=== PATIENT | female | born 1960 | race Caucasian/White ===

== ENCOUNTER 2018-10-06 00:41 | Inpatient (IN) | payer MEDICARE, OTHER ==
--- NOTE | 2018-10-06 00:45 | ED ---
General Adult HPI - General Stated complaint: Fall, weakness Time Seen by Provider: 10/06/18 00:45 - History of Present Illness Initial comments: Rosa Isela is a 57-year-old female who presents to the ED today via EMS as a transfer from an outside facility. Patient presented to outside facility earlier today feeling febrile, lightheaded, nauseated, feeling very unwell. Workup at the outside facility revealed the patient had hyponatremia with a sodium of 121, as well as a urinary tract infection and lactic acidosis. Patient was treated with 2 L of IV fluids, 1 g of Rocephin and was subsequently transferred to our facility for further management. Daughter bedside states that her mother recently had a GI bug, most people in the family have similar symptoms with nausea and diarrhea. Patient subsequently must of developed a urinary tract infection however this wasn't recognized until the patient became very ill today at which time she was transferred to the hospital for evaluation. Daughter expresses some concern that her mother is not compliant with her medications including not taking her diabetes medications. Patient has been diagnosed with obstructive sleep apnea but refuses to wear CPAP. Patient's noncompliant with the diabetic diet, she is a heavy smoker. The daughter bedside states that she been living out of state but now has moved to the area to help care for her mother. - Related Data Allergies Allergy/AdvReac Type Severity Reaction Status Date / Time fluoxetine [From Prozac] Allergy Unknown Verified 10/06/18 01:13 latex AdvReac Rash/Hives Verified 10/06/18 01:13 Review of Systems ROS Statement: Those systems with pertinent positive or pertinent negative responses have been documented in the HPI. ROS Other: All systems not noted in ROS Statement are negative. General Exam - General Exam Comments Initial Comments: Physical Exam GENERAL: Ill-appearing, obese female in moderate distress HENT: Normocephalic, Atraumatic. EYES: PERRL, EOMI PULMONARY: Unlabored respirations. No audible rales rhonchi or wheezing was noted. CARDIOVASCULAR: There is a regular rate and rhythm without any murmurs gallops or rubs. ABDOMEN: Obese Soft, nontender, normal active bowel sounds SKIN: Skin is clear with no lesions or rashes and otherwise unremarkable. Skin is moist and warm to the touch : Deferred NEUROLOGIC: Patient is alert and oriented x3. Moving all extremities spontaneously MUSCULOSKELETAL: Normal extremities with adequate strength and full range of motion. No lower extremity swelling or edema. No calf tenderness. PSYCHIATRIC: Normal psychiatric evaluation. Limitations: no limitations Course Vital Signs 10/06/18 10/06/18 00:52 02:00 Temperature 98.5 F Pulse Rate 74 72 Respiratory 18 20 Rate Blood Pressure 106/68 106/68 O2 Sat by Pulse 95 97 Oximetry EKG Findings - EKG Comments: EKG Findings:: EKG obtained at 12:54 AM, rate is 74, rhythm is sinus, there is normal axis, normal intervals, no acute ST elevations or depressions no evidence of acute ischemia or infarction Medical Decision Making - Medical Decision Making Patient care was discussed with the transferring physician, patient presented there lightheaded, febrile, feeling unwell X A full sepsis workup was obtained at the outside facility which revealed a urinary tract infection as well as lactic acidosis with a lactic acid of 4.1 and hyponatremia with a sodium of 121 Patient was treated with 1 g of Rocephin for urinary tract infection, 2 L of IV fluids, patient remained hemodynamically stable and transferred here for further management Repeat labs were obtained Sodium improved to 127, I will continue with maintenance fluids as I don't want overcorrect the sodium too quickly - Lab Data Result diagrams: 10/06/18 01:00 10/06/18 01:00 Lab Results 10/06/18 10/06/18 10/06/18 Range/Units 01:00 01:00 01:00 WBC 13.1 H (3.8-10.6) k/uL RBC 4.64 (3.80-5.40) m/uL Hgb 13.9 (11.4-16.0) gm/dL Hct 43.6 (34.0-46.0) % MCV 93.9 (80.0-100.0) fL MCH 30.0 (25.0-35.0) pg MCHC 32.0 (31.0-37.0) g/dL RDW 13.0 (11.5-15.5) % Plt Count 109 L (150-450) k/uL Neutrophils % 89 % Lymphocytes % 6 % Monocytes % 3 % Eosinophils % 0 % Basophils % 0 % Neutrophils # 11.7 H (1.3-7.7) k/uL Lymphocytes # 0.7 L (1.0-4.8) k/uL Monocytes # 0.4 (0-1.0) k/uL Eosinophils # 0.1 (0-0.7) k/uL Basophils # 0.0 (0-0.2) k/uL PT (9.0-12.0) sec INR (<1.2) APTT (22.0-30.0) sec Sodium 127 L (137-145) mmol/L Potassium 3.9 (3.5-5.1) mmol/L Chloride 96 L (98-107) mmol/L Carbon Dioxide 20 L (22-30) mmol/L Anion Gap 11 mmol/L BUN 22 H (7-17) mg/dL Creatinine 0.79 (0.52-1.04) mg/dL Est GFR (CKD-EPI)AfAm >90 (>60 ml/min/1.73 sqM) Est GFR (CKD-EPI)NonAf 85 (>60 ml/min/1.73 sqM) Glucose 343 H (74-99) mg/dL Plasma Lactic Acid Noe 1.3 (0.7-2.0) mmol/L Calcium 7.2 L (8.4-10.2) mg/dL Total Bilirubin 0.7 (0.2-1.3) mg/dL AST 21 (14-36) U/L ALT 30 (9-52) U/L Alkaline Phosphatase 66 (38-126) U/L Troponin I (0.000-0.034) ng/mL Total Protein 5.2 L (6.3-8.2) g/dL Albumin 2.8 L (3.5-5.0) g/dL 10/06/18 10/06/18 Range/Units 01:00 01:00 WBC (3.8-10.6) k/uL RBC (3.80-5.40) m/uL Hgb (11.4-16.0) gm/dL Hct (34.0-46.0) % MCV (80.0-100.0) fL MCH (25.0-35.0) pg MCHC (31.0-37.0) g/dL RDW (11.5-15.5) % Plt Count (150-450) k/uL Neutrophils % % Lymphocytes % % Monocytes % % Eosinophils % % Basophils % % Neutrophils # (1.3-7.7) k/uL Lymphocytes # (1.0-4.8) k/uL Monocytes # (0-1.0) k/uL Eosinophils # (0-0.7) k/uL Basophils # (0-0.2) k/uL PT 10.7 (9.0-12.0) sec INR 1.1 (<1.2) APTT 26.0 (22.0-30.0) sec Sodium (137-145) mmol/L Potassium (3.5-5.1) mmol/L Chloride (98-107) mmol/L Carbon Dioxide (22-30) mmol/L Anion Gap mmol/L BUN (7-17) mg/dL Creatinine (0.52-1.04) mg/dL Est GFR (CKD-EPI)AfAm (>60 ml/min/1.73 sqM) Est GFR (CKD-EPI)NonAf (>60 ml/min/1.73 sqM) Glucose (74-99) mg/dL Plasma Lactic Acid Noe (0.7-2.0) mmol/L Calcium (8.4-10.2) mg/dL Total Bilirubin (0.2-1.3) mg/dL AST (14-36) U/L ALT (9-52) U/L Alkaline Phosphatase (38-126) U/L Troponin I <0.012 (0.000-0.034) ng/mL Total Protein (6.3-8.2) g/dL Albumin (3.5-5.0) g/dL Disposition Clinical Impression: Urinary tract infection, Sepsis, Lactic acidosis, Hyponatremia, Poorly controlled diabetes mellitus, Non compliance w medication regimen Disposition: ADMITTED IP TO THIS HOSP Condition: Serious
[2018-10-06] MEDS ORDERED: NALOXONE 0.4 MG/ML 1 ML VIAL IV PRN (01:05)
[2018-10-06] MEDS ORDERED: ACETAMINOPHEN TAB 325 MG TAB PO PRN (01:05)
[2018-10-06 01:19] LABS: Glucose,Whole Blood 317 mg/dL (75-99)
[2018-10-06] MEDS: SODIUM CHLORIDE 0.9% 1,000 ML IV SCH ×3 (01:34→20:31)
[2018-10-06 01:36] LABS: Basophils % (A) 0 %; Eosinophils # (A) 0.1 k/uL (0-0.7); Eosinophils % (A) 0 %; HCT 43.6 % (34.0-46.0); HGB 13.9 gm/dL (11.4-16.0); Lymphocytes # (A) 0.7 k/uL (1.0-4.8); Lymphocytes % (A) 6 %; MCV 93.9 fL (80.0-100.0); Mean Platelet Volume 7.6; Monocytes # (A) 0.4 k/uL (0-1.0); Monocytes % (A) 3 %; Neutrophils # (A) 11.7 k/uL (1.3-7.7); Neutrophils % (A) 89 %; Platelet Count 109 k/uL (150-450); RBC 4.64 m/uL (3.80-5.40); WBC 13.1 k/uL (3.8-10.6)
[2018-10-06 01:43] LABS: INR 1.1 (<1.2); Prothrombin Time 10.7 sec (9.0-12.0)
[2018-10-06 01:44] LABS: ALT 30 U/L (9-52); AST 21 U/L (14-36); Albumin 2.8 g/dL (3.5-5.0); Alkaline Phosphatase 66 U/L (38-126); Anion Gap 11 mmol/L; Blood Urea Nitrogen 22 mg/dL (7-17); Calcium 7.2 mg/dL (8.4-10.2); Carbon Dioxide 20 mmol/L (22-30); Chloride 96 mmol/L (98-107); Glucose 343 mg/dL (74-99); Potassium 3.9 mmol/L (3.5-5.1); Sodium 127 mmol/L (137-145); Total Bilirubin 0.7 mg/dL (0.2-1.3); Total Protein 5.2 g/dL (6.3-8.2)
[2018-10-06] MEDS ORDERED: INSULIN REGULAR 100 UNIT/ML VIAL SQ ONE (03:11)
[2018-10-06 04:32] VITALS: BMI 45.7
[2018-10-06 05:39] LABS: Appearance,Urine Clear (Clear); Bacteria,Urine Rare /hpf; Bilirubin,Urine Negative (Negative); Blood,Urine Small (Negative); Color,Urine Light Yellow; Glucose,Urine (UA) 4+ (Negative); Ketones,Urine 1+ (Negative); Leukocyte Esterase,Urine Moderate (Negative); Mucus,Urine Rare /hpf; Nitrite,Urine Negative (Negative); Protein,Urine Negative (Negative); RBC,Urine 1 /hpf (0-5); Specific Gravity,Urine 1.004 (1.001-1.035); Urobilinogen,Urine <2.0 mg/dL (<2.0); WBC,Urine 19 /hpf (0-5)
[2018-10-06 07:37] LABS: Glucose,Whole Blood 373 mg/dL (75-99)
[2018-10-06] MEDS: INSULIN ASPART 100 UNIT/ML 1 ML 10 ML VIAL SQ SCH ×4 (08:01→21:28)
[2018-10-06 10:09] LABS: Sodium 130 mmol/L (137-145)
[2018-10-06] MEDS: INSULIN DETEMIR 100 UNIT/ML 10 ML VIAL SQ SCH ×2 (12:01→22:29)
--- NOTE | 2018-10-06 12:06 | XR ---
EXAMINATION TYPE: XR chest 1V portable DATE OF EXAM: 10/06/2018 HISTORY: Shortness of breath. COMPARISON: None. TECHNIQUE: Single view of the chest is submitted. FINDINGS: Demonstrated are scattered senescent parenchymal change. There is no evidence for focal infiltrate. The heart is stable. Hilar and mediastinal structures are within normal limits. Degenerative changes are seen of the dorsal spine. IMPRESSION: 1. Chronic changes without evidence for acute pulmonary disease.
[2018-10-06 12:50] LABS: Glucose,Whole Blood 345 mg/dL (75-99)
[2018-10-06 13:27] LABS: Basophils % (A) 0 %; Eosinophils % (A) 0 %; HCT 42.5 % (34.0-46.0); HGB 13.4 gm/dL (11.4-16.0); Lymphocytes # (A) 0.7 k/uL (1.0-4.8); Lymphocytes % (A) 6 %; MCH 30.5 pg (25.0-35.0); MCHC 31.5 g/dL (31.0-37.0); MCV 96.7 fL (80.0-100.0); Mean Platelet Volume 8.9; Monocytes # (A) 0.3 k/uL (0-1.0); Monocytes % (A) 3 %; Neutrophils # (A) 10.4 k/uL (1.3-7.7); Neutrophils % (A) 90 %; Platelet Count 117 k/uL (150-450); RDW 13.1 % (11.5-15.5); WBC 11.6 k/uL (3.8-10.6)
[2018-10-06 13:44] LABS: ALT 27 U/L (9-52); AST 22 U/L (14-36); Albumin 2.5 g/dL (3.5-5.0); Alkaline Phosphatase 70 U/L (38-126); Anion Gap 14 mmol/L; Blood Urea Nitrogen 20 mg/dL (7-17); Calcium 7.5 mg/dL (8.4-10.2); Carbon Dioxide 19 mmol/L (22-30); Chloride 97 mmol/L (98-107); Glucose 404 mg/dL (74-99); Magnesium 1.8 mg/dL (1.6-2.3); Potassium 3.5 mmol/L (3.5-5.1); Total Bilirubin 0.7 mg/dL (0.2-1.3); Total Protein 5.1 g/dL (6.3-8.2)
[2018-10-06] MEDS: IBUPROFEN 400 MG TAB PO PRN ×2 (14:52→20:27)
--- NOTE | 2018-10-06 16:03 | US ---
EXAMINATION TYPE: US renals and bladder DATE OF EXAM: 10/06/2018 COMPARISON: NONE CLINICAL HISTORY: 57-year-old female recurrent UTI and bacteremia. History of renal stones TECHNIQUE: Multiple sonographic images of the kidneys and bladder are obtained. FINDINGS: EXAM MEASUREMENTS: Right Kidney: 14.8 x 5.7 x 5.6 cm Left Kidney: 15.1 x 5.7 x 6.4 cm Right Kidney: Appears large is size. Possible dromedary hump. Left Kidney: Appears large in size. Very limited visualization due to patient body habitus. Questio n dromedary hump vs lesion = 6.9 x 4.1 x 4.2 cm . No evident hydronephrosis on either side. Bladder: Not seen due to catheter Bilateral Jets not seen IMPRESSION: 1. No evident hydronephrosis. 2. The kidneys measure slightly large. Large kidneys can be seen with tall patients. Clinically corre late. Otherwise, some differential considerations include diabetic nephropathy, acute interstitial ne phritis, vasculitis, and autoimmune disease. 3. Question of either dromedary humps (normal variation) versus underlying renal lesions measuring up to 6.9 cm, particularly on the left. Follow-up contrast enhanced CT can exclude a suspicious lesion.
[2018-10-06 17:06] LABS: Glucose,Whole Blood 337 mg/dL (75-99)
[2018-10-06] MEDS ORDERED: INSULIN ASPART 100 UNIT/ML 1 ML 10 ML VIAL SQ ONE ×2 (17:41→21:18)
[2018-10-06 18:23] LABS: Hemoglobin A1C 12.2 % (4.0-6.0)
[2018-10-06] MEDS: PANTOPRAZOLE 40 MG/10 ML VIAL IVP SCH (18:31)
--- NOTE | 2018-10-06 18:34 | CONS ---
CONSULTATION DATE OF SERVICE: 10/06/2018 REASON FOR CONSULTATION: Gram-negative bacteremia. HISTORY OF PRESENT ILLNESS: The patient is a 57-year-old female who has a history of medullary sponge kidney and history of recurrent urinary tract infections. The patient has been managed in the outpatient setting. The patient presented to the [facility] ER with the chief complaints of feeling lightheaded, nauseated, unwell, with a fever. Her symptoms had been going on for a day or two before she presented to the outside facility. The patient did have some vague lower abdominal pain, 2 to 3 out of 10, and no radiation with associated nausea and vomiting but no diarrhea. She did have slight burning of the urine but no hematuria. With these symptoms the patient was evaluated in the outpatient facility, where the patient was noted to have a positive UA, lactic acidosis. She received 2 L of IV fluid and a gram of Rocephin and was subsequently transferred to [facility] ER for further evaluation of the same. Since the patient has been at this facility, her blood culture came back positive for gram- negative bacilli. That prompted this infectious disease consultation. The patient does give a history of recurrent UTIs in the outpatient setting and apparently the patient says she is able at times to take care of them by taking oral Cipro, but this time she did not get it in time. REVIEW OF SYSTEMS: Positive points have been mentioned in the HPI. The rest of the systems has been negative. PAST MEDICAL HISTORY: Significant for: 1. Recurrent urinary tract infections. 2. Medullary sponge kidney. 3. Insulin-dependent diabetes mellitus. PAST SURGICAL HISTORY: No major surgeries. SOCIAL HISTORY: Denies smoking, drinking or drug use. FAMILY HISTORY: No pertinent findings were noticed. ALLERGIES: FLUOXETINE and LATEX. MEDICATIONS: Medications currently include: 1. Rocephin 2 grams daily. 2. Levemir. 3. NovoLog. 4. Motrin. 5. Tylenol. PHYSICAL EXAMINATION: Her blood pressure is 110/58 with a pulse of 73, temperature 97. She is 95% on room air. General description is a middle-aged female lying in bed in no distress. No tachypnea or accessory muscle of respiration use. HEENT examination shows no pallor or scleral icterus. Oral mucous membrane is dry. No pharyngeal erythema or thrush. NECK: Trachea is central. No thyromegaly. LUNGS: Unlabored breathing. Clear to auscultation anteriorly. No wheeze or crackle. HEART: S1, S2. Regular rate and rhythm. No added sound. ABDOMEN: Soft. No tenderness. No guarding or rigidity. EXTREMITIES: No edema of feet. SKIN EXAMINATION: No rash or mass palpable. Neurologically, patient is awake, alert, oriented x3. Mood and affect normal. LABS: Hemoglobin is 13.4, white count 11.6. Admission white count was 13,000. BUN of 20, creatinine 0.73. Urine is positive for moderate leukocyte esterase and 19 WBCs. Blood culture in outpatient facility with gram-negative bacilli. DIAGNOSTIC IMPRESSION AND PLAN: Patient admitted to hospital with sepsis in this patient who did have nausea, not feeling well, urinary symptoms of burning, in a patient who does have a history of recurrent UTI with positive UA and elevated white count. Likely source of the sepsis is a urinary tract infection, question of possible pyelonephritis. PLAN: 1. We will obtain an ultrasound of the kidneys and vaginal area to make sure no evidence of any abnormality or abscess. 2. Rocephin 2 grams IV piggyback daily. 3. IV fluid. 4. Will follow up on clinical condition as well as cultures to further adjust medication if needed. Thank you for this consultation. Will follow this patient along with you. MMODL / IJN: [id number] /
[2018-10-06 20:52] LABS: Glucose,Whole Blood 415 mg/dL (75-99)
[2018-10-06] MEDS ORDERED: Potassium Replacement Protocol 1 EACH MISC MISCELLANE PRN (21:29)
[2018-10-06] MEDS ORDERED: glipiZIDE 10 MG TAB PO SCH (21:45)
[2018-10-06] MEDS: HEPARIN SODIUM,PORCINE 5,000 UNIT/ML 1 ML VIAL SQ SCH (21:48)
--- NOTE | 2018-10-06 21:49 | P.HPIM ---
History of Present Illness H&P Date: 10/06/18 Chief Complaint: Nausea. vomiting, weakness Rosa Isela is a 57-year-old female who transferred from [facility] to [facility] today via EMS. Patient initially presented to [facility] earlier today feeling febrile, lightheaded, nauseated, feeling very unwell. Workup at the outside facility revealed the patient had hyponatremia with a sodium of 121 , as well as a urinary tract infection and lactic acidosis,fevers and chills. Patient was treated with 2 L of IV fluids, 1 g of Rocephin. Daughter bedside states that her mother recently had a GI bug, most people in the family have similar symptoms with nausea and diarrhea. Patient subsequently must of developed a urinary tract infection however this wasn't recognized until the patient became very ill today at which time she was transferred to the hospital for evaluation. Daughter expresses some concern that her mother is not compliant with her medications including not taking her diabetes medications. Patient has been diagnosed with obstructive sleep apnea but refuses to wear CPAP. Patient's noncompliant with the diabetic diet, she is a heavy smoker. The daughter bedside states that she been living out of state but now has moved to the area to help care for her mother.Chart currently unavailable, data obtained from staff and ER record. Patient presenting with severe sepsis secondary to bacteremia secondary to UTI, possible pyelonephritis. Hyponatremic in a patient who had been on hydrochlorothiazide. [place] blood cultures called in as gram-negative bacilli. Hyperglycemic.Receiving IV fluid hydration, IV antibiotics, feeling better now. Denies no further nausea. Afebrile, leukocytosis improving, WBC down to 11.6. Maintaining O2 sats of 95% on room air. UA suggestive of possible UTI, patient asymptomaticstates though given multiple cystoscopies, kidney stones, recurrent UTIs- "no longer has symptoms with with her UTIs," medullary sponge kidney. 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 Chest x-ray nonacute. EKG NSR. Review of Systems Review of systems: CONSTITUTIONAL: No fever, no malaise, positive fatigue. HEENT: No recent visual problems or hearing problems. Denied any sore throat. CARDIOVASCULAR: No chest pain, orthopnea, PND, no palpitations, no syncope. PULMONARY: No shortness of breath, no cough, no hemoptysis. GASTROINTESTINAL: No diarrhea, no further nausea, no further vomiting, no abdominal pain. Normoactive bowel sounds. NEUROLOGICAL: No headaches, no weakness, no numbness. HEMATOLOGICAL: Denies any bleeding or petechiae. GENITOURINARY: Denies any burning micturition, frequency, or urgency. MUSCULOSKELETAL/RHEUMATOLOGICAL: Denies any joint pain, swelling, or any muscle pain. ENDOCRINE: Denies any polyuria or polydipsia. PSYCHIATRIC: No anxiety, no depression The rest of the 14 point review of systems is negative Past Medical History Past Medical History: COPD, Diabetes Mellitus, Hyperlipidemia, Hypertension, Pneumonia, Renal Disease Additional Past Medical History / Comment(s): heart murmur. frequent UTIs, kidney stones, neuropathy History of Any Multi-Drug Resistant Organisms: C-DIFF, MRSA, VRE Date of last positivie culture/infection: 2015 MDRO Source:: MRSA- left leg, VRE - urine, C-diff Past Surgical History: Section Additional Past Surgical History / Comment(s): 3 . hysterectomy. kidney surgery - stones. right knee surgery. right sided mastitis 09/2018 with lancing, debridement, and packing Additional Past Anesthesia/Blood Transfusion Reaction / Comment(s): states she had a hard time waking up from anesthesia Past Psychological History: Depression Smoking Status: Current every day smoker Past Alcohol Use History: None Reported Past Drug Use History: None Reported - Past Family History Daughter(s) Additional Family Medical History / Comment(s): diverticulitis, depression, Medications and Allergies Home Medications Medication Instructions Recorded Confirmed Type Cholecalciferol [Vitamin D3] 1,000 unit PO DAILY 10/06/18 10/06/18 History Cyanocobalamin [Vitamin B-12] 500 mcg PO DAILY 10/06/18 10/06/18 History Fluconazole [Diflucan] 150 mg PO DIRECTED 10/06/18 10/06/18 History Gabapentin [Neurontin] 300 mg PO DAILY 10/06/18 10/06/18 History Gabapentin [Neurontin] 600 mg PO BID 10/06/18 10/06/18 History Liraglutide [Victoza 3-Dwayne] 1.8 mg SQ DAILY 10/06/18 10/06/18 History Lisinopril-Hctz 20-12.5 mg 1 tab PO DAILY 10/06/18 10/06/18 History [Zestoretic 20-12.5] Lovastatin [Mevacor] 40 mg PO HS 10/06/18 10/06/18 History Metoprolol Tartrate [Lopressor] 100 mg PO BID 10/06/18 10/06/18 History PARoxetine HCL [Paxil] 40 mg PO DAILY 10/06/18 10/06/18 History PARoxetine [Paxil] 20 mg PO DAILY 10/06/18 10/06/18 History Ranitidine HCl 300 mg PO HS 10/06/18 10/06/18 History buPROPion SR [Wellbutrin Sr] 150 mg PO BID 10/06/18 10/06/18 History glipiZIDE [Glucotrol] 10 mg PO DAILY 10/06/18 10/06/18 History metFORMIN HCL 1,000 mg PO BID 10/06/18 10/06/18 History Allergies Allergy/AdvReac Type Severity Reaction Status Date / Time latex Allergy Rash/Hives Verified 10/06/18 09:02 fluoxetine [From Prozac] AdvReac Rapid Verified 10/06/18 09:02 Heart Rate Physical Exam Vitals: Vital Signs Temp Pulse Pulse Resp BP BP Pulse Ox 10/06/18 12:45 97.0 F L 73 20 110/58 95 10/06/18 08:14 97.2 F L 79 20 106/60 98 10/06/18 04:16 97.6 F 70 18 100/63 96 10/06/18 03:10 98.1 F 70 20 111/65 97 10/06/18 02:00 72 20 106/68 97 10/06/18 00:52 98.5 F 74 18 106/68 95 Intake and Output 10/06/18 10/06/18 10/06/18 06:59 14:59 22:59 Intake Total 300 800 Output Total 1200 2000 Balance -900 -1200 Intake: Amount of Fluid Infused ( 100 ml) Intake, IV Titration 800 Amount Sodium Chloride 0.9% 1, 800 000 ml @ 100 mls/hr IV . Q10H FOR[facility]LY [facility], 1928–1983 Rx#:[id number] Oral 200 Output: Urine 1200 2000 Other: Voiding Method Indwelling Catheter Indwelling Catheter Weight 132.449 kg PHYSICAL EXAM: VITAL SIGNS: As above GENERAL: Sitting up in bed, no acute distress. Obese. HEENT: Conjunctivae normal. eyes normal. Oral mucosa moist NECK: No JVD. No thyroid enlargement. No LNs CARDIOVASCULAR: S1, S2 muffled. Regular rate and rhythm, No murmur RESPIRATION: Unlabored, Breath sounds diminished in the bases. No rhonchi or crackles. No wheezing ABDOMEN: Soft, obese, nontender . No guarding. no masses palpable. Bowel sounds heard. LEGS: No edema. no swelling PSYCHIATRY: Alert and oriented -3, mood and affect normal. NERVOUS SYSTEM: Cranial N 2-12 grossly normal. Moves all 4 limbs. Diffuse weakness No focal deficits. Skin: no ulcer no rash Joints: No active swelling. No inflammation. Lymphatic system. No LN neck axilla or groin. Results CBC & Chem 7: 10/06/18 09:34 10/06/18 09:34 Labs: Abnormal Lab Results - Last 24 Hours (Table) 10/06/18 10/06/18 10/06/18 Range/Units 01:00 01:00 01:17 WBC 13.1 H (3.8-10.6) k/uL Plt Count 109 L (150-450) k/uL Neutrophils # 11.7 H (1.3-7.7) k/uL Lymphocytes # 0.7 L (1.0-4.8) k/uL Sodium 127 L (137-145) mmol/L Chloride 96 L (98-107) mmol/L Carbon Dioxide 20 L (22-30) mmol/L BUN 22 H (7-17) mg/dL Glucose 343 H (74-99) mg/dL POC Glucose (mg/dL) 317 H (75-99) mg/dL Calcium 7.2 L (8.4-10.2) mg/dL Total Protein 5.2 L (6.3-8.2) g/dL Albumin 2.8 L (3.5-5.0) g/dL Urine Glucose (UA) (Negative) Urine Ketones (Negative) Urine Blood (Negative) Ur Leukocyte Esterase (Negative) Urine WBC (0-5) /hpf Urine Bacteria (None) /hpf Urine Mucus (None) /hpf 10/06/18 10/06/18 10/06/18 Range/Units 05:30 07:33 09:34 WBC (3.8-10.6) k/uL Plt Count (150-450) k/uL Neutrophils # (1.3-7.7) k/uL Lymphocytes # (1.0-4.8) k/uL Sodium 130 L (137-145) mmol/L Chloride 97 L (98-107) mmol/L Carbon Dioxide 19 L (22-30) mmol/L BUN 20 H (7-17) mg/dL Glucose 404 H (74-99) mg/dL POC Glucose (mg/dL) 373 H (75-99) mg/dL Calcium 7.5 L (8.4-10.2) mg/dL Total Protein 5.1 L (6.3-8.2) g/dL Albumin 2.5 L (3.5-5.0) g/dL Urine Glucose (UA) 4+ H (Negative) Urine Ketones 1+ H (Negative) Urine Blood Small H (Negative) Ur Leukocyte Esterase Moderate H (Negative) Urine WBC 19 H (0-5) /hpf Urine Bacteria Rare H (None) /hpf Urine Mucus Rare H (None) /hpf 10/06/18 10/06/18 Range/Units 09:34 12:40 WBC 11.6 H (3.8-10.6) k/uL Plt Count 117 L (150-450) k/uL Neutrophils # 10.4 H (1.3-7.7) k/uL Lymphocytes # 0.7 L (1.0-4.8) k/uL Sodium (137-145) mmol/L Chloride (98-107) mmol/L Carbon Dioxide (22-30) mmol/L BUN (7-17) mg/dL Glucose (74-99) mg/dL POC Glucose (mg/dL) 345 H (75-99) mg/dL Calcium (8.4-10.2) mg/dL Total Protein (6.3-8.2) g/dL Albumin (3.5-5.0) g/dL Urine Glucose (UA) (Negative) Urine Ketones (Negative) Urine Blood (Negative) Ur Leukocyte Esterase (Negative) Urine WBC (0-5) /hpf Urine Bacteria (None) /hpf Urine Mucus (None) /hpf Microbiology - Last 24 Hours (Table) 10/06/18 05:30 Urine Culture - Preliminary Urine,Catheterized Thrombosis Risk Factor Assmnt - Choose All That Apply Each Factor Represents 1 point: Age 41-60 years, Obesity (BMI >25), Sepsis (< 1month), Swollen legs (current) Thrombosis Risk Factor Assessment Total Risk Factor Score: 4 Thrombosis Risk Factor Assessment Level: Moderate Risk Assessment and Plan Assessment: -Severe sepsis secondary to bacteremia, acute UTI with possible acute pyelonephritis, in a patient with history of recurrent UTI,maintained on IV antibiotics of Rocephin -Bacteremia secondary to the above, gram-negative reported from [place], repeat blood cultures ordered -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 Maintain IV fluids, Rocephin 2 g IV piggyback daily. Renal ultrasound ordered. Repeat blood cultures, urine culture with micro. Hemoglobin A1c pending. Lantus added to med regime. Close Monitoring of Accu- Cheks. Close monitoring of electrolytes, renal function, with repeat labs ordered for a.m. infectious disease and nephrology consulted. GI and DVT prophylaxis in place. Prognosis guarded given multiple complex medical issues. The impression and plan of care has been dictated as directed. : I performed a history and examination of this patient, discussed the same with the dictator. I agree with the dictator's note ,documented as a scribe. Any additional findings or plans will be noted. Time taken: 35 minutes Time with Patient: Greater than 30
[2018-10-06] MEDS: GABAPENTIN 300 MG CAP PO SCH (22:29)
--- NOTE | 2018-10-06 22:48 | CONS ---
CONSULTATION REASON FOR CONSULT: Hyponatremia. HISTORY OF PRESENT ILLNESS: Patient is a 57-year-old female who was admitted to the hospital with complaints of weakness. She was lightheaded. She did have a fever as well. Patient had abdominal pain. She initially presented to hospital in [place], where she was found to have a positive UA and was transferred to [place]. Urine culture is growing gram-negative bacilli. Serum sodium was 127 at the time of admission. We do not have any previous labs available. Patient denies any previous history of hyponatremia. She did state that she had been having diarrhea as well prior to admission along with nausea and vomiting. Currently patient is maintained on normal saline. Her sodium has improved to 130 today. PAST MEDICAL HISTORY: Significant for: 1. Medullary sponge kidney. 2. Type 2 diabetes. 3. Previous history of urinary tract infections. SOCIAL HISTORY: Negative for smoking, drug abuse or alcohol abuse. ALLERGIES: ALLERGIES INCLUDE: 1. FLUOXETINE. 2. LATEX. PAST SURGICAL HISTORY: None. MEDICATIONS: Medications at home prior to admission included: 1. Motrin. 2. Insulin. 3. Patient received Rocephin in [place]. REVIEW OF SYSTEMS: As per HPI. Other systems negative. PHYSICAL EXAMINATION: Patient is comfortable, awake, not in any acute distress. This morning blood pressure was 106/60, heart rate 79 per minute. She is afebrile. EXAMINATION OF THE HEART: S1, S2. EXAMINATION OF LUNGS: Bilateral breath sounds are heard. ABDOMEN: Soft, non-tender, obese. Examination of lower extremities shows no evidence of edema. MEDICAL RECORDS MANAGER exam is grossly intact. LABS: Serum creatinine 0.73, sodium 130, potassium 3.5. CO2 is 19, hemoglobin 13.4. UA shows 4+ glucose, negative protein. Random urine sodium was ordered, which was at 17. ASSESSMENT: 1. Hypovolemic hyponatremia, currently improving with normal saline, which we will continue. Patient is also encouraged to increase her oral protein intake. We will repeat labs in a.m. Random urine sodium urine osmolality has been ordered. Blood pressure is on the lower side. Patient may still be volume-depleted. 2. Intravascular volume depletion. Continue with IV fluids. 3. Urinary tract infection. Urine culture at outside facility growing gram-negative bacilli. Patient is being followed by ID and she is maintained on Rocephin. 4. Gastroesophageal reflux disease, currently maintained on Protonix. 5. Diabetes, maintained on insulin. 6. Mild hypokalemia associated with gastrointestinal fluid loss. Expect improvement with improved intake. 7. History of medullary sponge kidney. PLAN: Continue normal saline. Repeat labs in a.m. Patient is reassured regarding her labs. A kidney ultrasound has been ordered this admission which is fairly negative, with no evidence of cysts, stones or hydronephrosis. MMODL / IJN: [id number] /
[2018-10-07] MEDS: SODIUM CHLORIDE 0.9% 1,000 ML IV SCH ×2 (06:45→19:55)
[2018-10-07 07:33] LABS: Glucose,Whole Blood 279 mg/dL (75-99)
[2018-10-07] MEDS: INSULIN ASPART 100 UNIT/ML 1 ML 10 ML VIAL SQ SCH ×4 (07:41→21:10)
[2018-10-07 08:42] LABS: Basophils % (A) 0 %; Eosinophils % (A) 0 %; HCT 40.4 % (34.0-46.0); HGB 13.4 gm/dL (11.4-16.0); Lymphocytes # (A) 1.2 k/uL (1.0-4.8); Lymphocytes % (A) 9 %; MCH 31.4 pg (25.0-35.0); MCHC 33.1 g/dL (31.0-37.0); MCV 94.7 fL (80.0-100.0); Mean Platelet Volume 8.2; Monocytes # (A) 0.6 k/uL (0-1.0); Monocytes % (A) 4 %; Neutrophils # (A) 10.9 k/uL (1.3-7.7); Neutrophils % (A) 85 %; Platelet Count 134 k/uL (150-450); RBC 4.27 m/uL (3.80-5.40); RDW 13.2 % (11.5-15.5); WBC 12.9 k/uL (3.8-10.6)
[2018-10-07 08:53] LABS: Anion Gap 10 mmol/L; Blood Urea Nitrogen 20 mg/dL (7-17); Calcium 7.5 mg/dL (8.4-10.2); Carbon Dioxide 24 mmol/L (22-30); Chloride 98 mmol/L (98-107); Glucose 293 mg/dL (74-99); Magnesium 2.2 mg/dL (1.6-2.3); Potassium 3.5 mmol/L (3.5-5.1); Sodium 132 mmol/L (137-145)
[2018-10-07] MEDS: cefTRIAXone 2,000 MG in SODIUM CHLORIDE 0.9% 100 ML IVPB SCH (09:51)
[2018-10-07] MEDS: INSULIN DETEMIR 100 UNIT/ML 10 ML VIAL SQ SCH ×2 (09:53→21:10)
[2018-10-07] MEDS: GABAPENTIN 300 MG CAP PO SCH ×3 (09:55→21:15)
[2018-10-07] MEDS: HEPARIN SODIUM,PORCINE 5,000 UNIT/ML 1 ML VIAL SQ SCH ×2 (09:56→21:13)
[2018-10-07] MEDS: PANTOPRAZOLE 40 MG/10 ML VIAL IVP SCH (09:56)
[2018-10-07 11:35] LABS: Glucose,Whole Blood 243 mg/dL (75-99)
[2018-10-07] MEDS: CYANOCOBALAMIN 500 MCG TAB PO SCH (11:54)
[2018-10-07] MEDS: CHOLECALCIFEROL 1,000 UNIT TAB PO SCH (11:55)
[2018-10-07] MEDS ORDERED: POTASSIUM CHLORIDE ER 20 MEQ TAB.ER PO STA (12:38)
--- NOTE | 2018-10-07 12:42 | P.PN ---
Subjective Patient is seen in follow-up for hyponatremia. Sodium level is up to 132 today. She is currently maintained on normal saline at 75 mL an hour. Feels better today. Admits to good urine output. Oral intake gradually improving. Vital signs are stable. General: The patient appeared well nourished and normally developed. HEENT: Head exam is unremarkable. Neck is without jugular venous distension. LUNGS: Lungs are clear to auscultation and percussion. Breath sounds decreased. HEART: Rate and Rhythm are regular. First and second heart sounds normal. No murmurs, rubs or gallops. ABDOMEN: Abdominal exam reveals normal bowel sounds. Non-tender and non- distended. No evidence of peritonitis. EXTREMITITES: No clubbing, cyanosis, or edema. Objective - Vital Signs Vital signs: Vital Signs Temp 97.3 F L 10/07/18 08:20 Pulse 75 10/07/18 08:20 Resp 20 10/07/18 08:20 BP 126/80 10/07/18 08:20 Pulse Ox 96 10/07/18 08:20 Intake & Output 10/06/18 10/07/18 10/07/18 18:59 06:59 18:59 Intake Total 800 3000 Output Total 2700 3200 150 Balance -1900 -200 -150 Weight 132.449 kg Intake: Intake, IV Titration 800 1000 Amount Sodium Chloride 0.9% 1, 800 1000 000 ml @ 100 mls/hr IV . Q10H [facility] Rx#:[id number] Oral 2000 Output: Urine 2700 3200 150 Uretheral ([place]) 700 300 Other: Voiding Method Indwelling Catheter Indwelling Catheter # Voids 1 - Labs CBC & Chem 7: 10/07/18 08:21 10/07/18 08:21 Labs: Abnormal Lab Results - Last 24 Hours (Table) 10/06/18 10/06/18 10/06/18 Range/Units 01:00 09:34 09:34 WBC 11.6 H (3.8-10.6) k/uL Plt Count 117 L (150-450) k/uL Neutrophils # 10.4 H (1.3-7.7) k/uL Lymphocytes # 0.7 L (1.0-4.8) k/uL Sodium 130 L (137-145) mmol/L Chloride 97 L (98-107) mmol/L Carbon Dioxide 19 L (22-30) mmol/L BUN 20 H (7-17) mg/dL Glucose 404 H (74-99) mg/dL POC Glucose (mg/dL) (75-99) mg/dL Hemoglobin A1c 12.2 H (4.0-6.0) % Calcium 7.5 L (8.4-10.2) mg/dL Total Protein 5.1 L (6.3-8.2) g/dL Albumin 2.5 L (3.5-5.0) g/dL 10/06/18 10/06/18 10/06/18 Range/Units 12:40 17:02 20:51 WBC (3.8-10.6) k/uL Plt Count (150-450) k/uL Neutrophils # (1.3-7.7) k/uL Lymphocytes # (1.0-4.8) k/uL Sodium (137-145) mmol/L Chloride (98-107) mmol/L Carbon Dioxide (22-30) mmol/L BUN (7-17) mg/dL Glucose (74-99) mg/dL POC Glucose (mg/dL) 345 H 337 H 415 H (75-99) mg/dL Hemoglobin A1c (4.0-6.0) % Calcium (8.4-10.2) mg/dL Total Protein (6.3-8.2) g/dL Albumin (3.5-5.0) g/dL 10/07/18 10/07/18 10/07/18 Range/Units 07:14 08:21 08:21 WBC 12.9 H (3.8-10.6) k/uL Plt Count 134 L (150-450) k/uL Neutrophils # 10.9 H (1.3-7.7) k/uL Lymphocytes # (1.0-4.8) k/uL Sodium 132 L (137-145) mmol/L Chloride (98-107) mmol/L Carbon Dioxide (22-30) mmol/L BUN 20 H (7-17) mg/dL Glucose 293 H (74-99) mg/dL POC Glucose (mg/dL) 279 H (75-99) mg/dL Hemoglobin A1c (4.0-6.0) % Calcium 7.5 L (8.4-10.2) mg/dL Total Protein (6.3-8.2) g/dL Albumin (3.5-5.0) g/dL 10/07/18 Range/Units 11:33 WBC (3.8-10.6) k/uL Plt Count (150-450) k/uL Neutrophils # (1.3-7.7) k/uL Lymphocytes # (1.0-4.8) k/uL Sodium (137-145) mmol/L Chloride (98-107) mmol/L Carbon Dioxide (22-30) mmol/L BUN (7-17) mg/dL Glucose (74-99) mg/dL POC Glucose (mg/dL) 243 H (75-99) mg/dL Hemoglobin A1c (4.0-6.0) % Calcium (8.4-10.2) mg/dL Total Protein (6.3-8.2) g/dL Albumin (3.5-5.0) g/dL Microbiology - Last 24 Hours (Table) 10/06/18 05:30 Urine Culture - Final Urine,Catheterized 10/06/18 22:07 Blood Culture Gram Stain - Preliminary Blood Blood Culture - Final Coagulase Negative Staph 10/06/18 01:00 Blood Culture - Final Blood 10/06/18 12:30 Urine Culture - Preliminary Urine,Catheterized Assessment and Plan Plan: Assessment: 1. Hypovolemic hyponatremia improving with IV hydration. Sodium level of 132 today. 2. Gram-positive cocci bacteremia maintained on IV antibiotics. 3. Mild hypokalemia from GI losses and poor oral intake. Magnesium normal. 4. History of GERD. Plan: Maintain normal saline at 75 mL an hour. Follow-up cultures. Replace potassium. 40 mEq today. Encourage oral intake.
[2018-10-07] MEDS ORDERED: ONDANSETRON 4 MG/2 ML VIAL IVP PRN (13:37)
--- NOTE | 2018-10-07 16:09 | P.PN ---
Subjective Progress Note Date: 10/07/18 Progress note being dictated for Dr. Thomas. Interval history:Rosa Isela is a 57-year-old female who transferred from [facility] to [facility] today via EMS. Patient initially presented to [facility] earlier today feeling febrile, lightheaded, nauseated, feeling very unwell. Workup at the outside facility revealed the patient had hyponatremia with a sodium of 121, as well as a urinary tract infection and lactic acidosis,fevers and chills. Patient was treated with 2 L of IV fluids, 1 g of Rocephin. Daughter bedside states that her mother recently had a GI bug, most people in the family have similar symptoms with nausea and diarrhea. Patient subsequently must of developed a urinary tract infection however this wasn't recognized until the patient became very ill today at which time she was transferred to the hospital for evaluation. Daughter expresses some concern that her mother is not compliant with her medications including not taking her diabetes medications. Patient has been diagnosed with obstructive sleep apnea but refuses to wear CPAP. Patient's noncompliant with the diabetic diet, she is a heavy smoker. The daughter bedside states that she been living out of state but now has moved to the area to help care for her mother.Chart currently unavailable, data obtained from staff and ER record. Patient presenting with severe sepsis secondary to bacteremia secondary to UTI, possible pyelonephritis. Hyponatremic in a patient who had been on hydrochlorothiazide. [place] blood cultures called in as gram-negative bacilli. Hyperglycemic.Receiving IV fluid hydration, IV antibiotics, feeling better now. Denies no further nausea. Afebrile, leukocytosis improving, WBC down to 11.6. Maintaining O2 sats of 95% on room air. UA suggestive of possible UTI, patient asymptomaticstates though given multiple cystoscopies, kidney stones, recurrent UTIs- "no longer has symptoms with with her UTIs," medullary sponge kidney. 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 Chest x-ray nonacute. EKG NSR. 10/07/2018 feels much better this morning, has been up to the shower, tolerating exertion well. Maintained on IV fluids with sodium up to 132. Oral intake improving. Blood sugars trending down. Final [place] blood results pending. Repeat blood cultures reporting contamination, coagulase-negative staph. Afebrile. Met with inclusion paraeducator this morning. Objective - Vital Signs Vital signs: Vital Signs Temp 97.3 F L 10/07/18 08:20 Pulse 80 10/07/18 13:44 Resp 20 10/07/18 13:44 BP 110/70 10/07/18 13:44 Pulse Ox 98 10/07/18 13:44 Intake & Output 10/06/18 10/07/18 10/07/18 18:59 06:59 18:59 Intake Total 800 3000 Output Total 2700 3200 650 Balance -1900 -200 -650 Weight 132.449 kg Intake: Intake, IV Titration 800 1000 Amount Sodium Chloride 0.9% 1, 800 1000 000 ml @ 100 mls/hr IV . Q10H [facility] Rx#:[id number] Oral 2000 Output: Urine 2700 3200 650 Uretheral ([place]) 700 300 Other: Voiding Method Indwelling Catheter Indwelling Catheter # Voids 1 - Exam VITAL SIGNS: As above GENERAL: Sitting up in bed, no acute distress. Obese. HEENT: Conjunctivae normal. eyes normal. Oral mucosa moist NECK: No JVD. No thyroid enlargement. No LNs CARDIOVASCULAR: S1, S2 muffled. Regular rate and rhythm, No murmur RESPIRATION: Unlabored, Breath sounds diminished in the bases. No rhonchi or crackles. No wheezing ABDOMEN: Soft, obese, nontender . No guarding. no masses palpable. Bowel sounds heard. LEGS: No edema. no swelling PSYCHIATRY: Alert and oriented -3, mood and affect normal. NERVOUS SYSTEM: Cranial N 2-12 grossly normal. Moves all 4 limbs. Diffuse weakness No focal deficits. Skin: no ulcer no rash Joints: No active swelling. No inflammation. Lymphatic system. No LN neck axilla or groin. - Labs CBC & Chem 7: 10/07/18 08:21 10/07/18 08:21 Labs: Abnormal Lab Results - Last 24 Hours (Table) 10/06/18 10/06/18 10/06/18 Range/Units 01:00 17:02 20:51 WBC (3.8-10.6) k/uL Plt Count (150-450) k/uL Neutrophils # (1.3-7.7) k/uL Sodium (137-145) mmol/L BUN (7-17) mg/dL Glucose (74-99) mg/dL POC Glucose (mg/dL) 337 H 415 H (75-99) mg/dL Hemoglobin A1c 12.2 H (4.0-6.0) % Calcium (8.4-10.2) mg/dL 10/07/18 10/07/18 10/07/18 Range/Units 07:14 08:21 08:21 WBC 12.9 H (3.8-10.6) k/uL Plt Count 134 L (150-450) k/uL Neutrophils # 10.9 H (1.3-7.7) k/uL Sodium 132 L (137-145) mmol/L BUN 20 H (7-17) mg/dL Glucose 293 H (74-99) mg/dL POC Glucose (mg/dL) 279 H (75-99) mg/dL Hemoglobin A1c (4.0-6.0) % Calcium 7.5 L (8.4-10.2) mg/dL 10/07/18 Range/Units 11:33 WBC (3.8-10.6) k/uL Plt Count (150-450) k/uL Neutrophils # (1.3-7.7) k/uL Sodium (137-145) mmol/L BUN (7-17) mg/dL Glucose (74-99) mg/dL POC Glucose (mg/dL) 243 H (75-99) mg/dL Hemoglobin A1c (4.0-6.0) % Calcium (8.4-10.2) mg/dL Microbiology - Last 24 Hours (Table) 10/06/18 12:37 Blood Culture - Preliminary Blood No Growth after 24 hours 10/06/18 12:52 Blood Culture - Preliminary Blood No Growth after 24 hours 10/06/18 05:30 Urine Culture - Final Urine,Catheterized 10/06/18 22:07 Blood Culture Gram Stain - Preliminary Blood Blood Culture - Final Coagulase Negative Staph 10/06/18 01:00 Blood Culture - Final Blood 10/06/18 12:30 Urine Culture - Preliminary Urine,Catheterized Assessment and Plan Assessment: -Severe sepsis secondary to bacteremia, acute UTI with possible acute pyelonephritis, in a patient with history of recurrent UTI,maintained on IV antibiotics of Rocephin -Bacteremia secondary to the above, gram-negative reported from [place]-final results pending, repeat blood cultures suggestive of contamination -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 Outpatient diabetic classes Plan: Continue on current medication regime ,monitoring and symptomatic treatment. Maintain IV fluids, Rocephin 2 g IV piggyback daily. Potassium currently being supplemented. Close monitoring of renal function, electrolytes and Accu-Cheks with repeat labs ordered for a.m. GI and DVT prophylaxis in place. Prognosis guarded given multiple complex medical issues. The impression and plan of care has been dictated as directed. : I performed a history and examination of this patient, discussed the same with the dictator. I agree with the dictator's note ,documented as a scribe. Any additional findings or plans will be noted. Time taken: 35 minutes
[2018-10-07 17:00] LABS: Glucose,Whole Blood 201 mg/dL (75-99)
[2018-10-07] MEDS: PARoxetine 20 MG TAB PO SCH (17:01)
[2018-10-07] MEDS: NON-FORMULARY DRUG (Liraglutide [Victoza 3-Pak] 1.8 MG) SQ SCH (17:01)
[2018-10-07] MEDS ORDERED: IPRATROPIUM-ALBUTEROL 3 ML NEB INHALATION PRN (17:37)
[2018-10-07] MEDS ORDERED: NICOTINE 21MG/24HR PATCH TRANSDERM SCH (17:45)
[2018-10-07] MEDS: IPRATROPIUM-ALBUTEROL 3 ML NEB INHALATION SCH (19:51)
[2018-10-07] MEDS: FLUTICASONE 110 MCG INHALER INHALATION SCH (19:51)
[2018-10-07 20:43] LABS: Glucose,Whole Blood 153 mg/dL (75-99)
[2018-10-07] MEDS ORDERED: ATORVASTATIN 10 MG TAB PO SCH (21:00)
[2018-10-07] MEDS: buPROPion SR 150 MG TABLET.ER PO SCH (21:16)
--- NOTE | 2018-10-07 22:32 | PN ---
PROGRESS NOTE DATE OF SERVICE: 10/07/2018. REASON FOR FOLLOWUP VISIT: 1. Urinary tract infection. 2. Positive blood culture. INTERVAL HISTORY: The patient is currently afebrile. She has been breathing comfortably. Denies significant chest pain. No shortness of breath, cough. No nausea, vomiting. No abdominal pain. No diarrhea. EXAMINATION: Blood pressure 126/55 with a pulse of 108, temperature of 98.8. She is 98% on 2 L nasal cannula. General description is a middle aged female lying in bed in no distress. Respiratory system: Unlabored breathing. Clear to auscultation anteriorly, heart S1, S2. Regular rate and rhythm. Abdomen soft. No tenderness. Extremities: No edema of the feet. LABS: Hemoglobin is 13.4, white count 12.8 with a BUN of 20, creatinine 0.66. Blood culture with coagulase negative Staph. Urine culture . DIAGNOSTIC IMPRESSION/PLAN: Patient admitted to the hospital with fever significantly positive concern for likely pyelonephritis. Blood culture here has been coag negative staph, more likely contamination. Blood culture outside facility was gram-negative bacilli. We are waiting for the final ID of this pathogen. Keep the patient on Rocephin at this point. Continue supportive care. MMODL / IJN: [id number] /
[2018-10-08 06:53] LABS: Glucose,Whole Blood 185 mg/dL (75-99)
[2018-10-08] MEDS: INSULIN ASPART 100 UNIT/ML 1 ML 10 ML VIAL SQ SCH ×2 (06:57→12:56)
[2018-10-08 08:25] VITALS: RESP 16
[2018-10-08] MEDS: IPRATROPIUM-ALBUTEROL 3 ML NEB INHALATION SCH ×2 (08:42→12:30)
[2018-10-08] MEDS: FLUTICASONE 110 MCG INHALER INHALATION SCH (08:43)
[2018-10-08 09:14] LABS: Anion Gap 4 mmol/L; Blood Urea Nitrogen 10 mg/dL (7-17); Calcium 7.8 mg/dL (8.4-10.2); Carbon Dioxide 27 mmol/L (22-30); Chloride 102 mmol/L (98-107); Glucose 187 mg/dL (74-99); Potassium 3.3 mmol/L (3.5-5.1); Sodium 133 mmol/L (137-145)
[2018-10-08] MEDS: cefTRIAXone 2,000 MG in SODIUM CHLORIDE 0.9% 100 ML IVPB SCH (09:29)
[2018-10-08] MEDS: GABAPENTIN 300 MG CAP PO SCH ×2 (09:30→12:55)
[2018-10-08] MEDS: buPROPion SR 150 MG TABLET.ER PO SCH (09:30)
[2018-10-08] MEDS: INSULIN DETEMIR 100 UNIT/ML 10 ML VIAL SQ SCH (09:31)
[2018-10-08] MEDS: HEPARIN SODIUM,PORCINE 5,000 UNIT/ML 1 ML VIAL SQ SCH (09:31)
[2018-10-08] MEDS: PANTOPRAZOLE 40 MG/10 ML VIAL IVP SCH (09:32)
[2018-10-08] MEDS: NON-FORMULARY DRUG (Liraglutide [Victoza 3-Pak] 1.8 MG) SQ SCH (09:32)
[2018-10-08] MEDS: PARoxetine 20 MG TAB PO SCH (09:33)
[2018-10-08 12:23] LABS: Glucose,Whole Blood 203 mg/dL (75-99)
[2018-10-08 12:36] VITALS: BP 122/75; TEMP 97.5
[2018-10-08 12:37] VITALS: PULSE 72
[2018-10-08] MEDS: CHOLECALCIFEROL 1,000 UNIT TAB PO SCH (12:55)
[2018-10-08] MEDS: CYANOCOBALAMIN 500 MCG TAB PO SCH (12:55)
[2018-10-08] MEDS ORDERED: Magnesium Replacement Protocol 1 EACH MISC MISCELLANE PRN (13:13)
[2018-10-08] MEDS ORDERED: MAGNESIUM OXIDE 400 MG TAB PO STA (13:18)
[2018-10-08] MEDS ORDERED: Potassium Replacement Protocol 1 EACH MISC MISCELLANE PRN (13:20)
[2018-10-08] MEDS: POTASSIUM CHLORIDE ER 20 MEQ TAB.ER PO SCH ×2 (13:35→14:46)
--- NOTE | 2018-10-08 13:38 | P.DS ---
Providers Date of admission: 10/06/18 01:05 Expected date of discharge: 10/08/18 Attending physician: Sari Thomas Consults: 10/06/18 01:06 Consult Physician Routine Consulting Provider: Koffi Davis Consult Reason/Comments: hyponatremia Do you want consulting provider notified?: Yes 10/06/18 13:14 Consult Physician Routine Consulting Provider: Qamar Oro Consult Reason/Comments: bacteremia, sepsis Do you want consulting provider notified?: Yes Primary care physician: Stated None Hospital Course: Final Diagnoses: -Severe sepsis related to acute UTI, possible acute pyelonephritis secondary to Klebsiella pneumoniae bacteremia -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 Outpatient diabetic classes Hospital course:Rosa Isela is a 57-year-old female who transferred from [facility] to [facility] today via EMS. Patient initially presented to [facility] earlier today feeling febrile, lightheaded, nauseated, feeling very unwell. Workup at the outside facility revealed the patient had hyponatremia with a sodium of 121, as well as a urinary tract infection and lactic acidosis,fevers and chills. Patient was treated with 2 L of IV fluids, 1 g of Rocephin. Daughter bedside states that her mother recently had a GI bug, most people in the family have similar symptoms with nausea and diarrhea. Patient subsequently must of developed a urinary tract infection however this wasn't recognized until the patient became very ill today at which time she was transferred to the hospital for evaluation. Daughter expresses some concern that her mother is not compliant with her medications including not taking her diabetes medications. Patient has been diagnosed with obstructive sleep apnea but refuses to wear CPAP. Patient's noncompliant with the diabetic diet, she is a heavy smoker. The daughter bedside states that she been living out of state but now has moved to the area to help care for her mother.Chart currently unavailable, data obtained from staff and ER record. Patient presenting with severe sepsis secondary to bacteremia secondary to UTI, possible pyelonephritis. Hyponatremic in a patient who had been on hydrochlorothiazide. [place] blood cultures called in as gram-negative bacilli. Hyperglycemic.Receiving IV fluid hydration, IV antibiotics, feeling better now. Denies no further nausea. Afebrile, leukocytosis improving, WBC down to 11.6. Maintaining O2 sats of 95% on room air. UA suggestive of possible UTI, patient asymptomaticstates though given multiple cystoscopies, kidney stones, recurrent UTIs- "no longer has symptoms with with her UTIs," medullary sponge kidney. 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 Chest x-ray nonacute. EKG NSR. Blood cultures from [facility] reported Klebsiella pneumoniae. Evaluated by infectious disease per Maintained on IV antibiotics, IV fluids. Significant clinical improvement. Cleared by all consults for discharge. Patient is being discharged home in a stable condition with guarded prognosis. - Exam GENERAL: Alert and oriented 3, no acute distress. CARDIOVASCULAR: S1, S2 muffled. Regular rate and rhythm, No murmur RESPIRATION: Unlabored, Breath sounds diminished in the bases. No rhonchi or crackles. No wheezing ABDOMEN: Soft, obese, nontender . No guarding. no masses palpable. Bowel sounds heard. NERVOUS SYSTEM: No focal deficits. The impression and plan of care has been dictated as directed. : I performed a history and examination of this patient, discussed the same with the dictator. I agree with the dictator's note ,documented as a scribe. Any additional findings or plans will be noted. Time taken: 35 min Patient Condition at Discharge: Stable Plan - Discharge Summary Discharge Rx Participant: Yes New Discharge Prescriptions: New Ciprofloxacin HCl [Cipro] 500 mg PO Q12HR #20 tablet Acetaminophen Tab [Tylenol] 650 mg PO Q6HR PRN tab PRN Reason: Mild Pain Or Fever > 100.5 Insulin Glargine [Lantus] 20 unit SQ BID #1 vial Liraglutide [Victoza 3-Dwayne] 1.8 mg SQ DAILY Continue Ranitidine HCl 300 mg PO HS Gabapentin [Neurontin] 600 mg PO BID Gabapentin [Neurontin] 300 mg PO DAILY Lovastatin [Mevacor] 40 mg PO HS Cholecalciferol [Vitamin D3] 1,000 unit PO DAILY buPROPion SR [Wellbutrin SR] 150 mg PO BID Metoprolol Tartrate [Lopressor] 100 mg PO BID glipiZIDE [Glucotrol] 10 mg PO DAILY PARoxetine [Paxil] 20 mg PO DAILY PARoxetine HCL [Paxil] 40 mg PO DAILY metFORMIN HCL 1,000 mg PO BID Discontinued Liraglutide [Victoza 3-Dwayne] 1.8 mg SQ DAILY Fluconazole [Diflucan] 150 mg PO DIRECTED No Action Cyanocobalamin [Vitamin B-12] 500 mcg PO DAILY Discharge Medication List Cholecalciferol [Vitamin D3] 1,000 unit PO DAILY 10/06/18 [History] Cyanocobalamin [Vitamin B-12] 500 mcg PO DAILY 10/06/18 [History] Gabapentin [Neurontin] 300 mg PO DAILY 10/06/18 [History] Gabapentin [Neurontin] 600 mg PO BID 10/06/18 [History] Lovastatin [Mevacor] 40 mg PO HS 10/06/18 [History] Metoprolol Tartrate [Lopressor] 100 mg PO BID 10/06/18 [History] PARoxetine HCL [Paxil] 40 mg PO DAILY 10/06/18 [History] PARoxetine [Paxil] 20 mg PO DAILY 10/06/18 [History] Ranitidine HCl 300 mg PO HS 10/06/18 [History] buPROPion SR [Wellbutrin SR] 150 mg PO BID 10/06/18 [History] glipiZIDE [Glucotrol] 10 mg PO DAILY 10/06/18 [History] metFORMIN HCL 1,000 mg PO BID 10/06/18 [History] Acetaminophen Tab [Tylenol] 650 mg PO Q6HR PRN tab 10/08/18 [Rx] Ciprofloxacin HCl [Cipro] 500 mg PO Q12HR #20 tablet 10/08/18 [Rx] Insulin Glargine [Lantus] 20 unit SQ BID #1 vial 10/08/18 [Rx] Liraglutide [Victoza 3-Dwayne] 1.8 mg SQ DAILY 10/08/18 [Rx] Follow up Appointment(s)/Referral(s): Tk Thomason MD [REFERRING] - 3 Days Qamar Oro MD [STAFF PHYSICIAN] - 1 Week Ambulatory/Diagnostic Orders: Complete Blood Count w/diff [LAB.AMB] Time Frame: 3 Days, Location: None Selected Patient Instructions/Handouts: Acetaminophen (By mouth), Ibuprofen (By mouth), How to Stop Smoking (GEN), Urinary Tract Infection in Women (ED), Hyponatremia ( ED) Activity/Diet/Wound Care/Special Instructions: Case management to verify glucometer, diabetic supplies.Outpatient diabetic education classes Diet: Consistent carb. Accu-Cheks before meals and at bedtime, maintain log and take to follow-up visit with PCP Activity: Limited till follow-up evelin inhibitor on hold, SBP 120's
[2018-10-08] MEDS ORDERED: PARoxetine 20 MG TAB PO SCH (14:00)
--- NOTE | 2018-10-08 14:00 | PN ---
PROGRESS NOTE DATE OF SERVICE: 10/08/2018 REASON FOR FOLLOWUP: Klebsiella bacteremia secondary to right-sided pyelonephritis. INTERVAL HISTORY: The patient is currently afebrile. She is breathing comfortably. Denies having any chest pain or shortness of breath or cough. No nausea or vomiting. No abdominal pain and no diarrhea. PHYSICAL EXAMINATION: Blood pressure 122/75, pulse of 95, temperature of 98.5, she is 93% on room air. General description is a middle-aged female, lying in bed in no distress. RESPIRATORY SYSTEM: Unlabored breathing, clear to auscultation anteriorly. ABDOMEN: Soft, no tenderness. LABS: BUN of 10, creatinine 0.48, blood culture of colon is negative Staph, urine so far negative. The blood culture that was done at the other hospital did grow Klebsiella pneumoniae that is sensitive to Rocephin as well as Cipro. DIAGNOSTIC IMPRESSION AND PLAN: Patient admitted to the hospital with pyelonephritis. Urine showing a Klebsiella and also with the blood showing Klebsiella pneumoniae at the outside facility. This is sensitive to Cipro. Would recommend ciprofloxacin 5 mg twice a day for another 10 days with close outpatient followup. Continue supportive care. MMODL / IJN: [id number] /
[2018-10-08] MEDS: SODIUM CHLORIDE 0.9% 1,000 ML IV SCH ×2 (14:12→14:13)
[2018-10-08] MEDS ORDERED: METOPROLOL TARTRATE 50 MG TAB PO SCH ×2 (14:15→21:00)
[2018-10-08] MEDS ORDERED: metFORMIN 500 MG TAB PO SCH (17:30)
--- NOTE | 2018-10-08 20:09 | PN ---
PROGRESS NOTE Patient is seen for followup for hyponatremia. It was mainly hypovolemic and improved with IV fluids. Patient is actually being discharged today. She was seen this morning. PHYSICAL EXAMINATION: Blood pressure was 122/75, heart rate 95 per minute. She is afebrile. Examination of the heart S1, S2. Examination of lungs bilateral breath sounds are heard. Abdomen is soft, nontender. Exam of lower extremities shows no significant edema. HEALTH ADMINISTRATOR exam is grossly intact. LABS: Show sodium 133, potassium 3.3, serum creatinine 0.48. ASSESSMENT: 1. Hypovolemic hyponatremia, currently improved. 2. Hypokalemia, status post replacement. 3. Urinary tract infection with final urine culture showing no growth but culture from outside facility and patient initially presented did grow gram-negative bacilli. 4. History of medullary sponge kidney. PLAN: The patient is advised to maintain good oral protein intake and restrict free water intake to some degree. Repeat labs as outpatient. MMODL / IJN: [id number] /
== END 2018-10-08 15:30 | disposition home or self-care (01) | DRG 872 ==
LOC: EC 00:41 → 6PED 01:05
PROVIDERS: ADMIT Hospitalist; ATTEND Hospitalist
DX: A41.59 Other Gram-negative sepsis (principal); E87.1 Hypo-osmolality and hyponatremia; E87.2 Acidosis; Z68.42 Body mass index [BMI] 45.0-49.9, adult; N10 Acute pyelonephritis; Q61.5 Medullary cystic kidney; E11.40 Type 2 diabetes mellitus with diabetic neuropathy, unspecified; E11.65 Type 2 diabetes mellitus with hyperglycemia; R65.20 Severe sepsis without septic shock; E66.9 Obesity, unspecified; E86.1 Hypovolemia; E87.6 Hypokalemia; K21.9 Gastro-esophageal reflux disease without esophagitis; I10 Essential (primary) hypertension; G47.33 Obstructive sleep apnea (adult) (pediatric); E78.5 Hyperlipidemia, unspecified; F32.9 Major depressive disorder, single episode, unspecified; J44.9 Chronic obstructive pulmonary disease, unspecified; F17.210 Nicotine dependence, cigarettes, uncomplicated; Z71.6 Tobacco abuse counseling; T38.3X6A Underdosing of insulin and oral hypoglycemic [antidiabetic] drugs, initial encounter; Z91.128 Patient's intentional underdosing of medication regimen for other reason; Z91.11 Patient's noncompliance with dietary regimen; Z79.84 Long term (current) use of oral hypoglycemic drugs; Z79.899 Other long term (current) drug therapy; Z86.14 Personal history of Methicillin resistant Staphylococcus aureus infection; Z86.19 Personal history of other infectious and parasitic diseases; Z87.442 Personal history of urinary calculi; Z87.440 Personal history of urinary (tract) infections; Z87.01 Personal history of pneumonia (recurrent); Z90.710 Acquired absence of both cervix and uterus; Z88.8 Allergy status to other drugs, medicaments and biological substances; Z91.040 Latex allergy status; Z81.8 Family history of other mental and behavioral disorders
CPT/HCPCS: 36415; 71045; 76770; 80048; 80053; 81001; 83036; 83605; 83735; 83935; 84300; 84484; 85025; 85610; 85730; 87040; 87077; 87086; 87150; 87186; 93005; 94640; 96360; 96361; 99285

== ENCOUNTER 2019-02-13 22:22 | Inpatient (IN) | payer MEDICARE, OTHER ==
[2019-02-13 22:28] LABS: Glucose,Whole Blood 347 mg/dL (75-99)
[2019-02-13] MEDS ORDERED: VANCOMYCIN IV PER PHARMACY 1 EACH MISC MISCELLANE PRN (22:34)
[2019-02-13] MEDS ORDERED: VANCOMYCIN 2,000 MG in SODIUM CHLORIDE 0.9% 500 ML 500 ML IVPB STA (22:35)
[2019-02-13] MEDS ORDERED: SODIUM CHLORIDE 0.9% 1,000 ML IV ONE (22:46)
--- NOTE | 2019-02-13 22:46 | ED ---
General Adult HPI - General Chief complaint: Abdominal Pain Stated complaint: Kidney Stone Time Seen by Provider: 02/13/19 22:24 Source: EMS, RN notes reviewed Mode of arrival: EMS Limitations: no limitations - History of Present Illness Initial comments: This is a 58-year-old female presents emergency Department from [facility] ER. Patient was seen there because earlier today she had right-sided flank pain. According to the ER doctor there she had 101 fever and he thought she might be septic even though the urine did not show obvious signs of infection. Patient received 3 L of fluid at [facility] as well as Rocephin and Zosyn and Tylenol for the fever. Dr. Cardenas was contacted by the ER document [place] and he wanted the patient transferred to [facility]. Currently the patient states she feels better but still does not feel good overall just very tired with some residual right-sided pain. Patient denies any lightheadedness or dizziness. Patient denies any shortness of breath or chest pain. Patient denies any palpitations. Patient denies any nausea or vomiting currently. - Related Data Home Medications Medication Instructions Recorded Confirmed Cholecalciferol [Vitamin D3] 1,000 unit PO DAILY 10/06/18 10/06/18 Cyanocobalamin [Vitamin B-12] 500 mcg PO DAILY 10/06/18 10/06/18 Gabapentin [Neurontin] 300 mg PO DAILY 10/06/18 10/06/18 Gabapentin [Neurontin] 600 mg PO BID 10/06/18 10/06/18 Lovastatin [Mevacor] 40 mg PO HS 10/06/18 10/06/18 Metoprolol Tartrate [Lopressor] 100 mg PO BID 10/06/18 10/06/18 PARoxetine HCL [Paxil] 40 mg PO DAILY 10/06/18 10/06/18 PARoxetine [Paxil] 20 mg PO DAILY 10/06/18 10/06/18 Ranitidine HCl 300 mg PO HS 10/06/18 10/06/18 buPROPion SR [Wellbutrin SR] 150 mg PO BID 10/06/18 10/06/18 glipiZIDE [Glucotrol] 10 mg PO DAILY 10/06/18 10/06/18 metFORMIN HCL 1,000 mg PO BID 12/05/18 12/05/18 Previous Rx's Medication Instructions Recorded Acetaminophen Tab [Tylenol] 650 mg PO Q6HR PRN tab 10/08/18 Ciprofloxacin HCl [Cipro] 500 mg PO Q12HR #20 tablet 10/08/18 Insulin Glargine [Lantus] 20 unit SQ BID #1 vial 10/08/18 Liraglutide [Victoza 3-Dwayne] 1.8 mg SQ DAILY 10/08/18 Lisinopril [Prinivil] 10 mg PO DAILY #30 tab 10/08/18 Nicotine 21Mg/24Hr Patch [Habitrol] 1 each TRANSDERM DAILY #30 patch 10/08/18 Allergies Allergy/AdvReac Type Severity Reaction Status Date / Time latex Allergy Rash/Hives Verified 02/13/19 22:40 nicotine AdvReac Severe Itching Verified 02/13/19 22:40 adhesive tape AdvReac Rash/Hives Verified 02/13/19 22:40 fluoxetine [From Prozac] AdvReac Rapid Verified 02/13/19 22:40 Heart Rate Review of Systems ROS Statement: Those systems with pertinent positive or pertinent negative responses have been documented in the HPI. ROS Other: All systems not noted in ROS Statement are negative. Past Medical History Past Medical History: COPD, Diabetes Mellitus, Hyperlipidemia, Hypertension, Pneumonia, Renal Disease Additional Past Medical History / Comment(s): heart murmur. frequent UTIs, kidney stones, neuropathy History of Any Multi-Drug Resistant Organisms: C-DIFF, MRSA, VRE Date of last positivie culture/infection: 2015 MDRO Source:: MRSA- left leg, VRE - urine, C-diff Past Surgical History: Section Additional Past Surgical History / Comment(s): 3 . hysterectomy. kidney surgery - stones. right knee surgery. right sided mastitis 09/2018 with lancing, debridement, and packing Additional Past Anesthesia/Blood Transfusion Reaction / Comment(s): states she had a hard time waking up from anesthesia Past Psychological History: Depression Smoking Status: Current every day smoker Past Alcohol Use History: None Reported Past Drug Use History: None Reported - Past Family History Daughter(s) Additional Family Medical History / Comment(s): diverticulitis, depression, General Exam - General Exam Comments Initial Comments: GENERAL: Patient is well-developed and well-nourished. Patient is nontoxic and well- hydrated and is in mild distress. ENT: Neck is soft and supple. Oropharynx is clear. Moist mucous membranes. EYES: The sclera were anicteric and conjunctiva were pink and moist. Extraocular movements were intact and pupils were equal round and reactive to light. Eyelids were unremarkable. PULMONARY: Unlabored respirations. Good breath sounds bilaterally. No audible rales rhonchi or wheezing was noted. CARDIOVASCULAR: There is a regular rate and rhythm without any murmurs gallops or rubs. ABDOMEN: Soft and nontender with normal bowel sounds. Patient has slight CVA tenderness on the right SKIN: Skin is clear with no lesions or rashes and otherwise unremarkable. NEUROLOGIC: Patient is alert and oriented x3. Cranial nerves II through XII are grossly intact. Motor and sensory are also intact. Normal speech, volume and content. Symmetrical smile. MUSCULOSKELETAL: Normal extremities with adequate strength and full range of motion. LYMPHATICS: No significant lymphadenopathy is noted PSYCHIATRIC: Normal psychiatric evaluation. Limitations: no limitations Course Vital Signs 02/13/19 22:24 Temperature 99.3 F Pulse Rate 63 Respiratory 20 Rate Blood Pressure 103/69 O2 Sat by Pulse 95 Oximetry Medical Decision Making - Medical Decision Making Patient has a adjusted body weight for height of 61 kg. Patient already received 3 L of fluid at the other facility as well as Rocephin and Zosyn. When the patient arrived I spoke with Dr. Cardenas he wanted the patient admitted and for him to be on consult with ID. I spoke with Dr. Chan and he agreed to accept the patient admitted the patient I wrote admitting orders I consulted Dr. Theresa Desai Sayed. I also put the patient on insulin sliding scale. And The patient on Zosyn. - Lab Data Lab Results 02/13/19 Range/Units 22:26 POC Glucose (mg/dL) 347 H (75-99) mg/dL POC Glu [employer] ID Jessy Carrizales Disposition Clinical Impression: Kidney stone on right side, Hydronephrosis, UTI (urinary tract infection) Disposition: ADMITTED IP TO THIS HOSP Referrals: None,Stated [Primary Care Provider] - 1-2 days Time of Disposition: 22:46
[2019-02-13] MEDS ORDERED: HYDROmorphone 1 MG/ML 1 ML SYRINGE IVP STA (23:17)
[2019-02-13] MEDS ORDERED: ONDANSETRON 4 MG/2 ML VIAL IVP STA (23:17)
[2019-02-13] MEDS ORDERED: ACETAMINOPHEN TAB 500 MG TAB PO STA (23:39)
[2019-02-14] MEDS: PIPERACILLIN-TAZOBACTAM 3.375 GM in SODIUM CHLORIDE 0.9% 100 ML IVPB SCH ×2 (00:08→09:31)
[2019-02-14] MEDS ORDERED: KETOROLAC 30 MG/ML 1 ML VIAL IVP ONE (00:30)
[2019-02-14] MEDS: ACETAMINOPHEN TAB 325 MG TAB PO PRN ×4 (04:17→20:37)
[2019-02-14] MEDS: HYDROmorphone 1 MG/ML 1 ML SYRINGE IVP PRN ×2 (05:41→09:58)
[2019-02-14 06:59] LABS: Glucose,Whole Blood 424 mg/dL (75-99)
[2019-02-14] MEDS ORDERED: INSULIN DETEMIR (LEVEMIR) 100 UNIT/ML SYR SQ STA (07:16)
[2019-02-14] MEDS: INSULIN ASPART (NovoLOG) 100 UNIT/ML VIAL SQ SCH ×4 (07:19→21:34)
[2019-02-14 11:35] LABS: Glucose,Whole Blood 363 mg/dL (75-99)
[2019-02-14 12:18] LABS: Basophils % (A) 0 %; Eosinophils # (A) 0.1 k/uL (0-0.7); Eosinophils % (A) 0 %; HCT 42.8 % (34.0-46.0); Lymphocytes # (A) 0.5 k/uL (1.0-4.8); Lymphocytes % (A) 4 %; MCHC 32.8 g/dL (31.0-37.0); MCV 94.6 fL (80.0-100.0); Mean Platelet Volume 7.7; Monocytes # (A) 0.7 k/uL (0-1.0); Monocytes % (A) 6 %; Neutrophils # (A) 9.9 k/uL (1.3-7.7); Neutrophils % (A) 88 %; Platelet Count 205 k/uL (150-450); RBC 4.52 m/uL (3.80-5.40); RDW 13.8 % (11.5-15.5); WBC 11.3 k/uL (3.8-10.6)
[2019-02-14 12:24] LABS: Anion Gap 10 mmol/L; Blood Urea Nitrogen 15 mg/dL (7-17); Calcium 8.4 mg/dL (8.4-10.2); Carbon Dioxide 22 mmol/L (22-30); Chloride 100 mmol/L (98-107); Glucose 370 mg/dL (74-99); Potassium 4.2 mmol/L (3.5-5.1); Sodium 132 mmol/L (137-145)
--- NOTE | 2019-02-14 12:29 | XR ---
EXAMINATION TYPE: XR chest 2V DATE OF EXAM: 02/14/2019 COMPARISON: Chest x-ray October 06, 2018 HISTORY: Fever. TECHNIQUE: Frontal and lateral views of the chest are obtained. FINDINGS: There is no focal air space opacity, pleural effusion, or pneumothorax seen. The cardiac silhouette size is stable and mildly enlarged. Some multilevel spurring in the lower thoracic spine i s redemonstrated. IMPRESSION: Mild cardiomegaly without suspicious acute infiltrate.
[2019-02-14] MEDS ORDERED: ALBUTEROL NEBULIZED 2.5 MG/3 ML INHALATION PRN (14:56)
[2019-02-14 15:07] LABS: Appearance,Urine Cloudy (Clear); Bilirubin,Urine Negative (Negative); Blood,Urine Moderate (Negative); Budding Yeast,Urine Moderate /hpf; Color,Urine Yellow; Glucose,Urine (UA) 4+ (Negative); Ketones,Urine Negative (Negative); Leukocyte Esterase,Urine Large (Negative); Mucus,Urine Rare /hpf; Nitrite,Urine Negative (Negative); PH, Urine 5.5 (5.0-8.0); Protein,Urine 1+ (Negative); RBC,Urine 24 /hpf (0-5); Specific Gravity,Urine 1.024 (1.001-1.035); Squamous Epithelial Cell,Urine 3 /hpf (0-4); Urobilinogen,Urine <2.0 mg/dL (<2.0)
[2019-02-14] MEDS: PANTOPRAZOLE 40 MG/10 ML VIAL IVP SCH (15:16)
[2019-02-14] MEDS: SODIUM CHLORIDE 0.9% 1,000 ML IV SCH (15:17)
[2019-02-14] MEDS: KETOROLAC 30 MG/ML 1 ML VIAL IVP PRN ×2 (15:22→20:38)
[2019-02-14] MEDS ORDERED: MEROPENEM 500 MG in SODIUM CHLORIDE 0.9% 50 ML IVPB SCH (16:00)
--- NOTE | 2019-02-14 16:32 | P.HPIM ---
History of Present Illness 58-year-old female was transferred from [facility] to [facility] and was subsequently admitted earlier today morning and she presented with the right of severe flank pain and patient is found to have nephrolithiasis obstructive on the right side as well as small stone on the left side as well urology was consulted. urology was consulted and no surgical intervention is being planned at this time. Patient is febrile is in significant distress because of severe fever generalized myalgias Lasix and body aches family was bedside and was concerned patient has history of ESBL. Because of the history of ESBL L started her on meropenem patient was on Zosyn. Patient previously had Klebsiella pneumoniae UTI during her last hospitalization here patient has multiple UTIs in the past infectious disease was consulted blood cultures were obtained here as well as year was obtained which is significantly abnormal. Patient's blood sugars that I high because of sepsis and will be reinitiated back on her home insulin regimen along with sliding scale.10 has high-grade fever here. Patient denied any dysuria suprapubic pain denied any cough chest x-ray did not show any pneumonic process Review of Systems REVIEW OF SYSTEMS: CONSTITUTIONAL: as mentioned in HPI HEENT: No recent visual problems or hearing problems. Denied any sore throat. CARDIOVASCULAR: No chest pain, orthopnea, PND, no palpitations, no syncope. PULMONARY: No shortness of breath, no cough, no hemoptysis. GASTROINTESTINAL: No diarrhea, no nausea, no vomiting, no abdominal pain. NEUROLOGICAL: No headaches, no weakness, no numbness. HEMATOLOGICAL: Denies any bleeding or petechiae. GENITOURINARY:as mentioned in HPI MUSCULOSKELETAL/RHEUMATOLOGICAL: Denies any joint pain, swelling, or any muscle pain. ENDOCRINE: Denies any polyuria or polydipsia. The rest of the 14-point review of systems is negative. Past Medical History Past Medical History: COPD, Diabetes Mellitus, Hyperlipidemia, Hypertension, Pneumonia, Renal Disease Additional Past Medical History / Comment(s): heart murmur. frequent UTIs, kidney stones, neuropathy History of Any Multi-Drug Resistant Organisms: C-DIFF, MRSA, VRE Date of last positivie culture/infection: 2015 MDRO Source:: MRSA- left leg, VRE - urine, C-diff Past Surgical History: Section, Hysterectomy, Orthopedic Surgery Additional Past Surgical History / Comment(s): 3 . hysterectomy. kidney surgery - stones-treated with right ureteroscopy with lithotripsy in . right knee surgery. right sided mastitis 09/2018 with lancing, debridement, and packing Additional Past Anesthesia/Blood Transfusion Reaction / Comment(s): states she had a hard time waking up from anesthesia Past Psychological History: Depression Smoking Status: Former smoker Past Alcohol Use History: None Reported Additional Past Alcohol Use History / Comment(s): Smokes 6 a day Past Drug Use History: None Reported - Past Family History Daughter(s) Additional Family Medical History / Comment(s): diverticulitis, depression, Mother Family Medical History: Pulmonary Embolus Additional Family Medical History / Comment(s): HAd depression. from PE Father Family Medical History: Diabetes Mellitus, Hypertension Additional Family Medical History / Comment(s): Medications and Allergies Home Medications Medication Instructions Recorded Confirmed Type Cholecalciferol [Vitamin D3] 1,000 unit PO DAILY 10/06/18 02/14/19 History Cyanocobalamin [Vitamin B-12] 500 mcg PO DAILY 10/06/18 02/14/19 History Gabapentin [Neurontin] 300 mg PO DAILY 10/06/18 02/14/19 History Gabapentin [Neurontin] 600 mg PO BID@1200,2100 10/06/18 02/14/19 History Lovastatin [Mevacor] 40 mg PO HS 10/06/18 02/14/19 History Metoprolol Tartrate [Lopressor] 100 mg PO BID 10/06/18 02/14/19 History PARoxetine HCL [Paxil] 40 mg PO DAILY 10/06/18 02/14/19 History PARoxetine [Paxil] 20 mg PO DAILY 10/06/18 02/14/19 History Ranitidine HCl 300 mg PO HS 10/06/18 02/14/19 History buPROPion SR [Wellbutrin SR] 150 mg PO DAILY 10/06/18 02/14/19 History glipiZIDE [Glucotrol] 10 mg PO DAILY 10/06/18 02/14/19 History metFORMIN HCL 1,000 mg PO BID 10/06/18 02/14/19 History Acetaminophen Tab [Tylenol] 650 mg PO Q6HR PRN tab 10/08/18 02/14/19 Rx Lisinopril [Prinivil] 10 mg PO DAILY #30 tab 10/08/18 02/14/19 Rx Multivitamin,Therapeutic [Thera] 1 tab PO DAILY 02/13/19 02/14/19 History Albuterol Inhaler [Ventolin Hfa 2 puff INHALATION RT-QID PRN 02/14/19 02/14/19 History Inhaler] Insulin Glargine [Lantus] See Protocol SQ BID 02/14/19 02/14/19 History Tiotropium 18 Mcg/Puff [Spiriva] 1 cap INHALATION RT-DAILY 02/14/19 02/14/19 History Allergies Allergy/AdvReac Type Severity Reaction Status Date / Time latex Allergy Rash/Hives Verified 02/13/19 22:40 nicotine AdvReac Severe Itching Verified 02/13/19 22:40 adhesive tape AdvReac Rash/Hives Verified 02/13/19 22:40 fluoxetine [From Prozac] AdvReac Rapid Verified 02/13/19 22:40 Heart Rate Physical Exam Vitals: Vital Signs Temp Pulse Pulse Resp BP BP Pulse Ox 02/14/19 16:04 99.9 F H 02/14/19 15:00 100.3 F H 02/14/19 14:55 100.3 F H 02/14/19 14:12 102.9 F H 106 H 16 141/67 96 02/14/19 09:54 100.7 F H 02/14/19 07:00 99.8 F H 104 H 16 92/55 91 L 02/14/19 06:42 100.1 F H 02/14/19 05:48 101.7 F H 113 H 24 130/67 96 02/14/19 04:15 100 F H 02/14/19 01:29 98.6 F 87 16 94/51 94 L 02/13/19 23:32 100.6 F H 81 20 112/64 96 02/13/19 23:15 76 18 105/61 95 02/13/19 22:24 99.3 F 63 20 103/69 95 Intake and Output 02/14/19 02/14/19 02/14/19 06:59 14:59 22:59 Other: Voiding Method Toilet # Voids 1 1 PHYSICAL EXAMINATION: GENERAL: The patient is alert and oriented x3, looks septic toxic and is in distress because of sepsis and body aches. obese HEENT: Pupils are round and equally reacting to light. EOMI. No scleral icterus. No conjunctival pallor. Normocephalic, atraumatic. No pharyngeal erythema. No thyromegaly. CARDIOVASCULAR: S1 and S2 present. No murmurs, rubs, or gallops. PULMONARY: Chest is clear to auscultation, no wheezing or crackles. ABDOMEN: hyperkalemia tenderness MUSCULOSKELETAL: No joint swelling or deformity. EXTREMITIES: No cyanosis, clubbing, or pedal edema. NEUROLOGICAL: Gross neurological examination did not reveal any focal deficits. SKIN: No rashes. Results CBC & Chem 7: 02/14/19 11:51 02/14/19 11:51 Labs: Abnormal Lab Results - Last 24 Hours (Table) 02/13/19 02/14/19 02/14/19 Range/Units 22:26 06:57 11:24 WBC (3.8-10.6) k/uL Neutrophils # (1.3-7.7) k/uL Lymphocytes # (1.0-4.8) k/uL Sodium (137-145) mmol/L Glucose (74-99) mg/dL POC Glucose (mg/dL) 347 H 424 H 363 H (75-99) mg/dL Urine Appearance (Clear) Urine Protein (Negative) Urine Glucose (UA) (Negative) Urine Blood (Negative) Ur Leukocyte Esterase (Negative) Urine RBC (0-5) /hpf Urine WBC (0-5) /hpf Urine WBC Clumps (None) /hpf Urine Mucus (None) /hpf Urine Yeast (Budding) (None) /hpf 02/14/19 02/14/19 02/14/19 Range/Units 11:51 11:51 14:40 WBC 11.3 H (3.8-10.6) k/uL Neutrophils # 9.9 H (1.3-7.7) k/uL Lymphocytes # 0.5 L (1.0-4.8) k/uL Sodium 132 L (137-145) mmol/L Glucose 370 H (74-99) mg/dL POC Glucose (mg/dL) (75-99) mg/dL Urine Appearance Cloudy H (Clear) Urine Protein 1+ H (Negative) Urine Glucose (UA) 4+ H (Negative) Urine Blood Moderate H (Negative) Ur Leukocyte Esterase Large H (Negative) Urine RBC 24 H (0-5) /hpf Urine WBC >182 H (0-5) /hpf Urine WBC Clumps Few H (None) /hpf Urine Mucus Rare H (None) /hpf Urine Yeast (Budding) Moderate H (None) /hpf Thrombosis Risk Factor Assmnt - Choose All That Apply Any of the Below Risk Factors Present?: Yes Each Factor Represents 1 point: Age 41-60 years Other Risk Factors: No Thrombosis Risk Factor Assessment Total Risk Factor Score: 1 Thrombosis Risk Factor Assessment Level: Low Risk Assessment and Plan Plan: -severe sepsis secondary to urinary tract infection pyelonephritis and renal calculi: Urology valid the patient patient will be switched to meropenem because of her history of ESBL although patient had pansensitive to Klebsiella in the recent past. Patient will be started on IV fluids as well patient did have elevation of lactic acid. Patient can use to be febrile. -Renal calculi: Appreciate urology recommendations no further surgical interven tion at this time point of time -Type 2 diabetes mellitus uncontrolled blood sugars secondary to sepsis patient will be started back on her insulin regimen along with sliding scale insulin -Hyperlipidemia -Hypertension -COPD without any significant Elevation patient continues to smoke on and off -Obesity patient related pharmacologic GI and DVT prophylaxis.
[2019-02-14 16:56] LABS: Glucose,Whole Blood 368 mg/dL (75-99)
[2019-02-14] MEDS: INSULIN DETEMIR (LEVEMIR) 100 UNIT/ML SYR SQ SCH (17:42)
--- NOTE | 2019-02-14 18:33 | P.GSCN ---
History of Present Illness Consult date: 02/14/19 Reason for Consult: Hydronephrosis right kidney History of present illness: The patient is a 58-year-old female transferred from the [facility] emergency room last night for evaluation of possible pyelonephritis complicated by an obstructive ureteral calculus. The patient says that she began feeling "punky" 3 or 4 days ago. She said she had diarrhea at that time but this stopped 2 days ago. She complained of suprapubic pain associated with urgency to void and an odor to her urine. She also had some right flank pain or back pain but she says that the suprapubic pain is her main concern. She presented to the emergency room yesterday afternoon where she was noted to have a temperature of 101. Her white blood count was 13,840. Lactic acid was 3.3. Her glucose was over 500. Bicarb is 26, BUN/creatinine were 14/0.7. A urinalysis showed a trace of hemoglobin but no other abnormalities. No urine culture was obtained. Computed tomography scan of the abdomen and pelvis ws interpreted as having a 5 mm calculus at the right ureteropelvic junction with mild to moderate hydronephrosis and a nonobstructive 6 mm calculus in the lower pole of the right kidney. I was contacted by the emergency room physician yeste rd evening as it was his concern that the patient had pyelonephritis associated with an obstructive calculus. I accepted the patient in transfer. The patient's hyperglycemia has been treated with insulin but remains over 400 this morning. Her lactic acid had actually fallen to 2.3 prior to being transferred to this facility. The patient has continued to have a temperature between 101 and 100 through the night. Her main complaint continues to be suprapubic discomfort. She had been nauseated but says she is thirsty this morning. The patient was hospitalized here in 10/2018 and at that time was found to have a Klebsiella pneumonia urinary tract infection associated with sepsis. She was treated with Cipro. She has not been treated for a urinary tract infection since then. She has a history of urolithiasis which dates back 20 years. She says she underwent 5 ureteroscopic procedures on the right kidney at [facility] at that time. Since then she has not required any surgical intervention although she periodically passes stones. Review of Systems - Constitutional Reports chills, Reports fever, Reports lethargy - Cardiovascular Reports high blood pressure, Denies chest pain, Denies shortness of breath - Respiratory Denies cough, Denies wheezing - Gastrointestinal Reports as per HPI - Genitourinary Genitourinary: Reports as per HPI Past Medical History Past Medical History: COPD, Diabetes Mellitus, Hyperlipidemia, Hypertension, Pneumonia, Renal Disease Additional Past Medical History / Comment(s): heart murmur. frequent UTIs, kidney stones, neuropathy History of Any Multi-Drug Resistant Organisms: C-DIFF, MRSA, VRE Year Discovered:: 2016 MDRO Source:: MRSA- left leg, VRE - urine, C-diff Past Surgical History: Section, Hysterectomy, Orthopedic Surgery Additional Past Surgical History / Comment(s): 3 . hysterectomy. kidney surgery - stones-treated with right ureteroscopy with lithotripsy in . right knee surgery. right sided mastitis 09/2018 with lancing, debridement, and packing Additional Past Anesthesia/Blood Transfusion Reaction / Comm: states she had a hard time waking up from anesthesia Past Psychological History: Depression Smoking Status: Former smoker Past Alcohol Use History: None Reported Additional Past Alcohol Use History / Comment(s): Smokes 6 a day Past Drug Use History: None Reported - Past Family History Daughter(s) Additional Family Medical History / Comment(s): diverticulitis, depression, Mother Family Medical History: Pulmonary Embolus Additional Family Medical History / Comment(s): HAd depression. from PE Father Family Medical History: Diabetes Mellitus, Hypertension Additional Family Medical History / Comment(s): Medications and Allergies Home Medications Medication Instructions Recorded Confirmed Type Cholecalciferol [Vitamin D3] 1,000 unit PO DAILY 10/06/18 02/14/19 History Cyanocobalamin [Vitamin B-12] 500 mcg PO DAILY 10/06/18 02/14/19 History Gabapentin [Neurontin] 300 mg PO DAILY 10/06/18 02/14/19 History Gabapentin [Neurontin] 600 mg PO BID@1200,2100 10/06/18 02/14/19 History Lovastatin [Mevacor] 40 mg PO HS 10/06/18 02/14/19 History Metoprolol Tartrate [Lopressor] 100 mg PO BID 10/06/18 02/14/19 History PARoxetine HCL [Paxil] 40 mg PO DAILY 10/06/18 02/14/19 History PARoxetine [Paxil] 20 mg PO DAILY 10/06/18 02/14/19 History Ranitidine HCl 300 mg PO HS 10/06/18 02/14/19 History buPROPion SR [Wellbutrin SR] 150 mg PO DAILY 10/06/18 02/14/19 History glipiZIDE [Glucotrol] 10 mg PO DAILY 10/06/18 02/14/19 History metFORMIN HCL 1,000 mg PO BID 10/06/18 02/14/19 History Acetaminophen Tab [Tylenol] 650 mg PO Q6HR PRN tab 10/08/18 02/14/19 Rx Lisinopril [Prinivil] 10 mg PO DAILY #30 tab 10/08/18 02/14/19 Rx Multivitamin,Therapeutic [Thera] 1 tab PO DAILY 02/13/19 02/14/19 History Albuterol Inhaler [Ventolin Hfa 2 puff INHALATION RT-QID PRN 02/14/19 02/14/19 History Inhaler] Insulin Glargine [Lantus] See Protocol SQ BID 02/14/19 02/14/19 History Tiotropium 18 Mcg/Puff [Spiriva] 1 cap INHALATION RT-DAILY 02/14/19 02/14/19 History Allergies Allergy/AdvReac Type Severity Reaction Status Date / Time latex Allergy Rash/Hives Verified 02/13/19 22:40 nicotine AdvReac Severe Itching Verified 02/13/19 22:40 adhesive tape AdvReac Rash/Hives Verified 02/13/19 22:40 fluoxetine [From Prozac] AdvReac Rapid Verified 02/13/19 22:40 Heart Rate Surgical - Exam Vital Signs Temp Pulse Resp BP Pulse Ox 99.3 F 63 20 103/69 95 02/13/19 22:24 02/13/19 22:24 02/13/19 22:24 02/13/19 22:24 02/13/19 22:24 - General well developed, well nourished, no distress, other (Moribund obesity) - ENT no hearing loss - Neck no masses, no lymphadectomy - Respiratory normal respiratory effort - Abdomen Abdomen: tender (Suprapubic area tenderness and mild tenderness in right flank), no organomegaly, no masses Hernia: umbilical Results - Labs 02/14/19 11:51 02/14/19 11:51 Abnormal Lab Results - Last 24 Hours (Table) 02/13/19 02/14/19 Range/Units 22:26 06:57 POC Glucose (mg/dL) 347 H 424 H (75-99) mg/dL Assessment and Plan (1) Hydronephrosis Narrative/Plan: The patient's computed tomography scan shows a 3-4 mm calculus at the right ureteropelvic junction with mild hydronephrosis. The patient's history is somewhat atypical in that her main location of pain is in the suprapubic area. She does have a history of right pyelonephritis but her urinalysis obtained yesterday evening was normal and her renal function was also normal. The patient has been started on Zosyn and she will be re-evaluated later. At least at this time I am not certain that cystoscopy with placement of a right double-J catheter is necessary. Current Visit: Yes Status: Acute Code(s): N13.30 - UNSPECIFIED HYDRONEPHROSIS SNOMED Code(s): 39903964
[2019-02-14] MEDS: IPRATROPIUM 0.5 MG/2.5 ML NEBU INHALATION SCH (19:11)
[2019-02-14] MEDS ORDERED: LORazepam 1 MG TAB PO PRN (20:50)
[2019-02-14 20:53] LABS: Hemoglobin A1C 12.1 % (4.0-6.0)
[2019-02-14] MEDS: METOPROLOL TARTRATE 50 MG TAB PO SCH (20:59)
[2019-02-14] MEDS: GABAPENTIN 300 MG CAP PO SCH (21:00)
[2019-02-14] MEDS ORDERED: buPROPion SR 150 MG TABLET.ER PO STA (21:12)
[2019-02-14] MEDS ORDERED: PARoxetine 20 MG TAB PO STA (21:12)
[2019-02-14 21:15] LABS: Glucose,Whole Blood 329 mg/dL (75-99)
[2019-02-14 23:08] LABS: Glucose,Whole Blood 344 mg/dL (75-99)
[2019-02-15] MEDS: HEPARIN SODIUM,PORCINE 5,000 UNIT/ML 1 ML VIAL SQ SCH ×4 (00:01→23:54)
[2019-02-15] MEDS: SODIUM CHLORIDE 0.9% 1,000 ML IV SCH ×3 (00:01→21:17)
[2019-02-15] MEDS: MEROPENEM 1,000 MG in SODIUM CHLORIDE 0.9% 50 ML IVPB SCH ×4 (00:01→23:54)
--- NOTE | 2019-02-15 00:02 | CONS ---
CONSULTATION DATE OF SERVICE: 02/14/2019. REASON FOR CONSULTATION: Pyelonephritis and UTI. HISTORY OF PRESENT ILLNESS: The patient is a 58-year-old female with past medical history significant for medullary sponge kidney. Did have a history of renal stones and recurrent UTIs. The patient was admitted to this facility back in the summer of 2017. At that time the patient did have Klebsiella pneumonia bacteremia secondary to urinary source. The patient at that time was treated with IV antibiotic and subsequently discharged home on course of oral Cipro. The patient is now presenting to the outside facility with not feeling well for 3-4 days and no energy, feeling lethargic. The patient had been complaining of possibly discomfort more dull aching pain, intensity 5 to 6/10, and no radiation. Denies significant flank pain. The patient has been nauseated but no vomiting. The patient did have some diarrhea for 2-3 days, however, that has stopped for the last 2 days before presenting to the hospital. With these symptoms, the patient has been evaluated at outside facility. The patient did have fever of 101 degrees Fahrenheit. The patient did have elevated lactic acid of 3.3 with elevated white count 13,000. UA was not significantly positive. She did have a CT of abdomen and pelvis with concern for right-sided pyelonephritis with ____. Subsequently the patient has been transferred to this facility. She has been treated with Zosyn. Infectious Disease was consulted for further recommendation regarding antibiotic therapy. REVIEW OF SYSTEMS: Positive points have been mentioned in HPI, otherwise negative. PAST MEDICAL HISTORY: Recurrent urinary tract infection, insulin-dependent mellitus, medullary sponge kidney, renal stones. PAST SURGICAL HISTORY: Multiple cystoscopies. SOCIAL HISTORY: Denies smoking, drinking, or drug use. FAMILY HISTORY: No pertinent findings noticed. ALLERGIES: AND LATEX. MEDICATIONS: Currently include the patient is on: 1. Tylenol. 2. Ventolin. 3. Wellbutrin SR. 4. Neurontin. 5. Heparin. 6. Dilaudid. 7. NovoLog. 8. Levemir. 9. Toradol. 10.Meropenem 500 mg every 8 hours. 11.Protonix. 12.Paxil. PHYSICAL EXAMINATION: Blood pressure is 125/60 with a pulse of 110, temperature of 102.9. She is 99% 2 L nasal cannula. GENERAL DESCRIPTION: An elderly female lying in bed in no distress. No accessory of respiration use. HEENT: Shows wound no pallor or scleral icterus. Oral mucosa is dry. No pharyngeal erythema or thrush. NECK: Trachea central. No thyromegaly. LUNGS: Unlabored breathing. Clear to auscultation anteriorly. No wheeze or crackle. HEART: S1, S2. Regular rate and rhythm. ABDOMEN: Soft, no tenderness. No guarding. No rigidity. No organomegaly. EXTREMITIES: No edema of feet. SKIN EXAMINATION: No rash or mass palpable. NEUROLOGIC: Awake, alert, oriented x3. Mood and affect normal. LABS: Blood work at the outside facility shows elevated lactic acid of 3.3, hemoglobin 14, white count 11.3 with a BUN of 15, creatinine 0.82. UA did shows large leukocyte esterases, more than 1-2 WBC. Cultures currently pending. DIAGNOSTIC IMPRESSION AND PLAN: Patient admitted to the hospital with sepsis. The patient did have a possible some burning of urine with fever, elevated white count, elevated lactic acid, negative , likely urinary tract infection. Has grown Klebsiella pneumoniae, but not sensitive pathogen. She was initially treated with Zosyn, however, antibiotic has been switched over to meropenem by the admitting team with dose on low side in view of kidney function. PLAN: 1. Meropenem dose to adjust up to 1 g every 8 hours while waiting for the culture to finalize. 2. Aggressive IV fluid. 3. We will follow up on clinical condition as well as cultures to further adjust medication if needed. Thank you for this consultation. Will follow this patient along with you. MMODL / IJN: [id number] /
[2019-02-15 07:09] LABS: HCT 42.5 % (34.0-46.0); MCH 31.9 pg (25.0-35.0); MCHC 33.1 g/dL (31.0-37.0); MCV 96.5 fL (80.0-100.0); Mean Platelet Volume 7.3; Platelet Count 164 k/uL (150-450); RDW 14.1 % (11.5-15.5)
[2019-02-15 07:21] LABS: Anion Gap 8 mmol/L; Blood Urea Nitrogen 13 mg/dL (7-17); Calcium 8.2 mg/dL (8.4-10.2); Carbon Dioxide 21 mmol/L (22-30); Chloride 101 mmol/L (98-107); Glucose 295 mg/dL (74-99); Potassium 4.4 mmol/L (3.5-5.1); Sodium 130 mmol/L (137-145)
[2019-02-15 07:24] LABS: Glucose,Whole Blood 347 mg/dL (75-99)
[2019-02-15] MEDS: ACETAMINOPHEN TAB 325 MG TAB PO PRN (08:05)
[2019-02-15] MEDS: INSULIN ASPART (NovoLOG) 100 UNIT/ML VIAL SQ SCH ×4 (08:06→21:16)
[2019-02-15] MEDS: GABAPENTIN 300 MG CAP PO SCH ×3 (08:06→21:13)
[2019-02-15] MEDS: PARoxetine 20 MG TAB PO SCH (08:06)
[2019-02-15] MEDS: buPROPion SR 150 MG TABLET.ER PO SCH (08:07)
[2019-02-15] MEDS: METOPROLOL TARTRATE 50 MG TAB PO SCH ×2 (08:07→21:13)
[2019-02-15] MEDS: INSULIN DETEMIR (LEVEMIR) 100 UNIT/ML SYR SQ SCH ×2 (08:08→21:14)
[2019-02-15] MEDS ORDERED: PAROXETINE HCL 40 MG PO SCH (09:00)
--- NOTE | 2019-02-15 09:56 | P.PN ---
Progress Note - Text Progress Note Date: 02/15/19 The patient continues to have intermittent fevers and chills. Her main complaint remains discomfort in the suprapubic area but she says that she aches all over now. Although she has a relatively small (2-3 mm) proximal right ureteral calculus, this may be impairing drainage from the right kidney so that IV antibiotic treatment is not effective. In view of this cystoscopy with placement of a right double-J catheter will be performed this morning. I reviewed the procedure with the patient and she has no further questions.
[2019-02-15 10:15] LABS: Glucose,Whole Blood 289 mg/dL (75-99)
[2019-02-15] MEDS ORDERED: LACTATED RINGERS 1,000 ML IV ONE (10:50)
[2019-02-15 10:56] LABS: Glucose,Whole Blood 267 mg/dL (75-99)
[2019-02-15] MEDS ORDERED: LIDOCAINE 1% INJ 10MG/ML (20 ML MDV) ONE (10:57)
[2019-02-15] MEDS ORDERED: MIDAZOLAM 2 MG/2 ML VIAL ONE (10:57)
[2019-02-15] MEDS ORDERED: fentaNYL (PF) 50 MCG/ML 2 ML AMP ONE (10:57)
[2019-02-15] MEDS ORDERED: KETAMINE 10 MG/ML 20 ML VIAL ONE (10:57)
[2019-02-15] MEDS ORDERED: PROPOFOL 10 MG/ML 20 ML VIAL IV ONE (10:57)
[2019-02-15] MEDS: IPRATROPIUM 0.5 MG/2.5 ML NEBU INHALATION SCH ×3 (11:23→19:49)
--- NOTE | 2019-02-15 11:50 | P.OP ---
Date of Procedure: 02/15/19 Preoperative Diagnosis: Right proximal ureteral calculus with hydronephrosis complicating management of right pyelonephritis Postoperative Diagnosis: Right proximal ureteral calculus with hydronephrosis complicating management of right pyelonephritis Procedure(s) Performed: Cystoscopy with placement of right double-J catheter Anesthesia: [facility] Surgeon: Aquiles Cardenas Pathology: other (Culture from right renal pelvis) Condition: stable Disposition: PACU Indications for Procedure: The patient is a 58-year-old female who developed fever and chills several days ago who was discovered to have a 2-3 mm proximal right ureteral calculus and mild to moderate hydronephrosis. Her initial urinalysis performed in [place] did not suggest a urinary tract infection but a urinalysis performed yesterday now appears to confirm this. The patient continues to have a fever despite antibiotic treatment. Cystoscopy with placement of a right double-J catheter is planned to ensure adequate drainage of the right kidney and better antibiotic penetration. A culture from the right renal pelvis will also be obtained. Description of Procedure: The patient was taken to the operating suite where the venous sedation was given. She was placed in the dorsal lithotomy position with her legs suspended from padded Garo stirrups. Pneumatic compression stockings were applied to the lower legs. The genitalia was prepped with Betadine solution and draped in a sterile fashion. The 19-Venezuelan cystoscope sheath with obturator was passed through the urethra into the bladder. The bladder was examined using the 30 lens. The bladder was inflamed and the urine present within the latter was so mewhat cloudy. The left ureteral orifice was unremarkable. The right ureteral orifice was also unremarkable. A 6-Venezuelan open-ended ureteral catheter was passed over a 0.035 straight Glidewire and into the right ureteral orifice. Using fluoroscopic guidance the Glidewire and open-ended ureteral catheter was advanced up into the region of the renal pelvis. The Glidewire was removed. 3 mL of cloudy urine was aspirated from the right renal pelvis and submitted for culture and sensitivity. The Glidewire was reintroduced through the open-ended catheter and then the open-ended catheter was removed leaving the Glidewire in place. A 6-Venezuelan by 24 cm double-J catheter was then advanced over the Glidewire and positioned using fluoroscopy so that the proximal end coiled in the region of the renal pelvis and the distal and coiled in the bladder. The bladder was drained and the cystoscope was withdrawn. Patient tolerated procedure well and left the operative room awake and in satisfactory condition. There was no blood loss.
[2019-02-15 12:13] VITALS: BMI 47.0
[2019-02-15 12:26] LABS: Glucose,Whole Blood 188 mg/dL (75-99)
--- NOTE | 2019-02-15 13:09 | FL ---
EXAMINATION TYPE: FL guidance operating room DATE OF EXAM: 02/15/2019 CLINICAL HISTORY: Ureteral stent placement fluoroscopy documentation. TECHNIQUE: Fluoroscopy. COMPARISON: None. FINDINGS: Fluoroscopic guidance was provided during procedure performed by Dr. Cardenas. A total of 22 seconds of fluoroscopic time was utilized during the procedure and one spot image was acquired. IMPRESSION: As Above.
[2019-02-15] MEDS: PANTOPRAZOLE 40 MG/10 ML VIAL IVP SCH (13:41)
--- NOTE | 2019-02-15 14:28 | P.PN ---
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 Patient has significant clinical improvement fevers have come down white blood cell count has come down sodium remains low, patient underwent cystoscopy and J- tube placement feeling much better today. Continue with meropenem. Her hemoglobin A1c is very high counseling regarding diet and the medication complia nce was provided. Constitutional: Denied any fatigue denied any fever. Cardio vascular: denied any chest pain, palpitations Gastrointestinal denied any nausea vomiting Pulmonary: Denied any shortness of breath cough Neurologic denied any new focal deficits All inpatient medications were reviewed and appropriate changes in these medications as dictated in the interval history and assessment and plan. Objective - Vital Signs Vital signs: Vital Signs Temp 97.8 F 02/15/19 13:00 Pulse 75 02/15/19 13:15 Resp 12 02/15/19 13:00 BP 108/74 02/15/19 13:15 Pulse Ox 97 02/15/19 13:00 Intake & Output 02/14/19 02/15/19 02/15/19 18:59 06:59 18:59 Intake Total 750 850 Output Total 2 Balance 750 848 Weight 136.078 kg Intake: IV 850 Oral 750 Output: Estimated Blood Loss 2 Other: Voiding Method Toilet Toilet Diaper Incontinent # Voids 1 2 - Exam PHYSICAL EXAMINATION: GENERAL: The patient is alert and oriented x3, not in any acute distress. Well developed, well nourished. Obese HEENT: Pupils are round and equally reacting to light. EOMI. No scleral icterus. No conjunctival pallor. Normocephalic, atraumatic. No pharyngeal erythema. No thyromegaly. CARDIOVASCULAR: S1 and S2 present. No murmurs, rubs, or gallops. PULMONARY: Chest is clear to auscultation, no wheezing or crackles. ABDOMEN: Soft, nontender, nondistended, normoactive bowel sounds. No palpable organomegaly. MUSCULOSKELETAL: No joint swelling or deformity. EXTREMITIES: No cyanosis, clubbing, or pedal edema. NEUROLOGICAL: Gross neurological examination did not reveal any focal deficits. SKIN: No rashes. - Labs CBC & Chem 7: 02/15/19 06:46 02/15/19 06:46 Labs: Abnormal Lab Results - Last 24 Hours (Table) 02/14/19 02/14/19 02/14/19 Range/Units 11:51 14:40 16:54 WBC (3.8-10.6) k/uL Sodium (137-145) mmol/L Carbon Dioxide (22-30) mmol/L Glucose (74-99) mg/dL POC Glucose (mg/dL) 368 H (75-99) mg/dL Hemoglobin A1c 12.1 H (4.0-6.0) % Calcium (8.4-10.2) mg/dL Urine Appearance Cloudy H (Clear) Urine Protein 1+ H (Negative) Urine Glucose (UA) 4+ H (Negative) Urine Blood Moderate H (Negative) Ur Leukocyte Esterase Large H (Negative) Urine RBC 24 H (0-5) /hpf Urine WBC >182 H (0-5) /hpf Urine WBC Clumps Few H (None) /hpf Urine Mucus Rare H (None) /hpf Urine Yeast (Budding) Moderate H (None) /hpf 02/14/19 02/14/19 02/15/19 Range/Units 21:07 23:05 06:46 WBC 11.0 H (3.8-10.6) k/uL Sodium (137-145) mmol/L Carbon Dioxide (22-30) mmol/L Glucose (74-99) mg/dL POC Glucose (mg/dL) 329 H 344 H (75-99) mg/dL Hemoglobin A1c (4.0-6.0) % Calcium (8.4-10.2) mg/dL Urine Appearance (Clear) Urine Protein (Negative) Urine Glucose (UA) (Negative) Urine Blood (Negative) Ur Leukocyte Esterase (Negative) Urine RBC (0-5) /hpf Urine WBC (0-5) /hpf Urine WBC Clumps (None) /hpf Urine Mucus (None) /hpf Urine Yeast (Budding) (None) /hpf 02/15/19 02/15/19 02/15/19 Range/Units 06:46 07:22 10:11 WBC (3.8-10.6) k/uL Sodium 130 L (137-145) mmol/L Carbon Dioxide 21 L (22-30) mmol/L Glucose 295 H (74-99) mg/dL POC Glucose (mg/dL) 347 H 289 H (75-99) mg/dL Hemoglobin A1c (4.0-6.0) % Calcium 8.2 L (8.4-10.2) mg/dL Urine Appearance (Clear) Urine Protein (Negative) Urine Glucose (UA) (Negative) Urine Blood (Negative) Ur Leukocyte Esterase (Negative) Urine RBC (0-5) /hpf Urine WBC (0-5) /hpf Urine WBC Clumps (None) /hpf Urine Mucus (None) /hpf Urine Yeast (Budding) (None) /hpf 02/15/19 02/15/19 Range/Units 10:54 12:22 WBC (3.8-10.6) k/uL Sodium (137-145) mmol/L Carbon Dioxide (22-30) mmol/L Glucose (74-99) mg/dL POC Glucose (mg/dL) 267 H 188 H (75-99) mg/dL Hemoglobin A1c (4.0-6.0) % Calcium (8.4-10.2) mg/dL Urine Appearance (Clear) Urine Protein (Negative) Urine Glucose (UA) (Negative) Urine Blood (Negative) Ur Leukocyte Esterase (Negative) Urine RBC (0-5) /hpf Urine WBC (0-5) /hpf Urine WBC Clumps (None) /hpf Urine Mucus (None) /hpf Urine Yeast (Budding) (None) /hpf Microbiology - Last 24 Hours (Table) 02/14/19 11:51 Blood Culture - Preliminary Blood No Growth after 24 hours 02/14/19 14:40 Urine Culture - Preliminary Urine,Voided Assessment and Plan Plan: -severe sepsis secondary to urinary tract infection pyelonephritis and renal calculi: Patient had cystoscopy and J-tube placement, continue with meropenem because of her history of VRE although patient had pansensitive to Klebsiella in the recent past. Continue with IV fluids, significant improvement compared to yesterday, awaiting urine cultures and blood cultures -Renal calculi: Appreciate urology recommendations no further surgical intervention at this time point of time -Type 2 diabetes mellitus uncontrolled blood sugars secondary to sepsis patient will be started back on her insulin regimen along with sliding scale insulin, uncontrolled blood sugars -Hyperlipidemia -Hypertension -COPD without any significant exacerbation -Obesity patient related pharmacologic GI and DVT prophylaxis.
[2019-02-15] MEDS: KETOROLAC 30 MG/ML 1 ML VIAL IVP PRN (15:05)
[2019-02-15 17:02] LABS: Glucose,Whole Blood 357 mg/dL (75-99)
--- NOTE | 2019-02-15 17:12 | PN ---
PROGRESS NOTE DATE OF SERVICE: 02/15/2019. REASON FOR FOLLOWUP: Complicated right-sided UTI and pyelonephritis. INTERVAL HISTORY: The patient did have a fever of 101.2 degrees this morning. However, the patient The patient has been taken to the OR. The patient is status post cystoscopy with right ureteral stent placement. Tolerated the procedure. Denies any chest pain. No abdominal pain. No diarrhea. PHYSICAL EXAMINATION: Blood pressure 108/74. Pulse of 75. Temperature 97.8. She is 97% on room air. General description is a middle-aged female up in the room in no distress. Respiratory system: Unlabored breathing. Clear to auscultation anteriorly. Heart S1, S2. Regular rate and rhythm. Abdomen soft. No tenderness. Extremities: No edema of the feet. LABS: Hemoglobin is 14, white count 11, BUN of 13, creatinine 0.56. Cultures currently pending. DIAGNOSTIC IMPRESSION AND PLAN: Patient admitted to the hospital with sepsis with complicated urinary tract infection. The patient is currently covered with meropenem that will be continued while waiting for the culture to finalize to determine discharge antibiotics. Continue supportive care. MMODL / IJN: [id number] /
[2019-02-15] MEDS: HYDROmorphone 1 MG/ML 1 ML SYRINGE IVP PRN (17:40)
[2019-02-15 20:20] LABS: Glucose,Whole Blood 386 mg/dL (75-99)
[2019-02-16] MEDS: ACETAMINOPHEN TAB 325 MG TAB PO PRN (01:06)
[2019-02-16] MEDS: KETOROLAC 30 MG/ML 1 ML VIAL IVP PRN ×3 (01:07→21:39)
[2019-02-16 07:03] LABS: Glucose,Whole Blood 180 mg/dL (75-99)
[2019-02-16] MEDS: IPRATROPIUM 0.5 MG/2.5 ML NEBU INHALATION SCH ×4 (07:27→19:53)
[2019-02-16] MEDS: SODIUM CHLORIDE 0.9% 1,000 ML IV SCH ×2 (07:39→17:35)
[2019-02-16] MEDS: INSULIN ASPART (NovoLOG) 100 UNIT/ML VIAL SQ SCH ×4 (07:40→21:10)
[2019-02-16] MEDS: HEPARIN SODIUM,PORCINE 5,000 UNIT/ML 1 ML VIAL SQ SCH ×3 (07:41→23:23)
[2019-02-16] MEDS: MEROPENEM 1 GM in SODIUM CHLORIDE 0.9% 100 ML IVPB SCH ×3 (07:41→23:23)
[2019-02-16] MEDS: buPROPion SR 150 MG TABLET.ER PO SCH (07:42)
[2019-02-16] MEDS: GABAPENTIN 300 MG CAP PO SCH ×3 (07:43→21:35)
[2019-02-16] MEDS: PANTOPRAZOLE 40 MG/10 ML VIAL IVP SCH (07:43)
[2019-02-16] MEDS: PARoxetine 20 MG TAB PO SCH (07:43)
[2019-02-16] MEDS: METOPROLOL TARTRATE 50 MG TAB PO SCH ×2 (07:43→21:35)
[2019-02-16] MEDS: HYDROmorphone 1 MG/ML 1 ML SYRINGE IVP PRN ×5 (07:56→23:23)
[2019-02-16] MEDS: INSULIN DETEMIR (LEVEMIR) 100 UNIT/ML SYR SQ SCH ×2 (09:25→21:10)
[2019-02-16 11:44] LABS: Glucose,Whole Blood 258 mg/dL (75-99)
[2019-02-16 17:30] LABS: Glucose,Whole Blood 356 mg/dL (75-99)
--- NOTE | 2019-02-16 18:07 | PN ---
PROGRESS NOTE DATE OF SERVICE: 02/16/2019. REASON FOR FOLLOWUP: Complicated UTI. INTERVAL HISTORY: The patient did spike a fever of 101 degrees Fahrenheit last night. The patient afebrile this morning. The patient is breathing comfortably. Denies having any chest pain. No cough. No nausea, no vomiting. No abdominal pain. No diarrhea. PHYSICAL EXAMINATION: Blood pressure 120/79 with a pulse of 81, temperature 98.1. She is 97% on room air. General description is a middle aged female, lying in bed in no distress. Respiratory system: Unlabored breathing. Clear to auscultation anteriorly. Heart S1, S2. Regular rate and rhythm. Abdomen soft, no tenderness. LAB: Cultures currently pending. No CBC was done today. DIAGNOSTIC IMPRESSION AND PLAN: Patient admitted to the hospital with sepsis, source is complicated UTI. This patient is status post right ureteral stent placement. Patient at this time covered with Meropenem to continue while waiting for the cultures to finalize. Continue supportive care. MMODL / IJN: [id number] /
--- NOTE | 2019-02-16 18:43 | P.PN ---
Progress Note - Text Progress Note Date: 02/16/19 The patient had a temperature of 101 at midnight last night but since that time has remained afebrile. She says she feels better following placement of the right double-J catheter although she continues to have suprapubic discomfort. This may in part be related to cystitis as her bladder was very inflamed. Patient is tolerating a diet but her diabetes remains under suboptimal control. She will be continued on meropenem and pending results of the urine culture obtained from the right renal pelvis yesterday.
[2019-02-16 20:49] LABS: Glucose,Whole Blood 409 mg/dL (75-99)
[2019-02-17] MEDS: HYDROmorphone 1 MG/ML 1 ML SYRINGE IVP PRN ×3 (05:21→23:18)
[2019-02-17] MEDS: SODIUM CHLORIDE 0.9% 1,000 ML IV SCH ×3 (05:21→23:19)
[2019-02-17] MEDS: IPRATROPIUM 0.5 MG/2.5 ML NEBU INHALATION SCH ×4 (07:10→19:52)
[2019-02-17 07:34] LABS: Glucose,Whole Blood 171 mg/dL (75-99)
[2019-02-17] MEDS: MEROPENEM 1 GM in SODIUM CHLORIDE 0.9% 100 ML IVPB SCH (08:10)
[2019-02-17] MEDS: INSULIN ASPART (NovoLOG) 100 UNIT/ML VIAL SQ SCH ×4 (08:10→20:34)
[2019-02-17] MEDS: INSULIN DETEMIR (LEVEMIR) 100 UNIT/ML SYR SQ SCH ×2 (08:54→20:34)
[2019-02-17] MEDS: KETOROLAC 30 MG/ML 1 ML VIAL IVP PRN ×2 (08:54→14:15)
[2019-02-17 09:09] LABS: Basophils % (A) 0 %; Eosinophils # (A) 0.1 k/uL (0-0.7); Eosinophils % (A) 1 %; HCT 39.7 % (34.0-46.0); HGB 12.7 gm/dL (11.4-16.0); Lymphocytes # (A) 1.6 k/uL (1.0-4.8); Lymphocytes % (A) 24 %; MCH 30.3 pg (25.0-35.0); MCV 94.7 fL (80.0-100.0); Mean Platelet Volume 7.9; Monocytes # (A) 0.3 k/uL (0-1.0); Monocytes % (A) 5 %; Neutrophils # (A) 4.4 k/uL (1.3-7.7); Neutrophils % (A) 66 %; Platelet Count 215 k/uL (150-450); RDW 13.8 % (11.5-15.5); WBC 6.6 k/uL (3.8-10.6)
[2019-02-17 09:17] LABS: Anion Gap 5 mmol/L; Blood Urea Nitrogen 12 mg/dL (7-17); Calcium 8.2 mg/dL (8.4-10.2); Carbon Dioxide 25 mmol/L (22-30); Chloride 104 mmol/L (98-107); Glucose 216 mg/dL (74-99); Sodium 134 mmol/L (137-145)
[2019-02-17] MEDS: PARoxetine 20 MG TAB PO SCH (10:40)
[2019-02-17] MEDS: METOPROLOL TARTRATE 50 MG TAB PO SCH ×2 (10:42→20:35)
[2019-02-17] MEDS: HEPARIN SODIUM,PORCINE 5,000 UNIT/ML 1 ML VIAL SQ SCH ×3 (10:42→23:18)
[2019-02-17] MEDS: GABAPENTIN 300 MG CAP PO SCH ×3 (10:46→20:34)
[2019-02-17] MEDS: buPROPion SR 150 MG TABLET.ER PO SCH (10:49)
[2019-02-17] MEDS: PANTOPRAZOLE 40 MG/10 ML VIAL IVP SCH (11:20)
[2019-02-17 11:53] LABS: Glucose,Whole Blood 172 mg/dL (75-99)
[2019-02-17] MEDS: FLUCONAZOLE 100 MG TAB PO SCH (15:56)
[2019-02-17 16:48] LABS: Glucose,Whole Blood 264 mg/dL (75-99)
--- NOTE | 2019-02-17 17:56 | PN ---
PROGRESS NOTE DATE OF SERVICE: 02/17/2019. REASON FOR FOLLOWUP VISIT: Complicated urinary tract infection. INTERVAL HISTORY: The patient is currently afebrile. The patient who did have a fever last night. No fever recorded today. The patient denies any chest pain. No shortness of breath or cough. Denies any abdominal pain. No nausea, no vomiting or any diarrhea. PHYSICAL EXAMINATION: On examination, BP 125/81 with a pulse of 57, temperature 98. She is 97% on room air. General description is a middle-aged female lying in bed in no distress. Respiratory system: Unlabored breathing, clear to auscultation anteriorly. Heart S1, S2. Regular rate and rhythm. Abdomen soft, no tenderness. LABS: Hemoglobin is 12.5, white count 6.6, BUN of 12, creatinine 0.50. Urine showing Elza albicans. DIAGNOSTIC IMPRESSION AND PLAN: Patient admitted to the hospital with sepsis with complicated urinary tract infection, urine now showing Elza albicans. Discontinue meropenem and oral Diflucan and IV Rocephin and monitoring clinical course closely. Hopefully finish therapy with oral antibiotics tomorrow. Continue supportive care. MMODL / IJN: [id number] /
--- NOTE | 2019-02-17 18:59 | P.PN ---
Progress Note - Text Progress Note Date: 02/17/19 The patient has been afebrile for 36 hours. She says she continues to feel better each day. Her glucose appears to be under better control. White blood count is 6600. Final blood culture showed no growth. Culture from the right renal pelvis taken at the time of placement of the right double-J catheter as well as a voided specimen from 02/14 have grown Elza. From my standpoint the patient could be treated with Diflucan as an outpatient. I would like to see her back in 7-10 days. Right ureteroscopy with lithotripsy will be set up in several weeks provided her follow-up urine cultures are negative.
[2019-02-17 20:14] LABS: Glucose,Whole Blood 223 mg/dL (75-99)
[2019-02-17] MEDS: metFORMIN 500 MG TAB PO SCH (20:35)
--- NOTE | 2019-02-17 23:43 | P.PN ---
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 Patient has significant clinical improvement fevers have come down white blood cell count has come down sodium remains low, patient underwent cystoscopy and J- tube placement feeling much better today. Continue with meropenem. Her hemoglobin A1c is very high counseling regarding diet and the medication compliance was provided. 02/16/2019 Patient is lying in the bed and is hemodynamically stable. Complaining of right flank pain but is improving. Status post Cystoscopy with placement of right double-J catheter. Patient has been afebrile now. T-max was 101 last night. Patient does have some lower abdominal pain. Able to void spontaneously. Tolerating oral diet. No nausea vomiting or diarrhea. Blood sugar is elevated this evening. Patient will be started back on her home dose of Lantus 20 units twice a day With glipizide and metformin. ID and urology is following. Patient is being continued on antibiotics in the form of meropenem. Awaiting final urine culture reports. Constitutional: Denied any fatigue denied any fever. Cardio vascular: denied any chest pain, palpitations Gastrointestinal denied any nausea vomiting Pulmonary: Denied any shortness of breath cough Neurologic denied any new focal deficits All inpatient medications were reviewed and appropriate changes in these medications as dictated in the interval history and assessment and plan. Objective - Vital Signs Vital signs: Vital Signs Temp 98.1 F 02/16/19 07:00 Pulse 81 02/16/19 07:00 Resp 12 02/16/19 07:00 BP 120/79 02/16/19 07:00 Pulse Ox 97 02/16/19 07:00 Intake & Output 02/15/19 02/16/19 02/16/19 18:59 06:59 18:59 Intake Total 850 Output Total 2 Balance 848 Weight 136.078 kg Intake: IV 850 Output: Estimated Blood Loss 2 Other: Voiding Method Toilet Toilet Toilet Diaper Diaper Diaper Incontinent Incontinent Incontinent # Voids 2 2 - Exam PHYSICAL EXAMINATION: GENERAL: The patient is alert and oriented x3, not in any acute distress. Well developed, well nourished. Obese HEENT: Pupils are round and equally reacting to light. EOMI. No scleral icterus. No conjunctival pallor. Normocephalic, atraumatic. No pharyngeal erythema. No thyromegaly. CARDIOVASCULAR: S1 and S2 present. No murmurs, rubs, or gallops. PULMONARY: Chest is clear to auscultation, no wheezing or crackles. ABDOMEN: Soft, nontender, nondistended, normoactive bowel sounds. No palpable organomegaly. MUSCULOSKELETAL: No joint swelling or deformity. EXTREMITIES: No cyanosis, clubbing, or pedal edema. NEUROLOGICAL: Gross neurological examination did not reveal any focal deficits. SKIN: No rashes. - Labs CBC & Chem 7: 02/17/19 08:29 02/17/19 08:29 Labs: Abnormal Lab Results - Last 24 Hours (Table) 02/15/19 02/15/19 02/16/19 Range/Units 16:56 20:17 06:58 POC Glucose (mg/dL) 357 H 386 H 180 H (75-99) mg/dL 02/16/19 Range/Units 11:42 POC Glucose (mg/dL) 258 H (75-99) mg/dL Microbiology - Last 24 Hours (Table) 02/14/19 11:51 Blood Culture - Preliminary Blood No Growth after 48 hours 02/15/19 11:46 Urine Culture - Preliminary Urine,Clean Catch Assessment and Plan Assessment: -severe sepsis secondary to urinary tract infection pyelonephritis and renal calculi: Patient had cystoscopy and J-tube placement, continue with meropenem because of her history of VRE although patient had pansensitive to Klebsiella in the recent past. Continue with IV fluids, significant improvement compared to yesterday, awaiting urine cultures and blood cultures -Renal calculi: Appreciate urology recommendations no further surgical intervention at this time point of time -Type 2 diabetes mellitus uncontrolled blood sugars secondary to sepsis patient will be started back on her insulin regimen along with sliding scale insulin, uncontrolled blood sugars -Hyperlipidemia -Hypertension -COPD without any significant exacerbation -Obesity patient related pharmacologic GI and DVT prophylaxis. Time with Patient: Greater than 30
--- NOTE | 2019-02-17 23:47 | P.PN ---
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 Patient has significant clinical improvement fevers have come down white blood cell count has come down sodium remains low, patient underwent cystoscopy and J- tube placement feeling much better today. Continue with meropenem. Her hemoglobin A1c is very high counseling regarding diet and the medication compliance was provided. 02/16/2019 Patient is lying in the bed and is hemodynamically stable. Complaining of right flank pain but is improving. Status post Cystoscopy with placement of right double-J catheter. Patient has been afebrile now. T-max was 101 last night. Patient does have some lower abdominal pain. Able to void spontaneously. Tolerating oral diet. No nausea vomiting or diarrhea. Blood sugar is elevated this evening. Patient will be started back on her home dose of Lantus 20 units twice a day With glipizide and metformin. ID and urology is following. Patient is being continued on antibiotics in the form of meropenem. Awaiting final urine culture reports. 02/17/2019 Patient feels much better today. Lower abdominal pain and flank pain is almost resolved. Final urine culture showed Elza albicans. Blood cultures negative. Urology recommends outpatient follow-up for lithotripsy. Antibiotics changed to ceftriaxone. ID is following. Blood sugar is better controlled today. Patient has been afebrile. No nausea vomiting or diarrhea. No chest pain or shortness of breath. Constitutional: Denied any fatigue denied any fever. Cardio vascular: denied any chest pain, palpitations Gastrointestinal denied any nausea vomiting Pulmonary: Denied any shortness of breath cough Neurologic denied any new focal deficits All inpatient medications were reviewed and appropriate changes in these medications as dictated in the interval history and assessment and plan. Objective - Vital Signs Vital signs: Vital Signs Temp 98.0 F 02/17/19 20:07 Pulse 66 02/17/19 20:07 Resp 20 02/17/19 20:07 BP 135/66 02/17/19 20:07 Pulse Ox 97 02/17/19 20:07 Intake & Output 02/17/19 02/17/19 02/18/19 06:59 18:59 06:59 Intake Total 800 300 Balance 800 300 Intake: Intake, IV Titration 800 300 Amount Sodium Chloride 0.9% 1, 800 300 000 ml @ 100 mls/hr IV . Q10H [facility] Rx#:[id number] Other: Voiding Method Toilet Toilet # Voids 3 2 2 # Bowel Movements 0 - Exam PHYSICAL EXAMINATION: GENERAL: The patient is alert and oriented x3, not in any acute distress. Well developed, well nourished. Obese HEENT: Pupils are round and equally reacting to light. EOMI. No scleral icterus. No conjunctival pallor. Normocephalic, atraumatic. No pharyngeal erythema. No thyromegaly. CARDIOVASCULAR: S1 and S2 present. No murmurs, rubs, or gallops. PULMONARY: Chest is clear to auscultation, no wheezing or crackles. ABDOMEN: Soft, nontender, nondistended, normoactive bowel sounds. No palpable organomegaly. MUSCULOSKELETAL: No joint swelling or deformity. EXTREMITIES: No cyanosis, clubbing, or pedal edema. NEUROLOGICAL: Gross neurological examination did not reveal any focal deficits. SKIN: No rashes. - Labs CBC & Chem 7: 02/17/19 08:29 02/17/19 08:29 Labs: Abnormal Lab Results - Last 24 Hours (Table) 02/17/19 02/17/19 02/17/19 Range/Units 07:22 08:29 11:39 Sodium 134 L (137-145) mmol/L Creatinine 0.50 L (0.52-1.04) mg/dL Glucose 216 H (74-99) mg/dL POC Glucose (mg/dL) 171 H 172 H (75-99) mg/dL Calcium 8.2 L (8.4-10.2) mg/dL 02/17/19 02/17/19 Range/Units 16:46 20:13 Sodium (137-145) mmol/L Creatinine (0.52-1.04) mg/dL Glucose (74-99) mg/dL POC Glucose (mg/dL) 264 H 223 H (75-99) mg/dL Calcium (8.4-10.2) mg/dL Microbiology - Last 24 Hours (Table) 02/14/19 11:51 Blood Culture - Preliminary Blood No Growth after 72 hours 02/14/19 14:40 Urine Culture - Final Urine,Voided Elza albicans 02/15/19 11:46 Urine Culture - Final Urine,Clean Catch Elza albicans Assessment and Plan Assessment: -severe sepsis secondary to urinary tract infection pyelonephritis and renal calculi: Patient had cystoscopy and J-tube placement, continued with meropenem because of her history of VRE although patient had pansensitive to Klebsiella in the recent past. Urine culture showed Elza albicans currently. Antibiotics changed to ceftriaxone. ID is following. Continue with IV fluids, significant improvement compared to yesterday, awaiting urine cultures and blood cultures -Renal calculi: Appreciate urology recommendations no further surgical intervention at this time point of time -Type 2 diabetes mellitus uncontrolled blood sugars secondary to sepsis patient will be started back on her insulin regimen along with sliding scale insulin, uncontrolled blood sugars -Hyperlipidemia -Hypertension -COPD without any significant exacerbation -Obesity patient related pharmacologic GI and DVT prophylaxis. Time with Patient: Greater than 30
[2019-02-18] MEDS: SODIUM CHLORIDE 0.9% 1,000 ML IV SCH (05:26)
[2019-02-18] MEDS: KETOROLAC 30 MG/ML 1 ML VIAL IVP PRN (05:27)
[2019-02-18] MEDS: IPRATROPIUM 0.5 MG/2.5 ML NEBU INHALATION SCH ×3 (07:00→15:35)
[2019-02-18] MEDS ORDERED: glipiZIDE 10 MG TAB PO SCH (07:30)
[2019-02-18] MEDS ORDERED: PANTOPRAZOLE 40 MG TABLET PO SCH (07:30)
[2019-02-18 07:33] LABS: Glucose,Whole Blood 179 mg/dL (75-99)
[2019-02-18] MEDS: INSULIN ASPART (NovoLOG) 100 UNIT/ML VIAL SQ SCH ×2 (08:15→12:28)
[2019-02-18] MEDS: HYDROmorphone 1 MG/ML 1 ML SYRINGE IVP PRN (09:07)
[2019-02-18 09:40] VITALS: PULSE 66
[2019-02-18] MEDS: buPROPion SR 150 MG TABLET.ER PO SCH (10:23)
[2019-02-18] MEDS: METOPROLOL TARTRATE 50 MG TAB PO SCH (10:24)
[2019-02-18] MEDS: PARoxetine 20 MG TAB PO SCH (10:24)
[2019-02-18] MEDS: GABAPENTIN 300 MG CAP PO SCH ×2 (10:24→11:07)
[2019-02-18] MEDS: HEPARIN SODIUM,PORCINE 5,000 UNIT/ML 1 ML VIAL SQ SCH (10:24)
[2019-02-18] MEDS: INSULIN DETEMIR (LEVEMIR) 100 UNIT/ML SYR SQ SCH (10:55)
[2019-02-18] MEDS: FLUCONAZOLE 100 MG TAB PO SCH (11:12)
[2019-02-18] MEDS: metFORMIN 500 MG TAB PO SCH (11:15)
[2019-02-18 11:36] LABS: Glucose,Whole Blood 222 mg/dL (75-99)
[2019-02-18 14:46] VITALS: BP 139/71; RESP 20; TEMP 97.8
--- NOTE | 2019-02-18 16:12 | PN ---
PROGRESS NOTE DATE OF SERVICE: 02/18/2019 REASON FOR FOLLOWUP: Complicated urinary intact infection. INTERVAL HISTORY: The patient is currently afebrile. The patient is breathing comfortably. The patient denies having any chest pain or shortness of breath or cough. No abdominal pain. She is anxious to go home. PHYSICAL EXAMINATION: Her blood pressure is 139/71 with a pulse of 66, temperature 97.8. She is 98% on room air. General description is a middle-aged female up in the chair in no distress. RESPIRATORY SYSTEM: Unlabored breathing. Clear to auscultation anteriorly. HEART: S1, S2. Regular rate and rhythm. ABDOMEN: Soft. No tenderness. LABS: Hemoglobin is 12.7, white count 6.6. BUN of 12, creatinine 0.50. Urine has been Elza albicans, blood culture negative. DIAGNOSTIC IMPRESSION AND PLAN: Patient with complicated urinary tract infection in this patient who did have obstructive right-sided kidney stone, status post ureteral stent placement. Cultures have been Elza albicans. Antibiotic Diflucan was switched to p.o. 200 daily for another 10 days with close outpatient followup. Continue with supportive care. MMODL / IJN: [id number] /
== END 2019-02-18 15:59 | disposition home or self-care (01) | DRG 854 ==
LOC: EC 22:22 → 4SSUR 22:49
PROVIDERS: ADMIT Internal Medicine; ATTEND Internal Medicine
PROC: 0T768DZ Dilation of Right Ureter with Intraluminal Device, Via Natural or Artificial Opening Endoscopic (ICD-10-PCS; principal; 2019-02-13)
DX: B37.7 Candidal sepsis (principal); N13.6 Pyonephrosis; R65.20 Severe sepsis without septic shock; E11.65 Type 2 diabetes mellitus with hyperglycemia; E66.9 Obesity, unspecified; Z16.21 Resistance to vancomycin; E78.5 Hyperlipidemia, unspecified; F32.9 Major depressive disorder, single episode, unspecified; I10 Essential (primary) hypertension; J44.9 Chronic obstructive pulmonary disease, unspecified; F17.200 Nicotine dependence, unspecified, uncomplicated; E11.40 Type 2 diabetes mellitus with diabetic neuropathy, unspecified; Z79.899 Other long term (current) drug therapy; Z79.4 Long term (current) use of insulin; Z91.040 Latex allergy status; Z88.8 Allergy status to other drugs, medicaments and biological substances; Z91.048 Other nonmedicinal substance allergy status; Z86.14 Personal history of Methicillin resistant Staphylococcus aureus infection; Z71.3 Dietary counseling and surveillance; Z81.8 Family history of other mental and behavioral disorders; Z82.49 Family history of ischemic heart disease and other diseases of the circulatory system; Z83.3 Family history of diabetes mellitus; Z86.19 Personal history of other infectious and parasitic diseases; Z87.440 Personal history of urinary (tract) infections; Z87.442 Personal history of urinary calculi; Z90.710 Acquired absence of both cervix and uterus
CPT/HCPCS: 36410; 36415; 71046; 76937; 80048; 81001; 83036; 83605; 85025; 85027; 87040; 87075; 87086; 94640; 94760; 96374; 96375; 99285

== ENCOUNTER 2020-01-10 10:28 | Observation (INO) | payer MEDICARE, OTHER ==
[2020-01-10] MEDS ORDERED: SODIUM CHLORIDE 0.9% 1,000 ML IV STA ×2 (10:59)
[2020-01-10] MEDS ORDERED: ASPIRIN 325 MG TAB PO STA (11:02)
--- NOTE | 2020-01-10 11:02 | ED ---
Chest Pain HPI - General Chief Complaint: Chest Pain Stated Complaint: chest pain Time Seen by Provider: 01/10/20 10:44 Source: patient, RN notes reviewed, old records reviewed Mode of arrival: wheelchair Limitations: no limitations - History of Present Illness Initial Comments: This Patient is a 59-year-old female with history of diabetes hypertension smoker. She presents emergency department today with exertional dyspnea and chest pain on exertion off-and-on for the past year. Patient reports that she's been having problems with her heart for the past 3 years however has never been able to follow-up with a bottom ironer due to lack of insurance or not accepting her insurance. Patient states she had an abnormal stress test in [place] 3 years ago but was never able to follow-up with a bottom ironer since that time. She moved to [facility] and attempted to follow-up with bottom ironer here but continued to have disparities due to insurance. Patient states that yesterday while sleeping her floor she became a very winded and had significant chest pain. She reports that it rested does diminish. - Related Data Home Medications Medication Instructions Recorded Confirmed Cholecalciferol [Vitamin D3 (25 1,000 unit PO DAILY 10/06/18 02/14/19 Mcg = 1000 Iu)] Cyanocobalamin [Vitamin B-12] 500 mcg PO DAILY 10/06/18 02/14/19 Gabapentin [Neurontin] 300 mg PO DAILY 10/06/18 02/14/19 Gabapentin [Neurontin] 600 mg PO BID@1200,2100 10/06/18 02/14/19 Lovastatin [Mevacor] 40 mg PO HS 10/06/18 02/14/19 Metoprolol Tartrate [Lopressor] 100 mg PO BID 10/06/18 02/14/19 PARoxetine HCL [Paxil] 40 mg PO DAILY 10/06/18 02/14/19 PARoxetine [Paxil] 20 mg PO DAILY 10/06/18 02/14/19 Ranitidine HCl 300 mg PO HS 10/06/18 02/14/19 buPROPion SR [Wellbutrin SR] 150 mg PO DAILY 10/06/18 02/14/19 glipiZIDE [Glucotrol] 10 mg PO DAILY 10/06/18 02/14/19 metFORMIN HCL 1,000 mg PO BID 10/06/18 02/14/19 Multivitamin,Therapeutic [Thera] 1 tab PO DAILY 02/13/19 02/14/19 Albuterol Inhaler [Ventolin Hfa 2 puff INHALATION RT-QID PRN 02/14/19 02/14/19 Inhaler] Insulin Glargine [Lantus] See Protocol SQ BID 02/14/19 02/14/19 Tiotropium 18 Mcg/Puff [Spiriva] 1 cap INHALATION RT-DAILY 02/14/19 02/14/19 Previous Rx's Medication Instructions Recorded Acetaminophen Tab [Tylenol] 650 mg PO Q6HR PRN tab 10/08/18 Lisinopril [Prinivil] 10 mg PO DAILY #30 tab 10/08/18 Cefuroxime Axetil [Ceftin] 500 mg PO BID #14 tab 02/18/19 Fluconazole [Diflucan] 200 mg PO DAILY #10 tab 02/18/19 Allergies Allergy/AdvReac Type Severity Reaction Status Date / Time latex Allergy Rash/Hives Verified 02/13/19 22:40 nicotine AdvReac Severe Itching Verified 02/13/19 22:40 adhesive tape AdvReac Rash/Hives Verified 02/13/19 22:40 fluoxetine [From Prozac] AdvReac Rapid Verified 02/13/19 22:40 Heart Rate Review of Systems ROS Statement: Those systems with pertinent positive or pertinent negative responses have been documented in the HPI. ROS Other: All systems not noted in ROS Statement are negative. EKG Findings - EKG Comments: EKG Findings:: EKG shows normal sinus rhythm minimally QT. Ventricular rate of 80 bpm. Was 196 most seconds. Respirations 98 ms. QT QTc is 366/422 ms. Past Medical History Past Medical History: COPD, Diabetes Mellitus, Hyperlipidemia, Hypertension, Pneumonia, Renal Disease Additional Past Medical History / Comment(s): heart murmur. frequent UTIs, kidney stones, neuropathy History of Any Multi-Drug Resistant Organisms: MRSA, VRE Date of last positivie culture/infection: 03/04/19 VRE / 2016 MRSA MDRO Source:: VRE URINE MRSA LEG Past Surgical History: Section, Hysterectomy, Orthopedic Surgery Additional Past Surgical History / Comment(s): 3 . hysterectomy. kidney surgery - stones-treated with right ureteroscopy with lithotripsy in . right knee surgery. right sided mastitis 09/2018 with lancing, debridement, and packing Additional Past Anesthesia/Blood Transfusion Reaction / Comment(s): states she had a hard time waking up from anesthesia Past Psychological History: Depression Smoking Status: Current every day smoker Past Alcohol Use History: None Reported Past Drug Use History: None Reported - Past Family History Daughter(s) Additional Family Medical History / Comment(s): diverticulitis, depression, Mother Family Medical History: Pulmonary Embolus Additional Family Medical History / Comment(s): HAd depression. from Father Family Medical History: Diabetes Mellitus, Hypertension Additional Family Medical History / Comment(s): General Exam Limitations: no limitations General appearance: alert, in no apparent distress Head exam: Present: atraumatic, normocephalic, normal inspection Eye exam: Present: normal appearance, PERRL, EOMI. Absent: scleral icterus, conjunctival injection, periorbital swelling ENT exam: Present: normal exam, mucous membranes moist Neck exam: Present: normal inspection. Absent: tenderness, meningismus, lymphadenopathy Respiratory exam: Present: normal lung sounds bilaterally. Absent: respiratory distress, wheezes, rales, rhonchi, stridor Cardiovascular Exam: Present: regular rate, normal rhythm, normal heart sounds. Absent: systolic murmur, diastolic murmur, rubs, gallop, clicks GI/Abdominal exam: Present: soft, normal bowel sounds. Absent: distended, tenderness, guarding, rebound, rigid Extremities exam: Present: normal inspection, full ROM, normal capillary refill. Absent: tenderness, pedal edema, joint swelling, calf tenderness Back exam: Present: normal inspection Neurological exam: Present: alert, oriented X3, CN II-XII intact Psychiatric exam: Present: normal affect, normal mood Skin exam: Present: warm, dry, intact, normal color. Absent: rash Course Vital Signs 01/10/20 01/10/20 10:30 12:11 Temperature 97.6 F Pulse Rate 90 80 Respiratory 18 18 Rate Blood Pressure 109/78 120/72 O2 Sat by Pulse 98 98 Oximetry Chest Pain MDM - MDM 59-year-old female presents emergency room today with exertional chest pain worsening for the past year. Patient is told that she has an abnormal stress test years ago but never followed up with cardiology. At this time EKG is normal chest x-ray shows no acute process. Troponin test is negative. Patient does feel winded and does complain of some chest pain with exertion there was significantly worse last night. Denies chest pain at this time. I discussed with concern for risk factors of diabetes smoking family history they will not admit the Patient for further evaluation and see bottom ironer. Patient is agreeable to treatment plan. Disposition Clinical Impression: Unstable angina Disposition: ADMITTED IP TO THIS [facility] Condition: Good Instructions (If sedation given, give patient instructions): Chest Pain (ED) Additional Instructions: Please use medication as discussed. Please follow up with family doctor if symptoms have not improved over the next two days. Please return to the emergency room if your symptoms increase or worsen or for any other concerns. Is patient prescribed a controlled substance at d/c from ED?: No Referrals: Jam Coto MD [Primary Care Provider] - 1-2 days Time of Disposition: 14:10
[2020-01-10 11:46] LABS: Basophils # (A) 0.1 k/uL (0-0.2); Basophils % (A) 1 %; Eosinophils # (A) 0.1 k/uL (0-0.7); Eosinophils % (A) 1 %; HCT 48.5 % (34.0-46.0); HGB 16.1 gm/dL (11.4-16.0); Lymphocytes # (A) 3.3 k/uL (1.0-4.8); Lymphocytes % (A) 24 %; MCH 31.2 pg (25.0-35.0); MCHC 33.3 g/dL (31.0-37.0); MCV 93.7 fL (80.0-100.0); Mean Platelet Volume 7.4; Monocytes # (A) 0.6 k/uL (0-1.0); Monocytes % (A) 4 %; Neutrophils # (A) 9.3 k/uL (1.3-7.7); Neutrophils % (A) 68 %; Platelet Count 311 k/uL (150-450); RBC 5.17 m/uL (3.80-5.40); RDW 13.2 % (11.5-15.5); WBC 13.7 k/uL (3.8-10.6)
--- NOTE | 2020-01-10 11:47 | XR ---
EXAMINATION TYPE: XR chest 2V DATE OF EXAM: 01/10/2020 COMPARISON: 02/14/2019 HISTORY: Chest pain TECHNIQUE: Frontal and lateral views of the chest are obtained. FINDINGS: There is no focal air space opacity, pleural effusion, or pneumothorax seen. The cardiac silhouette size is within normal limits. The osseous structures are intact. Moderate degenerative c hange of the spine. IMPRESSION: No acute cardiopulmonary process.
[2020-01-10 11:49] LABS: ALT 29 U/L (4-34); AST 38 U/L (14-36); African American GFR (CKD) >90 (>60 ml/min/1.73 sqM); Albumin 4.8 g/dL (3.5-5.0); Alkaline Phosphatase 114 U/L (38-126); Anion Gap 15 mmol/L; Blood Urea Nitrogen 22 mg/dL (7-17); Calcium 10.2 mg/dL (8.4-10.2); Carbon Dioxide 22 mmol/L (22-30); Chloride 98 mmol/L (98-107); Glucose 146 mg/dL (74-99); Magnesium 2.1 mg/dL (1.6-2.3); Non-African American GFR(CKD) 85 (>60 ml/min/1.73 sqM); Potassium 4.7 mmol/L (3.5-5.1); Sodium 135 mmol/L (137-145); Total Bilirubin 0.5 mg/dL (0.2-1.3); Total Protein 7.7 g/dL (6.3-8.2)
[2020-01-10 11:53] LABS: INR 0.9 (<1.2); Partial Thromboplastin Time 23.7 sec (22.0-30.0); Prothrombin Time 9.7 sec (9.0-12.0)
[2020-01-10] MEDS ORDERED: NITROGLYCERIN SL TABS 0.4 MG TAB SUBLINGUAL PRN (14:10)
[2020-01-10] MEDS ORDERED: HEPARIN SODIUM,PORCINE 5,000 UNIT/ML 1 ML VIAL IV ONE (14:10)
[2020-01-10] MEDS ORDERED: MORPHINE SULFATE 4 MG/ML SYRINGE IV PRN (14:10)
[2020-01-10] MEDS ORDERED: HEPARIN SOD,PORK IN 0.45% NACL 25,000 UNIT in 0.45% NACL 1 250ML.BAG IV SCH (14:15)
[2020-01-10] MEDS ORDERED: ALBUTEROL NEBULIZED 2.5 MG/3 ML INHALATION PRN (15:01)
[2020-01-10] MEDS ORDERED: ALBUTEROL INHALER 60 PUFF/8 GM INHALER (BULK) INHALATION PRN (15:01)
[2020-01-10 15:35] LABS: Glucose,Whole Blood 117 mg/dL (75-99)
[2020-01-10] MEDS ORDERED: MINERAL OIL-WHITE PETROLATUM 120 GM JAR TOPICAL PRN (16:29)
[2020-01-10 16:54] LABS: Glucose,Whole Blood 157 mg/dL (75-99)
[2020-01-10] MEDS ORDERED: SODIUM CHLORIDE 0.9% 1,000 ML IV SCH (17:15)
[2020-01-10] MEDS: glipiZIDE 10 MG TAB PO SCH (17:40)
[2020-01-10] MEDS: GABAPENTIN 300 MG CAP PO SCH ×2 (17:40→21:54)
[2020-01-10] MEDS: metFORMIN 500 MG TAB PO SCH (17:42)
[2020-01-10] MEDS ORDERED: HYDROcodone/APAP 5-325MG 1 EACH TAB PO PRN (18:26)
[2020-01-10] MEDS ORDERED: ACETAMINOPHEN TAB 500 MG TAB PO PRN (18:26)
[2020-01-10] MEDS ORDERED: ALPRAZolam 0.25 MG TAB PO PRN (18:26)
[2020-01-10] MEDS ORDERED: TEMAZEPAM 15 MG CAP PO PRN (18:26)
--- NOTE | 2020-01-10 20:26 | HP ---
HISTORY AND PHYSICAL CHIEF COMPLAINT: Chest pain. HISTORY OF PRESENT ILLNESS: This 59-year-old woman with a past medical history of multiple medical problems, including history of COPD, diabetes mellitus, hypertension, hyperlipidemia, history of pneumonia, history of heart murmur, history of frequent UTIs, kidney stones, history of hysterectomy, being followed by Dr. Jam Coto and Melia Hackett in the outpatient setting, was admitted with chest pains. The patient had a sharp chest pain which was felt in the anterior part of chest which was radiating to the left shoulder and was on and off for the last one year. The patient was unable to follow up with a body builder because of lack of insurance apparently or acceptance of insurance, and the patient apparently had an abnormal stress test in [place] about 3 years ago. Because of increasing pain and complaints, the patient came to [facility] and was admitted for evaluation and treatment. EKG done showed no acute abnormality. The initial labs showed WBC 13, hemoglobin 16.1, glucose slightly elevated. Troponins negative. Patient was admitted for evaluation and treatment. There is no history of any fever, rigor or chills. No history of headache, loss of consciousness, seizures. PAST MEDICAL HISTORY: COPD, diabetes mellitus, hypertension, hyperlipidemia, history of pneumonia, frequent UTIs, history of MRSA in the leg, VRE. HOME MEDICATIONS: 1. Paxil 40 mg at bedtime. 2. Metformin 1000 mg p.o. b.i.d. 3. Glucotrol 10 mg b.i.d. 4. Wellbutrin SR 150 mg p.o. daily. 5. Vitamin E 400 units daily. 6. Coenzyme Q 100 mg p.o. daily. 7. Spiriva 1 puff daily. 8. Paxil 20 mg p.o. daily. 9. Nortriptyline 10 mg p.o. daily. 10.Multivitamins 1 p.o. daily. 11.Lopressor 100 mg p.o. b.i.d. 12.Magnesium oxide 400 mg daily. 13.Mevacor 40 mg at bedtime. 14.Zestoretic 1 p.o. daily. 15.3 packs 1.8 subcutaneously daily. 16.Lantus units subcutaneously b.i.d. 17.Neurontin 600 mg p.o. t.i.d. 18.Folic acid 0.4 daily. 19.Fluticasone salmeterol 113, 10, 14 one puff daily. 20.Flaxseed oil 1 gram daily. 21.Pepcid 20 mg b.i.d. 22.Jardiance 25 mg p.o. daily. 23.Chromium 1000 mcg p.o. daily. 24.Biotin 500 mcg p.o. daily. 25.Ecotrin 81 mg daily. 26.Albuterol 1-2 puffs q.6 p.r.n. 27.Ventolin 2.5 q.4 p.r.n. ALLERGIES: LATEX, NICOTINE, ADHESIVE TAPES, FLUOXETINE. FAMILY HISTORY: History of pulmonary embolism, diverticulitis, depression in the family. SOCIAL HISTORY: Continued ongoing smoking at this time. REVIEW OF SYSTEMS: ENT: No diminished hearing. No diminished vision. CARDIOVASCULAR SYSTEM: As mentioned earlier. RESPIRATORY SYSTEM: As mentioned earlier. GI: No nausea, vomiting. : No dysuria or retention. NERVOUS SYSTEM: No numbness, weakness. ALLERGY/IMMUNOLOGY: Asthma. MUSCULOSKELETAL: As mentioned earlier. HEMATOLOGY/ONCOLOGY: No history of anemia. ENDOCRINE: No history of diabetes, hypothyroidism. CONSTITUTIONAL: As mentioned earlier. DERMATOLOGY: Negative. RHEUMATOLOGY: Negative. PSYCHIATRY: As mentioned earlier. PHYSICAL EXAMINATION: Patient alert and oriented x3. Pulse 84, blood pressure 120/70, respiration 20, temperature 97.4, pulse ox 99% on 2 L. HEENT: Conjunctivae normal. NECK: No jugular venous distention. CARDIOVASCULAR SYSTEM: S1, S2 muffled. RESPIRATORY SYSTEM: Breath sounds diminished at the bases. A few scattered rhonchi. No crackles. ABDOMEN: Soft, obese, non-tender. No mass palpable. LEGS: No edema. No swelling. NERVOUS SYSTEM: Higher functions as mentioned earlier. Moves all 4 limbs. No focal motor or sensory deficit. LYMPHATICS: No lymph node palpable in neck, axillae or groin. SKIN: No ulcer, rash, bleeding. JOINTS: No active deforming arthropathy. LABS: WBC 13.3, hemoglobin 16.1. D-dimer is 0.36. Sodium 135. EKG noted. Chest x-ray noted. ASSESSMENT: 1. Chest pain, possible unstable angina. Rule out myocardial infarction. 2. Increased white count. 3. Increased hemoglobin. 4. Hyponatremia. 5. Diabetes mellitus, type 2. 6. History of chronic obstructive pulmonary disease. 7. Hypertension. 8. Hyperlipidemia. 9. History of pneumonia. 10.History of heart murmur. 11.History of methicillin-resistant Staphylococcus aeruginosa, vancomycin- resistant Enterococcus .. 12.History of section. 13.History of nephrolithiasis. 14.History of depression. 15.Continued ongoing nicotine dependence. 16.Obesity with body mass index of 45.4. RECOMMENDATIONS AND DISCUSSION: In this 59-year-old woman who presented with multiple complex medical issues, we will monitor the patient closely. I would continue to monitor. Unstable angina protocol. Rule out myocardial infarction. Cardiology consultation. The patient had an abnormal stress test and multiple risk factors, also. The patient will require further testing, including either stress test or a cardiac cath. Will continue to monitor. Otherwise, keep the patient n.p.o. after midnight. Monitor blood sugars closely. Resume the home medications. Symptomatic treatment also will be provided. Prognosis extremely guarded because of multiple complex medical issues. Discussed with the patient, who understands and agrees. Further recommendations to follow. SINAN / FAVIANN: [id number] / RAYMUNDO
[2020-01-10 20:36] LABS: Glucose,Whole Blood 174 mg/dL (75-99)
[2020-01-10] MEDS ORDERED: ATORVASTATIN 10 MG TAB PO SCH (21:00)
[2020-01-10] MEDS ORDERED: PARoxetine 20 MG TAB PO SCH (21:00)
[2020-01-10] MEDS: INSULIN ASPART (NovoLOG) 100 UNIT/ML VIAL SQ SCH (21:53)
[2020-01-10] MEDS: FAMOTIDINE 20 MG TAB PO SCH (21:54)
[2020-01-10] MEDS: METOPROLOL TARTRATE 50 MG TAB PO SCH (21:54)
[2020-01-10] MEDS: INSULIN DETEMIR (LEVEMIR) 100 UNIT/ML SYR SQ SCH (21:54)
[2020-01-11 00:35] VITALS: RESP 18
[2020-01-11 07:03] LABS: Glucose,Whole Blood 156 mg/dL (75-99)
[2020-01-11] MEDS: SYMBICORT 160-4.5 MCG INHALER INHALATION SCH ×2 (07:28→19:19)
[2020-01-11] MEDS: IPRATROPIUM 0.5 MG/2.5 ML NEBU INHALATION SCH ×4 (07:28→19:19)
[2020-01-11] MEDS ORDERED: PANTOPRAZOLE 40 MG TABLET PO SCH (07:30)
[2020-01-11 07:53] LABS: Basophils # (A) 0.1 k/uL (0-0.2); Basophils % (A) 1 %; Eosinophils # (A) 0.1 k/uL (0-0.7); Eosinophils % (A) 1 %; HCT 42.7 % (34.0-46.0); HGB 14.1 gm/dL (11.4-16.0); Lymphocytes # (A) 2.3 k/uL (1.0-4.8); Lymphocytes % (A) 28 %; MCH 31.4 pg (25.0-35.0); MCHC 33.1 g/dL (31.0-37.0); MCV 94.9 fL (80.0-100.0); Mean Platelet Volume 7.1; Monocytes # (A) 0.4 k/uL (0-1.0); Monocytes % (A) 5 %; Neutrophils # (A) 5.1 k/uL (1.3-7.7); Neutrophils % (A) 63 %; Platelet Count 253 k/uL (150-450); RDW 13.2 % (11.5-15.5); WBC 8.1 k/uL (3.8-10.6)
[2020-01-11] MEDS ORDERED: SODIUM CHLORIDE 0.9% 1,000 ML in EMPTY BAG 1 BAG IV ONE (08:23)
[2020-01-11 08:48] LABS: African American GFR (CKD) >90 (>60 ml/min/1.73 sqM); Anion Gap 9 mmol/L; Blood Urea Nitrogen 17 mg/dL (7-17); Calcium 8.9 mg/dL (8.4-10.2); Carbon Dioxide 23 mmol/L (22-30); Chloride 105 mmol/L (98-107); Cholesterol 190 mg/dL (<200); Glucose 155 mg/dL (74-99); HDL Cholesterol 32 mg/dL (40-60); Non-African American GFR(CKD) >90 (>60 ml/min/1.73 sqM); Potassium 4.4 mmol/L (3.5-5.1); Sodium 137 mmol/L (137-145); Triglycerides 483 mg/dL (<150)
[2020-01-11] MEDS: metFORMIN 500 MG TAB PO SCH (08:48)
[2020-01-11] MEDS: INSULIN ASPART (NovoLOG) 100 UNIT/ML VIAL SQ SCH ×3 (08:53→18:22)
[2020-01-11] MEDS: GABAPENTIN 300 MG CAP PO SCH ×2 (08:56→18:24)
[2020-01-11] MEDS: METOPROLOL TARTRATE 50 MG TAB PO SCH (08:56)
[2020-01-11] MEDS: FAMOTIDINE 20 MG TAB PO SCH (08:57)
[2020-01-11] MEDS ORDERED: HEALTHY EYES PO SCH (09:00)
[2020-01-11] MEDS ORDERED: NON FORMULARY DRUG (Ubidecarenone [Co Q-10] 100 MG) PO SCH (09:00)
[2020-01-11] MEDS ORDERED: MAGNESIUM OXIDE 400 MG TAB PO SCH (09:00)
[2020-01-11] MEDS ORDERED: FOLIC ACID 1 MG TAB PO SCH (09:00)
[2020-01-11] MEDS ORDERED: NORTRIPTYLINE 10 MG CAP PO SCH (09:00)
[2020-01-11] MEDS ORDERED: VITAMIN E (DL,TOCOPHERYL ACET) 400 UNIT CAP PO SCH (09:00)
[2020-01-11] MEDS ORDERED: buPROPion SR 150 MG TABLET.ER PO SCH (09:00)
[2020-01-11] MEDS ORDERED: FLAXSEED OIL 1000 MG PO SCH (09:00)
[2020-01-11] MEDS ORDERED: PARoxetine 20 MG TAB PO SCH ×2 (09:00)
[2020-01-11] MEDS ORDERED: NON FORMULARY DRUG (Aspirin Ec 81 MG) PO SCH (09:00)
[2020-01-11] MEDS ORDERED: ASPIRIN 325 MG TAB PO SCH (09:00)
[2020-01-11] MEDS ORDERED: NON FORMULARY DRUG (Biotin [Biotin] 5,000 MCG) PO SCH (09:00)
[2020-01-11] MEDS ORDERED: LISINOPRIL-HCTZ 20-12.5 MG 1 EACH TAB PO SCH (09:00)
[2020-01-11] MEDS ORDERED: MULTIVITAMINS, THERA 1 EACH TAB PO SCH (09:00)
[2020-01-11] MEDS ORDERED: Empagliflozin [Jardiance] PO SCH (09:00)
[2020-01-11] MEDS ORDERED: LIDOCAINE 1% INJ 10MG/ML (20 ML MDV) ONE (09:06)
[2020-01-11] MEDS ORDERED: IV FLUID CONTINUATION 800 ML IV ONE (09:20)
[2020-01-11] MEDS ORDERED: fentaNYL (PF) 50 MCG/ML 2 ML AMP ONE (09:31)
[2020-01-11] MEDS ORDERED: MIDAZOLAM 2 MG/2 ML VIAL IVP ONE (09:31)
[2020-01-11] MEDS ORDERED: fentaNYL (PF) 50 MCG/ML 2 ML AMP IVP ONE (09:34)
[2020-01-11] MEDS ORDERED: LIDOCAINE 1% INJ 10MG/ML (20 ML MDV) SQ ONE (09:35)
--- NOTE | 2020-01-11 09:39 | P.CRDCN ---
History of Present Illness History of present illness: HISTORY OF PRESENTING ILLNESS This is a pleasant 59-year-old female past medical history significant for diabetes mellitus, hypertension, dyslipidemia, COPD, obesity and chronic ni cotine dependence. She denies prior history of coronary artery disease and does not follow in the office with a bellows filler. We have been asked to see in consultation for chest pain. She states she has been experiencing symptoms of tightness in the chest in the midsternal and left precordial region that is exacerbated by activity or exertion. The pain radiates to her left shoulder and into the jaw. She states it has been going on for many months however has been getting progressively worse. She is unable to do minor activities at home without having to sit down to rest. Her chest discomfort is associated with shortness of breath and diaphoresis. Her symptoms do improve when she sits down. She denies any associated palpitations, dizziness, nausea or vomiting. Most recent stress test was approximately 2 years ago while living in [place]. She states she did undergo heart catheterization approximately 25 years ago that was unremarkable for she can recall. DIAGNOSTICS EKG reveals sinus mechanism with no acute ST or T wave abnormalities noted. Chest xray negative for an acute cardiopulmonary process. Laboratory reviewed, WBC on admission 13.7 repeat today 8.1, hemoglobin 14.1, platelets 253, sodium 137, potassium 4.4, creatinine 0.7 with a GFR greater than 90, cardiac enzymes negative 3, triglycerides 483 and HDL 32. Current cardiac medications include Lopressor 100 mg twice a day, lovastatin 40 mg at bedtime, lisinopril/HCTZ 10/12.5 mg daily and aspirin 81 mg daily. REVIEW OF SYSTEMS At the time of my exam: CONSTITUTIONAL: Denies fever or chills. CARDIOVASCULAR: Denies chest pain, shortness of breath, orthopnea, PND or palpitations. RESPIRATORY: Denies cough. GASTROINTESTINAL: Denies abdominal pain, diarrhea, constipation, nausea or vomiting. MUSCULOSKELETAL: Denies myalgias. NEUROLOGIC: Denies numbness, tingling or weakness. ENDOCRINE: Denies fatigue, weight change, polydipsia or polyurina. GENITOURINARY: Denies burning, hematuria or urgency with micturation. HEMATOLOGIC: Denies history of anemia or bleeding. PHYSICAL EXAMINATION Blood pressure 114/71 heart rate 73 afebrile and maintaining oxygen saturation on room air. CONSTITUTIONAL: No apparent distress. Obese. HEENT: Head is normocephalic. Pupils are equal, round. Sclerae anicteric. Mucous membranes of the mouth are moist. No JVD. No carotid bruit. CHEST EXAMINATION: Lungs are clear to auscultation. No chest wall tenderness is noted on palpation or with deep breathing. HEART EXAMINATION: Regular rate and rhythm. S1, S2 heard. Soft systolic ejection murmur at the left sternal border, no gallops or rub. ABDOMEN: Soft, nontender. Positive bowel sounds. EXTREMITIES: 2+ peripheral pulses, no lower extremity edema and no calf tenderness. NEUROLOGIC EXAMINATION: Patient is awake, alert and oriented x3. ASSESSMENT Unstable angina Hypertension Dyslipidemia Diabetes mellitus COPD Morbid obesity, BMI 45 Chronic nicotine dependence PLAN Recommend proceeding with coronary angiography to assess for underlying coronary artery disease. I have discussed the risks, benefits and alternative therapies for the above-mentioned procedure and for both sedation/analgesia as well as ne cessary blood product administration, if indicated, as they pertain to this patient. The patient has indicated understanding and acceptance of the risks and procedures discussed. Questions have been answered appropriately and she is agreeable to move forward with the above stated procedure. Obtain 2D echocardiogram and doppler study to assess cardiac structure and function. Recommend increasing daily statin dose and adding fenobribrate to her daily regimen. Further recommendations to follow. Thank you kindly for this consultation. Nurse Practitioner note has been reviewed, I agree with a documented findings and plan of care. Patient was seen and examined. Past Medical History Past Medical History: COPD, Diabetes Mellitus, Hyperlipidemia, Hypertension, Pneumonia, Renal Disease Additional Past Medical History / Comment(s): heart murmur. frequent UTIs, kidney stones, neuropathy History of Any Multi-Drug Resistant Organisms: MRSA, VRE Date of last positivie culture/infection: 03/04/19 VRE / 2016 MRSA MDRO Source:: VRE URINE MRSA LEG Past Surgical History: Section, Hysterectomy, Orthopedic Surgery Additional Past Surgical History / Comment(s): 3 . hysterectomy. kidney surgery - stones-treated with right ureteroscopy with lithotripsy in . right knee surgery. right sided mastitis 09/2018 with lancing, debridement, and packing Additional Past Anesthesia/Blood Transfusion Reaction / Comment(s): states she had a hard time waking up from anesthesia Past Psychological History: Depression Smoking Status: Current every day smoker Past Alcohol Use History: None Reported Additional Past Alcohol Use History / Comment(s): Smokes 6 a day Past Drug Use History: None Reported - Past Family History Daughter(s) Additional Family Medical History / Comment(s): diverticulitis, depression, Mother Family Medical History: Pulmonary Embolus Additional Family Medical History / Comment(s): HAd depression. from PE Father Family Medical History: Coronary Artery Disease (CAD), Diabetes Mellitus, Hypertension, Myocardial Infarction (VT) Additional Family Medical History / Comment(s): Medications and Allergies Home Medications Medication Instructions Recorded Confirmed Type Gabapentin [Neurontin] 600 mg PO TID 10/06/18 01/10/20 History Lovastatin [Mevacor] 40 mg PO HS 10/06/18 01/10/20 History Metoprolol Tartrate [Lopressor] 100 mg PO BID 10/06/18 01/10/20 History PARoxetine HCL [Paxil] 40 mg PO HS 10/06/18 01/10/20 History PARoxetine [Paxil] 20 mg PO DAILY 10/06/18 01/10/20 History buPROPion SR [Wellbutrin SR] 150 mg PO DAILY 10/06/18 01/10/20 History glipiZIDE [Glucotrol] 10 mg PO AC-BID 10/06/18 01/10/20 History metFORMIN HCL 1,000 mg PO BID 10/06/18 01/10/20 History Multivitamin,Therapeutic [Thera] 1 tab PO DAILY 02/13/19 01/10/20 History Tiotropium 18 Mcg/Puff [Spiriva] 1 cap INHALATION RT-DAILY 02/14/19 01/10/20 History Albuterol Nebulized [Ventolin 2.5 mg INHALATION RT-Q4H PRN 01/10/20 01/10/20 History Nebulized] Albuterol Sulfate [Proair Hfa] 1 - 2 puff INHALATION RT-Q6H PRN 01/10/20 01/10/20 History Aspirin EC [Ecotrin Low Dose] 81 mg PO DAILY 01/10/20 01/10/20 History Biotin 5,000 mcg PO DAILY 01/10/20 01/10/20 History Chromium Picolinate 1,000 mcg PO DAILY 01/10/20 01/10/20 History Empagliflozin [Jardiance] 25 mg PO DAILY 01/10/20 01/10/20 History Famotidine [Pepcid] 20 mg PO BID 01/10/20 01/10/20 History Flaxseed Oil 1,000 mg PO DAILY 01/10/20 01/10/20 History Fluticasone/Salmeterol 1 puff INHALATION RT-DAILY 01/10/20 01/10/20 History [Fluticasone-Salmeterol 113-14] Folic Acid 0.4 mg PO DAILY 01/10/20 01/10/20 History Healthy Eyes 1 tab PO DAILY 01/10/20 01/10/20 History Insulin Glargine [Lantus] 60 unit SQ BID 01/10/20 01/10/20 History Liraglutide [Victoza 3-Dwayne] 1.8 mg SQ DAILY 01/10/20 01/10/20 History Lisinopril-Hctz 20-12.5 mg 1 tab PO DAILY 01/10/20 01/10/20 History [Zestoretic 20-12.5] Magnesium Oxide 400 mg PO DAILY 01/10/20 01/10/20 History Nortriptyline HCl 10 mg PO DAILY 01/10/20 01/10/20 History Ubidecarenone [Co Q-10] 100 mg PO DAILY 01/10/20 01/10/20 History Vitamin E 400 unit PO DAILY 01/10/20 01/10/20 History Allergies Allergy/AdvReac Type Severity Reaction Status Date / Time latex Allergy Rash/Hives Verified 01/10/20 14:49 nicotine AdvReac Severe Itching Verified 01/10/20 14:49 adhesive tape AdvReac Rash/Hives Verified 01/10/20 14:49 fluoxetine [From Prozac] AdvReac Rapid Verified 01/10/20 14:49 Heart Rate Physical Exam Vitals: Vital Signs Temp Pulse Pulse Resp BP BP Pulse Ox 01/11/20 04:00 97.7 F 74 18 115/76 98 01/11/20 00:00 98.2 F 74 18 103/64 98 01/10/20 20:00 98.2 F 78 20 108/66 97 01/10/20 15:35 97.5 F L 84 20 120/70 99 01/10/20 14:55 98.0 F 82 18 140/73 97 01/10/20 14:10 97 01/10/20 14:00 82 18 135/69 96 01/10/20 12:11 80 18 120/72 98 01/10/20 10:30 97.6 F 90 18 109/78 98 Intake and Output 01/10/20 01/11/20 01/11/20 22:59 06:59 14:59 Intake Total 630 112.633 Balance 630 112.633 Intake: Intake, IV Titration 150 112.633 Amount Heparin Sod,Pork in 0.45% 112.633 NaCl 25,000 unit In 0.45 % NaCl 1 250ml.bag @ 7.6 UNITS/KG/HR 9.997 mls/hr IV .Q24H [facility] Rx#: [id number] Sodium Chloride 0.9% 1, 150 000 ml @ 50 mls/hr IV . Q20H [facility] Rx#:[id number] Oral 480 Other: # Voids 1 0 Weight 131.542 kg Results 01/11/20 07:30 01/11/20 07:30 Cardiac Enzymes 01/10/20 01/10/20 01/10/20 Range/Units 11:26 11:26 17:42 AST 38 H (14-36) U/L Troponin I <0.012 <0.012 (0.000-0.034) ng/mL 01/10/20 Range/Units 22:07 AST (14-36) U/L Troponin I <0.012 (0.000-0.034) ng/mL Coagulation 01/10/20 01/10/20 Range/Units 11:26 22:07 PT 9.7 (9.0-12.0) sec APTT 23.7 26.8 (22.0-30.0) sec CBC 01/10/20 01/11/20 Range/Units 11:26 07:30 WBC 13.7 H 8.1 (3.8-10.6) k/uL RBC 5.17 4.50 (3.80-5.40) m/uL Hgb 16.1 H 14.1 (11.4-16.0) gm/dL Hct 48.5 H 42.7 (34.0-46.0) % Plt Count 311 253 (150-450) k/uL Comprehensive Metabolic Panel 01/10/20 Range/Units 11:26 Sodium 135 L (137-145) mmol/L Potassium 4.7 (3.5-5.1) mmol/L Chloride 98 (98-107) mmol/L Carbon Dioxide 22 (22-30) mmol/L BUN 22 H (7-17) mg/dL Creatinine 0.78 (0.52-1.04) mg/dL Glucose 146 H (74-99) mg/dL Calcium 10.2 (8.4-10.2) mg/dL AST 38 H (14-36) U/L ALT 29 (4-34) U/L Alkaline Phosphatase 114 (38-126) U/L Total Protein 7.7 (6.3-8.2) g/dL Albumin 4.8 (3.5-5.0) g/dL Current Medications Generic Name Dose Route Start Last Admin Trade Name Freq PRN Reason Stop Dose Admin Acetaminophen 500 mg 01/10/20 18:26 Tylenol Tab PO Q6HR PRN Fever and/ or Pain Hydrocodone Bitart/Acetaminophen 1 each 01/10/20 18:26 [place] 5-325 PO Q6HR PRN Pain Albuterol Sulfate 2.5 mg 01/10/20 15:01 Ventolin Nebulized INHALATION RT-Q4H PRN Shortness Of Breath Alprazolam 0.25 mg 01/10/20 18:26 Xanax PO TID PRN Anxiety Aspirin 325 mg 01/11/20 09:00 Aspirin PO DAILY [facility] Atorvastatin Calcium 10 mg 01/10/20 21:00 01/10/20 21:54 Lipitor PO 10 mg HS [facility] Administration Budesonide/Formoterol Fumarate 2 puff 01/11/20 08:00 01/11/20 07:28 Symbicort 160-4.5 Mcg Inhaler INHALATION Not Given RT-BID [facility] Bupropion HCl 150 mg 01/11/20 09:00 Wellbutrin Sr PO DAILY [facility] Famotidine 20 mg 01/10/20 21:00 01/10/20 21:54 Pepcid PO 20 mg BID [facility] Administration Folic Acid 1 mg 01/11/20 09:00 Folic Acid PO DAILY [facility] Gabapentin 600 mg 01/10/20 16:00 01/10/20 21:54 Neurontin PO 600 mg TID [facility] Administration Glipizide 10 mg 01/10/20 17:30 01/10/20 17:40 Glucotrol PO 10 mg AC-BID [facility] Administration Lisinopril/HCTZ 1 each 01/11/20 09:00 Zestoretic 20-12.5 PO DAILY [facility] Heparin Sodium/Sodium Chloride 250 mls @ 9.997 mls/hr 01/10/20 14:15 01/11/20 02:16 25,000 unit/ Sodium Chloride IV 10.6 units/kg/hr .Q24H [facility] 13.943 mls/hr Titration Protocol 7.6 UNITS/KG/HR Sodium Chloride 1,000 mls @ 50 mls/hr 01/10/20 17:15 01/10/20 17:41 Saline 0.9% IV 50 mls/hr .Q20H [facility] Administration Insulin Aspart 0 unit 01/10/20 21:00 01/10/20 21:53 Novolog SQ 2 unit ACHS [facility] Administration Protocol Insulin Detemir 60 unit 01/10/20 21:00 01/10/20 21:54 Levemir SQ 60 unit BID@0700,2100 [facility] Administration Ipratropium [place] 0.5 mg 01/11/20 08:00 01/11/20 07:28 Atrovent Nebulized INHALATION Not Given RT-QID [facility] Magnesium Oxide 400 mg 01/11/20 09:00 Mag-Ox PO DAILY [facility] Metformin HCl 1,000 mg 01/10/20 17:30 01/10/20 17:42 Glucophage PO Not Given BID-W/MEALS [facility] Metoprolol Tartrate 100 mg 01/10/20 21:00 01/10/20 21:54 Lopressor PO 100 mg BID [facility] Administration Morphine Sulfate 4 mg 01/10/20 14:10 Morphine Sulfate (Inj) IV Q5M PRN Chest Pain Multi-Ingred Cream/Lotion/Oil/Oint 1 applic 01/10/20 16:29 Eucerin Cream TOPICAL BID PRN Dry Skin Multivitamins 1 each 01/11/20 09:00 Theragran PO DAILY [facility] Nitroglycerin 0.4 mg 01/10/20 14:10 Nitrostat SUBLINGUAL Q5M PRN Chest Pain Liraglutide [Victoza 1.8 mg 01/11/20 09:00 ] SQ DAILY [facility] Empagliflozin [ 25 mg 01/11/20 09:00 Jardiance] PO DAILY [facility] Nortriptyline HCl 10 mg 01/11/20 09:00 Pamelor PO DAILY [facility] Pantoprazole Sodium 40 mg 01/11/20 07:30 Protonix PO AC-BRKFST [facility] Paroxetine HCl 20 mg 01/11/20 09:00 Paxil PO DAILY [facility] Paroxetine HCl 40 mg 01/10/20 21:00 01/10/20 21:54 Paxil PO 40 mg HS [facility] Administration Temazepam 15 mg 01/10/20 18:26 Restoril PO HS PRN Insomnia Vitamin E 400 unit 01/11/20 09:00 Vitamin E PO DAILY [facility] Intake and Output 01/10/20 01/11/20 01/11/20 22:59 06:59 14:59 Intake Total 630 112.633 Balance 630 112.633 Intake: Intake, IV Titration 150 112.633 Amount Heparin Sod,Pork in 0.45% 112.633 NaCl 25,000 unit In 0.45 % NaCl 1 250ml.bag @ 7.6 UNITS/KG/HR 9.997 mls/hr IV .Q24H [facility] Rx#: [id number] Sodium Chloride 0.9% 1, 150 000 ml @ 50 mls/hr IV . Q20H [facility] Rx#:[id number] Oral 480 Other: # Voids 1 0 Weight 131.542 kg 01/11/20 07:30 01/10/20 11:26
[2020-01-11] MEDS ORDERED: FENOFIBRATE 160 MG TAB PO SCH (09:45)
[2020-01-11] MEDS ORDERED: IOPAMIDOL-370 100ML BTL INJ ONE (09:50)
[2020-01-11] MEDS ORDERED: RX INFO: IV CONTRAST WAS GIVEN 1 EACH MISC MISCELLANE PRN (09:56)
[2020-01-11] MEDS: INSULIN DETEMIR (LEVEMIR) 100 UNIT/ML SYR SQ SCH (11:08)
[2020-01-11] MEDS: glipiZIDE 10 MG TAB PO SCH ×2 (11:08→18:24)
[2020-01-11 11:45] LABS: Glucose,Whole Blood 201 mg/dL (75-99)
--- NOTE | 2020-01-11 11:49 | ECHOF ---
Referral Reason:[place] MEASUREMENTS -------- HEIGHT: 170.2 cm WEIGHT: 131.5 kg BP: 114/71 IVSd: 1.1 cm (0.6 - 1.1) LVIDd: 4.6 cm (3.9 - 5.3) LVPWd: 1.4 cm (0.6 - 1.1) IVSs: 2.0 cm LVIDs: 2.9 cm LVPWs: 1.7 cm MV EXCURSION: 22.256 mm (> 18.000) MV EF SLOPE: 102 mm/s (70 - 150) EPSS: 0.7 cm MV E Alexis: 0.76 m/s MV DecT: 262 ms MV A Alexis: 0.83 m/s MV E/A Ratio: 0.92 FINDINGS -------- Sinus rhythm. This was a technically difficult study with suboptimal views. The left ventricular size is normal. There is mild concentric left ventricular hypertrophy. Overa ll left ventricular systolic function is normal with, an EF between 55 - 60 %. Right side appears enlarged. The left atrial size is normal. The right atrial size is normal. Lumason used The aortic valve is trileaflet and appears structurally normal. The mitral valve is normal. There is trace mitral regurgitation. The tricuspid valve appears structurally normal. Trace tricuspid regurgitation present. Right yaniv tricular systolic pressure is normal at < 35 mmHg. There is no pulmonic regurgitation present. The aortic root size is normal. IVC Not well visulized. There is no pericardial effusion. CONCLUSIONS -------- 1. Sinus rhythm. 2. This was a technically difficult study with suboptimal views. 3. The left ventricular size is normal. 4. There is mild concentric left ventricular hypertrophy. 5. Overall left ventricular systolic function is normal with, an EF between 55 - 60 %. 6. Right side appears enlarged. 7. The left atrial size is normal. 8. The right atrial size is normal. 9. Lumason used 10. The aortic valve is trileaflet and appears structurally normal. 11. The mitral valve is normal. 12. There is trace mitral regurgitation. 13. The tricuspid valve appears structurally normal. 14. Trace tricuspid regurgitation present. 15. Right ventricular systolic pressure is normal at < 35 mmHg. 16. There is no pulmonic regurgitation present. 17. The aortic root size is normal. 18. IVC Not well visulized. 19. There is no pericardial effusion. CUSTOMER ACCOUNT REPRESENTATIVE: Romy Olmedo RDCS
--- NOTE | 2020-01-11 12:11 | CC ---
CARDIAC CATHETERIZATION REPORT INDICATION: Unstable angina. PROCEDURE NOTE: After obtaining informed consent, left heart catheterization and coronary angiogram are performed via the right femoral artery using standard Roxi catheters. The patient tolerated the procedure well without any obvious immediate complications. A femoral angiogram was performed and decision was made for manual hemostasis that she has an atherosclerotic plaque in the common femoral artery. The patient received moderate conscious sedation. Total sedation time was 14 minutes. FINDINGS: 1. HEMODYNAMICS: Left ventricular end-diastolic pressure is 16 mm. There is no significant gradient across the aortic valve. 2. LEFT VENTRICULOGRAM: Left ventriculogram is not performed. 3. ANGIOGRAPHIC DATA: Left Main Coronary Artery: Left main coronary artery is a normal-sized vessel and is free of stenosis. Divides into left anterior descending coronary artery and circumflex coronary artery. LAD and its branches, circumflex coronary artery and its branches are free of significant stenosis. Right coronary artery is a large dominant vessel and is free of significant disease. CONCLUSIONS: 1. Normal coronary arteries. 2. Mildly elevated left ventricular end-diastolic pressure. PLAN: Patient's chest pain is probably noncardiac in origin and her management is going to be in the form of risk factor modification and optimal medical therapy. MMODL / IJN: [id number] /
[2020-01-11 16:41] LABS: Glucose,Whole Blood 155 mg/dL (75-99)
--- NOTE | 2020-01-11 19:57 | CT ---
EXAMINATION TYPE: CT chest wo con DATE OF EXAM: 01/11/2020 COMPARISON: Chest x-ray 01/10/2020 HISTORY: Chest pain and weakness. CT DLP: 855.5 mGycm. Automated Exposure Control for Dose Reduction was Utilized. TECHNIQUE: CT scan of the thorax is performed without IV contrast. FINDINGS: Lack of intravenous contrast could compromise sensitivity. LUNGS: The lungs are grossly clear, there is no concerning parenchymal mass or nodule identified. Mi nimal basilar subsegmental atelectatic changes are noted There is no pleural effusion or pneumothorax seen. The tracheobronchial tree is patent. MEDIASTINUM: Lack of IV contrast is noted to limit evaluation for mediastinal and especially hilar ad enopathy. There are no definitive greater than 1 cm hilar or mediastinal lymph nodes. No cardiomega ly or pericardial effusion is seen. There are coronary artery calcifications. Pulmonary artery is dil ated to 4.1 cm OTHER: No additional significant abnormality is seen. IMPRESSION: Coronary artery disease and minimal basilar atelectasis, correlate for pulmonary artery h ypertension
[2020-01-11 20:08] VITALS: BP 113/77; PULSE 78; TEMP 97.2
--- NOTE | 2020-01-11 20:14 | PN ---
PROGRESS NOTE DATE OF SERVICE: 01/11/2020 This 59-year-old woman was admitted with chest pain had cardiac cath that showed no normal coronary arteries. Patient still has some persistent chest difficulties. I ordered CT scan of chest to rule out the possibly an acute abnormality. No chest pain. No palpitations. No fever. The patient D-dimer was negative. The triglyceride elevated. PHYSICAL EXAMINATION: Alert and oriented x3. The pulse 69, blood pressure 120/73, respirations 18, temperature 97.9, pulse ox 97% on room air. HEENT: Conjunctivae normal. NECK: No JVD. CARDIOVASCULAR: S1, S2 muffled. RESPIRATORY SYSTEM: Breath sounds diminished at the bases. A few scattered rhonchi and crackles. ABDOMEN is soft, nontender. LEGS are no edema, no swelling. CENTRAL NERVOUS SYSTEM: No focal deficits. LAB STUDIES: WBC 8.2, hemoglobin 14.1, sodium 130, potassium 4.4. Triglycerides of 483. ASSESSMENT: 1. Chest pain, possibly musculoskeletal. Rule out aortic aneurysm. 2. Status post cardiac catheterization and normal coronary arteries. 3. Increased WBC. 4. Increased hemoglobin. 5. Hyponatremia. 6. Diabetes mellitus type 2. 7. History of chronic obstructive pulmonary disease. 8. Hypertension. 9. Hyperlipidemia. 10.History of pneumonia. 11.History of heart murmur. 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 13.History of section. 14.History of nephrolithiasis. 15.History of depression. 16.Continued ongoing nicotine dependence. 17.Obesity with body mass index of 45.4. 18.NO CODE, NO CPR, NO VENT. RECOMMENDATIONS AND DISCUSSION: In this 59-year-old woman who presented with multiple complex medical issues. We will monitor the patient closely. Continue the current medications, management and symptomatic treatment. Cardiac cath noted. Because of persistent symptoms, I would also recommend a CT scan. No contrast because of the recent cardiac cath. We will continue to monitor. Symptomatic treatment will be provided and further recommendations to follow. Continue the rest of the medications. Recommend hydrocodone at this time. MMODL / IJN: [id number] /
[2020-01-11] MEDS ORDERED: ATORVASTATIN 80 MG TAB PO SCH (21:00)
--- NOTE | 2020-01-12 05:45 | DS ---
DISCHARGE SUMMARY DATE OF SERVICE: 01/11/2020 FINAL DIAGNOSES: 1. Chest pain, possibly musculoskeletal. 2. Cardiac cath showing normal coronary arteries and CT of the chest shows no acute abnormality. 3. Possible pulmonary artery hypertension. 4. Increased WBC. 5. Increased hemoglobin. 6. Hyponatremia. 7. Diabetes mellitus type 2. 8. History of chronic obstructive pulmonary disease. 9. Hypertension. 10.Hyperlipidemia. 11.History of pneumonia. 12.History of heart murmur. 13.History of MRSA, VRE. 14.History of section. 15.History of nephrolithiasis. 16.History of depression. 17.History of continued ongoing nicotine dependence. 18.Obesity with body mass index 45.4. 19.Hypertriglyceridemia. DISCHARGE DISPOSITION: The patient will be discharged in a stable condition with guarded prognosis. Patient is extremely keen on going home. Patient is not willing to stay at this point. HISTORY OF PRESENT ILLNESS: This 59-year-old woman with a past medical history of multiple medical problems admitted with chest pain, myocardial infarction ruled out. Cardiology performed a cardiac cath which showed normal coronary arteries. Patient also had a CT chest with the above-mentioned findings. I recommend the patient to follow up with Cardiology and as well as primary physician closely. However, the patient is not willing to stay in the hospital. Patient would like to go home. On exam, vitals are stable. CARDIOVASCULAR: S1, S2, muffled. ABDOMEN: Soft. NERVOUS SYSTEM: No focal deficits. DISCHARGE ADVICE: 1. Diet is cardiac. 2. Activity limited until followup. 3. Follow up with Cardiology as recommended. 4. Follow with Dr. Jam Coto in 2 to 3 days. 5. Follow up with Surgery as recommended for umbilical hernia for follow with Dr. Cox. Medications are: 1. Biotin 5000 daily. 2. Chromium. 3. Coenzyme Q 100 mg p.o. daily. 4. Aspirin 81 mg p.o. daily. 5. Flaxseed oil daily. 6. Fluticasone salmeterol 1 puff b.i.d. 7. Folic acid 0.4 mg daily. 8. Glucotrol 10 mg p.o. b.i.d. 9. Healthy Eyes. 10.Jardiance 25 mg p.o. daily. 11.Lantus 60 units subcu b.i.d. 12.Lopressor 100 mg p.o. b.i.d. 13.Magnesium oxide 400 mg p.o. daily. 14.Metformin 1000 mg p.o. b.i.d. 15.Neurontin 600 mg p.o. t.i.d. 16.Nortriptyline 10 mg p.o. daily. 17.Paxil 20 mg p.o. daily and 40 mg at bedtime. 18.Pepcid 20 mg p.o. b.i.d. 19.ProAir HFA 1 to 2 puffs q.6. p.r.n. 20.Spiriva 1 puff daily. 21.Multivitamins 1 p.o. daily. 22.Ventolin 2.5 q.i.d. p.r.n. 23.Victoza 1.8 subcu daily. 24.Vitamin E 400 units daily. 25.Bupropion SR 150 mg p.o. daily. 26.Lisinopril hydrochlorothiazide 20/12.5 mg p.o. daily. 27.Lipitor 80 mg at bedtime. 28.Lofibra 160 mg p.o. daily. Once again the patient will be discharged in stable with guarded prognosis. Recommend close outpatient followup. Total time taken 35 minutes. RAULL / IJN: [id number] /
[2020-01-12] MEDS ORDERED: ASPIRIN 81 MG PO SCH (09:00)
[2020-01-13] MEDS ORDERED: metFORMIN 500 MG TAB PO SCH (17:30)
== END 2020-01-11 20:19 | disposition home or self-care (01) ==
LOC: EC 10:28 → 1SOBS 14:10 → OBSVTOIN 01-11 11:32 → INTOOBSV 01-11 11:32 → UNDODISIN 01-11 20:19
PROVIDERS: ADMIT Hospitalist; ATTEND Hospitalist
PROC: 4A023N7 Measurement of Cardiac Sampling and Pressure, Left Heart, Percutaneous Approach (ICD-10-PCS; principal; 2020-01-11 07:30)
PROC: B2111ZZ Fluoroscopy of Multiple Coronary Arteries using Low Osmolar Contrast (ICD-10-PCS; principal; 2020-01-11 07:30)
DX: R07.89 Other chest pain (principal); E87.1 Hypo-osmolality and hyponatremia; J44.9 Chronic obstructive pulmonary disease, unspecified; E78.1 Pure hyperglyceridemia; E78.5 Hyperlipidemia, unspecified; I10 Essential (primary) hypertension; E11.40 Type 2 diabetes mellitus with diabetic neuropathy, unspecified; F32.9 Major depressive disorder, single episode, unspecified; F17.200 Nicotine dependence, unspecified, uncomplicated; E66.01 Morbid (severe) obesity due to excess calories; Z68.42 Body mass index [BMI] 45.0-49.9, adult; R61 Generalized hyperhidrosis; Z79.51 Long term (current) use of inhaled steroids; Z79.82 Long term (current) use of aspirin; Z79.4 Long term (current) use of insulin; Z79.899 Other long term (current) drug therapy; Z91.040 Latex allergy status; Z88.8 Allergy status to other drugs, medicaments and biological substances; Z91.09 Other allergy status, other than to drugs and biological substances; Z66 Do not resuscitate; Z98.891 History of uterine scar from previous surgery; Z98.890 Other specified postprocedural states; Z90.710 Acquired absence of both cervix and uterus; Z87.442 Personal history of urinary calculi; Z87.01 Personal history of pneumonia (recurrent); Z87.440 Personal history of urinary (tract) infections; Z86.14 Personal history of Methicillin resistant Staphylococcus aureus infection; Z16.21 Resistance to vancomycin; Z83.79 Family history of other diseases of the digestive system; Z82.49 Family history of ischemic heart disease and other diseases of the circulatory system; Z81.8 Family history of other mental and behavioral disorders; Z83.3 Family history of diabetes mellitus
CPT/HCPCS: 93005 ×2; 96366 ×2; 96376; 96361; 96365; 99285; 36415; 93458; 85379; 83880; 80061; 80053; 80048; 83735; 84484; 85025 ×2; 85610; 85730 ×2; 71046; 71250; G0378 ×2; C8929; C1769 ×2; C1894; J2250; J1644 ×2; S0106; J2001; J3010; Q9950; Q9967; 93306; 96374

== ENCOUNTER 2023-06-15 21:17 | Inpatient (IN) | payer MEDICARE, OTHER ==
[2023-06-15] MEDS ORDERED: HYDROmorphone 0.5 MG/0.5 ML SYRINGE IVP STA (21:59)
[2023-06-15] MEDS ORDERED: PROCHLORPERAZINE INJ 10 MG/2 ML VIAL IVP STA (21:59)
[2023-06-15] MEDS ORDERED: SODIUM CHLORIDE 0.9% 1,000 ML IV STA (22:01)
[2023-06-15 23:01] LABS: ALT 365 U/L (4-34); AST 426 U/L (14-36); African American GFR (CKD) 86 (>60 ml/min/1.73 sqM); Albumin 3.5 g/dL (3.5-5.0); Alkaline Phosphatase 187 U/L (38-126); Anion Gap 10 mmol/L; Blood Urea Nitrogen 17 mg/dL (7-17); Calcium 8.3 mg/dL (8.4-10.2); Carbon Dioxide 24 mmol/L (22-30); Chloride 95 mmol/L (98-107); Glucose 113 mg/dL (74-99); Lipase 34 U/L (23-300); Non-African American GFR(CKD) 74 (>60 ml/min/1.73 sqM); Potassium 4.6 mmol/L (3.5-5.1); Sodium 129 mmol/L (137-145); Total Bilirubin 1.5 mg/dL (0.2-1.3)
[2023-06-15 23:14] LABS: Basophils % (A) 0 %; Eosinophils % (A) 0 %; HCT 39.2 % (34.0-46.0); HGB 13.4 gm/dL (11.4-16.0); Lymphocytes # (A) 0.4 k/uL (1.0-4.8); Lymphocytes % (A) 3 %; MCHC 34.1 g/dL (31.0-37.0); Mean Platelet Volume 7.4; Monocytes # (A) 0.6 k/uL (0-1.0); Monocytes % (A) 4 %; Neutrophils # (A) 15.7 k/uL (1.3-7.7); Neutrophils % (A) 93 %; Platelet Count 209 k/uL (150-450); RDW 14.1 % (11.5-15.5); WBC 16.9 k/uL (3.8-10.6)
[2023-06-15] MEDS ORDERED: ACETAMINOPHEN TAB 500 MG TAB PO STA (23:22)
[2023-06-15] MEDS ORDERED: NALOXONE 0.4 MG/ML 1 ML VIAL IV PRN (23:56)
[2023-06-15] MEDS ORDERED: ONDANSETRON 4 MG/2 ML VIAL IVP PRN (23:58)
[2023-06-16] MEDS ORDERED: ACETAMINOPHEN TAB 325 MG TAB PO PRN (00:11)
--- NOTE | 2023-06-16 00:20 | ED ---
Abdominal Pain HPI - General Chief Complaint: Abdominal Pain Stated Complaint: Acute Coliositis Time Seen by Provider: 06/15/23 21:53 Source: EMS Mode of arrival: EMS - History of Present Illness Initial Comments: Patient is a 62-year-old female who presents to the emergency department as a transfer from [place] for acute cholecystitis. Patient reports upper abdominal pain, nausea, fever. She was given Zosyn prior to arrival. - Related Data Home Medications Medication Instructions Recorded Confirmed Gabapentin [Neurontin] 600 mg PO TID 10/06/18 01/10/20 Metoprolol Tartrate [Lopressor] 100 mg PO BID 10/06/18 01/10/20 PARoxetine HCL [Paxil] 40 mg PO HS 10/06/18 01/10/20 PARoxetine [Paxil] 20 mg PO DAILY 10/06/18 01/10/20 buPROPion SR [Wellbutrin SR] 150 mg PO DAILY 10/06/18 01/10/20 glipiZIDE [Glucotrol] 10 mg PO AC-BID 10/06/18 01/10/20 metFORMIN HCL [Glucophage] 1,000 mg PO BID 10/06/18 01/10/20 Multivitamin,Therapeutic [Thera] 1 tab PO DAILY 02/13/19 01/10/20 Tiotropium 18 Mcg/Puff [Spiriva] 1 cap INHALATION RT-DAILY 02/14/19 01/10/20 Albuterol Nebulized [Ventolin 2.5 mg INHALATION RT-Q4H PRN 01/10/20 01/10/20 Nebulized] Albuterol Sulfate [Proair Hfa] 1 - 2 puff INHALATION RT-Q6H PRN 01/10/2012/31 Aspirin EC [Ecotrin Low Dose] 81 mg PO DAILY 01/10/20 01/10/20 Biotin [Biotin Disolve] 5,000 mcg PO DAILY 01/10/20 01/10/20 Chromium Picolinate 1,000 mcg PO DAILY 01/10/20 01/10/20 Empagliflozin [Jardiance] 25 mg PO DAILY 01/10/20 01/10/20 Famotidine [Pepcid] 20 mg PO BID 01/10/20 01/10/20 Fluticasone Propion/Salmeterol 1 puff INHALATION RT-DAILY 01/10/20 01/10/20 [Fluticasone-Salmeterol 113-14] Folic Acid 0.4 mg PO DAILY 01/10/20 01/10/20 Healthy Eyes 1 tab PO DAILY 01/10/20 01/10/20 Insulin Glargine [Lantus Vial] 60 unit SQ BID 01/10/20 01/10/20 Liraglutide [Victoza 3-Dwayne] 1.8 mg SQ DAILY 01/10/20 01/10/20 Lisinopril-Hctz 20-12.5 mg 1 tab PO DAILY 01/10/20 01/10/20 [Zestoretic 20-12.5] Magnesium Oxide 400 mg PO DAILY 01/10/20 01/10/20 Nortriptyline HCl 10 mg PO DAILY 01/10/20 01/10/20 Ubidecarenone [Co Q-10] 100 mg PO DAILY 01/10/20 01/10/20 Vitamin E 400 unit PO DAILY 01/10/20 01/10/20 flaxseed oiL [Flaxseed Oil] 1,000 mg PO DAILY 01/10/20 01/10/20 Previous Rx's Medication Instructions Recorded Atorvastatin [Lipitor] 80 mg PO HS 30 Days #30 tab 01/11/20 Fenofibrate [Lofibra] 160 mg PO DAILY 30 Days #30 tab 01/11/20 Allergies Allergy/AdvReac Type Severity Reaction Status Date / Time latex Allergy Rash/Hives Verified 01/10/20 14:49 nicotine AdvReac Severe Itching Verified 01/10/20 14:49 adhesive tape AdvReac Rash/Hives Verified 01/10/20 14:49 fluoxetine [From Prozac] AdvReac Rapid Verified 01/10/20 14:49 Heart Rate Review of Systems ROS Statement: Those systems with pertinent positive or pertinent negative responses have been documented in the HPI. ROS Other: All systems not noted in ROS Statement are negative. Past Medical History Past Medical History: COPD, Diabetes Mellitus, Hyperlipidemia, Hypertension, Pneumonia, Renal Disease Additional Past Medical History / Comment(s): heart murmur. frequent UTIs, kidney stones, neuropathy History of Any Multi-Drug Resistant Organisms: MRSA, VRE Date of last positivie culture/infection: 03/04/19 VRE / 2016 MRSA MDRO Source:: VRE URINE MRSA LEG Past Surgical History: Section, Hysterectomy, Orthopedic Surgery Additional Past Surgical History / Comment(s): 3 . hysterectomy. kidney surgery - stones-treated with right ureteroscopy with lithotripsy in . right knee surgery. right sided mastitis 09/2018 with lancing, debridement, and packing Additional Past Anesthesia/Blood Transfusion Reaction / Comment(s): states she had a hard time waking up from anesthesia Past Psychological History: Depression Past Alcohol Use History: None Reported Additional Past Alcohol Use History / Comment(s): Smokes 6 a day Past Drug Use History: None Reported - Past Family History Daughter(s) Additional Family Medical History / Comment(s): diverticulitis, depression, Mother Family Medical History: Pulmonary Embolus Additional Family Medical History / Comment(s): HAd depression. from PE Father Family Medical History: Coronary Artery Disease (CAD), Diabetes Mellitus, Hypertension, Myocardial Infarction ([place]) Additional Family Medical History / Comment(s): General Exam General appearance: alert Eye exam: Present: normal appearance, PERRL, EOMI. Absent: scleral icterus, conjunctival injection, periorbital swelling Respiratory exam: Present: normal lung sounds bilaterally. Absent: respiratory distress, wheezes, rales, rhonchi, stridor Cardiovascular Exam: Present: regular rate, normal rhythm, normal heart sounds. Absent: systolic murmur, diastolic murmur, rubs, gallop, clicks GI/Abdominal exam: Present: soft, tenderness (RUQ), normal bowel sounds. A bsent: distended, guarding, rebound, rigid Neurological exam: Present: alert Psychiatric exam: Present: normal affect, normal mood Skin exam: Present: warm, dry, intact, normal color. Absent: rash Course Vital Signs 06/15/23 21:53 Temperature 101.4 F H Pulse Rate 96 Respiratory 18 Rate Blood Pressure 105/48 O2 Sat by Pulse 98 Oximetry Medical Decision Making - Medical Decision Making Was pt. sent in by a medical professional or institution (, PA, [employer], urgent care, hospital, or fpc...) When possible be specific @ -[facility] prior to arrival Did you speak to anyone other than the patient for history (EMS, parent, family, police, friend...)? What history was obtained from this source @ -No Did you review nursing and triage notes (agree or disagree)? Why? @ -I reviewed and agree with nursing and triage notes Were old charts reviewed (outside hosp., previous admission, EMS record, old EKG, old radiological studies, urgent care reports/EKG's, fpc records)? Report findings @ -reviewed previous CT showing calcified gallstones. No gallbladder wall thickening or pericholecystic fluid Differential Diagnosis (chest pain, altered mental status, abdominal pain women, abdominal pain men, vaginal bleeding, weakness, fever, dyspnea, syncope, headache, dizziness, GI bleed, back pain, seizure, CVA, palpatations, mental health)? @ -Differential Abdominal Pain Women: Appendicitis, Cholecystitis, diverticulosis, ischemic bowel, pancreatitis, hepatitis, UTI, gastroenteritis, AAA, incarcerated hernia, bowel obstruction, constipation, inflammatory bowel, hepatitis, peptic ulcer disease, splenic infarction, perforated viscus, vulvitis, ovarian torsion, PID, kidney stone, placenta abruption, this is not meant to be an all-inclusive list EKG interpreted by me (3pts min.). @ -As above X-rays interpreted by me (1pt min.). @ -None done CT interpreted by me (1pt min.). @ -None done U/S interpreted by me (1pt. min.). @ -None done What testing was considered but not performed or refused? (CT, X-rays, U/S, labs)? Why? @ -None What meds were considered but not given or refused? Why? @ -None Did you discuss the management of the patient with other professionals (professionals i.e. , PA, [employer], lab, RT, psych nurse, social science research assistant, kelp gatherer, te acher, commissary officer, case assistant)? Give summary @ -Dr. Cox see hospital course. Was smoking cessation discussed for >3mins.? @ -No Was critical care preformed (if so, how long)? @ -No Were there social determinants of health that impacted care today? How? (Homelessness, low income, unemployed, alcoholism, drug addiction, transportation, low edu. Level, literacy, decrease access to med. care, long-term, rehab)? @ -No Was there de-escalation of care discussed even if they declined (Discuss DNR or withdrawal of care, Hospice)? DNR status @ -No What co-morbidities impacted this encounter? (DM, HTN, Smoking, COPD, CAD, Cancer, CVA, ARF, Chemo, Hep., AIDS, mental health diagnosis, sleep apnea, morbid obesity)? @ -None Was patient admitted / discharged? Hospital course, mention meds given and route, prescriptions, significant lab abnormalities, going to OR and other pertinent info. @ -Patient presenting Was concern for acute cholecystitis. I reviewed previous CT showing calcified gallstones no gallbladder wall thickening or pericholecystic fluid. Patient does have fever and leukocytosis at 16.9. Lactic is also elevated at 2.8. There is elevation of liver enzymes, AST of 426, ALT at 365, alk phos at 187. Patient already received antibiotics prior to arrival. Pain and nausea is controlled patient is hydrated she will be admitted.Discussed with Naina from [facility] who accepts admission. Discussed case with Dr. Cox he is consulted. US ordered, Patient is NPO. Undiagnosed new problem with uncertain prognosis? @ -No Drug Therapy requiring intensive monitoring for toxicity (Heparin, Nitro, Insulin, Cardizem)? @ -No Were any procedures done? @ -No Diagnosis/symptom? @ -Acute cholecystitis Acute, or Chronic, or Acute on Chronic? @ -[Acute Uncomplicated (without systemic symptoms) or Complicated (systemic symptoms)? @ -uncomplicated Side effects of treatment? @ -No Exacerbation, Progression, or Severe Exacerbation? @ -No Poses a threat to life or bodily function? How? (Chest pain, [place], [place], pneumonia, PE, COPD, DKA, ARF, appy, cholecystitis, CVA, Diverticulitis, Homicidal, Suicidal, threat to staff... and all critical care pts) @ -No Dr. Cruz is my attending - Lab Data Result diagrams: 06/15/23 22:20 06/15/23 22:20 Lab Results 06/15/23 06/15/23 06/15/23 Range/Units 22:20 22:20 22:20 WBC 16.9 H (3.8-10.6) k/uL RBC 4.30 (3.80-5.40) m/uL Hgb 13.4 (11.4-16.0) gm/dL Hct 39.2 (34.0-46.0) % MCV 91.0 (80.0-100.0) fL MCH 31.0 (25.0-35.0) pg MCHC 34.1 (31.0-37.0) g/dL RDW 14.1 (11.5-15.5) % Plt Count 209 (150-450) k/uL MPV 7.4 Neutrophils % 93 % Lymphocytes % 3 % Monocytes % 4 % Eosinophils % 0 % Basophils % 0 % Neutrophils # 15.7 H (1.3-7.7) k/uL Lymphocytes # 0.4 L (1.0-4.8) k/uL Monocytes # 0.6 (0-1.0) k/uL Eosinophils # 0.0 (0-0.7) k/uL Basophils # 0.0 (0-0.2) k/uL Sodium 129 L (137-145) mmol/L Potassium 4.6 (3.5-5.1) mmol/L Chloride 95 L (98-107) mmol/L Carbon Dioxide 24 (22-30) mmol/L Anion Gap 10 mmol/L BUN 17 (7-17) mg/dL Creatinine 0.86 (0.52-1.04) mg/dL Est GFR (CKD-EPI)AfAm 86 (>60 ml/min/1.73 sqM) Est GFR (CKD-EPI)NonAf 74 (>60 ml/min/1.73 sqM) Glucose 113 H (74-99) mg/dL Plasma Lactic Acid Noe 2.8 H* (0.7-2.0) mmol/L Calcium 8.3 L (8.4-10.2) mg/dL Total Bilirubin 1.5 H (0.2-1.3) mg/dL AST 426 H (14-36) U/L ALT 365 H (4-34) U/L Alkaline Phosphatase 187 H (38-126) U/L Total Protein 6.0 L (6.3-8.2) g/dL Albumin 3.5 (3.5-5.0) g/dL Lipase 34 (23-300) U/L Disposition Clinical Impression: Acute cholecystitis Disposition: ADMITTED IP TO THIS [facility] Condition: Fair Referrals: Nonstaff,Physician [Primary Care Provider] - 1-2 days
--- NOTE | 2023-06-16 00:49 | US ---
EXAM: US Abdomen Complete CLINICAL HISTORY: ITS.REASON US Reason: pain TECHNIQUE: Real-time ultrasound of the abdomen with image documentation. COMPARISON: No relevant prior studies available. FINDINGS: Liver: Unremarkable. No mass. No intrahepatic bile duct dilation. Gallbladder: Cholelithiasis. Positive sonographic Saldivar sign. No gallbladder wall thickening or pericholecystic fluid. No ultrasound evidence of acute cholecystitis (no gallbladder wall thickening or pericholecystic edema).. Common bile duct: Unremarkable as visualized. No stones. No dilation. Pancreas: Unremarkable as visualized. Kidneys: Unremarkable. No stones. No solid mass. No hydronephrosis. IMPRESSION: Cholelithiasis. Positive sonographic Saldivar sign. No ultrasound evidence of acute cholecystitis (no gallbladder wall thickening or pericholecystic edema)..
[2023-06-16] MEDS: HYDROmorphone 0.5 MG/0.5 ML SYRINGE IVP PRN ×3 (05:13→20:27)
[2023-06-16] MEDS ORDERED: SODIUM CHLORIDE 0.9% 1,000 ML IV ONE (07:05)
[2023-06-16] MEDS ORDERED: DEXTROSE 50% SYRINGE 50 ML IVP PRN ×2 (07:05)
[2023-06-16 07:18] LABS: Basophils % (A) 0 %; Eosinophils # (A) 0.1 k/uL (0-0.7); Eosinophils % (A) 1 %; HCT 36.9 % (34.0-46.0); HGB 12.5 gm/dL (11.4-16.0); Lymphocytes # (A) 0.6 k/uL (1.0-4.8); Lymphocytes % (A) 5 %; MCH 31.2 pg (25.0-35.0); MCHC 33.9 g/dL (31.0-37.0); MCV 92.1 fL (80.0-100.0); Mean Platelet Volume 7.4; Monocytes # (A) 0.6 k/uL (0-1.0); Monocytes % (A) 5 %; Neutrophils # (A) 10.1 k/uL (1.3-7.7); Neutrophils % (A) 88 %; Platelet Count 199 k/uL (150-450); RDW 14.3 % (11.5-15.5); WBC 11.4 k/uL (3.8-10.6)
[2023-06-16 07:31] LABS: ALT 322 U/L (4-34); AST 259 U/L (14-36); African American GFR (CKD) 71 (>60 ml/min/1.73 sqM); Albumin 3.3 g/dL (3.5-5.0); Albumin/Globulin Ratio 1.4; Alkaline Phosphatase 179 U/L (38-126); Anion Gap 10 mmol/L; Blood Urea Nitrogen 20 mg/dL (7-17); Carbon Dioxide 21 mmol/L (22-30); Chloride 99 mmol/L (98-107); Globulin 2.4 g/dL; Glucose 130 mg/dL (74-99); Non-African American GFR(CKD) 62 (>60 ml/min/1.73 sqM); Potassium 3.9 mmol/L (3.5-5.1); Sodium 130 mmol/L (137-145); Total Bilirubin 1.8 mg/dL (0.2-1.3); Total Protein 5.7 g/dL (6.3-8.2)
--- NOTE | 2023-06-16 08:13 | P.HPIM ---
History of Present Illness This is a pleasant 8 years old female with past medical history of COPD, Diabetes Mellitus, Hyperlipidemia, Hypertension, MRSA, VRE infection Transfer from [place] for abdominal pain/nausea/gallstones - here for surgery consult. Patient states that she lives at home with family she went yesterday to [facility] because of abdominal pain that started about 4-5 days ago, about 7-8/10 in severity, nonradiating, today the pain is the same feels like thrombin with no precipitating or relieving factors other than medication. She feels nausea but no vomiting. No bowel movements today or yesterday. Normally she has 2 bowel movements per week. Yesterday while she was in the hospital she fell in the bathroom while she was trying to give urine sample, she denies syncope or chest pain or dizziness or dyspnea. She reports some increased frequency of urination but denies dysuria or urgency. No headache weakness or numbness. No coughing. She smokes about 10 cigarettes per day and she was counseled to quit and she agrees. She declines nicotine patch. No alcohol or illicit drug. Patient had a fever of 101.4. Blood pressure is low normal, airway morning 90/46 WBC elevated at 16.9, rest of the CBC is unremarkable Sodium 129, risks of BMP is unremarkable Elevated lactic acid came back to reference range at 1.6 Date improvement is elevated at 1.5 AST is high at 426 and ALT 365. Repeat liver enzymes showing trending down AST 39 and ALT 322 respectively. Repeat sodium is 1:30. Lipase and amylase are normal Ultrasound: Cholelithiasis, positive sonographic Saldivar sign. No ultrasound evidence of acute cholecystitis, no gallbladder wall thickening or pericholecystic edema by radiologist report Review of Systems Review of systems CONSTITUTIONAL: No fever, no malaise, no fatigue. HEENT: No recent visual problems or hearing problems. Denied any sore throat. CARDIOVASCULAR: No orthopnea, PND, no palpitations, no syncope. PULMONARY: No shortness of breath, no cough, no hemoptysis. GASTROINTESTINAL: No diarrhea, , no vomiting, . Normoactive bowel sounds. NEUROLOGICAL: No headaches, no weakness, no numbness. HEMATOLOGICAL: Denies any bleeding or petechiae. GENITOURINARY: Denies any burning micturition, frequency, or urgency. MUSCULOSKELETAL/RHEUMATOLOGICAL: Denies any joint pain, swelling, or any muscle pain. ENDOCRINE: Denies any polyuria or polydipsia. Past Medical History Past Medical History: COPD, Diabetes Mellitus, Hyperlipidemia, Hypertension, Pneumonia, Renal Disease Additional Past Medical History / Comment(s): heart murmur. frequent UTIs, kidney stones, neuropathy History of Any Multi-Drug Resistant Organisms: MRSA, VRE Date of last positivie culture/infection: 03/04/19 VRE / 2016 MRSA MDRO Source:: VRE URINE MRSA LEG Past Surgical History: Section, Hysterectomy, Orthopedic Surgery Additional Past Surgical History / Comment(s): 3 . hysterectomy. kidney surgery - stones-treated with right ureteroscopy with lithotripsy in . right knee surgery. right sided mastitis 09/2018 with lancing, debridement, and packing Additional Past Anesthesia/Blood Transfusion Reaction / Comment(s): states she had a hard time waking up from anesthesia Past Psychological History: Depression Past Alcohol Use History: None Reported Additional Past Alcohol Use History / Comment(s): Smokes 6 a day Past Drug Use History: None Reported - Past Family History Daughter(s) Additional Family Medical History / Comment(s): diverticulitis, depression, Mother Family Medical History: Pulmonary Embolus Additional Family Medical History / Comment(s): HAd depression. from PE Father Family Medical History: Coronary Artery Disease (CAD), Diabetes Mellitus, Hypertension, Myocardial Infarction ([place]) Additional Family Medical History / Comment(s): Medications and Allergies Home Medications Medication Instructions Recorded Confirmed Type Gabapentin [Neurontin] 600 mg PO TID 10/06/18 01/10/20 History Metoprolol Tartrate [Lopressor] 100 mg PO BID 10/06/18 01/10/20 History PARoxetine HCL [Paxil] 40 mg PO HS 10/06/18 01/10/20 History PARoxetine [Paxil] 20 mg PO DAILY 10/06/18 01/10/20 History buPROPion SR [Wellbutrin SR] 150 mg PO DAILY 10/06/18 01/10/20 History glipiZIDE [Glucotrol] 10 mg PO AC-BID 10/06/18 01/10/20 History metFORMIN HCL [Glucophage] 1,000 mg PO BID 10/06/18 01/10/20 History Multivitamin,Therapeutic [Thera] 1 tab PO DAILY 02/13/19 01/10/20 History Tiotropium 18 Mcg/Puff [Spiriva] 1 cap INHALATION RT-DAILY 02/14/19 01/10/20 History Albuterol Nebulized [Ventolin 2.5 mg INHALATION RT-Q4H PRN 01/10/20 01/10/20 History Nebulized] Albuterol Sulfate [Proair Hfa] 1 - 2 puff INHALATION RT-Q6H PRN 01/10/20 01/10/20 History Aspirin EC [Ecotrin Low Dose] 81 mg PO DAILY 01/10/20 01/10/20 History Biotin [Biotin Disolve] 5,000 mcg PO DAILY 01/10/20 01/10/20 History Chromium Picolinate 1,000 mcg PO DAILY 01/10/20 01/10/20 History Empagliflozin [Jardiance] 25 mg PO DAILY 01/10/20 01/10/20 History Famotidine [Pepcid] 20 mg PO BID 01/10/20 01/10/20 History Fluticasone Propion/Salmeterol 1 puff INHALATION RT-DAILY 01/10/20 01/10/20 History [Fluticasone-Salmeterol 113-14] Folic Acid 0.4 mg PO DAILY 01/10/20 01/10/20 History Healthy Eyes 1 tab PO DAILY 01/10/20 01/10/20 History Insulin Glargine [Lantus Vial] 60 unit SQ BID 01/10/20 01/10/20 History Liraglutide [Victoza 3-Dwayne] 1.8 mg SQ DAILY 01/10/20 01/10/20 History Lisinopril-Hctz 20-12.5 mg 1 tab PO DAILY 01/10/20 01/10/20 History [Zestoretic 20-12.5] Magnesium Oxide 400 mg PO DAILY 01/10/20 01/10/20 History Nortriptyline HCl 10 mg PO DAILY 01/10/20 01/10/20 History Ubidecarenone [Co Q-10] 100 mg PO DAILY 01/10/20 01/10/20 History Vitamin E 400 unit PO DAILY 01/10/20 01/10/20 History flaxseed oiL [Flaxseed Oil] 1,000 mg PO DAILY 03/10/20 03/10/20 History Atorvastatin [Lipitor] 80 mg PO HS 30 Days #30 tab 01/11/20 Rx Fenofibrate [Lofibra] 160 mg PO DAILY 30 Days #30 tab 01/11/20 Rx Allergies Allergy/AdvReac Type Severity Reaction Status Date / Time latex Allergy Rash/Hives Verified 01/10/20 14:49 nicotine AdvReac Severe Itching Verified 01/10/20 14:49 adhesive tape AdvReac Rash/Hives Verified 01/10/20 14:49 fluoxetine [From Prozac] AdvReac Rapid Verified 01/10/20 14:49 Heart Rate Physical Exam Vitals: Vital Signs Temp Pulse Resp BP Pulse Ox 06/16/23 05:13 82 18 90/46 98 06/16/23 03:32 84 16 104/56 94 L 06/16/23 01:06 99.0 F 95 18 98/55 98 06/15/23 23:00 99 18 105/58 96 06/15/23 21:53 101.4 F H 96 18 105/48 98 Intake and Output 06/15/23 06/15/23 06/16/23 14:59 22:59 06:59 Other: Weight 126.099 kg -GENERAL: The patient is alert and oriented x3, not in any acute distress. Obese HEENT: Pupils are round and equally reacting to light. EOMI. No scleral icterus. No conjunctival pallor. Normocephalic, atraumatic. No pharyngeal erythema. No thyromegaly. CARDIOVASCULAR: S1 and S2 present. No murmurs, rubs, or gallops. PULMONARY: Chest is clear to auscultation, no wheezing , no crackles. -ABDOMEN: Soft, RUQ tenderness, no rebound tenderness or guardingnded, normoactive bowel sounds. No palpable organomegaly. MUSCULOSKELETAL: No joint swelling or deformity. EXTREMITIES: No cyanosis, clubbing, or pedal edema. NEUROLOGICAL: Gross neurological examination did not reveal any focal deficits. SKIN: No rashes. no petechiae. Results CBC & Chem 7: 06/16/23 06:42 06/16/23 06:42 Labs: Abnormal Lab Results - Last 24 Hours (Table) 06/15/23 06/15/23 06/15/23 Range/Units 22:20 22:20 22:20 WBC 16.9 H (3.8-10.6) k/uL Neutrophils # 15.7 H (1.3-7.7) k/uL Lymphocytes # 0.4 L (1.0-4.8) k/uL Sodium 129 L (137-145) mmol/L Chloride 95 L (98-107) mmol/L Glucose 113 H (74-99) mg/dL Plasma Lactic Acid Noe 2.8 H* (0.7-2.0) mmol/L Calcium 8.3 L (8.4-10.2) mg/dL Total Bilirubin 1.5 H (0.2-1.3) mg/dL AST 426 H (14-36) U/L ALT 365 H (4-34) U/L Alkaline Phosphatase 187 H (38-126) U/L Total Protein 6.0 L (6.3-8.2) g/dL Assessment and Plan Assessment: Right upper quadrant Abdominal pain suspicious for biliary colic versus acute cholecystitis versus others Sepsis with fever and mild leukocytosis . With elevated liver enzymes cholangitis is suspected Cholelithiasis Nicotine dependence Diabetes mellitus Hypertension Hyperlipidemia History of COPD Morbid obesity with BMI of 43.5 Plan: start the patient on Zosyn Send blood culture start the patient with normal saline. Surgery team and GI team consult Labs and medication were reviewed.. Continue same treatment. Continue with symptomatic treatment. Resume home medication. Monitor lytes and vitals. DVT and GI prophylaxis. Further recommendations depends on the clinical course of the patient DVT prophylaxis: Subcutaneous heparin GI Prophylaxis: Pepcid PT/OT: Pending Prognosis is guarded
[2023-06-16 09:17] LABS: Glucose,Whole Blood 122 mg/dL (70-110)
[2023-06-16] MEDS: INSULIN ASPART (NovoLOG) 100 UNIT/ML VIAL SQ SCH ×4 (09:25→20:27)
[2023-06-16] MEDS: SODIUM CHLORIDE 0.9% 1,000 ML IV SCH ×2 (11:33→20:36)
[2023-06-16] MEDS: PIPERACILLIN-TAZOBACTAM 3.375 GM in SODIUM CHLORIDE 0.9% 100 ML IVPB SCH ×3 (11:33→23:34)
[2023-06-16 11:41] LABS: Appearance,Urine Clear (Clear); Bilirubin,Urine Negative (Negative); Blood,Urine Negative (Negative); Color,Urine Light Yellow; Glucose,Urine (UA) Negative (Negative); Ketones,Urine Negative (Negative); Leukocyte Esterase,Urine Negative (Negative); Nitrite,Urine Negative (Negative); Protein,Urine Negative (Negative); Specific Gravity,Urine 1.005 (1.001-1.035); Urobilinogen,Urine <2.0 mg/dL (<2.0)
--- NOTE | 2023-06-16 11:51 | P.CONS ---
History of Present Illness - Reason for Consult Consult date: 06/16/23 Transaminitis Requesting physician: Andrzej Acosta - Chief Complaint Abdominal pain - History of Present Illness This is 62-year-old female who presented to the emergency department last night with complaints of acute onset of right upper quadrant and epigastric pain assoc iated with nausea and vomiting. Patient actually was a transfer from [facility] for acute cholecystitis. She rated the pain 10 out of 10 states the pain is still present. She states the pain started 4 or 5 days ago but has worsened and continued. She has a past medical history of COPD, diabetes mellitus, hyperlipidemia, hypertension, and his current smoker. On admission patient had WBC 16.9 hemoglobin 13.4 platelet count 209,000, elevated lactic acid 2.8 total bilirubin 1.5 AST 426 ALTs 365 alkaline phosphatase 187 lipase 34. She underwent abdominal ultrasound reporting cholelithiasis. Positive Saldivar sign. No ultrasound evidence of acute cholecystitis (no gallbladder wall thickening or. Cholecystic edema). Patient had a max temp of 101.4 on admission. She still continues to have abdominal pain mostly in the right upper quadrant region, nausea but no vomiting. Patient did have moderate this morning. Today's repeat labs WBC 11.4 hemoglobin 12.5 hematocrit 36 platelet count 199,000 sodium 1:30 potassium 3.9 BUN 20 creatinine 1.0 total bilirubin 1.8 AST 259 ALTs 322 alkaline phosphatase 179 Review of Systems REVIEW OF SYSTEMS: CARDIOPULMONARY: No chest pain or shortness of breath. Gastrointestinal: Abdominal pain, crepitus and epigastric right upper quadrant region. Nausea no vomiting. No hematemesis, coffee-ground emesis. No rectal bleeding, or melena. GENITOURINARY: No dysuria or hematuria. MUSCULOSKELETAL: Reports normal range of motion SKIN: No rashes. No jaundice. ENDOCRINE: No chills, fevers. No excessive weight gain or loss. No polydipsia or polyuria. PSYCHIATRIC: Unremarkable. NEUROLOGY: No change in mental status. Denies dizziness, headache. ENT: Vision unremarkable. CONSTITUTIONAL: No recent weight loss. No fever, chills, night sweats. Past Medical History Past Medical History: COPD, Diabetes Mellitus, Hyperlipidemia, Hypertension, Pneumonia, Renal Disease Additional Past Medical History / Comment(s): heart murmur. 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 hysterectomy. kidney surgery - stones-treated with right ureteroscopy with lithotripsy in . right knee surgery. right sided mastitis 09/2018 with lancing, debridement, and packing Additional Past Anesthesia/Blood Transfusion Reaction / Comm: states she had a hard time waking up from anesthesia Past Psychological History: Depression Past Alcohol Use History: None Reported Additional Past Alcohol Use History / Comment(s): Smokes 6 a day Past Drug Use History: None Reported - Past Family History Daughter(s) Additional Family Medical History / Comment(s): diverticulitis, depression, Mother Family Medical History: Pulmonary Embolus Additional Family Medical History / Comment(s): HAd depression. from Father Family Medical History: Coronary Artery Disease (CAD), Diabetes Mellitus, Hypertension, Myocardial Infarction (PR) Additional Family Medical History / Comment(s): Medications and Allergies Home Medications Medication Instructions Recorded Confirmed Type Metoprolol Tartrate [Lopressor] 100 mg PO BID 10/06/18 06/16/23 History PARoxetine HCL [Paxil] 40 mg PO HS 10/06/18 06/16/23 History metFORMIN HCL [Glucophage] 1,000 mg PO BID 10/06/18 06/16/23 History Tiotropium 18 Mcg/Puff [Spiriva] 1 cap INHALATION RT-DAILY 02/14/19 06/16/23 History Albuterol Sulfate [Proair Hfa] 1 - 2 puff INHALATION RT-Q6H PRN 01/10/20 06/16/23 History Aspirin EC [Ecotrin Low Dose] 81 mg PO DAILY 01/10/20 06/16/23 History Chromium Picolinate 1,000 mcg PO DAILY 01/10/20 06/16/23 History Famotidine [Pepcid] 20 mg PO BID 01/10/20 06/16/23 History Folic Acid 0.4 mg PO DAILY 01/10/20 06/16/23 History Insulin Glargine [Lantus Vial] 80 unit SQ BID 01/10/20 06/16/23 History Lisinopril-Hctz 20-12.5 mg 1 tab PO DAILY 01/10/20 06/16/23 History [Zestoretic 20-12.5] Magnesium Oxide 400 mg PO DAILY 01/10/20 06/16/23 History Atorvastatin [Lipitor] 80 mg PO HS 30 Days #30 tab 01/11/20 06/16/23 Rx Ashmichelldha Root Extract 1,200 mg PO DAILY 06/16/23 06/16/23 History [Ashwagandha] Budesonide/Formoterol Fumarate 2 puff INHALATION RT-BID 06/16/23 06/16/23 History [Symbicort 160-4.5 Mcg Inhaler] Gabapentin [Neurontin] 200 mg PO TID 06/16/23 06/16/23 History Insulin Lispro [Insulin Lispro 38 units SQ AC-BID 06/16/23 06/16/23 History Kwikpen U-100] Milk Thistle 150 mg PO DAILY 06/16/23 06/16/23 History Multivit-Min/FA/Lycopen/Lutein 1 tab PO DAILY 06/16/23 06/16/23 History [Centrum Silver Tablet] Nortriptyline HCl [Pamelor] 150 mg PO HS 06/16/23 06/16/23 History Super B Complex 1 tab PO DAILY 06/16/23 06/16/23 History Tirzepatide [Mounjaro] 5 mg SQ SA 06/16/23 06/16/23 History Vitamin K2 100 mcg PO DAILY 06/16/23 06/16/23 History buPROPion HCL [buPROPion HCL Xl] 450 mg PO DAILY 06/16/23 06/16/23 History busPIRone HCl [Buspar] 20 mg PO BID 06/16/23 06/16/23 History Allergies Allergy/AdvReac Type Severity Reaction Status Date / Time latex Allergy Rash/Hives Verified 06/16/23 08:18 nicotine AdvReac Severe Itching Verified 06/16/23 08:18 adhesive tape AdvReac Rash/Hives Verified 06/16/23 08:18 fluoxetine [From Prozac] AdvReac Rapid Verified 06/16/23 08:18 Heart Rate Physical Exam Vitals: Vital Signs Temp Pulse Resp BP Pulse Ox 06/16/23 07:00 80 18 113/61 96 06/16/23 05:13 82 18 90/46 98 06/16/23 03:32 84 16 104/56 94 L 06/16/23 01:06 99.0 F 95 18 98/55 98 06/15/23 23:00 99 18 105/58 96 06/15/23 21:53 101.4 F H 96 18 105/48 98 Intake and Output 06/15/23 06/16/23 06/16/23 22:59 06:59 14:59 Other: Weight 126.099 kg General appearance: The patient is alert, oriented, appears in no acute distress. HET: Head is normocephalic and atraumatic. Conjunctiva pink. Sclera anicteric. Neck: Supple without lymphadenopathy. Trachea midline. Heart: S1 S2. Regular rate and rhythm. Lungs: Clear to auscultation. Abdomen: Soft, obese, right upper quadrant and epigastric tenderness to palpation, nondistended. No guarding or rigidity. Skin: No rashes. No jaundice. Extremities: Normal skin color and turgor. No pedal edema. Neurological: No focal deficits. Alert and oriented x3. Results CBC & Chem 7: 06/16/23 06:42 06/16/23 06:42 Labs: Abnormal Lab Results - Last 24 Hours (Table) 06/15/23 06/15/23 06/15/23 Range/Units 22:20 22:20 22:20 WBC 16.9 H (3.8-10.6) k/uL Neutrophils # 15.7 H (1.3-7.7) k/uL Lymphocytes # 0.4 L (1.0-4.8) k/uL Sodium 129 L (137-145) mmol/L Chloride 95 L (98-107) mmol/L Carbon Dioxide (22-30) mmol/L BUN (7-17) mg/dL Glucose 113 H (74-99) mg/dL POC Glucose (mg/dL) (70-110) mg/dL Plasma Lactic Acid Noe 2.8 H* (0.7-2.0) mmol/L Calcium 8.3 L (8.4-10.2) mg/dL Total Bilirubin 1.5 H (0.2-1.3) mg/dL AST 426 H (14-36) U/L ALT 365 H (4-34) U/L Alkaline Phosphatase 187 H (38-126) U/L Total Protein 6.0 L (6.3-8.2) g/dL Albumin (3.5-5.0) g/dL 06/16/23 06/16/23 06/16/23 Range/Units 06:42 06:42 09:15 WBC 11.4 H (3.8-10.6) k/uL Neutrophils # 10.1 H (1.3-7.7) k/uL Lymphocytes # 0.6 L (1.0-4.8) k/uL Sodium 130 L (137-145) mmol/L Chloride (98-107) mmol/L Carbon Dioxide 21 L (22-30) mmol/L BUN 20 H (7-17) mg/dL Glucose 130 H (74-99) mg/dL POC Glucose (mg/dL) 122 H (70-110) mg/dL Plasma Lactic Acid Noe (0.7-2.0) mmol/L Calcium 8.0 L (8.4-10.2) mg/dL Total Bilirubin 1.8 H (0.2-1.3) mg/dL AST 259 H (14-36) U/L ALT 322 H (4-34) U/L Alkaline Phosphatase 179 H (38-126) U/L Total Protein 5.7 L (6.3-8.2) g/dL Albumin 3.3 L (3.5-5.0) g/dL US - abdomen: report reviewed Assessment and Plan (1) Transaminitis Narrative/Plan: 62-year-old female transferred from hospital with abdominal pain mostly in the right upper quadrant lasting for several days however worsening in intensity. Patient was transferred to this facility for concerns for cholecystitis, cholelithiasis with elevated LFTs. Ultrasound reports cholelithiasis but without evidence of cholecystitis patient fever and leukocytosis. Pain continues with elevation in LFTs are consistent in a cholestatic pattern, need to consider choledochal lithiasis. Will plan for ERCP tomorrow. Current Visit: Yes Status: Acute Code(s): R74.01 - ELEVATION OF LEVELS OF LIVER TRANSAMINASE LEVELS SNOMED Code(s): 755762749 (2) Acute cholecystitis Narrative/Plan: General surgery following Current Visit: Yes Status: Acute Code(s): K81.0 - ACUTE CHOLECYSTITIS SNOMED Code(s): 15421095 (3) Hyponatremia Current Visit: No Status: Acute Code(s): E87.1 - HYPO-OSMOLALITY AND HYPONATREMIA SNOMED Code(s): 81095198 Plan: 1. Continue symptomatic and supportive care 2. Patient may have clear liquid diet, nothing by mouth after midnight 3. Zosyn IV ordered 4. Protonix 40 mg daily 5. Pain medication as needed 6. Antiemetics as needed 7. Indocin ordered given 1 hour prior to ERCP 8. Plan for ERCP tomorrow, procedure discussed with patient in detail including risks and benefits. Patient agreeable to proceed 9. Gen. surgery following 10. Daily CBC, CMP, PT/INR Thank you for this consultation, we will continue to follow.
[2023-06-16 15:36] LABS: INR 1.1 (<1.2); Prothrombin Time 11.3 sec (9.0-12.0)
[2023-06-16 16:41] LABS: Glucose,Whole Blood 124 mg/dL (70-110)
[2023-06-16] MEDS ORDERED: ALBUTEROL NEBULIZED 2.5 MG/3 ML INHALATION PRN (17:47)
--- NOTE | 2023-06-16 17:57 | P.GSCN ---
History of Present Illness Consult date: 06/16/23 Reason for Consult: Right upper quadrant pain History of present illness: Is a 8-year-old female who developed acute right upper quadrant pain. Patient presented emergently. She's had evidence of cholelithiasis and elevated liver function tests suggestive of choledocholithiasis. Patient has been seen by the GI team. She is scheduled for ERCP tomorrow. Patient states that her pain is improved. Past Medical History Past Medical History: COPD, Diabetes Mellitus, Hyperlipidemia, Hypertension, Pneumonia, Renal Disease Additional Past Medical History / Comment(s): heart murmur. 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 hysterectomy. kidney surgery - stones-treated with right ureteroscopy with lithotripsy in . right knee surgery. right sided mastitis 09/2018 with lancing, debridement, and packing Additional Past Anesthesia/Blood Transfusion Reaction / Comm: states she had a hard time waking up from anesthesia Past Psychological History: Depression Past Alcohol Use History: None Reported Additional Past Alcohol Use History / Comment(s): Smokes 6 a day Past Drug Use History: None Reported - Past Family History Daughter(s) Additional Family Medical History / Comment(s): diverticulitis, depression, Mother Family Medical History: Pulmonary Embolus Additional Family Medical History / Comment(s): HAd depression. from Father Family Medical History: Coronary Artery Disease (CAD), Diabetes Mellitus, Hypertension, Myocardial Infarction (MD) Additional Family Medical History / Comment(s): Medications and Allergies Home Medications Medication Instructions Recorded Confirmed Type Metoprolol Tartrate [Lopressor] 100 mg PO BID 10/06/18 06/16/23 History PARoxetine HCL [Paxil] 40 mg PO HS 10/06/18 06/16/23 History metFORMIN HCL [Glucophage] 1,000 mg PO BID 10/06/18 06/16/23 History Tiotropium 18 Mcg/Puff [Spiriva] 1 cap INHALATION RT-DAILY 02/14/19 06/16/23 History Albuterol Sulfate [Proair Hfa] 1 - 2 puff INHALATION RT-Q6H PRN 01/10/20 06/16/23 History Aspirin EC [Ecotrin Low Dose] 81 mg PO DAILY 01/10/20 06/16/23 History Chromium Picolinate 1,000 mcg PO DAILY 01/10/20 06/16/23 History Famotidine [Pepcid] 20 mg PO BID 01/10/20 06/16/23 History Folic Acid 0.4 mg PO DAILY 01/10/20 06/16/23 History Insulin Glargine [Lantus Vial] 80 unit SQ BID 01/10/20 06/16/23 History Lisinopril-Hctz 20-12.5 mg 1 tab PO DAILY 01/10/20 06/16/23 History [Zestoretic 20-12.5] Magnesium Oxide 400 mg PO DAILY 01/10/20 06/16/23 History Atorvastatin [Lipitor] 80 mg PO HS 30 Days #30 tab 01/11/20 06/16/23 Rx Ashwagandha Root Extract 1,200 mg PO DAILY 06/16/23 06/16/23 History [Ashwagandha] Budesonide/Formoterol Fumarate 2 puff INHALATION RT-BID 06/16/23 06/16/23 Histo ry [Symbicort 160-4.5 Mcg Inhaler] Gabapentin [Neurontin] 200 mg PO TID 06/16/23 06/16/23 History Insulin Lispro [Insulin Lispro 38 units SQ AC-BID 06/16/23 06/16/23 History Kwikpen U-100] Milk Thistle 150 mg PO DAILY 06/16/23 06/16/23 History Multivit-Min/FA/Lycopen/Lutein 1 tab PO DAILY 06/16/23 06/16/23 History [Centrum Silver Tablet] Nortriptyline HCl [Pamelor] 150 mg PO HS 06/16/23 06/16/23 History Super B Complex 1 tab PO DAILY 06/16/23 06/16/23 History Tirzepatide [Mounjaro] 5 mg SQ SA 06/16/23 06/16/23 History Vitamin K2 100 mcg PO DAILY 06/16/23 06/16/23 History buPROPion HCL [buPROPion HCL Xl] 450 mg PO DAILY 08/15/23 08/15/23 History busPIRone HCl [Buspar] 20 mg PO BID 06/16/23 06/16/23 History Allergies Allergy/AdvReac Type Severity Reaction Status Date / Time latex Allergy Rash/Hives Verified 06/16/23 08:18 nicotine AdvReac Severe Itching Verified 06/16/23 08:18 adhesive tape AdvReac Rash/Hives Verified 06/16/23 08:18 fluoxetine [From Prozac] AdvReac Rapid Verified 06/16/23 08:18 Heart Rate Surgical - Exam Vital Signs Temp Pulse Resp BP Pulse Ox 101.4 F H 96 18 105/48 98 06/15/23 21:53 06/15/23 21:53 06/15/23 21:53 06/15/23 21:53 06/15/23 21:53 - General well developed, well nourished, no distress - Eyes PERRL - ENT normal pinna, normal nares - Neck no masses - Respiratory normal expansion - Cardiovascular Rhythm: regular - Abdomen Right upper quadrant pain Abdomen: soft Results - Labs 06/16/23 06:42 06/16/23 06:42 Abnormal Lab Results - Last 24 Hours (Table) 06/15/23 06/15/23 06/15/23 Range/Units 22:20 22:20 22:20 WBC 16.9 H (3.8-10.6) k/uL Neutrophils # 15.7 H (1.3-7.7) k/uL Lymphocytes # 0.4 L (1.0-4.8) k/uL Sodium 129 L (137-145) mmol/L Chloride 95 L (98-107) mmol/L Carbon Dioxide (22-30) mmol/L BUN (7-17) mg/dL Glucose 113 H (74-99) mg/dL POC Glucose (mg/dL) (70-110) mg/dL Plasma Lactic Acid Noe 2.8 H* (0.7-2.0) mmol/L Calcium 8.3 L (8.4-10.2) mg/dL Total Bilirubin 1.5 H (0.2-1.3) mg/dL AST 426 H (14-36) U/L ALT 365 H (4-34) U/L Alkaline Phosphatase 187 H (38-126) U/L Total Protein 6.0 L (6.3-8.2) g/dL Albumin (3.5-5.0) g/dL 06/16/23 06/16/23 06/16/23 Range/Units 06:42 06:42 09:15 WBC 11.4 H (3.8-10.6) k/uL Neutrophils # 10.1 H (1.3-7.7) k/uL Lymphocytes # 0.6 L (1.0-4.8) k/uL Sodium 130 L (137-145) mmol/L Chloride (98-107) mmol/L Carbon Dioxide 21 L (22-30) mmol/L BUN 20 H (7-17) mg/dL Glucose 130 H (74-99) mg/dL POC Glucose (mg/dL) 122 H (70-110) mg/dL Plasma Lactic Acid Noe (0.7-2.0) mmol/L Calcium 8.0 L (8.4-10.2) mg/dL Total Bilirubin 1.8 H (0.2-1.3) mg/dL AST 259 H (14-36) U/L ALT 322 H (4-34) U/L Alkaline Phosphatase 179 H (38-126) U/L Total Protein 5.7 L (6.3-8.2) g/dL Albumin 3.3 L (3.5-5.0) g/dL 06/16/23 Range/Units 16:29 WBC (3.8-10.6) k/uL Neutrophils # (1.3-7.7) k/uL Lymphocytes # (1.0-4.8) k/uL Sodium (137-145) mmol/L Chloride (98-107) mmol/L Carbon Dioxide (22-30) mmol/L BUN (7-17) mg/dL Glucose (74-99) mg/dL POC Glucose (mg/dL) 124 H (70-110) mg/dL Plasma Lactic Acid Noe (0.7-2.0) mmol/L Calcium (8.4-10.2) mg/dL Total Bilirubin (0.2-1.3) mg/dL AST (14-36) U/L ALT (4-34) U/L Alkaline Phosphatase (38-126) U/L Total Protein (6.3-8.2) g/dL Albumin (3.5-5.0) g/dL Diabetes panel 06/15/23 06/16/23 Range/Units 22:20 06:42 Sodium 129 L 130 L (137-145) mmol/L Potassium 4.6 3.9 (3.5-5.1) mmol/L Chloride 95 L 99 (98-107) mmol/L Carbon Dioxide 24 21 L (22-30) mmol/L BUN 17 20 H (7-17) mg/dL Creatinine 0.86 1.00 (0.52-1.04) mg/dL Glucose 113 H 130 H (74-99) mg/dL Calcium 8.3 L 8.0 L (8.4-10.2) mg/dL AST 426 H 259 H (14-36) U/L ALT 365 H 322 H (4-34) U/L Alkaline Phosphatase 187 H 179 H (38-126) U/L Total Protein 6.0 L 5.7 L (6.3-8.2) g/dL Albumin 3.5 3.3 L (3.5-5.0) g/dL Calcium panel 06/15/23 06/16/23 Range/Units 22:20 06:42 Calcium 8.3 L 8.0 L (8.4-10.2) mg/dL Albumin 3.5 3.3 L (3.5-5.0) g/dL Pituitary panel 06/15/23 06/16/23 Range/Units 22:20 06:42 Sodium 129 L 130 L (137-145) mmol/L Potassium 4.6 3.9 (3.5-5.1) mmol/L Chloride 95 L 99 (98-107) mmol/L Carbon Dioxide 24 21 L (22-30) mmol/L BUN 17 20 H (7-17) mg/dL Creatinine 0.86 1.00 (0.52-1.04) mg/dL Glucose 113 H 130 H (74-99) mg/dL Calcium 8.3 L 8.0 L (8.4-10.2) mg/dL Adrenal panel 06/15/23 06/16/23 Range/Units 22:20 06:42 Sodium 129 L 130 L (137-145) mmol/L Potassium 4.6 3.9 (3.5-5.1) mmol/L Chloride 95 L 99 (98-107) mmol/L Carbon Dioxide 24 21 L (22-30) mmol/L BUN 17 20 H (7-17) mg/dL Creatinine 0.86 1.00 (0.52-1.04) mg/dL Glucose 113 H 130 H (74-99) mg/dL Calcium 8.3 L 8.0 L (8.4-10.2) mg/dL Total Bilirubin 1.5 H 1.8 H (0.2-1.3) mg/dL AST 426 H 259 H (14-36) U/L ALT 365 H 322 H (4-34) U/L Alkaline Phosphatase 187 H 179 H (38-126) U/L Total Protein 6.0 L 5.7 L (6.3-8.2) g/dL Albumin 3.5 3.3 L (3.5-5.0) g/dL - Imaging US - abdomen: report reviewed (Cholelithiasis. No gallbladder wall thickening) Assessment and Plan Assessment: Elevated liver function tests test with possible choledocholithiasis. Patient will undergo ERCP.
--- NOTE | 2023-06-16 18:03 | XR ---
EXAMINATION TYPE: XR knee complete RT DATE OF EXAM: 06/16/2023 5:58 PM INDICATION: Patient age:Female; 62 years old; Reason for study: fall with pain complaints; PH[facility]. COMPARISON: None. TECHNIQUE: The Right knee(s) was examined in 3 projections. Frontal, lateral and oblique. FINDINGS: No acute fracture or dislocation. Tricompartmental joint space narrowing with marginal sp urring. Postsurgical changes with hardware involving the tibial tuberosity. Calcification within the lateral tibiofemoral joint space. Suprapatellar spurring demonstrated. No joint effusion or soft tiss ue edema. Vascular sclerosis. IMPRESSION: 1. No acute osseous pathology. 2. Moderate tricompartmental osteoarthritic changes. 3. Post surgical changes. 4. Chondrocalcinosis.
--- NOTE | 2023-06-16 18:06 | XR ---
EXAMINATION TYPE: XR shoulder complete RT DATE OF EXAM: 06/16/2023 5:58 PM INDICATION: Patient age:Female; 62 years old; Reason for study: fall with pain complaints; COMPARISON: None TECHNIQUE: The right shoulder was examined in AP, internally rotated and scapular Y projections. . FINDINGS: No evidence of acute osseous pathology or joint dislocation. Soft tissue edema with increased density posteriorly on the Y view projection. Joint space narrowing with marginal spurring of the AC joint. Marginal spurring along the posterior aspect of the humeral head. The remaining portions of the visua lized chest are unremarkable. IMPRESSION: 1. No acute osseous pathology. 2. Mild AC joint and shoulder arthropathy. 3. Soft tissue edema with possible hematoma.
[2023-06-16 19:21] LABS: Glucose,Whole Blood 176 mg/dL (70-110)
[2023-06-16] MEDS: INSULIN DETEMIR (LEVEMIR) 100 UNIT/ML SYR SQ SCH (19:30)
[2023-06-16] MEDS: HEPARIN SODIUM,PORCINE 5,000 UNIT/ML 1 ML VIAL SQ SCH (19:43)
[2023-06-16] MEDS: PARoxetine 20 MG TAB PO SCH (19:43)
[2023-06-16] MEDS: GABAPENTIN 100 MG CAP PO SCH (19:43)
[2023-06-16] MEDS: METOPROLOL TARTRATE 50 MG TAB PO SCH (19:43)
[2023-06-16] MEDS: busPIRone HCl 10 MG TAB PO SCH (19:44)
[2023-06-16] MEDS: ATORVASTATIN 80 MG TAB PO SCH (19:44)
[2023-06-16] MEDS: SYMBICORT 160-4.5 MCG INHALER INHALATION SCH (20:21)
[2023-06-16] MEDS: NORTRIPTYLINE 25 MG CAP PO SCH (20:28)
[2023-06-16] MEDS: FAMOTIDINE 20 MG/2 ML VIAL IV SCH (20:34)
[2023-06-17] MEDS: HYDROmorphone 0.5 MG/0.5 ML SYRINGE IVP PRN ×4 (01:09→21:38)
[2023-06-17] MEDS: INSULIN ASPART (NovoLOG) 100 UNIT/ML VIAL SQ SCH ×4 (06:43→21:37)
[2023-06-17] MEDS: INSULIN DETEMIR (LEVEMIR) 100 UNIT/ML SYR SQ SCH ×2 (06:43→20:51)
[2023-06-17 06:53] LABS: Glucose,Whole Blood 147 mg/dL (70-110)
[2023-06-17] MEDS ORDERED: INDOMETHACIN 100 MG SUPPOSITORY RECTAL ONE ×2 (07:00→12:00)
[2023-06-17 07:38] LABS: Basophils % (A) 0 %; Eosinophils # (A) 0.1 k/uL (0-0.7); Eosinophils % (A) 1 %; HCT 33.9 % (34.0-46.0); HGB 11.2 gm/dL (11.4-16.0); Lymphocytes # (A) 0.9 k/uL (1.0-4.8); Lymphocytes % (A) 15 %; MCHC 33.1 g/dL (31.0-37.0); MCV 93.4 fL (80.0-100.0); Mean Platelet Volume 7.3; Monocytes # (A) 0.3 k/uL (0-1.0); Monocytes % (A) 6 %; Neutrophils # (A) 4.3 k/uL (1.3-7.7); Neutrophils % (A) 76 %; Platelet Count 171 k/uL (150-450); RBC 3.63 m/uL (3.80-5.40); RDW 14.4 % (11.5-15.5); WBC 5.7 k/uL (3.8-10.6)
[2023-06-17 07:49] LABS: ALT 190 U/L (4-34); AST 85 U/L (14-36); African American GFR (CKD) 87 (>60 ml/min/1.73 sqM); Albumin 2.8 g/dL (3.5-5.0); Alkaline Phosphatase 170 U/L (38-126); Anion Gap 7 mmol/L; Blood Urea Nitrogen 11 mg/dL (7-17); Calcium 7.9 mg/dL (8.4-10.2); Carbon Dioxide 22 mmol/L (22-30); Chloride 103 mmol/L (98-107); Glucose 138 mg/dL (74-99); Non-African American GFR(CKD) 76 (>60 ml/min/1.73 sqM); Potassium 3.9 mmol/L (3.5-5.1); Sodium 132 mmol/L (137-145); Total Bilirubin 1.1 mg/dL (0.2-1.3); Total Protein 5.2 g/dL (6.3-8.2)
[2023-06-17] MEDS: SYMBICORT 160-4.5 MCG INHALER INHALATION SCH ×2 (08:43→20:46)
[2023-06-17] MEDS: METOPROLOL TARTRATE 50 MG TAB PO SCH ×2 (08:59→20:40)
[2023-06-17] MEDS: HEPARIN SODIUM,PORCINE 5,000 UNIT/ML 1 ML VIAL SQ SCH ×2 (09:00→20:40)
[2023-06-17] MEDS: ASPIRIN 81 MG PO SCH (09:00)
[2023-06-17] MEDS: GABAPENTIN 100 MG CAP PO SCH ×3 (09:02→20:40)
[2023-06-17] MEDS: FAMOTIDINE 20 MG/2 ML VIAL IV SCH ×2 (09:02→20:41)
[2023-06-17] MEDS: buPROPion XL 150 MG TAB.ER.24H PO SCH (09:03)
[2023-06-17] MEDS: PIPERACILLIN-TAZOBACTAM 3.375 GM in SODIUM CHLORIDE 0.9% 100 ML IVPB SCH ×2 (09:04→16:08)
--- NOTE | 2023-06-17 11:12 | P.PN ---
Subjective This is a pleasant 8 years old female with past medical history of COPD, Diabetes Mellitus, Hyperlipidemia, Hypertension, MRSA, VRE infection Transfer from [place] for abdominal pain/nausea/gallstones - here for surgery consult. Patient states that she lives at home with family she went yesterday to [facility] because of abdominal pain that started about 4-5 days ago, about 7-8/10 in severity, nonradiating, today the pain is the same feels like thrombin with no precipitating or relieving factors other than medication. She feels nausea but no vomiting. No bowel movements today or yesterday. Normally she has 2 bowel movements per week. Yesterday while she was in the hospital she fell in the bathroom while she was trying to give urine sample, she denies syncope or chest pain or dizziness or dyspnea. She reports some increased frequency of urination but denies dysuria or urgency. No headache weakness or numbness. No coughing. She smokes about 10 cigarettes per day and she was counseled to quit and she agrees. She declines nicotine patch. No alcohol or illicit drug. Patient had a fever of 101.4. Blood pressure is low normal, airway morning 90/46 WBC elevated at 16.9, rest of the CBC is unremarkable Sodium 129, risks of BMP is unremarkable Elevated lactic acid came back to reference range at 1.6 Date improvement is elevated at 1.5 AST is high at 426 and ALT 365. Repeat liver enzymes showing trending down AST 39 and ALT 322 respectively. Repeat sodium is 1:30. Lipase and amylase are normal Ultrasound: Cholelithiasis, positive sonographic Saldivar sign. No ultrasound evidence of acute cholecystitis, no gallbladder wall thickening or pericholecystic edema by radiologist report 06/17/2023 Patient right upper quadrant abdominal pain today is 6/10 with only slight improvement. She tolerates liquid diet. She is hemodynamically stable Labs showing improvement with WBC back to normal, sodium improvement, bilirubin back to normal. AST down to 85 and ALT down to 190. Planned for ERCP today with hematology/oncology team Her sugar controlled on 20 units twice a day, she confirms at home she takes long-acting insulin 80 units twice daily and Cipro 38 units twice a day as well as she is on monitor Objective - Vital Signs Vital signs: Vital Signs Temp 98 F 06/17/23 09:00 Pulse 86 08/16/23 09:00 Resp 18 06/17/23 09:00 BP 106/69 06/17/23 09:00 Pulse Ox 95 06/17/23 09:00 FiO2 Intake & Output 06/16/23 06/17/23 06/17/23 18:59 06:59 18:59 Intake Total 10 Balance 10 Intake: IV 10 Invasive Line 1 10 Other: Voiding Method Toilet # Voids 1 2 - Exam GENERAL: The patient is alert and oriented x3, not in any acute distress. Well developed, well nourished. HEENT: Pupils are round and equally reacting to light. EOMI. No scleral icterus. No conjunctival pallor. Normocephalic, atraumatic. No pharyngeal erythema. No thyromegaly. CARDIOVASCULAR: S1 and S2 present. No murmurs, rubs, or gallops. PULMONARY: Chest is clear to auscultation, no wheezing , no crackles. -ABDOMEN: Soft, RUQ tenderness, no rebound tenderness, nondistended, normoactive bowel sounds. No palpable organomegaly. MUSCULOSKELETAL: No joint swelling or deformity. EXTREMITIES: No cyanosis, clubbing, or pedal edema. NEUROLOGICAL: Gross neurological examination did not reveal any focal deficits. SKIN: No rashes. no petechiae. - Labs CBC & Chem 7: 06/17/23 06:38 06/17/23 06:38 Labs: Abnormal Lab Results - Last 24 Hours (Table) 06/16/23 06/16/23 06/17/23 Range/Units 16:29 19:18 06:38 RBC 3.63 L (3.80-5.40) m/uL Hgb 11.2 L (11.4-16.0) gm/dL Hct 33.9 L (34.0-46.0) % Lymphocytes # 0.9 L (1.0-4.8) k/uL Sodium (137-145) mmol/L Glucose (74-99) mg/dL POC Glucose (mg/dL) 124 H 176 H (70-110) mg/dL Calcium (8.4-10.2) mg/dL AST (14-36) U/L ALT (4-34) U/L Alkaline Phosphatase (38-126) U/L Total Protein (6.3-8.2) g/dL Albumin (3.5-5.0) g/dL 06/17/23 06/17/23 Range/Units 06:38 06:43 RBC (3.80-5.40) m/uL Hgb (11.4-16.0) gm/dL Hct (34.0-46.0) % Lymphocytes # (1.0-4.8) k/uL Sodium 132 L (137-145) mmol/L Glucose 138 H (74-99) mg/dL POC Glucose (mg/dL) 147 H (70-110) mg/dL Calcium 7.9 L (8.4-10.2) mg/dL AST 85 H (14-36) U/L ALT 190 H (4-34) U/L Alkaline Phosphatase 170 H (38-126) U/L Total Protein 5.2 L (6.3-8.2) g/dL Albumin 2.8 L (3.5-5.0) g/dL Assessment and Plan Assessment: Right upper quadrant Abdominal pain suspicious for biliary colic versus acute cholecystitis versus others Sepsis with fever and mild leukocytosis . With elevated liver enzymes cholangitis is suspected Cholelithiasis Choledocholithiasis is suspected as well Nicotine dependence Diabetes mellitus Hypertension Hyperlipidemia History of COPD Morbid obesity with BMI of 43.5 Plan: start the patient on Zosyn Send blood culture start the patient with normal saline. Surgery team and GI team consult ERCP with GI team Labs and medication were reviewed.. Continue same treatment. Continue with symptomatic treatment. Resume home medication. Monitor lytes and vitals. DVT and GI prophylaxis. Further recommendations depends on the clinical course of the patient DVT prophylaxis: Subcutaneous heparin GI Prophylaxis: Pepcid PT/OT: Pending Prognosis is guarded
[2023-06-17 12:02] LABS: Glucose,Whole Blood 123 mg/dL (70-110)
[2023-06-17] MEDS ORDERED: polyethylene glycoL 3350 17 GM POWD.PACK PO PRN (12:24)
--- NOTE | 2023-06-17 12:38 | P.PN ---
Subjective Progress Note Date: 06/17/23 Principal diagnosis: Epigastric pain, transaminitis This is 62-year-old female who presented to the emergency department last night with complaints of acute onset of right upper quadrant and epigastric pain associated with nausea and vomiting. Patient actually was a transfer from [facility] for acute cholecystitis. She rated the pain 10 out of 10 states the pain is still present. She states the pain started 4 or 5 days ago but has worsened and continued. She has a past medical history of COPD, diabetes mellitus, hyperlipidemia, hypertension, and his current smoker. On admission patient had WBC 16.9 hemoglobin 13.4 platelet count 209,000, elevated lactic acid 2.8 total bilirubin 1.5 AST 426 ALTs 365 alkaline phosphatase 187 lipase 34. She underwent abdominal ultrasound reporting cholelithiasis. Positive Saldivar sign. No ultrasound evidence of acute cholecystitis (no gallbladder wall thickening or. Cholecystic edema). Patient had a max temp of 101.4 on admission. She still continues to have abdominal pain mostly in the right upper quadrant region, nausea but no vomiting. Patient did have moderate this morning. Today's repeat labs WBC 11.4 hemoglobin 12.5 hematocrit 36 platelet count 199,000 sodium 1:30 potassium 3.9 BUN 20 creatinine 1.0 total bilirubin 1.8 AST 259 ALTs 322 alkaline phosphatase 179 06/17/2023 Patient was seen and examined today as a follow-up. States her abdominal pain has improved some. She has no nausea or vomiting. She's been afebrile through the night. LFTs are trending down. Total bilirubin 1.1 AST 85 ALTs 190 alkaline phosphatase 170. Objective - Vital Signs Vital signs: Vital Signs Temp 98 F 06/17/23 09:00 Pulse 86 06/17/23 09:00 Resp 18 06/17/23 09:00 BP 106/69 06/17/23 09:00 Pulse Ox 95 06/17/23 09:00 FiO2 Intake & Output 06/16/23 06/17/23 06/17/23 18:59 06:59 18:59 Intake Total 10 Balance 10 Intake: IV 10 Invasive Line 1 10 Other: Voiding Method Toilet # Voids 1 2 - Exam General appearance: The patient is alert, oriented, appears in no acute distress. HET: Head is normocephalic and atraumatic. Conjunctiva pink. Sclera anicteric. Neck: Supple without lymphadenopathy. Abdomen: Soft, minimal tenderness, nondistended . No guarding or rigidity. Extremities: Normal skin color and turgor. No pedal edema Skin: No rashes, no jaundice Neurological: No focal deficits. Alert and oriented. - Labs CBC & Chem 7: 06/17/23 06:38 06/17/23 06:38 Labs: Abnormal Lab Results - Last 24 Hours (Table) 06/16/23 06/16/23 06/17/23 Range/Units 16:29 19:18 06:38 RBC 3.63 L (3.80-5.40) m/uL Hgb 11.2 L (11.4-16.0) gm/dL Hct 33.9 L (34.0-46.0) % Lymphocytes # 0.9 L (1.0-4.8) k/uL Sodium (137-145) mmol/L Glucose (74-99) mg/dL POC Glucose (mg/dL) 124 H 176 H (70-110) mg/dL Calcium (8.4-10.2) mg/dL AST (14-36) U/L ALT (4-34) U/L Alkaline Phosphatase (38-126) U/L Total Protein (6.3-8.2) g/dL Albumin (3.5-5.0) g/dL 06/17/23 06/17/23 Range/Units 06:38 06:43 RBC (3.80-5.40) m/uL Hgb (11.4-16.0) gm/dL Hct (34.0-46.0) % Lymphocytes # (1.0-4.8) k/uL Sodium 132 L (137-145) mmol/L Glucose 138 H (74-99) mg/dL POC Glucose (mg/dL) 147 H (70-110) mg/dL Calcium 7.9 L (8.4-10.2) mg/dL AST 85 H (14-36) U/L ALT 190 H (4-34) U/L Alkaline Phosphatase 170 H (38-126) U/L Total Protein 5.2 L (6.3-8.2) g/dL Albumin 2.8 L (3.5-5.0) g/dL Assessment and Plan (1) Transaminitis Narrative/Plan: 62-year-old female transferred from hospital with abdominal pain mostly in the right upper quadrant lasting for several days however worsening in intensity. Patient was transferred to this facility for concerns for cholecystitis, ch olelithiasis with elevated LFTs. Ultrasound reports cholelithiasis but without evidence of cholecystitis patient fever and leukocytosis. Pain continues with elevation in LFTs are consistent in a cholestatic pattern, need to consider choledocholithiasis. Repeat LFTs are trending down, abdominal pain improving. Likely patient passed gallstone and no need to undergo ERCP at this time. This was discussed with general surgery who agrees and will likely schedule for patient for cholecystectomy tomorrow. Current Visit: Yes Status: Acute Code(s): R74.01 - ELEVATION OF LEVELS OF LIVER TRANSAMINASE LEVELS SNOMED Code(s): 553548966 (2) Acute cholecystitis Narrative/Plan: General surgery following Current Visit: Yes Status: Acute Code(s): K81.0 - ACUTE CHOLECYSTITIS SNOMED Code(s): 47215363 (3) Hyponatremia Current Visit: No Status: Acute Code(s): E87.1 - HYPO-OSMOLALITY AND HYPONATREMIA SNOMED Code(s): 52643307 Plan: 1. Continue symptomatic and supportive care 2. Patient may have low-fat diet, nothing by mouth after midnight 3. Continue IV Zosyn 4. Protonix 40 mg daily 5. Pain medication as needed 6. Antiemetics as needed 7. ERCP canceled. Patient's symptoms improving as well as LFTs are trending down. 8. Gen. surgery following. Dr. Cxo notified ERCP canceled. Okay for diet. Tentative plan for cholecystectomy tomorrow 9. Daily CMP Thank you for this consultation, we will continue to follow. Dr. Sky Sheehan I agree with the dictator's note, documented as a scribe by Radha Brewster.
[2023-06-17] MEDS: busPIRone HCl 10 MG TAB PO SCH ×2 (12:42→20:41)
[2023-06-17] MEDS: FOLIC ACID 1 MG TAB PO SCH (12:42)
--- NOTE | 2023-06-17 12:43 | P.PN ---
Progress Note - Text Progress Note Date: 06/17/23 the patient feels better today. Her ERCP was canceled because her liver enzymes improved. On exam vital signs appear stable. Abdomen soft. Cholecystitis. Patient will be scheduled for laparoscopic ostecholecystectomy in the a.m.
[2023-06-17] MEDS: SODIUM CHLORIDE 0.9% 1,000 ML IV SCH (12:53)
[2023-06-17 17:05] LABS: Glucose,Whole Blood 152 mg/dL (70-110)
[2023-06-17] MEDS: PARoxetine 20 MG TAB PO SCH (20:40)
[2023-06-17] MEDS: NORTRIPTYLINE 25 MG CAP PO SCH (20:40)
[2023-06-17] MEDS: ATORVASTATIN 80 MG TAB PO SCH (20:41)
[2023-06-17] MEDS: DOCUSATE 100 MG CAP PO SCH (20:41)
[2023-06-17 20:50] LABS: Glucose,Whole Blood 217 mg/dL (70-110)
[2023-06-18] MEDS: PIPERACILLIN-TAZOBACTAM 3.375 GM in SODIUM CHLORIDE 0.9% 100 ML IVPB SCH ×4 (00:14→23:37)
[2023-06-18] MEDS: SODIUM CHLORIDE 0.9% 1,000 ML IV SCH ×3 (00:15→11:21)
[2023-06-18 06:21] LABS: Glucose,Whole Blood 186 mg/dL (70-110)
[2023-06-18] MEDS: INSULIN ASPART (NovoLOG) 100 UNIT/ML VIAL SQ SCH ×4 (06:29→20:55)
[2023-06-18] MEDS: SYMBICORT 160-4.5 MCG INHALER INHALATION SCH ×2 (08:23→19:30)
[2023-06-18] MEDS: HEPARIN SODIUM,PORCINE 5,000 UNIT/ML 1 ML VIAL SQ SCH ×2 (09:13→20:54)
[2023-06-18] MEDS: ASPIRIN 81 MG PO SCH (09:17)
[2023-06-18] MEDS: HYDROmorphone 0.5 MG/0.5 ML SYRINGE IVP PRN ×2 (09:29→14:06)
[2023-06-18] MEDS: DOCUSATE 100 MG CAP PO SCH ×2 (09:30→20:54)
[2023-06-18] MEDS: busPIRone HCl 10 MG TAB PO SCH ×2 (09:30→20:54)
[2023-06-18] MEDS: GABAPENTIN 100 MG CAP PO SCH ×3 (09:30→20:52)
[2023-06-18] MEDS: METOPROLOL TARTRATE 50 MG TAB PO SCH ×2 (09:30→20:54)
[2023-06-18] MEDS: FOLIC ACID 1 MG TAB PO SCH (09:31)
[2023-06-18] MEDS: buPROPion XL 150 MG TAB.ER.24H PO SCH (09:31)
[2023-06-18] MEDS: FAMOTIDINE 20 MG/2 ML VIAL IV SCH ×2 (09:31→20:54)
[2023-06-18 10:17] LABS: Glucose,Whole Blood 173 mg/dL (70-110)
[2023-06-18] MEDS ORDERED: ACETAMINOPHEN TAB 500 MG TAB ONE (10:18)
[2023-06-18] MEDS ORDERED: HEPARIN SODIUM,PORCINE/PF 5,000 UNIT/0.5 ML SYRINGE SQ ONE (10:18)
[2023-06-18] MEDS ORDERED: ONDANSETRON 4 MG/2 ML VIAL IVP ONE (10:20)
[2023-06-18] MEDS ORDERED: HEPARIN SODIUM,PORCINE 5,000 UNIT/ML 1 ML VIAL SQ ONE (10:20)
[2023-06-18] MEDS ORDERED: ACETAMINOPHEN TAB 500 MG TAB PO ONE (10:20)
[2023-06-18] MEDS: INSULIN DETEMIR (LEVEMIR) 100 UNIT/ML SYR SQ SCH ×2 (10:22→20:55)
[2023-06-18 11:14] LABS: ALT 162 U/L (8-44); AST 61 U/L (13-35); Albumin 3.5 d/dL (3.8-4.9); Albumin/Globulin Ratio 1.59 Ratio (1.60-3.17); Alkaline Phosphatase 242 U/L (41-126); BUN/Creat Ratio 9.89 Ratio (12.00-20.00); Blood Urea Nitrogen 8.9 mg/dL (9.0-27.0); Carbon Dioxide 23.1 mmol/L (21.6-31.8); Chloride 103 mmol/L (96-109); Globulin 2.2 d/dL (1.6-3.3); Glucose 167 mg/dL (70-110); Potassium 4.7 mmol/L (3.5-5.5); Sodium 137 mmol/L (135-145); Total Bilirubin 0.6 mg/dL (0.3-1.2); Total Protein 5.7 d/dL (6.2-8.2)
[2023-06-18] MEDS ORDERED: GLYCOPYRROLATE 0.2 MG/ML 2 ML VIAL ONE (11:17)
[2023-06-18] MEDS ORDERED: fentaNYL (PF) 50 MCG/ML 2 ML AMP ONE (11:17)
[2023-06-18] MEDS ORDERED: NEOSTIGMINE 1 MG/ML 10 ML VIAL ONE (11:17)
[2023-06-18] MEDS ORDERED: ROCURONIUM 10 MG/ML (5 ML VIAL) IV ONE (11:17)
[2023-06-18] MEDS ORDERED: SUCCINYLCHOLINE CHLORIDE 200 MG/10 ML VIAL IV ONE (11:17)
[2023-06-18] MEDS ORDERED: PROPOFOL 10 MG/ML 20 ML VIAL IV ONE (11:17)
[2023-06-18] MEDS ORDERED: MIDAZOLAM 2 MG/2 ML VIAL ONE (11:17)
[2023-06-18] MEDS ORDERED: LIDOCAINE 2% INJ 20 MG/ML (2 ML VIAL) ONE (11:17)
[2023-06-18] MEDS ORDERED: BUPIVACAINE (PF) 0.25% 10 ML VIAL SQ ONE (11:40)
[2023-06-18] MEDS ORDERED: LACTATED RINGERS 1,000 ML IV ONE ×2 (12:00→12:11)
[2023-06-18] MEDS ORDERED: HYDROcodone/APAP 5-325MG 1 EACH TAB PO PRN (12:11)
[2023-06-18] MEDS ORDERED: ONDANSETRON 4 MG/2 ML VIAL IVP PRN (12:11)
[2023-06-18] MEDS ORDERED: NALOXONE 0.4 MG/ML 1 ML VIAL IV PRN (12:11)
--- NOTE | 2023-06-18 12:11 | P.OP ---
Date of Procedure: 06/18/23 Preoperative Diagnosis: Cholecystitis Postoperative Diagnosis: Cholecystitis Cholelithiasis Procedure(s) Performed: Laparoscopic cholecystectomy Anesthesia: ETELVINA Surgeon: Ken Cox Estimated Blood Loss (ml): 5 Pathology: other (Gallbladder) Condition: stable Disposition: PACU Description of Procedure: The patient was placed on the operating table. The patient received a general endotracheal tube anesthesia. The patients abdomen was prepped and draped in the usual sterile fashion. Through an infraumbilical stab incision, the fascia of the anterior abdominal wall was grasped with a pair of Kochers and then the Veress needle was placed in the peritoneal cavity. Position of the Veress needle was confirmed with positive drop test. The abdomen was then insufflated. After adequate insufflation, the 10 mm trocar was placed in the peritoneal cavity. Following this the laparoscope was placed in the peritoneal cavity. The patient was placed in the head-up, right side up position and then a 5 mm trocar was placed in the right lateral and right subcostal position under direct visualization. A 8 mm trocar was placed in the epigastric position. The gallbladder was grasped in the fundus and infundibulum. Traction on the gallbladder was placed in the lateral and the cephalad positions. The triangle of Calot was visualized.. The cystic duct was bluntly dissected until the union of the cystic duct and common bile duct was seen. A critical view of safety was achieved. The cystic duct was then divided and sealed with the Harmonic scissors. A PDS Endoloop was then placed throughout the cystic duct stump. The cystic artery divided and sealed with the Harmonic scissors. The gallbladder was then removed from the liver bed using Harmonic scissors. The gallbladder was then extracted through the epigastric port site. Operative field was checked for any bleeding spots and Harmonic scissors was used to coagulate the liver bed. The abdomen was irrigated. The trocars were removed. The skin was closed using interrupted 3-0 Vicryl suture. Dermabond dressing were applied. The patient tolerated the procedure well.
[2023-06-18 12:35] LABS: Glucose,Whole Blood 171 mg/dL (70-110)
--- NOTE | 2023-06-18 12:53 | P.PN ---
Subjective Progress Note Date: 06/18/23 Principal diagnosis: Epigastric pain, transaminitis This is 62-year-old female who presented to the emergency department last night with complaints of acute onset of right upper quadrant and epigastric pain associated with nausea and vomiting. Patient actually was a transfer from [facility] for acute cholecystitis. She rated the pain 10 out of 10 states the pain is still present. She states the pain started 4 or 5 days ago but has worsened and continued. She has a past medical history of COPD, diabetes mellitus, hyperlipidemia, hypertension, and his current smoker. On admission patient had WBC 16.9 hemoglobin 13.4 platelet count 209,000, elevated lactic acid 2.8 total bilirubin 1.5 AST 426 ALTs 365 alkaline phosphatase 187 lipase 34. She underwent abdominal ultrasound reporting cholelithiasis. Positive Saldivar sign. No ultrasound evidence of acute cholecystitis (no gallbladder wall thickening or. Cholecystic edema). Patient had a max temp of 101.4 on admission. She still continues to have abdominal pain mostly in the right upper quadrant region, nausea but no vomiting. Patient did have moderate this morning. Today's repeat labs WBC 11.4 hemoglobin 12.5 hematocrit 36 platelet count 199,000 sodium 1:30 potassium 3.9 BUN 20 creatinine 1.0 total bilirubin 1.8 AST 259 ALTs 322 alkaline phosphatase 179 06/17/2023 Patient was seen and examined today as a follow-up. States her abdominal pain has improved some. She has no nausea or vomiting. She's been afebrile through the night. LFTs are trending down. Total bilirubin 1.1 AST 85 ALTs 190 alkaline phosphatase 170. 06/18/2023 Patient was seen and examined today as a follow-up. She states her pain has improved. No nausea or vomiting. She's been afebrile. She is scheduled for cholecystectomy today. Total bilirubin 0.6 AST 61 ALT 162 alkaline phosphatase 242. Objective - Vital Signs Vital signs: Vital Signs Temp 98.2 F 06/18/23 07:15 Pulse 73 06/18/23 07:15 Resp 16 06/18/23 07:15 BP 120/71 06/18/23 07:15 Pulse Ox 96 06/18/23 07:15 FiO2 Intake & Output 06/17/23 06/18/23 06/18/23 18:59 06:59 18:59 Other: Voiding Method Toilet Toilet # Voids 1 2 - Exam General appearance: The patient is alert, oriented, appears in no acute distress. HET: Head is normocephalic and atraumatic. Conjunctiva pink. Sclera anicteric. Neck: Supple without lymphadenopathy. Abdomen: Soft, nontender, nondistended . No guarding or rigidity. Extremities: Normal skin color and turgor. No pedal edema Skin: No rashes, no jaundice Neurological: No focal deficits. Alert and oriented. - Labs CBC & Chem 7: 06/17/23 06:38 06/18/23 06:33 Labs: Abnormal Lab Results - Last 24 Hours (Table) 06/17/23 06/17/23 06/17/23 Range/Units 06:38 12:01 17:03 POC Glucose (mg/dL) 123 H 152 H (70-110) mg/dL Hemoglobin A1c 6.2 H (<=6.0) % 06/17/23 06/18/23 Range/Units 20:49 06:14 POC Glucose (mg/dL) 217 H 186 H (70-110) mg/dL Hemoglobin A1c (<=6.0) % Microbiology - Last 24 Hours (Table) 06/16/23 10:33 Blood Culture - Preliminary Blood Assessment and Plan (1) Transaminitis Narrative/Plan: 62-year-old female transferred from hospital with abdominal pain mostly in the right upper quadrant lasting for several days however worsening in intensity. Ryan prado was transferred to this facility for concerns for cholecystitis, cholelithiasis with elevated LFTs. Ultrasound reports cholelithiasis but without evidence of cholecystitis patient fever and leukocytosis. Pain continues with elevation in LFTs are consistent in a cholestatic pattern, need to consider choledocholithiasis. Repeat LFTs are trending down, abdominal pain improving. Likely patient passed gallstone and no need to undergo ERCP at this time. This was discussed with general surgery who agrees and will likely schedule for patient for cholecystectomy tomorrow. Current Visit: Yes Status: Acute Code(s): R74.01 - ELEVATION OF LEVELS OF LIVER TRANSAMINASE LEVELS SNOMED Code(s): 821026293 (2) Acute cholecystitis Narrative/Plan: General surgery following Current Visit: Yes Status: Acute Code(s): K81.0 - ACUTE CHOLECYSTITIS SNOMED Code(s): 35644512 (3) Hyponatremia Current Visit: No Status: Acute Code(s): E87.1 - HYPO-OSMOLALITY AND HYPONATREMIA SNOMED Code(s): 58773783 Plan: 1. Continue symptomatic and supportive care 2. Diet per general surgery 3. Protonix 40 mg daily 5. Antiemetics as needed 6. ERCP canceled. Patient's symptoms improving as well as LFTs are trending down. 7. Patient scheduled for cholecystectomy today Thank you for this consultation, we will sign off at this time. Dr. Sky Sheehan I agree with the dictator's note, documented as a scribe by Radha Brewster.
[2023-06-18 13:40] LABS: Glucose,Whole Blood 156 mg/dL (70-110)
[2023-06-18 17:19] LABS: Glucose,Whole Blood 136 mg/dL (70-110)
[2023-06-18] MEDS: KETOROLAC 15 MG/ML 1 ML VIAL IVP SCH ×2 (17:50→23:37)
[2023-06-18 20:36] LABS: Glucose,Whole Blood 211 mg/dL (70-110)
[2023-06-18] MEDS: PARoxetine 20 MG TAB PO SCH (20:52)
[2023-06-18] MEDS: NORTRIPTYLINE 25 MG CAP PO SCH (20:53)
[2023-06-18] MEDS: ATORVASTATIN 80 MG TAB PO SCH (20:54)
--- NOTE | 2023-06-18 21:38 | P.PN ---
Subjective This is a pleasant 8 years old female with past medical history of COPD, Diabetes Mellitus, Hyperlipidemia, Hypertension, MRSA, VRE infection Transfer from [place] for abdominal pain/nausea/gallstones - here for surgery consult. Patient states that she lives at home with family she went yesterday to [facility] because of abdominal pain that started about 4-5 days ago, about 7-8/10 in severity, nonradiating, today the pain is the same feels like thrombin with no precipitating or relieving factors other than medication. She feels nausea but no vomiting. No bowel movements today or yesterday. Normally she has 2 bowel movements per week. Yesterday while she was in the hospital she fell in the bathroom while she was trying to give urine sample, she denies syncope or chest pain or dizziness or dyspnea. She reports some increased frequency of urination but denies dysuria or urgency. No headache weakness or numbness. No coughing. She smokes about 10 cigarettes per day and she was counseled to quit and she agrees. She declines nicotine patch. No alcohol or illicit drug. Patient had a fever of 101.4. Blood pressure is low normal, airway morning 90/46 WBC elevated at 16.9, rest of the CBC is unremarkable Sodium 129, risks of BMP is unremarkable Elevated lactic acid came back to reference range at 1.6 Date improvement is elevated at 1.5 AST is high at 426 and ALT 365. Repeat liver enzymes showing trending down AST 39 and ALT 322 respectively. Repeat sodium is 1:30. Lipase and amylase are normal Ultrasound: Cholelithiasis, positive sonographic Saldivar sign. No ultrasound evidence of acute cholecystitis, no gallbladder wall thickening or pericholecystic edema by radiologist report 06/17/2023 Patient right upper quadrant abdominal pain today is 6/10 with only slight improvement. She tolerates liquid diet. She is hemodynamically stable Labs showing improvement with WBC back to normal, sodium improvement, bilirubin back to normal. AST down to 85 and ALT down to 190. Planned for ERCP today with hematology/oncology team Her sugar controlled on 20 units twice a day, she confirms at home she takes long-acting insulin 80 units twice daily and Cipro 38 units twice a day as well as she is on monitor 06/18/2023 Liver enzymes are trending down indicating passed stone by suspicion, therefore no need for ERCP per GI team She status post lap jasmina today. Postoperatively patient was comfortable following awake no pain and she feels improvement Blood culture showed no growth in 2047 hrs. she remains on Zosyn and normal saline at 75 mL/h Levemir remains 20 units compared to 80 at home Possible discharge 24-48 hours if she keeps improving Objective - Vital Signs Vital signs: Vital Signs Temp 98.4 F 06/18/23 20:00 Pulse 57 L 06/18/23 20:00 Resp 16 06/18/23 20:00 BP 108/68 06/18/23 20:00 Pulse Ox 96 06/18/23 20:00 FiO2 Intake & Output 06/18/23 06/18/23 06/19/23 06:59 18:59 06:59 Intake Total 1780 Output Total 5 Balance 1775 Intake: IV 1300 Oral 480 Output: Estimated Blood Loss 5 Other: Voiding Method Toilet Toilet # Voids 2 2 - Exam GENERAL: The patient is alert and oriented x3, not in any acute distress. Well developed, well nourished. HEENT: Pupils are round and equally reacting to light. EOMI. No scleral icterus. No conjunctival pallor. Normocephalic, atraumatic. No pharyngeal erythema. No thyromegaly. CARDIOVASCULAR: S1 and S2 present. No murmurs, rubs, or gallops. PULMONARY: Chest is clear to auscultation, no wheezing , no crackles. -ABDOMEN: Soft, RUQ tenderness, no rebound tenderness, nondistended, normoactive bowel sounds. No palpable organomegaly. MUSCULOSKELETAL: No joint swelling or deformity. EXTREMITIES: No cyanosis, clubbing, or pedal edema. NEUROLOGICAL: Gross neurological examination did not reveal any focal deficits. SKIN: No rashes. no petechiae. - Labs CBC & Chem 7: 06/17/23 06:38 06/18/23 06:33 Labs: Abnormal Lab Results - Last 24 Hours (Table) 06/18/23 06/18/23 06/18/23 Range/Units 06:14 06:33 10:15 BUN 8.9 L (9.0-27.0) mg/dL BUN/Creatinine Ratio 9.89 L (12.00-20.00) Ratio Glucose 167 H (70-110) mg/dL POC Glucose (mg/dL) 186 H 173 H (70-110) mg/dL AST 61 H (13-35) U/L ALT 162 H (8-44) U/L Alkaline Phosphatase 242 H (41-126) U/L Total Protein 5.7 L (6.2-8.2) d/dL Albumin 3.5 L (3.8-4.9) d/dL Albumin/Globulin Ratio 1.59 L (1.60-3.17) Ratio 06/18/23 06/18/23 06/18/23 Range/Units 12:28 13:39 17:18 BUN (9.0-27.0) mg/dL BUN/Creatinine Ratio (12.00-20.00) Ratio Glucose (70-110) mg/dL POC Glucose (mg/dL) 171 H 156 H 136 H (70-110) mg/dL AST (13-35) U/L ALT (8-44) U/L Alkaline Phosphatase (41-126) U/L Total Protein (6.2-8.2) d/dL Albumin (3.8-4.9) d/dL Albumin/Globulin Ratio (1.60-3.17) Ratio 06/18/23 Range/Units 20:35 BUN (9.0-27.0) mg/dL BUN/Creatinine Ratio (12.00-20.00) Ratio Glucose (70-110) mg/dL POC Glucose (mg/dL) 211 H (70-110) mg/dL AST (13-35) U/L ALT (8-44) U/L Alkaline Phosphatase (41-126) U/L Total Protein (6.2-8.2) d/dL Albumin (3.8-4.9) d/dL Albumin/Globulin Ratio (1.60-3.17) Ratio Microbiology - Last 24 Hours (Table) 06/16/23 10:33 Blood Culture - Preliminary Blood Assessment and Plan Assessment: Right upper quadrant Abdominal pain suspicious for biliary colic versus acute cholecystitis versus others. Status post Cholecystectomy on 06/18 Sepsis with fever and mild leukocytosis . With elevated liver enzymes cholangitis is suspected Cholelithiasis Choledocholithiasis is suspected as well Nicotine dependence Diabetes mellitus Hypertension Hyperlipidemia History of COPD Morbid obesity with BMI of 43.5 Plan: start the patient on Zosyn Send blood culture start the patient with normal saline. Surgery team and GI team consult ERCP with GI team Labs and medication were reviewed.. Continue same treatment. Continue with symptomatic treatment. Resume home medication. Monitor lytes and vitals. DVT and GI prophylaxis. Further recommendations depends on the clinical course of the patient DVT prophylaxis: Subcutaneous heparin GI Prophylaxis: Pepcid PT/OT: Pending Prognosis is guarded
[2023-06-19] MEDS: SODIUM CHLORIDE 0.9% 1,000 ML IV SCH ×2 (04:28→17:05)
[2023-06-19 06:25] LABS: Glucose,Whole Blood 173 mg/dL (70-110)
[2023-06-19] MEDS: KETOROLAC 15 MG/ML 1 ML VIAL IVP SCH ×2 (06:37→12:40)
[2023-06-19] MEDS: INSULIN ASPART (NovoLOG) 100 UNIT/ML VIAL SQ SCH ×2 (06:38→12:57)
[2023-06-19 08:27] VITALS: RESP 16
[2023-06-19] MEDS: PIPERACILLIN-TAZOBACTAM 3.375 GM in SODIUM CHLORIDE 0.9% 100 ML IVPB SCH ×2 (08:50→17:05)
[2023-06-19] MEDS: INSULIN DETEMIR (LEVEMIR) 100 UNIT/ML SYR SQ SCH (08:50)
[2023-06-19] MEDS: FAMOTIDINE 20 MG/2 ML VIAL IV SCH (08:51)
[2023-06-19] MEDS: METOPROLOL TARTRATE 50 MG TAB PO SCH (08:51)
[2023-06-19] MEDS: ASPIRIN 81 MG PO SCH (08:51)
[2023-06-19] MEDS: SYMBICORT 160-4.5 MCG INHALER INHALATION SCH (08:51)
[2023-06-19] MEDS: GABAPENTIN 100 MG CAP PO SCH ×2 (08:51→16:34)
[2023-06-19] MEDS: buPROPion XL 150 MG TAB.ER.24H PO SCH (08:51)
[2023-06-19] MEDS: DOCUSATE 100 MG CAP PO SCH (08:51)
[2023-06-19] MEDS: busPIRone HCl 10 MG TAB PO SCH (08:51)
[2023-06-19] MEDS: FOLIC ACID 1 MG TAB PO SCH (08:51)
[2023-06-19] MEDS: HEPARIN SODIUM,PORCINE 5,000 UNIT/ML 1 ML VIAL SQ SCH (08:52)
[2023-06-19] MEDS ORDERED: ENOXAPARIN 40 MG/0.4 ML SYRINGE SQ SCH (09:00)
--- NOTE | 2023-06-19 12:12 | P.PN ---
Progress Note - Text Progress Note Date: 06/19/23 Patient's postoperative day 1 from laparoscopic cholestatic. Patient is doing quite well. She has minimal complaints of pain. On exam vital signs are stable. Abdomen soft. Patient stable for discharge. She'll follow-up in the office next week. We will plan for outpatient repair of her large incisional hernia.
[2023-06-19 12:38] LABS: Glucose,Whole Blood 187 mg/dL (70-110)
[2023-06-19 15:10] VITALS: BP 123/74; PULSE 75; TEMP 99.5
== END 2023-06-19 17:57 | disposition home health service (06) | DRG 854 ==
LOC: EC 21:17 → 6NMEDSUR 23:58 → OBSVTOIN 06-16 08:13 → 6NMEDSUR 06-16 11:06 → 1SOBS 06-16 15:10 → 6NMEDSUR 06-17 15:49
PROVIDERS: ADMIT Hospitalist; ATTEND Hospitalist
PROC: 0FT44ZZ Resection of Gallbladder, Percutaneous Endoscopic Approach (ICD-10-PCS; principal; 2023-06-18 11:00)
DX: A41.9 Sepsis, unspecified organism (principal); E87.1 Hypo-osmolality and hyponatremia; K80.62 Calculus of gallbladder and bile duct with acute cholecystitis without obstruction; Z68.41 Body mass index [BMI] 40.0-44.9, adult; J44.9 Chronic obstructive pulmonary disease, unspecified; E66.01 Morbid (severe) obesity due to excess calories; E78.5 Hyperlipidemia, unspecified; I10 Essential (primary) hypertension; F17.210 Nicotine dependence, cigarettes, uncomplicated; Z71.6 Tobacco abuse counseling; F32.A Depression, unspecified; Z87.01 Personal history of pneumonia (recurrent); Z86.14 Personal history of Methicillin resistant Staphylococcus aureus infection; E11.42 Type 2 diabetes mellitus with diabetic polyneuropathy; Z87.442 Personal history of urinary calculi; Z87.440 Personal history of urinary (tract) infections; K43.2 Incisional hernia without obstruction or gangrene; Z79.4 Long term (current) use of insulin; Z79.51 Long term (current) use of inhaled steroids; Z79.82 Long term (current) use of aspirin; Z79.84 Long term (current) use of oral hypoglycemic drugs; Z79.899 Other long term (current) drug therapy; Z82.49 Family history of ischemic heart disease and other diseases of the circulatory system; Z90.710 Acquired absence of both cervix and uterus; Z91.040 Latex allergy status; Z91.048 Other nonmedicinal substance allergy status; R74.01 Elevation of levels of liver transaminase levels
CPT/HCPCS: 36415; 76705; 80053; 81003; 83036; 83605; 83690; 85025; 85610; 87040; 88304; 94640; 96361; 96374; 96375; 96376; 99285

== ENCOUNTER 2023-09-10 07:29 | Inpatient (IN) | payer MEDICARE, OTHER ==
--- NOTE | 2023-09-10 07:49 | ED ---
General Adult HPI - General Stated complaint: Chest pains/ urination problems - History of Present Illness Initial comments: The patient is a 62-year-old female with a history of hypertension, hyperlipidemia, diabetes, cardiac disease, UTIs, urosepsis, kidney infections presents for urinary retention and chest pain. Patient states she started to have intermittent chest pressure a few hours ago. It is not positional and not reproducible with movement or palpation. Patient has had ongoing intermittent shortness of breath with exertion for "sometime". Patient denies any cough congestion or hemoptysis. She denies any fevers. Patient states she has not been able to urinate since waking up. She last got up and urinated about 1 AM and only had dribbles. Patient was seen in a different hospital last week for urosepsis. She has been taking an antibiotic that starts with an M since being discharged. - Related Data Home Medications Medication Instructions Recorded Confirmed Metoprolol Tartrate [Lopressor] 100 mg PO BID 10/06/18 09/10/23 PARoxetine HCL [Paxil] 40 mg PO HS 10/06/18 09/10/23 metFORMIN HCL [Glucophage] 1,000 mg PO BID 10/06/18 09/10/23 Budesonide/Formoterol Fumarate 2 puff INHALATION RT-BID 06/16/23 09/10/23 [Symbicort 160-4.5 Mcg Inhaler] Nortriptyline HCl [Pamelor] 150 mg PO HS 06/16/23 09/10/23 buPROPion HCL [buPROPion HCL Xl] 450 mg PO DAILY 06/16/23 09/10/23 busPIRone HCl [Buspar] 20 mg PO BID 06/16/23 09/10/23 Lisinopril-Hctz 20-12.5 mg 1 tab PO DAILY 07/17/23 09/10/23 [Zestoretic 20-12.5] Tirzepatide [Mounjaro] 7.5 mg SQ SA 07/17/23 09/10/23 Empagliflozin [Jardiance] 25 mg PO DAILY 07/30/23 09/10/23 Gabapentin [Neurontin] 200 mg PO TID 09/10/23 09/10/23 Nitrofurantoin Monohyd/M-Cryst 100 mg PO Q12HR 09/10/23 09/10/23 [Macrobid] Tiotropium [place] [Spiriva] 1 puff INHALATION RT-DAILY 09/10/23 09/10/23 Triamcinolone 0.025% Cream 1 applic TOPICAL BID 09/10/23 09/10/23 [Kenalog 0.025% Cream] Previous Rx's Medication Instructions Recorded Atorvastatin [Lipitor] 80 mg PO HS 30 Days #30 tab 01/11/20 Allergies Allergy/AdvReac Type Severity Reaction Status Date / Time latex Allergy Rash/Hives Verified 09/10/23 11:04 nicotine AdvReac Severe Itching Verified 09/10/23 11:04 adhesive tape AdvReac Rash/Hives Verified 09/10/23 11:04 fluoxetine [From Prozac] AdvReac Rapid Verified 09/10/23 11:04 Heart Rate Review of Systems ROS Statement: Those systems with pertinent positive or pertinent negative responses have been documented in the HPI. ROS Other: All systems not noted in ROS Statement are negative. Past Medical History Past Medical History: COPD, Diabetes Mellitus, Hyperlipidemia, Hypertension, Pneumonia, Renal Disease Additional Past Medical History / Comment(s): heart murmur. frequent UTIs, kidney stones, neuropathy. WAS SEEN IN [place] [facility] 07/10/23 FOR RT LOWER LOBE PNEUMONIA-WAS ON LEVAQUIN FOR 7 DAYS.-DR. STEWART IS AWARE PER PT History of Any Multi-Drug Resistant Organisms: MRSA, VRE Date of last positivie culture/infection: 03/04/19 VRE / 2016 MRSA MDRO Source:: VRE URINE MRSA LEG Past Surgical History: Section, Cholecystectomy, Hysterectomy, Orthopedic Surgery Additional Past Surgical History / Comment(s): 3 . hysterectomy. kidney surgery - stones-treated with right ureteroscopy with lithotripsy in . right knee surgery. right sided mastitis 09/2018 with lancing, debridement, and packing Additional Past Anesthesia/Blood Transfusion Reaction / Comment(s): states she had a hard time waking up from anesthesia Smoking Status: Current every day smoker - Past Family History Daughter(s) Additional Family Medical History / Comment(s): diverticulitis, depression, Mother Family Medical History: Pulmonary Embolus Additional Family Medical History / Comment(s): HAd depression. from PE Father Family Medical History: Coronary Artery Disease (CAD), Diabetes Mellitus, Hypertension, Myocardial Infarction ([place]) Additional Family Medical History / Comment(s): General Exam Limitations: no limitations General appearance: alert, in no apparent distress Head exam: Present: atraumatic Eye exam: Present: normal appearance, PERRL, EOMI. Absent: scleral icterus, conjunctival injection, periorbital swelling ENT exam: Present: normal exam Neck exam: Present: normal inspection Respiratory exam: Present: normal lung sounds bilaterally Cardiovascular Exam: Present: regular rate, normal rhythm GI/Abdominal exam: Present: soft, other (suprapubic pressure) Back exam: Present: full ROM Neurological exam: Present: alert, oriented X3, CN II-XII intact Psychiatric exam: Present: normal affect, normal mood Skin exam: Present: warm, dry Course Vital Signs 09/10/23 09/10/23 07:38 09:54 Temperature 97.0 F L 97.3 F L Pulse Rate 78 75 Respiratory 20 20 Rate Blood Pressure 112/96 109/55 O2 Sat by Pulse 100 95 Oximetry - Reevaluation(s) Reevaluation #1: 09/10/23 1115 Patient's well appearing in the emergency room. Her vital signs are stable. She has no current chest pain since being in the ER. The patient was started on Unasyn for the UTI however we are attempting to get a better urine sample with a straight cath as the previous sample was very contaminated. Patient will be admitted for cardiac evaluation given her cardiac history and the fact that she is trying to reestablish with a new vocational rehabilitation supervisor and missed her more recent appointment. I did discussed patient's symptoms are And disposition with attending ED physician Dr. Barlow today. EKG Findings - EKG Comments: EKG Findings:: EKG shows sinus rhythm with first-degree AV block ,Intraventricular conduction delay, rate of [address] segment elevation Medical Decision Making - Medical Decision Making Was pt. sent in by a medical professional or institution (, PA, WOOD FENCE ERECTOR, urgent care, hospital, or residential...) When possible be specific @ -[No] Did you speak to anyone other than the patient for history (EMS, parent, family, police, friend...)? What history was obtained from this source @ -[No] Did you review nursing and triage notes (agree or disagree)? Why? @ -[I reviewed and agree with nursing and triage notes] Were old charts reviewed (outside hosp., previous admission, EMS record, old EKG, old radiological studies, urgent care reports/EKG's, residential records)? Report findings @ -Yes old charts were reviewed including more recent hospital stay for hernia repair and cholecystectomy. Recent antibiotics were evaluated in the EMR as well. Differential Diagnosis (chest pain, altered mental status, abdominal pain women, abdominal pain men, vaginal bleeding, weakness, fever, dyspnea, syncope, headache, dizziness, GI bleed, back pain, seizure, CVA, palpatations, mental health, musculoskeletal)? @ -Urinary tract infection, chest pain, IL angina, IL and sepsis EKG interpreted by me (3pts min.). @ -EKG shows sinus rhythm with first-degree AV block rate of 76 bpm with intraventricular conduction delay. No acute ST segment elevation X-rays interpreted by me (1pt min.). @ -Chest x-ray is negative for any pneumonia or pneumothorax or other acute changes CT interpreted by me (1pt min.). @ -[None done] U/S interpreted by me (1pt. min.). @ -[None done] What testing was considered but not performed or refused? (CT, X-rays, U/S, labs)? Why? @ -[None] What meds were considered but not given or refused? Why? @ -[None] Did you discuss the management of the patient with other professionals (professionals i.e. , PA, WOOD FENCE ERECTOR, lab, RT, psych nurse, psychiatric social worker supervisor, hospice registered nurse, teacher, ordnance officer, case reviewer)? Give summary @ -I discussed admission for cardiac evaluation and for continue treatment for urinary tract infection with attending [facility] physician, Dr. Connolly. Wa s smoking cessation discussed for >3mins.? @ -[No] Was critical care preformed (if so, how long)? @ -[No] Were there social determinants of health that impacted care today? How? (Homelessness, low income, unemployed, alcoholism, drug addiction, transportation, low edu. Level, literacy, decrease access to med. care, care home, rehab)? @ -[No] Was there de-escalation of care discussed even if they declined (Discuss DNR or withdrawal of care, Hospice)? DNR status @ -[No] What co-morbidities impacted this encounter? (DM, HTN, Smoking, COPD, CAD, Cancer, CVA, ARF, Chemo, Hep., AIDS, mental health diagnosis, sleep apnea, morbid obesity)? @ -[Hypertension, hyperlipidemia, diabetes, coronary artery disease, sepsis, urinary tract infections Was patient admitted / discharged? Hospital course, mention meds given and route, prescriptions, significant lab abnormalities, going to OR and other pertinent info. @ -[Patient will be admitted to the hospital for cardiac evaluation and continued IV antibiotics for the UTI. I discussed admission plan with admitting physician Dr. Connolly and ED physician Dr. Barlow Undiagnosed new problem with uncertain prognosis? @ -[No] Drug Therapy requiring intensive monitoring for toxicity (Heparin, Nitro, Insulin, Cardizem)? @ -[No] Were any procedures done? @ -[No] Diagnosis/symptom? @ -[CHEST PAIN, UTI Acute, or Chronic, or Acute on Chronic? @ -[ACUTE Uncomplicated (without systemic symptoms) or Complicated (systemic symptoms)? @ COMPLICATED Side effects of treatment? @ -[No] Exacerbation, Progression, or Severe Exacerbation? @ -[No] Poses a threat to life or bodily function? How? (Chest pain, [place], [place], pneumonia, PE, COPD, DKA, ARF, appy, cholecystitis, CVA, Diverticulitis, Homicidal, Suicidal, threat to staff... and all critical care pts) @ -[YES POSES THREAT TO LIFE, DISABILITY DETERIORATION - Lab Data Result diagrams: 09/10/23 07:53 09/10/23 07:53 Lab Results 09/10/23 09/10/23 09/10/23 Range/Units 07:53 07:53 07:53 WBC 14.8 H (3.8-10.6) k/uL RBC 4.73 (3.80-5.40) m/uL Hgb 14.3 (11.4-16.0) gm/dL Hct 43.1 (34.0-46.0) % MCV 91.3 (80.0-100.0) fL MCH 30.3 (25.0-35.0) pg MCHC 33.2 (31.0-37.0) g/dL RDW 15.1 (11.5-15.5) % Plt Count 285 (150-450) k/uL MPV 7.8 Neutrophils % 88 % Lymphocytes % 7 % Monocytes % 3 % Eosinophils % 1 % Basophils % 0 % Neutrophils # 13.0 H (1.3-7.7) k/uL Lymphocytes # 1.1 (1.0-4.8) k/uL Monocytes # 0.5 (0-1.0) k/uL Eosinophils # 0.1 (0-0.7) k/uL Basophils # 0.0 (0-0.2) k/uL Sodium 133 L (137-145) mmol/L Potassium 4.6 (3.5-5.1) mmol/L Chloride 98 (98-107) mmol/L Carbon Dioxide 18 L (22-30) mmol/L Anion Gap 17 mmol/L BUN 32 H (7-17) mg/dL Creatinine 1.80 H (0.52-1.04) mg/dL Est GFR (CKD-EPI)AfAm 35 (>60 ml/min/1.73 sqM) Est GFR (CKD-EPI)NonAf 30 (>60 ml/min/1.73 sqM) Glucose 214 H (74-99) mg/dL Calcium 9.3 (8.4-10.2) mg/dL Total Bilirubin 0.8 (0.2-1.3) mg/dL AST 28 (14-36) U/L ALT 25 (4-34) U/L Alkaline Phosphatase 111 (38-126) U/L Troponin I <0.012 (0.000-0.034) ng/mL NT-Pro-B Natriuret Pep 113 pg/mL Total Protein 6.8 (6.3-8.2) g/dL Albumin 4.2 (3.5-5.0) g/dL Urine Color Urine Appearance (Clear) Urine pH (5.0-8.0) Ur Specific [place] (1.001-1.035) Urine Protein (Negative) Urine Glucose (UA) (Negative) Urine Ketones (Negative) Urine Blood (Negative) Urine Nitrite (Negative) Urine Bilirubin (Negative) Urine Urobilinogen (<2.0) mg/dL Ur Leukocyte Esterase (Negative) Urine RBC (0-5) /hpf Urine WBC (0-5) /hpf Urine WBC Clumps (None) /hpf Ur Squamous Epith Cells (0-4) /hpf Urine Bacteria (None) /hpf 09/10/23 Range/Units 09:01 WBC (3.8-10.6) k/uL RBC (3.80-5.40) m/uL Hgb (11.4-16.0) gm/dL Hct (34.0-46.0) % MCV (80.0-100.0) fL MCH (25.0-35.0) pg MCHC (31.0-37.0) g/dL RDW (11.5-15.5) % Plt Count (150-450) k/uL MPV Neutrophils % % Lymphocytes % % Monocytes % % Eosinophils % % Basophils % % Neutrophils # (1.3-7.7) k/uL Lymphocytes # (1.0-4.8) k/uL Monocytes # (0-1.0) k/uL Eosinophils # (0-0.7) k/uL Basophils # (0-0.2) k/uL Sodium (137-145) mmol/L Potassium (3.5-5.1) mmol/L Chloride (98-107) mmol/L Carbon Dioxide (22-30) mmol/L Anion Gap mmol/L BUN (7-17) mg/dL Creatinine (0.52-1.04) mg/dL Est GFR (CKD-EPI)AfAm (>60 ml/min/1.73 sqM) Est GFR (CKD-EPI)NonAf (>60 ml/min/1.73 sqM) Glucose (74-99) mg/dL Calcium (8.4-10.2) mg/dL Total Bilirubin (0.2-1.3) mg/dL AST (14-36) U/L ALT (4-34) U/L Alkaline Phosphatase (38-126) U/L Troponin I (0.000-0.034) ng/mL NT-Pro-B Natriuret Pep pg/mL Total Protein (6.3-8.2) g/dL Albumin (3.5-5.0) g/dL Urine Color Dark Brown Urine Appearance Turbid H (Clear) Urine pH 5.5 (5.0-8.0) Ur Specific [place] 1.025 (1.001-1.035) Urine Protein 2+ H (Negative) Urine Glucose (UA) 3+ H (Negative) Urine Ketones Negative (Negative) Urine Blood Moderate H (Negative) Urine Nitrite Negative (Negative) Urine Bilirubin Negative (Negative) Urine Urobilinogen <2.0 (<2.0) mg/dL Ur Leukocyte Esterase Large H (Negative) Urine RBC >182 H (0-5) /hpf Urine WBC >182 H (0-5) /hpf Urine WBC Clumps Many H (None) /hpf Ur Squamous Epith Cells 40 H (0-4) /hpf Urine Bacteria Moderate H (None) /hpf - EKG Data -: EKG Interpreted by Me - Radiology Data Radiology results: report reviewed, image reviewed Disposition Clinical Impression: Chest pain, UTI (urinary tract infection) Disposition: ADMITTED IP TO THIS [facility] Condition: Good Referrals: Nonstaff,Physician [Primary Care Provider] - 1-2 days Decision to Admit Reason: Admit from EC Decision Time: 11:52 (dR Connolly)
[2023-09-10 08:10] LABS: Basophils % (A) 0 %; Eosinophils # (A) 0.1 k/uL (0-0.7); Eosinophils % (A) 1 %; HCT 43.1 % (34.0-46.0); HGB 14.3 gm/dL (11.4-16.0); Lymphocytes # (A) 1.1 k/uL (1.0-4.8); Lymphocytes % (A) 7 %; MCH 30.3 pg (25.0-35.0); MCHC 33.2 g/dL (31.0-37.0); MCV 91.3 fL (80.0-100.0); Mean Platelet Volume 7.8; Monocytes # (A) 0.5 k/uL (0-1.0); Monocytes % (A) 3 %; Neutrophils % (A) 88 %; Platelet Count 285 k/uL (150-450); RBC 4.73 m/uL (3.80-5.40); RDW 15.1 % (11.5-15.5); WBC 14.8 k/uL (3.8-10.6)
[2023-09-10 08:21] LABS: ALT 25 U/L (4-34); AST 28 U/L (14-36); African American GFR (CKD) 35 (>60 ml/min/1.73 sqM); Albumin 4.2 g/dL (3.5-5.0); Alkaline Phosphatase 111 U/L (38-126); Anion Gap 17 mmol/L; Blood Urea Nitrogen 32 mg/dL (7-17); Calcium 9.3 mg/dL (8.4-10.2); Carbon Dioxide 18 mmol/L (22-30); Chloride 98 mmol/L (98-107); Glucose 214 mg/dL (74-99); Non-African American GFR(CKD) 30 (>60 ml/min/1.73 sqM); Potassium 4.6 mmol/L (3.5-5.1); Sodium 133 mmol/L (137-145); Total Bilirubin 0.8 mg/dL (0.2-1.3); Total Protein 6.8 g/dL (6.3-8.2)
--- NOTE | 2023-09-10 08:26 | XR ---
EXAMINATION TYPE: XR chest 1V portable DATE OF EXAM: 09/10/2023 COMPARISON: 01/10/2020 INDICATION: Pain TECHNIQUE: Single frontal view of the chest is obtained. FINDINGS: The heart size is normal. The pulmonary vasculature is normal. The lungs are clear. IMPRESSION: 1. No acute pulmonary process.
[2023-09-10 08:28] LABS: NT-Pro-B-Type Natriuretic Pept 113 pg/mL
[2023-09-10 09:48] LABS: Appearance,Urine Turbid (Clear); Bacteria,Urine Moderate /hpf; Bilirubin,Urine Negative (Negative); Blood,Urine Moderate (Negative); Color,Urine Dark Brown; Glucose,Urine (UA) 3+ (Negative); Ketones,Urine Negative (Negative); Leukocyte Esterase,Urine Large (Negative); Nitrite,Urine Negative (Negative); PH, Urine 5.5 (5.0-8.0); Protein,Urine 2+ (Negative); RBC,Urine >182 /hpf (0-5); Squamous Epithelial Cell,Urine 40 /hpf (0-4); Urobilinogen,Urine <2.0 mg/dL (<2.0); WBC,Urine >182 /hpf (0-5)
[2023-09-10 10:18] LABS: Specific Gravity,Urine 1.025 (1.001-1.035)
[2023-09-10] MEDS ORDERED: NITROGLYCERIN SL TABS 0.4 MG TAB SUBLINGUAL PRN (11:49)
[2023-09-10] MEDS ORDERED: AMPICILLIN-SULBACTAM 1.5 GM in SODIUM CHLORIDE 0.9% 50 ML IVPB STA (11:51)
[2023-09-10 12:33] LABS: Appearance,Urine Turbid (Clear); Bacteria,Urine Rare /hpf; Bilirubin,Urine Negative (Negative); Blood,Urine Small (Negative); Color,Urine Dark Brown; Glucose,Urine (UA) 2+ (Negative); Ketones,Urine Negative (Negative); Leukocyte Esterase,Urine Large (Negative); Mucus,Urine Few /hpf; Nitrite,Urine Negative (Negative); PH, Urine 5.5 (5.0-8.0); Protein,Urine 2+ (Negative); RBC,Urine >182 /hpf (0-5); Squamous Epithelial Cell,Urine 13 /hpf (0-4); Urobilinogen,Urine <2.0 mg/dL (<2.0); WBC,Urine >182 /hpf (0-5)
[2023-09-10 12:34] LABS: Specific Gravity,Urine 1.025 (1.001-1.035)
[2023-09-10] MEDS ORDERED: DEXTROSE 50% SYRINGE 50 ML IVP PRN ×2 (15:00)
--- NOTE | 2023-09-10 15:01 | P.HPIM ---
History of Present Illness H&P Date: 09/10/23 Patient is a 62-year-old female with history of type 2 diabetes, hypertension, dyslipidemia, COPD, recent urinary tract infection currently on oral antibiotics presenting with intermittent chest pain. She claims that she has been in and out of the hospital for multiple months. She was recently at an outside hospital about 2 weeks ago for hypoglycemia, and was found to have sepsis secondary to urinary tract infection. Was on IV antibiotics and switch to Keflex. This was later changed to Macrobid 3 days ago per her primary to 2 further culture results. Yesterday she felt lightheaded, dizzy, chest pressure each time she would get up from a lying position. She did not have any symptoms while she was resting or lying down. She denies any significant shortness of breath, abdominal pain, nausea, vomiting. She does have occasional dysuria and diarrhea as well. In the ED, temperature was 97, pulse 78, respiratory rate 20, blood pressure 112/96 was saturating at 100% on room air. WBC 14.8, sodium 133, bicarb 18, anion gap 17, BUN 32, creatinine 1.8, glucose 214, troponin negative, proBNP 113, urinalysis shows significant leukocyte esterase, and some squamous cells as well. EKG independently interpreted shows first-degree AV block, otherwise sinus rhythm. Chest x-ray independently interpreted, shows no significant opacities. Patient given a dose of Unasyn in the ED, being admitted for chest pain observation as well as urinary tract infection. Pertinent positives and negatives as discussed in HPI, a complete review of systems was performed and all other systems are negative. Patient seen and examined at bedside. Vital signs reviewed General: nontoxic, no distress, appears at stated age, morbidly obese Derm: warm, dry Head: atraumatic, normocephalic, symmetric Eyes: EOMI, no lid lag, anicteric sclera, pupils equal round reactive to light ENT: Nose and ears atraumatic Neck: No thyromegaly, supple Mouth: no lip lesion, mucus membranes moist Cardiovascular: S1S2 reg, no murmur, no edema Lungs: clear to auscultation bilateral, no rhonchi, no rales, no wheeze, no accessory muscle use Abdominal: soft, nontender to palpation, no guarding, no appreciable organomegaly, umbilical hernia Ext: no gross muscle atrophy, muscle strength muscle strength 5 out of 5 in all 4 extremities, no contractures Neuro: CN II-XII grossly intact Psych: Alert, oriented, appropriate affect Assessment/Plan: Active: Chest pain, rule out ACS -Continue current troponin -Telemetry -Cardiology consulted -On aspirin 81 mg and atorvastatin 80 Urinary tract infection Leukocytosis -Started on IV Zosyn 3.375 g every 8 hours -In the past she has grown ESBL -Urine cultures pending, blood cultures pending -Repeat CBC tomorrow Acute kidney injury High anion gap metabolic acidosis -I's and O's -Hold ARTHUR inhibitor and hydrochlorothiazide -Repeat BMP tomorrow -Ordered renal ultrasound -Started on lactated Ringer's with 25 mL an hour Acute urinary retention -Had straight cath -Hold amitriptyline Type 2 diabetes -Hold oral antidiabetics -Sliding scale insulin, monitor for hypoglycemia Chronic: Dyslipidemia Hypertension The patient is admitted with an anticipated less than 2 midnight stay as observation status for evaluation of [chest pain. Surrogate decision-maker: Daughter CODE STATUS: Full code DVT prophylaxis: Subcu heparin Anticipated discharge date: Pending clinical course Anticipated discharge place: Pending clinical course A total of 65 minutes was spent on the care of this complex patient more than 50% of the time was spent in counseling and care coordination. Past Medical History Past Medical History: COPD, Diabetes Mellitus, Hyperlipidemia, Hypertension, Pneumonia, Renal Disease Additional Past Medical History / Comment(s): heart murmur. frequent UTIs, kidney stones, neuropathy. WAS SEEN IN [place] ER 07/10/23 FOR RT LOWER LOBE PNEUMONIA-WAS ON LEVAQUIN FOR 7 DAYS.-DR. STEWART IS AWARE PER PT History of Any Multi-Drug Resistant Organisms: MRSA, VRE Date of last positivie culture/infection: 03/04/19 VRE / 2016 MRSA MDRO Source:: VRE URINE MRSA LEG Past Surgical History: Section, Cholecystectomy, Hysterectomy, Orthopedic Surgery Additional Past Surgical History / Comment(s): 3 . hysterectomy. kidney surgery - stones-treated with right ureteroscopy with lithotripsy in . right knee surgery. right sided mastitis 09/2018 with lancing, debridement, and packing Additional Past Anesthesia/Blood Transfusion Reaction / Comment(s): states she had a hard time waking up from anesthesia Smoking Status: Current every day smoker - Past Family History Daughter(s) Additional Family Medical History / Comment(s): diverticulitis, depression, Mother Family Medical History: Pulmonary Embolus Additional Family Medical History / Comment(s): HAd depression. from PE Father Family Medical History: Coronary Artery Disease (CAD), Diabetes Mellitus, Hypertension, Myocardial Infarction ([place]) Additional Family Medical History / Comment(s): Medications and Allergies Home Medications Medication Instructions Recorded Confirmed Type Metoprolol Tartrate [Lopressor] 100 mg PO BID 10/06/18 09/10/23 History PARoxetine HCL [Paxil] 40 mg PO HS 10/06/18 09/10/23 History metFORMIN HCL [Glucophage] 1,000 mg PO BID 10/06/18 09/10/23 History Atorvastatin [Lipitor] 80 mg PO HS 30 Days #30 tab 01/11/20 09/10/23 Rx Budesonide/Formoterol Fumarate 2 puff INHALATION RT-BID 06/16/23 09/10/23 History [Symbicort 160-4.5 Mcg Inhaler] Nortriptyline HCl [Pamelor] 150 mg PO HS 06/16/23 09/10/23 History buPROPion HCL [buPROPion HCL Xl] 450 mg PO DAILY 06/16/23 09/10/23 History busPIRone HCl [Buspar] 20 mg PO BID 06/16/23 09/10/23 History Lisinopril-Hctz 20-12.5 mg 1 tab PO DAILY 07/17/23 09/10/23 History [Zestoretic 20-12.5] Tirzepatide [Mounjaro] 7.5 mg SQ SA 07/17/23 09/10/23 History Empagliflozin [Jardiance] 25 mg PO DAILY 07/30/23 09/10/23 History Gabapentin [Neurontin] 200 mg PO TID 09/10/23 09/10/23 History Nitrofurantoin Monohyd/M-Cryst 100 mg PO Q12HR 09/10/23 09/10/23 History [Macrobid] Tiotropium [place] [Spiriva] 1 puff INHALATION RT-DAILY 09/10/23 09/10/23 History Triamcinolone 0.025% Cream 1 applic TOPICAL BID 09/10/23 09/10/23 History [Kenalog 0.025% Cream] Allergies Allergy/AdvReac Type Severity Reaction Status Date / Time latex Allergy Rash/Hives Verified 09/10/23 11:04 nicotine AdvReac Severe Itching Verified 09/10/23 11:04 adhesive tape AdvReac Rash/Hives Verified 09/10/23 11:04 fluoxetine [From Prozac] AdvReac Rapid Verified 09/10/23 11:04 Heart Rate Physical Exam Vitals: Vital Signs Temp Pulse Resp BP Pulse Ox 09/10/23 13:57 81 20 111/66 98 09/10/23 11:53 78 20 93/50 96 09/10/23 09:54 97.3 F L 75 20 109/55 95 09/10/23 07:38 97.0 F L 78 20 112/96 100 Intake and Output 09/10/23 09/10/23 09/10/23 06:59 14:59 22:59 Other: Weight 117.934 kg Results CBC & Chem 7: 09/10/23 07:53 09/10/23 07:53 Labs: Abnormal Lab Results - Last 24 Hours (Table) 09/10/23 09/10/23 09/10/23 Range/Units 07:53 07:53 09:01 WBC 14.8 H (3.8-10.6) k/uL Neutrophils # 13.0 H (1.3-7.7) k/uL Sodium 133 L (137-145) mmol/L Carbon Dioxide 18 L (22-30) mmol/L BUN 32 H (7-17) mg/dL Creatinine 1.80 H (0.52-1.04) mg/dL Glucose 214 H (74-99) mg/dL Urine Appearance Turbid H (Clear) Urine Protein 2+ H (Negative) Urine Glucose (UA) 3+ H (Negative) Urine Blood Moderate H (Negative) Ur Leukocyte Esterase Large H (Negative) Urine RBC >182 H (0-5) /hpf Urine WBC >182 H (0-5) /hpf Urine WBC Clumps Many H (None) /hpf Ur Squamous Epith Cells 40 H (0-4) /hpf Urine Bacteria Moderate H (None) /hpf Urine Mucus (None) /hpf 09/10/23 Range/Units 11:55 WBC (3.8-10.6) k/uL Neutrophils # (1.3-7.7) k/uL Sodium (137-145) mmol/L Carbon Dioxide (22-30) mmol/L BUN (7-17) mg/dL Creatinine (0.52-1.04) mg/dL Glucose (74-99) mg/dL Urine Appearance Turbid H (Clear) Urine Protein 2+ H (Negative) Urine Glucose (UA) 2+ H (Negative) Urine Blood Small H (Negative) Ur Leukocyte Esterase Large H (Negative) Urine RBC >182 H (0-5) /hpf Urine WBC >182 H (0-5) /hpf Urine WBC Clumps Many H (None) /hpf Ur Squamous Epith Cells 13 H (0-4) /hpf Urine Bacteria Rare H (None) /hpf Urine Mucus Few H (None) /hpf Microbiology - Last 24 Hours (Table) 09/10/23 09:01 Urine Culture - Final Urine,Voided
[2023-09-10] MEDS: GABAPENTIN 100 MG CAP PO SCH ×2 (16:02→22:24)
[2023-09-10] MEDS: LACTATED RINGERS 1,000 ML IV SCH ×4 (16:07→22:22)
[2023-09-10] MEDS: PIPERACILLIN-TAZOBACTAM 3.375 GM in SODIUM CHLORIDE 0.9% 100 ML IVPB SCH ×2 (16:11→22:22)
[2023-09-10] MEDS: HEPARIN SODIUM,PORCINE 5,000 UNIT/ML 1 ML VIAL SQ SCH ×2 (16:12→22:24)
--- NOTE | 2023-09-10 16:18 | US ---
EXAMINATION TYPE: US kidneys/renal and bladder DATE OF EXAM: 09/10/2023 COMPARISON: Abdominal ultrasound 06/16/2023 CLINICAL INDICATION: Female, 62 years old with history of mali; mali EXAM MEASUREMENTS: Right Kidney: 9.2 x 5.3 x 3.4 cm Left Kidney: 14.2 x 5.2 x 4.9 cm Right Kidney: No hydronephrosis or masses seen Left Kidney: No hydronephrosis or masses seen Bladder: not full Bilateral Jets seen: no There is no evidence for hydronephrosis at this point in time. No nephrolithiasis is seen. No ed s are identified. Cortical medullary differentiation maintained bilaterally. The urinary bladder is n ondistended and poorly visualized. IMPRESSION: No hydronephrosis or nephrolithiasis.
[2023-09-10 17:49] LABS: Glucose,Whole Blood 121 mg/dL (70-110)
[2023-09-10] MEDS: INSULIN ASPART (NovoLOG) 100 UNIT/ML VIAL SQ SCH ×2 (17:57→22:11)
[2023-09-10] MEDS ORDERED: LACTATED RINGERS 1,000 ML IV SCH (19:30)
[2023-09-10] MEDS: SYMBICORT 160-4.5 MCG INHALER INHALATION SCH (21:06)
[2023-09-10 22:12] LABS: Glucose,Whole Blood 120 mg/dL (70-110)
[2023-09-10] MEDS: TRIAMCINOLONE 0.1% CREAM 80 GM TUBE TOPICAL SCH (22:13)
[2023-09-10] MEDS: ATORVASTATIN 80 MG TAB PO SCH (22:24)
[2023-09-10] MEDS: PARoxetine 20 MG TAB PO SCH (22:24)
[2023-09-10] MEDS: METOPROLOL TARTRATE 50 MG TAB PO SCH (22:24)
[2023-09-10] MEDS: busPIRone HCl 10 MG TAB PO SCH (22:24)
[2023-09-11 04:26] LABS: Basophils % (A) 0 %; Eosinophils # (A) 0.1 k/uL (0-0.7); Eosinophils % (A) 1 %; HCT 40.2 % (34.0-46.0); HGB 13.5 gm/dL (11.4-16.0); Lymphocytes % (A) 9 %; MCH 30.6 pg (25.0-35.0); MCHC 33.4 g/dL (31.0-37.0); MCV 91.6 fL (80.0-100.0); Mean Platelet Volume 7.2; Monocytes # (A) 0.6 k/uL (0-1.0); Monocytes % (A) 5 %; Neutrophils # (A) 9.2 k/uL (1.3-7.7); Neutrophils % (A) 83 %; Platelet Count 234 k/uL (150-450); RBC 4.39 m/uL (3.80-5.40); RDW 14.9 % (11.5-15.5)
[2023-09-11 04:39] LABS: African American GFR (CKD) 46 (>60 ml/min/1.73 sqM); Anion Gap 11 mmol/L; Blood Urea Nitrogen 30 mg/dL (7-17); Calcium 8.8 mg/dL (8.4-10.2); Carbon Dioxide 22 mmol/L (22-30); Chloride 100 mmol/L (98-107); Glucose 168 mg/dL (74-99); Magnesium 1.7 mg/dL (1.6-2.3); Non-African American GFR(CKD) 40 (>60 ml/min/1.73 sqM); Potassium 4.1 mmol/L (3.5-5.1); Sodium 133 mmol/L (137-145)
[2023-09-11] MEDS: LACTATED RINGERS 1,000 ML IV SCH (05:40)
[2023-09-11 05:41] LABS: Glucose,Whole Blood 161 mg/dL (70-110)
[2023-09-11] MEDS: INSULIN ASPART (NovoLOG) 100 UNIT/ML VIAL SQ SCH ×4 (05:43→20:42)
[2023-09-11] MEDS ORDERED: DOBUTamine DRIP for NUC MED 500 MG in DEXTROSE/WATER 1 250ML.BAG IV PRN (07:58)
[2023-09-11] MEDS: SYMBICORT 160-4.5 MCG INHALER INHALATION SCH ×2 (08:21→20:01)
[2023-09-11] MEDS: IPRATROPIUM 0.5 MG/2.5 ML NEBU INHALATION SCH ×4 (08:22→20:01)
[2023-09-11 08:59] LABS: Chol/HDL Ratio 5.19 Ratio
[2023-09-11] MEDS ORDERED: ASPIRIN 325 MG TAB PO SCH (09:00)
[2023-09-11] MEDS: HEPARIN SODIUM,PORCINE 5,000 UNIT/ML 1 ML VIAL SQ SCH ×3 (09:17→23:39)
[2023-09-11] MEDS: PIPERACILLIN-TAZOBACTAM 3.375 GM in SODIUM CHLORIDE 0.9% 100 ML IVPB SCH ×3 (09:17→23:39)
[2023-09-11] MEDS: ASPIRIN 81 MG PO SCH (09:21)
[2023-09-11] MEDS: buPROPion XL 150 MG TAB.ER.24H PO SCH (09:21)
[2023-09-11] MEDS: GABAPENTIN 100 MG CAP PO SCH ×3 (09:21→20:03)
[2023-09-11] MEDS: busPIRone HCl 10 MG TAB PO SCH ×2 (09:22→20:03)
[2023-09-11] MEDS: TRIAMCINOLONE 0.1% CREAM 80 GM TUBE TOPICAL SCH ×2 (09:22→20:01)
--- NOTE | 2023-09-11 09:42 | P.CRDCN ---
History of Present Illness History of present illness: HISTORY OF PRESENT ILLNESS: This is a 62-year-old female with a past medical history significant for hypertension, hyperlipidemia, diabetes, COPD, and nicotine dependence. Patient is to follow in the office with Dr. Sheehan but has not been seen since January 2020.. We have been asked to see the patient in consultation for chest pain. Patient examined at the bedside. Patient states over the past week at home she has been getting progressively more weak. She states that she had to use a walker at home because she felt so unsteady. She also reports feeling dizzy at times. The patient is currently being treated for a urinary tract infection. She is on IV antibiotics. The patient also reports she has been having some chest discomfort that has been ongoing for the past week. She states yesterday the pain was worse with deep inspiration. She states the pain was not worse with stretching or movement. At the time of examination this morning, she denies chest pain or pressure. She does report that she had a CAT scan performed at [facility] about one month ago which revealed coronary calcifications. She is a current cigarette smoker and smokes half a pack per day. * EKG reveals sinus mechanism with no signs of acute ischemia * Chest xray negative for acute process * Laboratory data: Significant for BUN 30. Creatinine 1.44. Troponin negative 3. * Current home cardiac medications include Lipitor 80 mg at night, metoprolol tartrate 100 mg twice a day, lisinoprilhydrochlorothiazide 20 mg12.5 mg daily * Most recent echocardiogram obtained in January 2020 revealed ejection fraction 55-60%, trace mitral regurgitation and trace mitral regurgitation * Cardiac catheterization history: January 2020 revealing normal coronary arteries with mildly elevated left ventricular end-diastolic pressure REVIEW OF SYSTEMS: At the time of my exam: CONSTITUTIONAL: Denies fever or chills. HEENT: Denies blurred vision, vision changes, or eye pain. Denies hemoptysis CARDIOVASCULAR: Denies chest pain. Denies orthopnea. Denies PND. Denies palpitations RESPIRATORY: Denies shortness of breath. GASTROINTESTINAL: Denies abdominal pain. Denies nausea or vomiting. HEMATOLOGIC: Denies bleeding disorders. GENITOURINARY: Denies any blood in urine. SKIN: Denies pruitis. Denies rash. PHYSICAL EXAM: VITAL SIGNS: Reviewed. GENERAL: Well-developed in no acute distress. HEENT: Head is normocephalic. Pupils are equal, round. Sclerae anicteric. Mucous membranes of the mouth are moist. Neck supple. No JVD or thyromegaly LUNGS: Respirations even and unlabored. Lungs with decreased air exchange throughout. HEART: Regular rate and rhythm. S1 and S2 heard. Systolic murmur noted. ABDOMEN: Soft. Nondistended. Nontender. EXTREMITIES: Normal range of motion. No clubbing or cyanosis. Peripheral pulses intact. No lower extremity edema NEUROLOGIC: Awake and alert. Oriented x 3. ASSESSMENT: Generalized weakness Urinary tract infection Acute kidney injury Chest pain, troponins negative 3 Normal coronary arteries, per cardiac catheterization January 2020 Hypertension Hyperlipidemia Diabetes COPD Nicotine dependence, patient smokes half a pack per day Morbid obesity: BMI 40.7 PLAN: An acute coronary been has been ruled out Resume home cardiac medications Obtain 2-D echo to assess cardiac structure and function Patient to undergo dobutamine stress test today Smoking cessation encouraged Further recommendations pending patient's course Nurse practitioner note has been reviewed by physician. Signing provider agrees with the documented findings, assessment, and plan of care. Past Medical History Past Medical History: COPD, Diabetes Mellitus, Hyperlipidemia, Hypertension, Pneumonia, Renal Disease Additional Past Medical History / Comment(s): heart murmur. frequent UTIs, kidney stones, neuropathy. WAS SEEN IN [facility] 07/10/23 FOR RT LOWER LOBE PNEUMONIA-WAS ON LEVAQUIN FOR 7 DAYS.-DR. STEWART IS AWARE PER PT History of Any Multi-Drug Resistant Organisms: MRSA, VRE Date of last positivie culture/infection: 03/04/19 VRE / 2016 MRSA MDRO Source:: VRE URINE MRSA LEG Past Surgical History: Section, Cholecystectomy, Hysterectomy, Orthopedic Surgery Additional Past Surgical History / Comment(s): 3 . hysterectomy. [facility] surgery - stones-treated with right ureteroscopy with lithotripsy in . right knee surgery. right sided mastitis 09/2018 with lancing, debridement, and packing Additional Past Anesthesia/Blood Transfusion Reaction / Comment(s): states she had a hard time waking up from anesthesia Past Psychological History: Depression Smoking Status: Current every day smoker Past Alcohol Use History: None Reported Additional Past Alcohol Use History / Comment(s): Smokes 10 CIGARETTES DAILY SINCE AGE 22 Past Drug Use History: None Reported - Past Family History Daughter(s) Additional Family Medical History / Comment(s): diverticulitis, depression, Mother Family Medical History: Pulmonary Embolus Additional Family Medical History / Comment(s): HAd depression. from PE Father Family Medical History: Coronary Artery Disease (CAD), Diabetes Mellitus, Hypertension, Myocardial Infarction (RI) Additional Family Medical History / Comment(s): Medications and Allergies Home Medications Medication Instructions Recorded Confirmed Type Metoprolol Tartrate [Lopressor] 100 mg PO BID 10/06/18 09/10/23 History PARoxetine HCL [Paxil] 40 mg PO HS 10/06/18 09/10/23 History metFORMIN HCL [Glucophage] 1,000 mg PO BID 10/06/18 09/10/23 History Atorvastatin [Lipitor] 80 mg PO HS 30 Days #30 tab 01/11/20 09/10/23 Rx Budesonide/Formoterol Fumarate 2 puff INHALATION RT-BID 06/16/23 09/10/23 History [Symbicort 160-4.5 Mcg Inhaler] Nortriptyline HCl [Pamelor] 150 mg PO HS 06/16/23 09/10/23 History buPROPion HCL [buPROPion HCL Xl] 450 mg PO DAILY 06/16/23 09/10/23 History busPIRone HCl [Buspar] 20 mg PO BID 06/16/23 09/10/23 History Lisinopril-Hctz 20-12.5 mg 1 tab PO DAILY 07/17/23 09/10/23 History [Zestoretic 20-12.5] Tirzepatide [Mounjaro] 7.5 mg SQ SA 07/17/23 09/10/23 History Empagliflozin [Jardiance] 25 mg PO DAILY 07/30/23 09/10/23 History Gabapentin [Neurontin] 200 mg PO TID 09/10/23 09/10/23 History Nitrofurantoin Monohyd/M-Cryst 100 mg PO Q12HR 09/10/23 09/10/23 History [Macrobid] Tiotropium [place] [Spiriva] 1 puff INHALATION RT-DAILY 09/10/23 09/10/23 His tory Triamcinolone 0.025% Cream 1 applic TOPICAL BID 09/10/23 09/10/23 History [Kenalog 0.025% Cream] Allergies Allergy/AdvReac Type Severity Reaction Status Date / Time latex Allergy Rash/Hives Verified 09/10/23 11:04 nicotine AdvReac Severe Itching Verified 09/10/23 11:04 adhesive tape AdvReac Rash/Hives Verified 09/10/23 11:04 fluoxetine [From Prozac] AdvReac Rapid Verified 09/10/23 11:04 Heart Rate Physical Exam Vitals: Vital Signs Temp Pulse Pulse Resp BP BP BP 09/11/23 02:14 97.6 F 63 112/68 09/10/23 22:13 98.4 F 85 15 92/65 09/10/23 21:55 16 104/48 09/10/23 19:26 80 16 108/51 09/10/23 18:50 91/50 09/10/23 17:43 80 20 98/46 09/10/23 17:03 84 18 80/59 09/10/23 16:13 82 20 103/70 09/10/23 13:57 81 20 111/66 09/10/23 11:53 78 20 93/50 09/10/23 09:54 97.3 F L 75 20 109/55 Pulse Ox 09/11/23 02:14 100 09/10/23 22:13 100 09/10/23 21:55 09/10/23 19:26 97 09/10/23 18:50 09/10/23 17:43 97 09/10/23 17:03 96 09/10/23 16:13 97 09/10/23 13:57 98 09/10/23 11:53 96 09/10/23 09:54 95 Intake and Output 09/10/23 09/11/23 09/11/23 22:59 06:59 14:59 Other: # Voids 1 Weight 117.934 kg Results 09/11/23 04:03 09/11/23 04:03 Cardiac Enzymes 09/10/23 09/10/23 09/10/23 Range/Units 07:53 07:53 14:29 AST 28 (14-36) U/L Troponin I <0.012 <0.012 (0.000-0.034) ng/mL 09/10/23 Range/Units 18:00 AST (14-36) U/L Troponin I <0.012 (0.000-0.034) ng/mL CBC 09/10/23 09/11/23 Range/Units 07:53 04:03 WBC 14.8 H 11.0 H (3.8-10.6) k/uL RBC 4.73 4.39 (3.80-5.40) m/uL Hgb 14.3 13.5 (11.4-16.0) gm/dL Hct 43.1 40.2 (34.0-46.0) % Plt Count 285 234 (150-450) k/uL Comprehensive Metabolic Panel 09/10/23 09/11/23 Range/Units 07:53 04:03 Sodium 133 L 133 L (137-145) mmol/L Potassium 4.6 4.1 (3.5-5.1) mmol/L Chloride 98 100 (98-107) mmol/L Carbon Dioxide 18 L 22 (22-30) mmol/L BUN 32 H 30 H (7-17) mg/dL Creatinine 1.80 H 1.44 H (0.52-1.04) mg/dL Glucose 214 H 168 H (74-99) mg/dL Calcium 9.3 8.8 (8.4-10.2) mg/dL AST 28 (14-36) U/L ALT 25 (4-34) U/L Alkaline Phosphatase 111 (38-126) U/L Total Protein 6.8 (6.3-8.2) g/dL Albumin 4.2 (3.5-5.0) g/dL Current Medications Generic Name Dose Route Start Last Admin Trade Name Freq PRN Reason Stop Dose Admin Aspirin 81 mg 09/11/23 09:00 Aspirin 81 Mg PO DAILY [facility] Atorvastatin Calcium 80 mg 09/10/23 21:00 09/10/23 22:24 Atorvastatin 80 Mg Tab PO 80 mg HS [facility] Administration Budesonide/Formoterol Fumarate 2 puff 09/10/23 20:00 09/10/23 21:06 Symbicort 160-4.5 Mcg Inhaler INHALATION Not Given RT-BID [facility] Bupropion HCl 450 mg 09/11/23 09:00 Bupropion Xl 150 Mg Tab.Er.24h PO DAILY [facility] Buspirone HCl 20 mg 09/10/23 21:00 09/10/23 22:24 Buspirone Hcl 10 Mg Tab PO 20 mg BID [facility] Administration Dextrose/Water 25 ml 09/10/23 15:00 Dextrose 50% Syringe 50 Ml IVP PER PROTOCOL PRN Hypoglycemia Protocol Dextrose/Water 50 ml 09/10/23 15:00 Dextrose 50% Syringe 50 Ml IVP PER PROTOCOL PRN Hypoglycemia Protocol Gabapentin 200 mg 09/10/23 16:00 09/10/23 22:24 Gabapentin 100 Mg Cap PO 200 mg TID NIT[facility] Administration Heparin Sodium (Porcine) 5,000 unit 09/10/23 16:00 09/10/23 22:24 Heparin Sodium,Porcine 5,000 Unit/Ml 1 Ml Vial SQ 5,000 unit Q8HR [facility] Administration Piperacillin Sod/Tazobactam 100 mls @ 25 mls/hr 09/10/23 16:00 09/10/23 22:22 Sod 3.375 gm/ Sodium Chloride IVPB 25 mls/hr Q8HR [facility] Administration Protocol Lactated Ringer's 1,000 mls @ 125 mls/hr 09/10/23 15:00 09/11/23 05:40 Lactated Ringers IV Not Given .Q8H [facility] Insulin Aspart 0 unit 09/10/23 17:30 09/11/23 05:43 Insulin Aspart (Novolog) 100 Unit/Ml Vial SQ 2 unit ACHS [facility]IT[facility] Administration Protocol Ipratropium [place] 0.5 mg 09/11/23 08:00 Ipratropium 0.5 Mg/2.5 Ml Nebu INHALATION RT-QID [facility] Metoprolol Tartrate 100 mg 09/10/23 21:00 09/10/23 22:24 Metoprolol Tartrate 50 Mg Tab PO 100 mg BID [facility] Administration Nitroglycerin 0.4 mg 09/10/23 11:49 Nitroglycerin Sl Tabs 0.4 Mg Tab SUBLINGUAL Q5M PRN Chest Pain Paroxetine HCl 40 mg 09/10/23 21:00 09/10/23 22:24 Paroxetine 20 Mg Tab PO 40 mg HS [facility] Administration Triamcinolone Acetonide 1 applic 09/10/23 21:00 09/10/23 22:13 Triamcinolone 0.1% Cream 80 Gm Tube TOPICAL Not Given BID [facility] Intake and Output 09/10/23 09/11/23 09/11/23 22:59 06:59 14:59 Other: # Voids 1 Weight 117.934 kg 09/11/23 04:03 09/11/23 04:03
--- NOTE | 2023-09-11 12:08 | P.PN ---
Subjective Progress Note Date: 09/11/23 Hospital Course: 62-year-old female with history of type 2 diabetes, hypertension, dyslipidemia, COPD, recent urinary tract infection currently on oral antibiotics presenting with intermittent chest pain. In the ED, temperature was 97, pulse 78, respiratory rate 20, blood pressure 112/96 was saturating at 100% on room air. WBC 14.8, sodium 133, bicarb 18, anion gap 17, BUN 32, creatinine 1.8, glucose 214, troponin negative, proBNP 113, urinalysis shows significant leukocyte esterase, and some squamous cells as well. EKG independently interpreted shows first-degree AV block, otherwise sinus rhythm. Chest x-ray independently interpreted, shows no significant opacities. Patient given a dose of Unasyn in the ED, being admitted for chest pain as well as urinary tract infection. Patient was hypotensive, required IV fluid boluses. Blood pressure now improved. Remains on IV antibiotics, broadened to Zosyn. Cardiology consulted. Pending stress test. Subjective: Patient seen and examined at bedside. No acute events overnight. Feeling a lot better compared to yesterday. Denies any further chest pain. Pertinent positives and negatives as discussed above, a complete review of systems was performed and all other systems are negative. Vitals Signs Reviewed. General: nontoxic, no distress, appears at stated age, morbidly obese Derm: warm, dry Head: atraumatic, normocephalic, symmetric Eyes: EOMI, no lid lag, anicteric sclera, pupils equal round reactive to light ENT: Nose and ears atraumatic Neck: No thyromegaly, supple Mouth: no lip lesion, mucus membranes moist Cardiovascular: S1S2 reg, no murmur, no edema Lungs: clear to auscultation bilateral, no rhonchi, no rales, no wheeze, no accessory muscle use Abdominal: soft, nontender to palpation, no guarding, no appreciable organomegaly, umbilical hernia Ext: no gross muscle atrophy, muscle strength muscle strength 5 out of 5 in all 4 extremities, no contractures Neuro: CN II-XII grossly intact Psych: Alert, oriented, appropriate affect Data Reviewed Today: Pertinent Labs: WBC 11, sodium 133, creatinine 1.44, blood sugars range between 120-168 Imaging: Bladder scan did not show any hydronephrosis or nephrolithiasis Assessment and Plan: Active: Atypical chest pain -Cardiology note reviewed, ACS is ruled out, pending stress test -Telemetry -On aspirin 81 mg and atorvastatin 80 Sepsis secondary to Urinary tract infection - on IV Zosyn 3.375 g every 8 hours -In the past she has grown ESBL -Urine cultures pending, blood cultures pending -Repeat CBC tomorrow -No longer hypertensive, received 2 L of lactated Ringer's Acute kidney injury, resolving High anion gap metabolic acidosis, resolved -I's and O's -Hold ARTHUR inhibitor and hydrochlorothiazide -Repeat BMP tomorrow Acute urinary retention, resolved -Had straight cath -Hold amitriptyline Type 2 diabetes -Hold oral antidiabetics -Sliding scale insulin, monitor for hypoglycemia Chronic: Dyslipidemia Hypertension DVT ppx: Subcu heparin Code status: Full code Anticipated discharge place: Pending clinical course Anticipated discharge time: Pending clinical course Objective - Vital Signs Vital signs: Vital Signs Temp 98.2 F 09/11/23 07:00 Pulse 84 09/11/23 08:45 Resp 18 09/11/23 07:00 BP 92/58 09/11/23 07:00 Pulse Ox 95 09/11/23 07:00 FiO2 Intake & Output 09/10/23 09/11/23 09/11/23 18:59 06:59 18:59 Weight 117.934 kg 117.934 kg Other: # Voids 1 - Labs CBC & Chem 7: 09/11/23 04:03 09/11/23 04:03 Labs: Abnormal Lab Results - Last 24 Hours (Table) 09/10/23 09/10/23 09/10/23 Range/Units 11:55 17:47 22:10 WBC (3.8-10.6) k/uL Neutrophils # (1.3-7.7) k/uL Sodium (137-145) mmol/L BUN (7-17) mg/dL Creatinine (0.52-1.04) mg/dL Glucose (74-99) mg/dL POC Glucose (mg/dL) 121 H 120 H (70-110) mg/dL Hemoglobin A1c (<=6.0) % Triglycerides (0.00-149.00) mg/dL VLDL Cholesterol, Calc (5.00-40.00) mg/dL HDL Cholesterol (40.00-60.00) mg/dL Urine Appearance Turbid H (Clear) Urine Protein 2+ H (Negative) Urine Glucose (UA) 2+ H (Negative) Urine Blood Small H (Negative) Ur Leukocyte Esterase Large H (Negative) Urine RBC >182 H (0-5) /hpf Urine WBC >182 H (0-5) /hpf Urine WBC Clumps Many H (None) /hpf Ur Squamous Epith Cells 13 H (0-4) /hpf Urine Bacteria Rare H (None) /hpf Urine Mucus Few H (None) /hpf 09/11/23 09/11/23 09/11/23 Range/Units 04:03 04:03 04:03 WBC 11.0 H (3.8-10.6) k/uL Neutrophils # 9.2 H (1.3-7.7) k/uL Sodium 133 L (137-145) mmol/L BUN 30 H (7-17) mg/dL Creatinine 1.44 H (0.52-1.04) mg/dL Glucose 168 H (74-99) mg/dL POC Glucose (mg/dL) (70-110) mg/dL Hemoglobin A1c 6.2 H (<=6.0) % Triglycerides 452.00 H (0.00-149.00) mg/dL VLDL Cholesterol, Calc 90.40 H (5.00-40.00) mg/dL HDL Cholesterol 21.40 L (40.00-60.00) mg/dL Urine Appearance (Clear) Urine Protein (Negative) Urine Glucose (UA) (Negative) Urine Blood (Negative) Ur Leukocyte Esterase (Negative) Urine RBC (0-5) /hpf Urine WBC (0-5) /hpf Urine WBC Clumps (None) /hpf Ur Squamous Epith Cells (0-4) /hpf Urine Bacteria (None) /hpf Urine Mucus (None) /hpf 09/11/23 Range/Units 05:39 WBC (3.8-10.6) k/uL Neutrophils # (1.3-7.7) k/uL Sodium (137-145) mmol/L BUN (7-17) mg/dL Creatinine (0.52-1.04) mg/dL Glucose (74-99) mg/dL POC Glucose (mg/dL) 161 H (70-110) mg/dL Hemoglobin A1c (<=6.0) % Triglycerides (0.00-149.00) mg/dL VLDL Cholesterol, Calc (5.00-40.00) mg/dL HDL Cholesterol (40.00-60.00) mg/dL Urine Appearance (Clear) Urine Protein (Negative) Urine Glucose (UA) (Negative) Urine Blood (Negative) Ur Leukocyte Esterase (Negative) Urine RBC (0-5) /hpf Urine WBC (0-5) /hpf Urine WBC Clumps (None) /hpf Ur Squamous Epith Cells (0-4) /hpf Urine Bacteria (None) /hpf Urine Mucus (None) /hpf Microbiology - Last 24 Hours (Table) 09/10/23 09:01 Urine Culture - Final Urine,Voided
[2023-09-11] MEDS ORDERED: DOBUTamine DRIP for NUC MED 500 MG/250 ML BAG IV ONE (12:40)
--- NOTE | 2023-09-11 13:11 | CA ---
Dobutamine Stress Echocardiogram Report Rosa Isela Thorpe Age: 62 Gender: F : 1960 Exam Date: 09/11/2023 12:05 Exam Location: [place] Stress Ordering Physician: Mita Fish Referring Physician: [id number] De La Paz Vice President Regulatory: Gui Joy Technologist: Ht (in): 67 Wt (lb): 260 Procedure CPT: Indication: CP ICD-9 Codes: Rhythm: Patient History: Cardiac Medications: SEE CHART Medications in past 24 hours: Contrast: Definity Total Dose (mL): Stress Results Protocol: Dobutamine Peak Dose (???g/kg/min): 40 Duration (min:sec): Atropine:(mg) 1.0 Target HR: 136 Double Product: [id number] Resting HR: 84 Resting BP: 107 / 61 Peak HR: 129 Peak BP: 121 / 51 Max Predicted HR: 160 81 % Max Predicted HR Stress Summary: BP Response: Reason for Termination: Cardiac Symptoms: NO SYMPTOMS ECG Analysis Resting EKG: Normal sinus rhythm, normal ECG Stress EKG: No abnormal ST/T wave changes with exercise Arrhythmia: None Echo Analysis Base Echo Analysis: Normal resting echocardiogram. Low Echo Anaylsis: Normal wall thickening and motion Peak Echo Analysis: No wall motion changes with stress. Recovery Echo: Normal wall motion MEASUREMENTS (Male/Female) Normal Values CONCLUSIONS 1. Normal electrocardiographic response to dobutamine infusion 2. Normal stress echocardiogram with no evidence of stress- induced ischemia Dr. Eliot Nevarez MD (Electronically Signed) Final Date: 11 September 2023 13:11
[2023-09-11 14:24] LABS: Glucose,Whole Blood 178 mg/dL (70-110)
[2023-09-11] MEDS: METOPROLOL TARTRATE 50 MG TAB PO SCH ×2 (14:37→20:03)
--- NOTE | 2023-09-11 17:15 | CA ---
Transthoracic Echo Report Name: Rosa Isela Thorpe Age: 62 Gender: F : 1960 Exam Date: 09/11/2023 12:46 Exam Location: [place] [facility] Ht (in): 67 Wt (lb): 260 Ordering Physician: Mita Fish Attending/Referring Phys: [id number], Abe Heat Sealing Machine Operator Linda Montesinos RDCS Procedure CPT: Indications: CP, LV function Cardiac Hx: Technical Quality: Poor Contrast 1: Total Dose (mL): Contrast 2: Total Dose (mL): MEASUREMENTS (Male / Female) Normal Values 2D ECHO LV Diastolic Diameter PLAX 5.1 cm 4.2 - 5.9 / 3.9 - 5.3 cm LV Systolic Diameter PLAX 3.7 cm IVS Diastolic Thickness 1.1 cm 0.6 - 1.0 / 0.6 - 0.9 cm LVPW Diastolic Thickness 1.1 cm 0.6 - 1.0 / 0.6 - 0.9 cm LV Relative Wall Thickness 0.4 RV Internal Dim ED PLAX 3.3 cm LA Systolic Diameter LX 3.3 cm 3.0 - 4.0 / 2.7 - 3.8 cm LA Volume 45.9 cm??? 18 - 58 / 22 - 52 cm??? LA Volume Index 19.0 cm???/m??? 16 - 28 cm???/m??? M-MODE Aortic Root Diameter MM 3.5 cm MV E Point Septal Separation 0.9 cm AV Cusp Separation MM 1.6 cm DOPPLER AV Peak Velocity 192.3 cm/s AV Peak Gradient 14.8 mmHg AV Mean Velocity 111.4 cm/s AV Mean Gradient 6.2 mmHg AV Velocity Time Integral 30.3 cm LVOT Peak Velocity 143.2 cm/s LVOT Peak Gradient 8.2 mmHg MV Area PHT 3.7 cm??? Mitral E Point Velocity 77.2 cm/s Mitral A Point Velocity 100.9 cm/s Mitral E to A Ratio 0.8 MV Deceleration Time 205.1 ms MV E' Velocity 11.5 cm/s Mitral E to MV E' Ratio 6.7 TR Peak Velocity 236.2 cm/s TR Peak Gradient 22.3 mmHg Right Ventricular Systolic Press 27.3 mmHg FINDINGS Left Ventricle Left ventricular ejection fraction is estimated at 55-60 %. Left ventricular cavity size normal. Normal left ventricular wall motion. Normal left ventricular diastolic filling pattern. Right Ventricle Mild right ventricular dilatation. Right ventricular systolic pressure within normal limits. Right Atrium Normal right atrial size. Left Atrium Normal left atrial size. Mitral Valve Structurally normal mitral valve. No mitral stenosis,or prolapse.trace to mild mitral regurgitation. Aortic Valve Trileaflet aortic valve. No aortic valve stenosis or regurgitation. Tricuspid Valve Structurally normal tricuspid valve. Trace to mild tricuspid regurgitation. Pulmonic Valve No pulmonic regurgitation.pulmonic valve not well visualized. Pericardium No pericardial effusion. Aorta Normal size aortic root and proximal ascending aorta. CONCLUSIONS Technically difficult study. Definity ECHO contrast used for improved visualization of the endocardial borders (inadequate visualization of two or more contiguous segments). 1. Normal left ventricle size and systolic function 2. Limited Doppler study with trace to mild mitral and tricuspid regurgitation Previewed by: Dr. Eliot Nevarez MD (Electronically Signed) Final Date: 11 September 2023 17:14
[2023-09-11 17:20] LABS: Glucose,Whole Blood 167 mg/dL (70-110)
[2023-09-11] MEDS: ATORVASTATIN 80 MG TAB PO SCH (20:03)
[2023-09-11] MEDS: PARoxetine 20 MG TAB PO SCH (20:03)
[2023-09-11 20:38] LABS: Glucose,Whole Blood 186 mg/dL (70-110)
[2023-09-11 21:22] VITALS: RESP 16
[2023-09-12 04:35] LABS: Basophils % (A) 0 %; Eosinophils # (A) 0.1 k/uL (0-0.7); Eosinophils % (A) 1 %; HCT 38.7 % (34.0-46.0); HGB 12.9 gm/dL (11.4-16.0); Lymphocytes # (A) 1.4 k/uL (1.0-4.8); Lymphocytes % (A) 20 %; MCH 30.1 pg (25.0-35.0); MCHC 33.5 g/dL (31.0-37.0); Mean Platelet Volume 7.6; Monocytes # (A) 0.4 k/uL (0-1.0); Monocytes % (A) 6 %; Neutrophils # (A) 4.6 k/uL (1.3-7.7); Neutrophils % (A) 69 %; Platelet Count 233 k/uL (150-450); RDW 14.9 % (11.5-15.5); WBC 6.6 k/uL (3.8-10.6)
[2023-09-12 05:04] LABS: African American GFR (CKD) 87 (>60 ml/min/1.73 sqM); Anion Gap 10 mmol/L; Blood Urea Nitrogen 17 mg/dL (7-17); Carbon Dioxide 23 mmol/L (22-30); Chloride 102 mmol/L (98-107); Glucose 150 mg/dL (74-99); Non-African American GFR(CKD) 76 (>60 ml/min/1.73 sqM); Potassium 4.1 mmol/L (3.5-5.1); Sodium 135 mmol/L (137-145)
[2023-09-12 06:00] LABS: Glucose,Whole Blood 151 mg/dL (70-110)
[2023-09-12] MEDS: INSULIN ASPART (NovoLOG) 100 UNIT/ML VIAL SQ SCH ×2 (06:01→12:01)
[2023-09-12] MEDS: IPRATROPIUM 0.5 MG/2.5 ML NEBU INHALATION SCH ×2 (07:53→11:24)
[2023-09-12] MEDS: SYMBICORT 160-4.5 MCG INHALER INHALATION SCH (07:53)
[2023-09-12 08:13] VITALS: BP 108/72; TEMP 98
[2023-09-12] MEDS: GABAPENTIN 100 MG CAP PO SCH (08:26)
[2023-09-12] MEDS: METOPROLOL TARTRATE 50 MG TAB PO SCH (08:26)
[2023-09-12] MEDS: busPIRone HCl 10 MG TAB PO SCH (08:26)
[2023-09-12] MEDS: buPROPion XL 150 MG TAB.ER.24H PO SCH (08:26)
[2023-09-12] MEDS: HEPARIN SODIUM,PORCINE 5,000 UNIT/ML 1 ML VIAL SQ SCH (08:27)
[2023-09-12] MEDS: PIPERACILLIN-TAZOBACTAM 3.375 GM in SODIUM CHLORIDE 0.9% 100 ML IVPB SCH (08:27)
[2023-09-12] MEDS: ASPIRIN 81 MG PO SCH (08:27)
[2023-09-12] MEDS: TRIAMCINOLONE 0.1% CREAM 80 GM TUBE TOPICAL SCH (08:33)
--- NOTE | 2023-09-12 11:19 | P.DS ---
Providers Date of admission: 09/11/23 13:11 Expected date of discharge: 09/12/23 Attending physician: Jermaine Rucker MD Primary care physician: Physician Nonstaff Hospital Course: Discharge Diagnosis: Sepsis secondary to Urinary tract infection Acute kidney injury High anion gap metabolic acidosis Atypical chest pain Acute urinary retention Type 2 diabetes Hospital Course: 62-year-old female with history of type 2 diabetes, hypertension, dyslipidemia, COPD, recent urinary tract infection currently on oral antibiotics presenting with intermittent chest pain. In the ED, temperature was 97, pulse 78, respiratory rate 20, blood pressure 112/96 was saturating at 100% on room air. WBC 14.8, sodium 133, bicarb 18, anion gap 17, BUN 32, creatinine 1.8, glucose 214, troponin negative, proBNP 113, urinalysis shows significant leukocyte esterase, and some squamous cells as well. EKG independently interpreted shows first-degree AV block, otherwise sinus rhythm. Chest x-ray independently interpreted, shows no significant opacities. Patient given a dose of Unasyn in the ED, being admitted for chest pain as well as urinary tract infection. Patient was hypotensive, required IV fluid boluses. Blood pressure now impro david. Antibiotics broadened to IV Zosyn given prior history of ESBL UTI. Cardiology consulted. Stress test negative. Echocardiogram shows preserved EF. Culture data not fully available. Patient requesting to go home and she feels well. She will be discharged on oral Bactrim as her prior urine cultures were sensitive to Bactrim. She will make an appointment with her PCP on Friday 09/14 and review of culture data from this hospitalization and change antibiotics accordingly. Patient seen and examined at bedside. Vital signs reviewed and stable. General: nontoxic, no distress, appears at stated age, morbidly obese Derm: warm, dry Head: atraumatic, normocephalic, symmetric Eyes: EOMI, no lid lag, anicteric sclera Mouth: no lip lesion, mucus membranes moist Cardiovascular: S1S2 reg, no murmur Lungs: CTA bilateral, no rhonchi, no rales , no accessory muscle use Abdominal: soft, nontender to palpation, no guarding, no appreciable organomegaly Ext: no gross muscle atrophy, no edema, no contractures Neuro: CN II-XI grossly intact, no focal neuro deficits Psych: Alert, oriented, appropriate affect A total of 33 minutes of time were spent preparing this complex discharge summar y. Patient was discharged on 09/12/23 at 11:03. Patient Condition at Discharge: Stable Plan - Discharge Summary New Discharge Prescriptions: New Sulfamethox-Tmp 800-160Mg [Bactrim DS 800-160 mg] 1 tab PO Q12HR #14 tab Continue Metoprolol Tartrate [Lopressor] 100 mg PO BID PARoxetine HCL [Paxil] 40 mg PO HS metFORMIN HCL [Glucophage] 1,000 mg PO BID Atorvastatin [Lipitor] 80 mg PO HS 30 Days #30 tab busPIRone HCl [Buspar] 20 mg PO BID Budesonide/Formoterol Fumarate [Symbicort 160-4.5 Mcg Inhaler] 2 puff INHALATION RT-BID buPROPion HCL [buPROPion HCL Xl] 450 mg PO DAILY Lisinopril-Hctz 20-12.5 mg [Zestoretic 20-12.5] 1 tab PO DAILY Tiotropium [place] [Spiriva Handihaler] 1 puff INHALATION RT-DAILY Triamcinolone 0.025% Cream [Kenalog 0.025% Cream] 1 applic TOPICAL BID Nortriptyline HCl [Pamelor] 150 mg PO HS Tirzepatide [Mounjaro] 7.5 mg SQ SA Empagliflozin [Jardiance] 25 mg PO DAILY Gabapentin [Neurontin] 200 mg PO TID Discontinued Nitrofurantoin Monohyd/M-Cryst [Macrobid] 100 mg PO Q12HR Discharge Medication List Metoprolol Tartrate [Lopressor] 100 mg PO BID 10/06/18 [History] PARoxetine HCL [Paxil] 40 mg PO HS 10/06/18 [History] metFORMIN HCL [Glucophage] 1,000 mg PO BID 10/06/18 [History] Atorvastatin [Lipitor] 80 mg PO HS 30 Days #30 tab 01/11/20 [Rx] Budesonide/Formoterol Fumarate [Symbicort 160-4.5 Mcg Inhaler] 2 puff INHALATION RT-BID 06/16/23 [History] Nortriptyline HCl [Pamelor] 150 mg PO HS 06/16/23 [History] buPROPion HCL [buPROPion HCL Xl] 450 mg PO DAILY 06/16/23 [History] busPIRone HCl [Buspar] 20 mg PO BID 06/16/23 [History] Lisinopril-Hctz 20-12.5 mg [Zestoretic 20-12.5] 1 tab PO DAILY 07/17/23 [History] Tirzepatide [Mounjaro] 7.5 mg SQ SA 07/17/23 [History] Empagliflozin [Jardiance] 25 mg PO DAILY 07/30/23 [History] Gabapentin [Neurontin] 200 mg PO TID 09/10/23 [History] Tiotropium [place] [Spiriva Handihaler] 1 puff INHALATION RT-DAILY 09/10/23 [History] Triamcinolone 0.025% Cream [Kenalog 0.025% Cream] 1 applic TOPICAL BID 09/10/23 [History] Sulfamethox-Tmp 800-160Mg [Bactrim DS 800-160 mg] 1 tab PO Q12HR #14 tab 09/12/23 [Rx] Follow up Appointment(s)/Referral(s): Nonstaff,Physician [Primary Care Provider] - 1-2 days Patient Instructions/Handouts: Urinary Tract Infection in Women (DC) Activity/Diet/Wound Care/Special Instructions: Please see your PCP on Thursday. Follow up on culture results and may need to change oral antibiotics accordingly. Discharge Disposition: HOME SELF-CARE
[2023-09-12 11:39] LABS: Glucose,Whole Blood 198 mg/dL (70-110)
[2023-09-12 11:53] VITALS: PULSE 80
== END 2023-09-12 15:01 | disposition home or self-care (01) | DRG 872 ==
LOC: EC 07:29 → 6NMEDSUR 13:49 → OBSVTOIN 09-11 13:11
PROVIDERS: ADMIT Student in an Organized Health Care Education/Training Program; ATTEND Student in an Organized Health Care Education/Training Program
DX: A41.9 Sepsis, unspecified organism (principal); E87.20 Acidosis, unspecified; N17.9 Acute kidney failure, unspecified; N39.0 Urinary tract infection, site not specified; Z68.41 Body mass index [BMI] 40.0-44.9, adult; F17.210 Nicotine dependence, cigarettes, uncomplicated; I25.119 Atherosclerotic heart disease of native coronary artery with unspecified angina pectoris; I10 Essential (primary) hypertension; E78.5 Hyperlipidemia, unspecified; E66.01 Morbid (severe) obesity due to excess calories; Z28.21 Immunization not carried out because of patient refusal; Z87.440 Personal history of urinary (tract) infections; Z87.442 Personal history of urinary calculi; R26.81 Unsteadiness on feet; R33.9 Retention of urine, unspecified; I44.0 Atrioventricular block, first degree; R07.89 Other chest pain; Z87.01 Personal history of pneumonia (recurrent); Z79.4 Long term (current) use of insulin; Z79.84 Long term (current) use of oral hypoglycemic drugs; Z79.51 Long term (current) use of inhaled steroids; Z79.899 Other long term (current) drug therapy; Z86.14 Personal history of Methicillin resistant Staphylococcus aureus infection; Z83.3 Family history of diabetes mellitus; Z88.8 Allergy status to other drugs, medicaments and biological substances; Z91.040 Latex allergy status
CPT/HCPCS: 36415; 51701; 51798; 71045; 76770; 80048; 80053; 80061; 81001; 83036; 83605; 83721; 83735; 83880; 84484; 85025; 87040; 87086; 93005; 93306; 93351; 94640; 96365; 96366; 96367; 96372; 99285

== ENCOUNTER 2023-09-16 22:30 | Inpatient (IN) | payer MEDICARE, OTHER ==
[2023-09-16] MEDS ORDERED: SODIUM CHLORIDE 0.9% 2,000 ML IV STA (23:15)
--- NOTE | 2023-09-16 23:17 | ED ---
General Adult HPI - General Chief complaint: Recheck/Abnormal Lab/Rx Stated complaint: SOB Time Seen by Provider: 09/16/23 22:34 Source: EMS Mode of arrival: EMS Limitations: no limitations - History of Present Illness Initial comments: 62 year old Female presenting to the ED with a chief complaint of sepsis. Patient previously admitted at this facility and discharged on 09/12/23 after being admitted for chest pain and UTI. Patient treated with IV antibiotics and discharged home with Bactrim. Today. patient presented to [facility] to increasing suprapubic pain and chills. There, was found to have sepsis and due to reports of recurrent UTI and reported prior history of surgical procedure done to the bladder patient sent to this facility for further care and possible urology consultation. At present, patient denies fever or chills. Does note suprapubic pain. Currently denies chest pain or shortness of breath. No other complaints. - Related Data Home Medications Medication Instructions Recorded Confirmed Metoprolol Tartrate [Lopressor] 100 mg PO BID 10/06/18 09/10/23 PARoxetine HCL [Paxil] 40 mg PO HS 10/06/18 09/10/23 metFORMIN HCL [Glucophage] 1,000 mg PO BID 10/06/18 09/10/23 Budesonide/Formoterol Fumarate 2 puff INHALATION RT-BID 06/16/23 09/10/23 [Symbicort 160-4.5 Mcg Inhaler] Nortriptyline HCl [Pamelor] 150 mg PO HS 06/16/23 09/10/23 buPROPion HCL [buPROPion HCL Xl] 450 mg PO DAILY 06/16/23 09/10/23 busPIRone HCl [Buspar] 20 mg PO BID 06/16/23 09/10/23 Lisinopril-Hctz 20-12.5 mg 1 tab PO DAILY 07/17/23 09/10/23 [Zestoretic 20-12.5] Tirzepatide [Mounjaro] 7.5 mg SQ SA 07/17/23 09/10/23 Empagliflozin [Jardiance] 25 mg PO DAILY 07/30/23 09/10/23 Gabapentin [Neurontin] 200 mg PO TID 09/10/23 09/10/23 Tiotropium [place] [Spiriva 1 puff INHALATION RT-DAILY 09/10/23 09/10/23 Handihaler] Triamcinolone 0.025% Cream 1 applic TOPICAL BID 09/10/23 09/10/23 [Kenalog 0.025% Cream] Previous Rx's Medication Instructions Recorded Atorvastatin [Lipitor] 80 mg PO HS 30 Days #30 tab 01/11/20 Sulfamethox-Tmp 800-160Mg [Bactrim 1 tab PO Q12HR #14 tab 09/12/23 DS 800-160 mg] Allergies Allergy/AdvReac Type Severity Reaction Status Date / Time latex Allergy Rash/Hives Verified 09/10/23 11:04 nicotine AdvReac Severe Itching Verified 09/10/23 11:04 adhesive tape AdvReac Rash/Hives Verified 09/10/23 11:04 fluoxetine [From Prozac] AdvReac Rapid Verified 09/10/23 11:04 Heart Rate Review of Systems ROS Statement: Those systems with pertinent positive or pertinent negative responses have been documented in the HPI. ROS Other: All systems not noted in ROS Statement are negative. Past Medical History Past Medical History: COPD, Diabetes Mellitus, Hyperlipidemia, Hypertension, Pneumonia, Renal Disease Additional Past Medical History / Comment(s): heart murmur. frequent UTIs, kidney stones, neuropathy. WAS SEEN IN [facility] 07/10/23 FOR RT LOWER LOBE PNEUMONIA-WAS ON LEVAQUIN FOR 7 DAYS.-DR. STEWART IS AWARE PER PT History of Any Multi-Drug Resistant Organisms: MRSA, VRE Date of last positivie culture/infection: 03/04/19 VRE / 2016 MRSA MDRO Source:: VRE URINE MRSA LEG Past Surgical History: Section, Cholecystectomy, Hysterectomy, Orthopedic Surgery Additional Past Surgical History / Comment(s): 3 . hysterectomy. kidney surgery - stones-treated with right ureteroscopy with lithotripsy in . right knee surgery. right sided mastitis 09/2018 with lancing, debridement, and packing Additional Past Anesthesia/Blood Transfusion Reaction / Comment(s): states she had a hard time waking up from anesthesia Past Psychological History: Depression Smoking Status: Current every day smoker Past Alcohol Use History: None Reported Additional Past Alcohol Use History / Comment(s): Smokes 10 CIGARETTES DAILY SINCE AGE 22 Past Drug Use History: None Reported - Past Family History Daughter(s) Additional Family Medical History / Comment(s): diverticulitis, depression, Mother Family Medical History: Pulmonary Embolus Additional Family Medical History / Comment(s): HAd depression. from PE Father Family Medical History: Coronary Artery Disease (CAD), Diabetes Mellitus, Hypertension, Myocardial Infarction (VT) Additional Family Medical History / Comment(s): General Exam Limitations: no limitations Neck exam: Present: normal inspection Respiratory exam: Present: normal lung sounds bilaterally Cardiovascular Exam: Present: tachycardia GI/Abdominal exam: Present: distended (Suprapubic and right flank tenderness to palpation) Neurological exam: Present: alert, oriented X3 Skin exam: Present: warm, dry Course Vital Signs 09/16/23 22:32 Temperature 98.3 F Pulse Rate 114 H Respiratory 24 Rate Blood Pressure 110/76 O2 Sat by Pulse 97 Oximetry Medical Decision Making - Medical Decision Making Was pt. sent in by a medical professional or institution (, PA, ELECTRONIC NEWS GATHERING [employer]ER[employer] PERSON, urgent care, hospital, or intermediate...) When possible be specific @ -Patient sent in by [facility] Did you speak to anyone other than the patient for history (EMS, parent, family, police, friend...)? What history was obtained from this source @ -No Did you review nursing and triage notes (agree or disagree)? Why? @ -I reviewed and agree with nursing and triage notes Were old charts reviewed (outside hosp., previous admission, EMS record, old EKG, old radiological studies, urgent care reports/EKG's, intermediate records)? Report findings @ -Prior admission in records from [facility] reviewed. For further details please see HPI. Differential Diagnosis (chest pain, altered mental status, abdominal pain women, abdominal pain men, vaginal bleeding, weakness, fever, dyspnea, syncope, headache, dizziness, GI bleed, back pain, seizure, CVA, palpatations, mental health, musculoskeletal)? @ -Differential Fever: Pneumonia, viral URI, endocarditis, myocarditis, pericarditis, otitis, sinusitis, peritonsillar Abscess, retropharyngeal Abscess, epiglottitis, perito nitis, appendicitis, Cinthia cystitis, diverticulitis, hepatitis, colitis, UTI, PID, TOA, pyelonephritis, prostatitis, epididymitis, meningitis, encephalitis, pulmonary embolism, CVA, thyroid storm, pancreatitis, adrenal crisis, cavernous sinus thrombosis, this is not meant to be an all-inclusive list. EKG interpreted by me (3pts min.). @ -Gauge interpreted by me shows a sinus tachycardia in the [address]-T wave changes. WA 160, QRS 124, QT/QTC 340/405. X-rays interpreted by me (1pt min.). @ -None done CT interpreted by me (1pt min.). @ -None done U/S interpreted by me (1pt. min.). @ -None done What testing was considered but not performed or refused? (CT, X-rays, U/S, labs)? Why? @ -None What meds were considered but not given or refused? Why? @ -None Did you discuss the management of the patient with other professionals (professionals i.e. , PA, ELECT[employer]IC NEWS GATHERING [employer]ER[employer] PERSON, lab, RT, psych nurse, psychotherapist social worker, athletic equipment manager, teacher, chief business officer, outpatient case manager)? Give summary @ -No Was smoking cessation discussed for >3mins.? @ -No Was critical care preformed (if so, how long)? @ -Yes, 20 minutes Were there social determinants of health that impacted care today? How? (Homelessness, low income, unemployed, alcoholism, drug addiction, transportation, low edu. Level, literacy, decrease access to med. care, senior living, re hab)? @ -No Was there de-escalation of care discussed even if they declined (Discuss DNR or withdrawal of care, Hospice)? DNR status @ -No What co-morbidities impacted this encounter? (DM, HTN, Smoking, COPD, CAD, Cancer, CVA, ARF, Chemo, Hep., AIDS, mental health diagnosis, sleep apnea, morbid obesity)? @ -None Was patient admitted / discharged? Hospital course, mention meds given and route, prescriptions, significant lab abnormalities, going to OR and other pertinent info. @ -Admission 62-year-old female transferred from [place] due to sepsis and need for possible urologic urination. Studies done at [facility] showed a CBC with elevated white blood cell count of 14, lactate 7.9. Other significant labs include a sodium of 132, chloride 94, CO2 17, anion gap of 21. Patient received 2 L of fluid and then was started on maintenance fluids, also received a dose of Rocephin, Zofran, morphine. Review of records shows culture here growing Elza glabra ta. Due to this, consult will be admitted for infectious disease. At this time, antibiotics/antifungals held as patient did already receive a dose of Rocephin. Further medication as recommended by infected disease . Patient additionally given another 2 L upon arrival to the ED. [place] body weight calculation@62 kg. Discussed plan of care with patient who is in agreement. Undiagnosed new problem with uncertain prognosis? @ -No Drug Therapy requiring intensive monitoring for toxicity (Heparin, Nitro, Insulin, Cardizem)? @ -No Were any procedures done? @ -No Diagnosis/symptom? @ -Sepsis, pyelonephritis Acute, or Chronic, or Acute on Chronic? @ -Acute Uncomplicated (without systemic symptoms) or Complicated (systemic symptoms)? @ -Complicated Side effects of treatment? @ -No Exacerbation, Progression, or Severe Exacerbation? @ -No Poses a threat to life or bodily function? How? (Chest pain, USA, VT, pneumonia, PE, COPD, DKA, ARF, appy, cholecystitis, CVA, Diverticulitis, Homicidal, Suicidal, threat to staff... and all critical care pts) @ -Yes - Lab Data Result diagrams: 09/16/23 23:00 Lab Results 09/16/23 Range/Units 23:00 WBC 11.7 H (3.8-10.6) k/uL RBC 4.48 (3.80-5.40) m/uL Hgb 13.8 (11.4-16.0) gm/dL Hct 40.3 (34.0-46.0) % MCV 89.8 (80.0-100.0) fL MCH 30.8 (25.0-35.0) pg MCHC 34.3 (31.0-37.0) g/dL RDW 14.9 (11.5-15.5) % Plt Count 356 (150-450) k/uL MPV 7.7 Neutrophils % 64 % Lymphocytes % 26 % Monocytes % 6 % Eosinophils % 1 % Basophils % 0 % Neutrophils # 7.5 (1.3-7.7) k/uL Lymphocytes # 3.0 (1.0-4.8) k/uL Monocytes # 0.7 (0-1.0) k/uL Eosinophils # 0.1 (0-0.7) k/uL Basophils # 0.0 (0-0.2) k/uL Disposition Clinical Impression: Sepsis, Pyelonephritis Disposition: ADMITTED IP TO THIS HOSP Referrals: None,Stated [Primary Care Provider] - 1-2 days Time of Disposition: 23:33
[2023-09-16 23:24] LABS: Basophils % (A) 0 %; Eosinophils # (A) 0.1 k/uL (0-0.7); Eosinophils % (A) 1 %; HCT 40.3 % (34.0-46.0); HGB 13.8 gm/dL (11.4-16.0); Lymphocytes % (A) 26 %; MCH 30.8 pg (25.0-35.0); MCHC 34.3 g/dL (31.0-37.0); MCV 89.8 fL (80.0-100.0); Mean Platelet Volume 7.7; Monocytes # (A) 0.7 k/uL (0-1.0); Monocytes % (A) 6 %; Neutrophils # (A) 7.5 k/uL (1.3-7.7); Neutrophils % (A) 64 %; Platelet Count 356 k/uL (150-450); RBC 4.48 m/uL (3.80-5.40); RDW 14.9 % (11.5-15.5); WBC 11.7 k/uL (3.8-10.6)
[2023-09-16] MEDS ORDERED: HYDROmorphone 2 MG TAB PO PRN (23:33)
[2023-09-16] MEDS ORDERED: HYDROmorphone 0.5 MG/0.5 ML SYRINGE IVP PRN (23:33)
[2023-09-16] MEDS ORDERED: NALOXONE 0.4 MG/ML 1 ML VIAL IV PRN (23:33)
[2023-09-16 23:39] LABS: Prothrombin Time 10.6 sec (10.0-12.5)
[2023-09-16] MEDS: SODIUM CHLORIDE 0.9% 500 ML 500 ML IV SCH ×2 (23:48)
[2023-09-16 23:56] LABS: ALT 22 U/L (4-34); AST 20 U/L (14-36); African American GFR (CKD) 57 (>60 ml/min/1.73 sqM); Albumin 3.8 g/dL (3.5-5.0); Alkaline Phosphatase 106 U/L (38-126); Anion Gap 15 mmol/L; Blood Urea Nitrogen 20 mg/dL (7-17); Calcium 8.8 mg/dL (8.4-10.2); Carbon Dioxide 19 mmol/L (22-30); Chloride 99 mmol/L (98-107); Glucose 142 mg/dL (74-99); Non-African American GFR(CKD) 49 (>60 ml/min/1.73 sqM); Potassium 3.7 mmol/L (3.5-5.1); Sodium 133 mmol/L (137-145); Total Bilirubin 0.5 mg/dL (0.2-1.3); Total Protein 6.3 g/dL (6.3-8.2)
[2023-09-17] MEDS: HYDROmorphone 1 MG/ML 1 ML SYRINGE IVP PRN ×4 (00:17→20:00)
[2023-09-17] MEDS: SODIUM CHLORIDE 0.9% 1,000 ML IV SCH ×2 (01:12→14:43)
[2023-09-17 03:54] LABS: Basophils % (A) 0 %; Eosinophils # (A) 0.1 k/uL (0-0.7); Eosinophils % (A) 1 %; HCT 37.7 % (34.0-46.0); HGB 12.7 gm/dL (11.4-16.0); Lymphocytes # (A) 2.5 k/uL (1.0-4.8); Lymphocytes % (A) 28 %; MCH 30.9 pg (25.0-35.0); MCHC 33.7 g/dL (31.0-37.0); MCV 91.8 fL (80.0-100.0); Mean Platelet Volume 7.4; Monocytes # (A) 0.5 k/uL (0-1.0); Monocytes % (A) 6 %; Neutrophils # (A) 5.7 k/uL (1.3-7.7); Neutrophils % (A) 63 %; Platelet Count 305 k/uL (150-450); RDW 14.9 % (11.5-15.5)
[2023-09-17] MEDS ORDERED: DEXTROSE 50% SYRINGE 50 ML IVP PRN ×2 (09:34)
[2023-09-17] MEDS: buPROPion XL 150 MG TAB.ER.24H PO SCH (10:24)
[2023-09-17] MEDS: busPIRone HCl 10 MG TAB PO SCH ×2 (10:24→21:45)
[2023-09-17] MEDS: METOPROLOL TARTRATE 50 MG TAB PO SCH ×2 (10:25→21:45)
[2023-09-17] MEDS: GABAPENTIN 100 MG CAP PO SCH ×3 (10:25→21:44)
[2023-09-17 11:55] LABS: Glucose,Whole Blood 131 mg/dL (70-110)
--- NOTE | 2023-09-17 12:11 | P.HPIM ---
History of Present Illness H&P Date: 09/17/23 Chief Complaint: Suprapubic pain * 8-year-old patient with past medical history of hypertension, dyslipidemia, diabetes mellitus type 2, COPD who had recent hospitalization for urinary tract infection and was taking outpatient Bactrim presents from an outside hospital with complaints of suprapubic discomfort and chills. * Workup initiated at the time of presentation showed CBC with WBC count of 11.7 lactate of 2.3, serum chemistry sodium 133 potassium of 3.7, potassium 19 BU and 20 creatinine 1.2 liver profile within normal limits * Patient was recently admitted and worked up for chest pain, patient was also treated for urinary tract infection, urine culture grew Elza glabrata patient was prescribed Bactrim * Workup for chest pain and previous hospitalization was negative with stress echocardiogram within normal limits * While in ER patient received fluid bolus 1 L and had already received IV Rocephin at outside hospital * Urine analysis ordered and pending * Infectious disease consulted for further recommendations as well, blood cultures ordered upon admission REVIEW OF SYSTEMS: Suprapubic pain CONSTITUTIONAL: No fever, no malaise, no fatigue. HEENT: No recent visual problems or hearing problems. Denied any sore throat. CARDIOVASCULAR: No chest pain, orthopnea, PND, no palpitations, no syncope. PULMONARY: No shortness of breath, no cough, no hemoptysis. GASTROINTESTINAL: No diarrhea, no nausea, no vomiting, no abdominal pain. NEUROLOGICAL: No headaches, no weakness, no numbness. HEMATOLOGICAL: Denies any bleeding or petechiae. GENITOURINARY: Denies any burning micturition, frequency, or urgency. MUSCULOSKELETAL/RHEUMATOLOGICAL: Denies any joint pain, swelling, or any muscle pain. ENDOCRINE: Denies any polyuria or polydipsia. PHYSICAL EXAMINATION: GENERAL: The patient is alert and oriented x3, not in any acute distress. Well developed, well nourished. Obese HEENT: Pupils are round and equally reacting to light. EOMI. CARDIOVASCULAR: S1 and S2 present. No murmurs, rubs, or gallops. PULMONARY: Chest is clear to auscultation, no wheezing or crackles. ABDOMEN: Soft, nontender, nondistended, normoactive bowel sounds. No palpable organomegaly. MUSCULOSKELETAL: No joint swelling or deformity. EXTREMITIES: No cyanosis, clubbing, or pedal edema. NEUROLOGICAL: Gross neurological examination did not reveal any focal deficits. SKIN: No rashes. Past Medical History Past Medical History: COPD, Diabetes Mellitus, Hyperlipidemia, Hypertension, Pneumonia, Renal Disease Additional Past Medical History / Comment(s): heart murmur. frequent UTIs, kidney stones, neuropathy. WAS SEEN IN [place] ER 07/10/23 FOR RT LOWER LOBE PNEUMONIA-WAS ON LEVAQUIN FOR 7 DAYS.-DR. STEWART IS AWARE PER PT History of Any Multi-Drug Resistant Organisms: MRSA, VRE Date of last positivie culture/infection: 03/04/19 VRE / 2016 MRSA MDRO Source:: VRE URINE MRSA LEG Past Surgical History: Section, Cholecystectomy, Hysterectomy, Orthopedic Surgery Additional Past Surgical History / Comment(s): 3 . hysterectomy. kidney surgery - stones-treated with right ureteroscopy with lithotripsy in . right knee surgery. right sided mastitis 09/2018 with lancing, debridement, and packing Additional Past Anesthesia/Blood Transfusion Reaction / Comment(s): states she had a hard time waking up from anesthesia Past Psychological History: Depression Smoking Status: Current every day smoker Past Alcohol Use History: None Reported Additional Past Alcohol Use History / Comment(s): Smokes 10 CIGARETTES DAILY SINCE AGE 22 Past Drug Use History: None Reported - Past Family History Daughter(s) Additional Family Medical History / Comment(s): diverticulitis, depression, Mother Family Medical History: Pulmonary Embolus Additional Family Medical History / Comment(s): HAd depression. from PE Father Family Medical History: Coronary Artery Disease (CAD), Diabetes Mellitus, Hypertension, Myocardial Infarction ([place]) Additional Family Medical History / Comment(s): Medications and Allergies Home Medications Medication Instructions Recorded Confirmed Type Metoprolol Tartrate [Lopressor] 100 mg PO BID 10/06/18 09/17/23 History PARoxetine HCL [Paxil] 40 mg PO HS 10/06/18 09/17/23 History metFORMIN HCL [Glucophage] 1,000 mg PO BID 10/06/18 09/17/23 History Atorvastatin [Lipitor] 80 mg PO HS 30 Days #30 tab 01/11/20 09/17/23 Rx Budesonide/Formoterol Fumarate 2 puff INHALATION RT-BID 06/16/23 09/17/23 History [Symbicort 160-4.5 Mcg Inhaler] Nortriptyline HCl [Pamelor] 150 mg PO HS 06/16/23 09/17/23 History buPROPion HCL [buPROPion HCL Xl] 450 mg PO DAILY 06/16/23 09/17/23 History busPIRone HCl [Buspar] 20 mg PO BID 06/16/23 09/17/23 History Lisinopril-Hctz 20-12.5 mg 1 tab PO DAILY 07/17/23 09/17/23 History [Zestoretic 20-12.5] Tirzepatide [Mounjaro] 7.5 mg SQ SA 07/17/23 09/17/23 History Empagliflozin [Jardiance] 25 mg PO DAILY 07/30/23 09/17/23 History Gabapentin [Neurontin] 200 mg PO TID 09/10/23 09/17/23 History Tiotropium [place] [Spiriva 1 puff INHALATION RT-DAILY 09/10/23 09/17/23 History Handihaler] Triamcinolone 0.025% Cream 1 applic TOPICAL BID 09/10/23 09/17/23 History [Kenalog 0.025% Cream] Sulfamethox-Tmp 800-160Mg [Bactrim 1 tab PO Q12HR #14 tab 09/12/23 09/17/23 Rx DS 800-160 mg] Allergies Allergy/AdvReac Type Severity Reaction Status Date / Time latex Allergy Rash/Hives Verified 09/17/23 06:58 nicotine AdvReac Severe Itching Verified 09/17/23 06:58 adhesive tape AdvReac Rash/Hives Verified 09/17/23 06:58 fluoxetine [From Prozac] AdvReac Rapid Verified 09/17/23 06:58 Heart Rate Physical Exam Vitals: Vital Signs Temp Pulse Pulse Resp BP BP BP 09/17/23 07:19 97.7 F 104 H 18 130/78 09/17/23 02:00 97.8 F 112 H 18 128/73 09/16/23 23:52 115 H 18 123/63 09/16/23 22:32 98.3 F 114 H 24 110/76 Pulse Ox 09/17/23 07:19 97 09/17/23 02:00 98 09/16/23 23:52 98 09/16/23 22:32 97 Intake and Output 09/16/23 09/17/23 09/17/23 22:59 06:59 14:59 Output Total 200 Balance -200 Output: Urine 200 Other: Weight 117.934 kg 117.934 kg Results CBC & Chem 7: 09/17/23 03:00 09/16/23 23:00 Labs: Abnormal Lab Results - Last 24 Hours (Table) 09/16/23 09/16/23 09/16/23 Range/Units 22:50 23:00 23:00 WBC 11.7 H (3.8-10.6) k/uL Sodium 133 L (137-145) mmol/L Carbon Dioxide 19 L (22-30) mmol/L BUN 20 H (7-17) mg/dL Creatinine 1.20 H (0.52-1.04) mg/dL Glucose 142 H (74-99) mg/dL Plasma Lactic Acid Noe 2.3 H* (0.7-2.0) mmol/L Thrombosis Risk Factor Assmnt - Choose All That Apply Each Factor Represents 1 point: Age 41-60 years Thrombosis Risk Factor Assessment Total Risk Factor Score: 1 Thrombosis Risk Factor Assessment Level: Low Risk Assessment and Plan Assessment: Assessment and plan Sepsis Acute renal failure History of UTI with ESBL COPD Diabetes mellitus type 2 Hypertension History of depression * In regards to sepsis, patient appropriately resuscitated with fluids, blood cultures ordered, repeat urinalysis is ordered, continue patient on IV Rocephin infectious disease consulted * In regards to COPD, continue patient on bronchodilator protocol * In regards to diabetes mellitus continue patient on Accu-Cheks before meals at bedtime continue correctional insulin and metformin on hold secondary to lactic acidosis * In regards to hypertension continue patient on metoprolol. Lisinopril hydrochlorothiazide on hold secondary to renal injury * In regards to depression home medications reviewed and reconciled * CODE STATUS is full code Time with Patient: Greater than 30
[2023-09-17 12:38] LABS: Appearance,Urine Clear (Clear); Bacteria,Urine Rare /hpf; Bilirubin,Urine Negative (Negative); Blood,Urine Negative (Negative); Budding Yeast,Urine Few /hpf; Color,Urine Colorless; Glucose,Urine (UA) 4+ (Negative); Ketones,Urine Negative (Negative); Leukocyte Esterase,Urine Large (Negative); Nitrite,Urine Negative (Negative); Protein,Urine Negative (Negative); RBC,Urine 3 /hpf (0-5); Specific Gravity,Urine 1.014 (1.001-1.035); Squamous Epithelial Cell,Urine 1 /hpf (0-4); Urobilinogen,Urine <2.0 mg/dL (<2.0); WBC,Urine 43 /hpf (0-5)
[2023-09-17] MEDS: INSULIN ASPART (NovoLOG) 100 UNIT/ML VIAL SQ SCH ×3 (13:18→20:57)
[2023-09-17] MEDS: VORICONAZOLE 200 MG TAB PO SCH ×2 (14:43→21:46)
[2023-09-17 16:50] LABS: Glucose,Whole Blood 160 mg/dL (70-110)
[2023-09-17] MEDS: SYMBICORT 160-4.5 MCG INHALER INHALATION SCH (20:16)
[2023-09-17 20:32] LABS: Glucose,Whole Blood 126 mg/dL (70-110)
[2023-09-17] MEDS: ACETAMINOPHEN TAB 325 MG TAB PO PRN (21:44)
[2023-09-17] MEDS: ATORVASTATIN 80 MG TAB PO SCH (21:44)
[2023-09-17] MEDS: PARoxetine 20 MG TAB PO SCH (21:45)
[2023-09-17] MEDS: NORTRIPTYLINE 25 MG CAP PO SCH (21:47)
[2023-09-18] MEDS: SODIUM CHLORIDE 0.9% 1,000 ML IV SCH ×2 (03:30→15:56)
[2023-09-18 06:25] LABS: Glucose,Whole Blood 131 mg/dL (70-110)
[2023-09-18] MEDS: HYDROmorphone 1 MG/ML 1 ML SYRINGE IVP PRN ×2 (06:58→19:02)
[2023-09-18] MEDS: INSULIN ASPART (NovoLOG) 100 UNIT/ML VIAL SQ SCH ×4 (07:48→21:11)
--- NOTE | 2023-09-18 08:46 | P.CONS ---
History of Present Illness - Reason for Consult Consult date: 09/17/23 Pyelonephritis, positive culture for Elza Requesting physician: Christo Spears - Chief Complaint Weakness and lower abd pain x few days - History of Present Illness Patient is a 62-year-old female with a past medical history significant for diabetes mellitus hypertension hyperlipidemia pneumonia COPD patient was recently admitted to the hospital treated for chest pain and did have a UTI patient was subsequently discharged on Bactrim DS culture on 09/10/2023 positive for Elza glabrata patient presented to [facility] because of increasing suprapubic pain and chills patient mention pain has been getting worse for the last few days describes the pain to be sharp moderate to severe in intensity with associated burning of urine he denies any hematuria or flank pain patient subsequently has been sent to this facility concerning for UTI and sepsis patient has been complaining of some chills denies high-grade fever on presentation to the hospital patient was afebrile and no fever has been recorded subsequently patient was mildly tachycardic but not hypotensive or hypoxic and no need for supplemental oxygen work-up included patient did have a white count of 11.7 creatinine was mild elevated 1.20 lactic acid was 2.11 liver enzymes are normal urine has been requested not collected patient was started on Rocephin infectious disease was consulted for further management of antibiotic therapy Review of Systems Positive point and negatives has been mentioned in the HPI, complete review of systems was performed and all other systems are negative Past Medical History Past Medical History: COPD, Diabetes Mellitus, Hyperlipidemia, Hypertension, Pneumonia, Renal Disease Additional Past Medical History / Comment(s): heart murmur. frequent UTIs, kidney stones, neuropathy. WAS SEEN IN [facility] 07/10/23 FOR RT LOWER LOBE PNEUMONIA-WAS ON LEVAQUIN FOR 7 DAYS.-DR. 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 hysterectomy. kidney surgery - stones-treated with right ureteroscopy with lithotripsy in . right knee surgery. right sided mastitis 09/2018 with lancing, debridement, and packing Additional Past Anesthesia/Blood Transfusion Reaction / Comm: states she had a hard time waking up from anesthesia Past Psychological History: Depression Smoking Status: Current every day smoker Past Alcohol Use History: None Reported Additional Past Alcohol Use History / Comment(s): Smokes 10 CIGARETTES DAILY SINCE AGE 22 Past Drug Use History: None Reported - Past Family History Daughter(s) Additional Family Medical History / Comment(s): diverticulitis, depression, Mother Family Medical History: Pulmonary Embolus Additional Family Medical History / Comment(s): HAd depression. from PE Father Family Medical History: Coronary Artery Disease (CAD), Diabetes Mellitus, Hypertension, Myocardial Infarction ([place]) Additional Family Medical History / Comment(s): Medications and Allergies Home Medications Medication Instructions Recorded Confirmed Type Metoprolol Tartrate [Lopressor] 100 mg PO BID 10/06/18 09/17/23 History PARoxetine HCL [Paxil] 40 mg PO HS 10/06/18 09/17/23 History metFORMIN HCL [Glucophage] 1,000 mg PO BID 10/06/18 09/17/23 History Atorvastatin [Lipitor] 80 mg PO HS 30 Days #30 tab 01/11/20 09/17/23 Rx Budesonide/Formoterol Fumarate 2 puff INHALATION RT-BID 06/16/23 09/17/23 History [Symbicort 160-4.5 Mcg Inhaler] Nortriptyline HCl [Pamelor] 150 mg PO HS 06/16/23 09/17/23 History buPROPion HCL [buPROPion HCL Xl] 450 mg PO DAILY 06/16/23 09/17/23 History busPIRone HCl [Buspar] 20 mg PO BID 06/16/23 09/17/23 History Lisinopril-Hctz 20-12.5 mg 1 tab PO DAILY 07/17/23 09/17/23 History [Zestoretic 20-12.5] Tirzepatide [Mounjaro] 7.5 mg SQ SA 07/17/23 09/17/23 History Empagliflozin [Jardiance] 25 mg PO DAILY 07/30/23 09/17/23 History Gabapentin [Neurontin] 200 mg PO TID 09/10/23 09/17/23 History Tiotropium [place] [Spiriva 1 puff INHALATION RT-DAILY 09/10/23 09/17/23 History Handihaler] Triamcinolone 0.025% Cream 1 applic TOPICAL BID 09/10/23 09/17/23 History [Kenalog 0.025% Cream] Sulfamethox-Tmp 800-160Mg [Bactrim 1 tab PO Q12HR #14 tab 09/12/23 09/17/23 Rx DS 800-160 mg] Allergies Allergy/AdvReac Type Severity Reaction Status Date / Time latex Allergy Rash/Hives Verified 09/17/23 06:58 nicotine AdvReac Severe Itching Verified 09/17/23 06:58 adhesive tape AdvReac Rash/Hives Verified 09/17/23 06:58 fluoxetine [From Prozac] AdvReac Rapid Verified 09/17/23 06:58 Heart Rate Physical Exam Vitals: Vital Signs Temp Pulse Pulse Resp BP BP BP 09/17/23 07:19 97.7 F 104 H 18 130/78 09/17/23 02:00 97.8 F 112 H 18 128/73 09/16/23 23:52 115 H 18 123/63 09/16/23 22:32 98.3 F 114 H 24 110/76 Pulse Ox 09/17/23 07:19 97 09/17/23 02:00 98 09/16/23 23:52 98 09/16/23 22:32 97 Intake and Output 09/16/23 09/17/23 09/17/23 22:59 06:59 14:59 Output Total 200 Balance -200 Output: Urine 200 Other: Weight 117.934 kg 117.934 kg GENERAL DESCRIPTION: Middle-aged female lying in bed, no distress. No tachypnea or accessory muscle of respiration use. HEENT: Shows Pallor , no scleral icterus. Oral mucous membrane is dry. No pharyngeal erythema or thrush NECK: Trachea central, no thyromegaly. LUNGS: Unlabored breathing. Clear to auscultation anteriorly. HEART: S1, S2, regular rate and rhythm. No loud murmur ABDOMEN: Soft, no tenderness EXTREMITIES: No edema of feet. SKIN: No rash, no masses palpable. NEUROLOGICAL: The patient is awake, alert, oriented x3, mood and affect normal. Results CBC & Chem 7: 09/17/23 03:00 09/16/23 23:00 Labs: Abnormal Lab Results - Last 24 Hours (Table) 09/16/23 09/16/2309/16/23 Range/Units 22:50 23:00 23:00 WBC 11.7 H (3.8-10.6) k/uL Sodium 133 L (137-145) mmol/L Carbon Dioxide 19 L (22-30) mmol/L BUN 20 H (7-17) mg/dL Creatinine 1.20 H (0.52-1.04) mg/dL Glucose 142 H (74-99) mg/dL Plasma Lactic Acid Noe 2.3 H* (0.7-2.0) mmol/L Assessment and Plan (1) Pyelonephritis Current Visit: Yes Status: Acute Code(s): N12 - TUBULO-INTERSTITIAL NEPHRITIS, NOT SPCF ACUTE OR CHRONIC SNOMED Code(s): 60381943 Plan: 1patient presented to hospital with a suprapubic pain burning and frequency of urine positive UA concerning for a symptomatic urinary tract infection patient did have elevated lactic acid and tachycardia along with elevated white count meeting criteria for SIRS/sepsis likely urinary source 2recent culture positive for Elza glabrata patient failing outpatient Bactrim DS therapy 3-we will request for repeat UA and urine culture 4-start the patient on voriconazole We will follow on clinical condition and cultures to further adjust medication if needed Thank you for this consultation we will follow the patient along with you Dictation was produced using [employer] dictation software. please excuse any grammatical, word or spelling errors. Time with Patient: Greater than 30
[2023-09-18] MEDS: SYMBICORT 160-4.5 MCG INHALER INHALATION SCH ×2 (09:08→20:55)
[2023-09-18] MEDS: IPRATROPIUM 0.5 MG/2.5 ML NEBU INHALATION SCH ×4 (09:09→20:55)
[2023-09-18] MEDS: METOPROLOL TARTRATE 50 MG TAB PO SCH ×2 (09:26→21:11)
[2023-09-18] MEDS: buPROPion XL 150 MG TAB.ER.24H PO SCH (09:34)
[2023-09-18] MEDS: GABAPENTIN 100 MG CAP PO SCH ×3 (09:38→21:09)
[2023-09-18] MEDS: VORICONAZOLE 200 MG TAB PO SCH ×2 (09:39→21:10)
[2023-09-18] MEDS: busPIRone HCl 10 MG TAB PO SCH ×2 (09:39→21:09)
[2023-09-18] MEDS: ENOXAPARIN 40 MG/0.4 ML SYRINGE SQ SCH (09:41)
[2023-09-18 11:01] LABS: HCT 37.7 % (37.2-46.3); HGB 12.1 g/dL (12.0-15.0); MCH 30.3 pg (27.0-32.0); MCHC 32.1 g/dL (32.0-37.0); MCV 94.5 FL (80.0-97.0); Mean Platelet Volume 9.8 FL (9.5-12.2); NRBC Per 100 WBC 0 X 10*3/uL (0.00-0.01); Platelet Count 281 X 10*3/uL (140-440); RBC 3.99 X 10*6/uL (4.10-5.20); RDW 15.1 % (11.5-14.5); WBC 9.45 X 10*3/uL (4.50-10.00)
[2023-09-18 11:13] LABS: BUN/Creat Ratio 11.75 Ratio (12.00-20.00); Blood Urea Nitrogen 9.4 mg/dL (9.0-27.0); Calcium 8.5 mg/dL (8.7-10.3); Carbon Dioxide 20.6 mmol/L (21.6-31.8); Chloride 107 mmol/L (96-109); Glucose 171 mg/dL (70-110); Potassium 4.8 mmol/L (3.5-5.5); Sodium 136 mmol/L (135-145)
--- NOTE | 2023-09-18 11:19 | P.PN ---
Subjective Progress Note Date: 09/18/23 * 62-year-old patient with past medical history of hypertension, dyslipidemia, diabetes mellitus type 2, COPD who had recent hospitalization for urinary tract infection and was taking outpatient Bactrim presents from an outside hospital with complaints of suprapubic discomfort and chills. * Workup initiated at the time of presentation showed CBC with WBC count of 11.7 lactate of 2.3, serum chemistry sodium 133 potassium of 3.7, potassium 19 BU and 20 creatinine 1.2 liver profile within normal limits * Patient was recently admitted and worked up for chest pain, patient was also treated for urinary tract infection, urine culture grew Elza glabrata patient was prescribed Bactrim * Workup for chest pain and previous hospitalization was negative with stress echocardiogram within normal limits * While in ER patient received fluid bolus 1 L and had already received IV Rocephin at outside hospital * Urine analysis ordered and pending * Infectious disease consulted for further recommendations as well, blood cultures ordered upon admission * 09/18: Patient seen and evaluated bedside, renal profile and CBC improving, white pressure within normal limits, patient remains afebrile. Patient continued to complain of suprapubic pain. REVIEW OF SYSTEMS: Suprapubic pain CONSTITUTIONAL: No fever, no malaise, no fatigue. HEENT: No recent visual problems or hearing problems. Denied any sore throat. CARDIOVASCULAR: No chest pain, orthopnea, PND, no palpitations, no syncope. PULMONARY: No shortness of breath, no cough, no hemoptysis. GASTROINTESTINAL: No diarrhea, no nausea, no vomiting, no abdominal pain. NEUROLOGICAL: No headaches, no weakness, no numbness. HEMATOLOGICAL: Denies any bleeding or petechiae. GENITOURINARY: Denies any burning micturition, frequency, or urgency. MUSCULOSKELETAL/RHEUMATOLOGICAL: Denies any joint pain, swelling, or any muscle pain. ENDOCRINE: Denies any polyuria or polydipsia. PHYSICAL EXAMINATION: GENERAL: The patient is alert and oriented x3, not in any acute distress. Well developed, well nourished. Obese HEENT: Pupils are round and equally reacting to light. EOMI. CARDIOVASCULAR: S1 and S2 present. No murmurs, rubs, or gallops. PULMONARY: Chest is clear to auscultation, no wheezing or crackles. ABDOMEN: Soft, tenderness on suprapubic palpation MUSCULOSKELETAL: No joint swelling or deformity. EXTREMITIES: No cyanosis, clubbing, or pedal edema. NEUROLOGICAL: Gross neurological examination did not reveal any focal deficits. SKIN: No rashes. Objective - Vital Signs Vital signs: Vital Signs Temp 97.8 F 09/18/23 07:30 Pulse 72 09/18/23 09:29 Resp 16 09/18/23 07:30 BP 91/53 09/18/23 07:30 Pulse Ox 99 09/18/23 07:30 FiO2 Intake & Output 09/17/23 09/18/23 09/18/23 18:59 06:59 18:59 Intake Total 280 Output Total 1900 900 Balance -1620 -900 Intake: Oral 280 Output: Urine 1900 900 Other: Voiding Method External Catheter External Catheter External Catheter - Labs CBC & Chem 7: 09/18/23 06:42 09/18/23 06:42 Labs: Abnormal Lab Results - Last 24 Hours (Table) 09/17/23 09/17/23 09/17/23 Range/Units 11:30 11:44 16:49 RBC (4.10-5.20) X 10*6/uL RDW (11.5-14.5) % Carbon Dioxide (21.6-31.8) mmol/L BUN/Creatinine Ratio (12.00-20.00) Ratio Glucose (70-110) mg/dL POC Glucose (mg/dL) 131 H 160 H (70-110) mg/dL Calcium (8.7-10.3) mg/dL C-Reactive Protein (0.00-0.80) mg/dL Urine Glucose (UA) 4+ H (Negative) Ur Leukocyte Esterase Large H (Negative) Urine WBC 43 H (0-5) /hpf Urine Bacteria Rare H (None) /hpf Urine Yeast (Budding) Few H (None) /hpf 09/17/23 09/18/23 09/18/23 Range/Units 20:30 06:05 06:42 RBC 3.99 L (4.10-5.20) X 10*6/uL RDW 15.1 H (11.5-14.5) % Carbon Dioxide (21.6-31.8) mmol/L BUN/Creatinine Ratio (12.00-20.00) Ratio Glucose (70-110) mg/dL POC Glucose (mg/dL) 126 H 131 H (70-110) mg/dL Calcium (8.7-10.3) mg/dL C-Reactive Protein (0.00-0.80) mg/dL Urine Glucose (UA) (Negative) Ur Leukocyte Esterase (Negative) Urine WBC (0-5) /hpf Urine Bacteria (None) /hpf Urine Yeast (Budding) (None) /hpf 09/18/23 Range/Units 06:42 RBC (4.10-5.20) X 10*6/uL RDW (11.5-14.5) % Carbon Dioxide 20.6 L (21.6-31.8) mmol/L BUN/Creatinine Ratio 11.75 L (12.00-20.00) Ratio Glucose 171 H (70-110) mg/dL POC Glucose (mg/dL) (70-110) mg/dL Calcium 8.5 L (8.7-10.3) mg/dL C-Reactive Protein 3.50 H (0.00-0.80) mg/dL Urine Glucose (UA) (Negative) Ur Leukocyte Esterase (Negative) Urine WBC (0-5) /hpf Urine Bacteria (None) /hpf Urine Yeast (Budding) (None) /hpf Microbiology - Last 24 Hours (Table) 09/16/23 23:00 Blood Culture - Preliminary Blood 09/16/23 23:15 Blood Culture - Preliminary Blood Assessment and Plan Assessment: Assessment and plan Sepsis secondary to urinary tract infection Acute renal failure History of UTI with ESBL COPD Diabetes mellitus type 2 Hypertension History of depression * In regards to sepsis, patient appropriately resuscitated with fluids, blood cultures no growth to date, urine culture pending. Continue Rocephin and voriconazole Day 2/ CRP 3.5 * In regards to COPD, continue patient on bronchodilator protocol * In regards to diabetes mellitus continue patient on Accu-Cheks before meals at bedtime continue correctional insulin and metformin on hold secondary to lactic acidosis * In regards to hypertension continue patient on metoprolol. Lisinopril hydrochlorothiazide on hold secondary to renal injury, blood pressure on lower and * In regards to depression home medications reviewed and reconciled * CODE STATUS is full code
[2023-09-18] MEDS: ONDANSETRON 4 MG/2 ML VIAL IVP PRN ×2 (11:23→19:02)
[2023-09-18 11:30] LABS: Glucose,Whole Blood 154 mg/dL (70-110)
--- NOTE | 2023-09-18 12:59 | P.PN ---
Subjective Progress Note Date: 09/18/23 Principal diagnosis: Reason for follow-up is a urinary tract infection Patient is a 62-year-old female with a past medical history significant for diabetes mellitus hypertension hyperlipidemia pneumonia COPD patient was recently admitted to the hospital treated for UTI with Bactrim however culture positive for Elza glabrata subsequently readmitted to the hospital with the suprapubic pain urinary burning concerning for symptomatic urinary tract infection. On today's evaluation that is09/18/2023, the patient denies any fever or chills, the patient is breathing comfortably on room air and no need for any supplemental oxygen the patient denies chest pain shortness of breath or cough , patient did have some nausea improved with the dedication no vomiting lower abdominal discomfort slightly decreased to having urinary symptoms no diarrhea rather patient has no bowel movement for about a week. Patient did have 1-9.45, creatinine 0.8. Cultures currently pending Objective - Vital Signs Vital signs: Vital Signs Temp 97.8 F 09/18/23 07:30 Pulse 72 09/18/23 12:16 Resp 16 09/18/23 07:30 BP 91/53 09/18/23 07:30 Pulse Ox 99 09/18/23 07:30 FiO2 Intake & Output 09/17/23 09/18/23 09/18/23 18:59 06:59 18:59 Intake Total 280 Output Total 1900 900 Balance -1620 -900 Intake: Oral 280 Output: Urine 1900 900 Other: Voiding Method External Catheter External Catheter External Catheter - Exam GENERAL DESCRIPTION: Middle-age female up in bed in no distress RESPIRATORY SYSTEM: Unlabored breathing , clear to auscultation anteriorly HEART: S1 S2 regular rate and rhythm , ABDOMEN: Soft , no tenderness EXTREMITIES: No edema feet - Labs CBC & Chem 7: 09/18/23 06:42 09/18/23 06:42 Labs: Abnormal Lab Results - Last 24 Hours (Table) 09/17/23 09/17/23 09/18/23 Range/Units 16:49 20:30 06:05 RBC (4.10-5.20) X 10*6/uL RDW (11.5-14.5) % Carbon Dioxide (21.6-31.8) mmol/L BUN/Creatinine Ratio (12.00-20.00) Ratio Glucose (70-110) mg/dL POC Glucose (mg/dL) 160 H 126 H 131 H (70-110) mg/dL Calcium (8.7-10.3) mg/dL C-Reactive Protein (0.00-0.80) mg/dL 09/18/23 09/18/23 09/18/23 Range/Units 06:42 06:42 11:28 RBC 3.99 L (4.10-5.20) X 10*6/uL RDW 15.1 H (11.5-14.5) % Carbon Dioxide 20.6 L (21.6-31.8) mmol/L BUN/Creatinine Ratio 11.75 L (12.00-20.00) Ratio Glucose 171 H (70-110) mg/dL POC Glucose (mg/dL) 154 H (70-110) mg/dL Calcium 8.5 L (8.7-10.3) mg/dL C-Reactive Protein 3.50 H (0.00-0.80) mg/dL Microbiology - Last 24 Hours (Table) 09/16/23 23:00 Blood Culture - Preliminary Blood 09/16/23 23:15 Blood Culture - Preliminary Blood Assessment and Plan (1) Pyelonephritis Current Visit: Yes Status: Acute Code(s): N12 - TUBULO-INTERSTITIAL NEPHRITIS, NOT SPCF ACUTE OR CHRONIC SNOMED Code(s): 90877787 Plan: 1patient presented to hospital with a suprapubic pain burning and frequency of urine positive UA concerning for a symptomatic urinary tract infection patient did have elevated lactic acid and tachycardia along with elevated white count meeting criteria for SIRS/sepsis likely urinary source 2recent culture positive for Elza glabrata patient failing outpatient Bactrim DS therapy 3-UA is positive cultures are currently pending 4Patient to continue with voriconazole while waiting for the cultures to finalize Dictation was produced using [employer] dictation software. please excuse any grammatical, word or spelling errors. Time with Patient: Less than 30
[2023-09-18] MEDS: SENNOSIDES-DOCUSATE SODIUM 1 EACH TAB PO SCH ×2 (15:56→21:09)
[2023-09-18 16:38] LABS: Glucose,Whole Blood 128 mg/dL (70-110)
[2023-09-18 21:06] LABS: Glucose,Whole Blood 145 mg/dL (70-110)
[2023-09-18] MEDS: ATORVASTATIN 80 MG TAB PO SCH (21:09)
[2023-09-18] MEDS: PARoxetine 20 MG TAB PO SCH (21:09)
[2023-09-18] MEDS: NORTRIPTYLINE 25 MG CAP PO SCH (21:11)
--- NOTE | 2023-09-18 23:37 | CT ---
EXAMINATION TYPE: CT renal stones wo con DATE OF EXAM: 09/18/2023 COMPARISON: CT 09/16/2023 and 06/15/2023 HISTORY: 62-year-old female UTI, flank pain, UTI TECHNIQUE: Contiguous axial scanning of the abdomen and pelvis without IV contrast. Coronal and sagit kieran reconstructions performed. CT DLP: 1605.4 mGycm Automated exposure control for dose reduction was used. FINDINGS: The heart is normal size without pericardial effusion. Scattered coronary artery calcifications are p resent. Strandy atelectasis or scarring in the lower lungs without pleural effusion. There is some pa raspinal soft tissue nodularity in the lower thorax measuring up to 2.1 cm on right and 2.2 cm on the left. Exact etiology is unclear. Nerve sheath tumors are a possibility. Unchanged for 3 months. An a dditional 9-12 month month follow-up recommended. Noncontrast appearance of the liver, right adrenal gland, spleen, atrophic pancreas show no gross abn ormality. Diffuse thickening of the left adrenal gland without discrete nodularity. Slightly malrotated appearance to the right kidney with prominent contour lobulations, similar to 06/02. No hydronephrosis on either side. Mild to moderate atherosclerotic calcifications infrarenal abdominal aorta and common iliac arteries. No dilated small bowel, free fluid, or free air. No mesenteric or retroperitoneal lymphadenopathy. There is normal appendix. There is moderate stool burden. Left-sided colonic diverticulosis. No peric olonic inflammatory change. Mild circumferential bladder wall thickening may be chronic for the patient. Uterus surgically absent . Neither ovary clearly visualized. No abnormal fluid collection in the pelvis or pelvic lymphadenopa thy. Bones: Moderate degenerative change at the hips. Osteitis pubis. Mild to moderate degenerative change SI joints. Hypertrophic facet arthropathy mid to lower lumbar spine. Moderate degenerative disc disease L5-S1. A nterior endplate spondylosis lower thoracic spine. IMPRESSION: 1. PARASPINAL NODULARITY AT THE LOWER THORAX MEASURING UP TO 2.2 CM. NERVE SHEATH TUMORS ARE POSSIBLE . STABLE FOR AT LEAST 3 MONTHS. AN ADDITIONAL 9-12 MONTH FOLLOW-UP CT IS RECOMMENDED TO REASSESS. 2. SIMILAR SLIGHTLY MALROTATED RIGHT KIDNEY WITH PROMINENT LOBULATED CONTOUR. 3. MODERATE STOOL BURDEN. LEFT-SIDED COLONIC DIVERTICULOSIS. NO EVIDENCE FOR ACUTE DIVERTICULITIS. 4. NO NEPHROLITHIASIS OR HYDRONEPHROSIS. 5. MILD CIRCUMFERENTIAL BLADDER WALL THICKENING MAY BE CHRONIC FOR THE PATIENT OR COULD REPRESENT CYS TITIS.
[2023-09-19 06:27] LABS: Glucose,Whole Blood 105 mg/dL (70-110)
[2023-09-19] MEDS: INSULIN ASPART (NovoLOG) 100 UNIT/ML VIAL SQ SCH ×4 (06:29→21:27)
[2023-09-19] MEDS: SODIUM CHLORIDE 0.9% 1,000 ML IV SCH ×2 (06:29→16:46)
[2023-09-19 07:37] LABS: HCT 36.4 % (34.0-46.0); HGB 12.1 gm/dL (11.4-16.0); MCH 30.8 pg (25.0-35.0); MCHC 33.3 g/dL (31.0-37.0); MCV 92.6 fL (80.0-100.0); Platelet Count 260 k/uL (150-450); RBC 3.93 m/uL (3.80-5.40); RDW 14.9 % (11.5-15.5); WBC 6.4 k/uL (3.8-10.6)
[2023-09-19 07:52] LABS: African American GFR (CKD) >90 (>60 ml/min/1.73 sqM); Anion Gap 7 mmol/L; Blood Urea Nitrogen 8 mg/dL (7-17); Calcium 8.6 mg/dL (8.4-10.2); Carbon Dioxide 23 mmol/L (22-30); Chloride 106 mmol/L (98-107); Glucose 119 mg/dL (74-99); Non-African American GFR(CKD) >90 (>60 ml/min/1.73 sqM); Potassium 4.4 mmol/L (3.5-5.1); Sodium 136 mmol/L (137-145)
[2023-09-19 08:17] LABS: C Reactive Protein 5.5 mg/dL (<1.0)
[2023-09-19] MEDS: IPRATROPIUM 0.5 MG/2.5 ML NEBU INHALATION SCH ×4 (08:45→20:57)
[2023-09-19] MEDS: SYMBICORT 160-4.5 MCG INHALER INHALATION SCH ×2 (08:45→20:59)
[2023-09-19] MEDS: VORICONAZOLE 200 MG TAB PO SCH ×2 (10:07→21:36)
[2023-09-19] MEDS: METOPROLOL TARTRATE 50 MG TAB PO SCH ×3 (10:07→21:36)
[2023-09-19] MEDS: GABAPENTIN 100 MG CAP PO SCH ×3 (10:07→21:36)
[2023-09-19] MEDS: buPROPion XL 150 MG TAB.ER.24H PO SCH (10:07)
[2023-09-19] MEDS: busPIRone HCl 10 MG TAB PO SCH ×2 (10:08→21:36)
[2023-09-19] MEDS: SENNOSIDES-DOCUSATE SODIUM 1 EACH TAB PO SCH ×2 (10:08→21:35)
[2023-09-19] MEDS: ENOXAPARIN 40 MG/0.4 ML SYRINGE SQ SCH (10:08)
[2023-09-19 11:58] LABS: Glucose,Whole Blood 99 mg/dL (70-110)
--- NOTE | 2023-09-19 13:15 | P.PN ---
Subjective Progress Note Date: 09/19/23 * 62-year-old patient with past medical history of hypertension, dyslipidemia, diabetes mellitus type 2, COPD who had recent hospitalization for urinary tract infection and was taking outpatient Bactrim presents from an outside hospital with complaints of suprapubic discomfort and chills. * Workup initiated at the time of presentation showed CBC with WBC count of 11.7 lactate of 2.3, serum chemistry sodium 133 potassium of 3.7, potassium 19 BU and 20 creatinine 1.2 liver profile within normal limits * Patient was recently admitted and worked up for chest pain, patient was also treated for urinary tract infection, urine culture grew Elza glabrata patient was prescribed Bactrim * Workup for chest pain and previous hospitalization was negative with stress echocardiogram within normal limits * While in ER patient received fluid bolus 1 L and had already received IV Rocephin at outside hospital * Urine analysis ordered and pending * Infectious disease consulted for further recommendations as well, blood cultures ordered upon admission * 09/18: Patient seen and evaluated bedside, renal profile and CBC improving, white pressure within normal limits, patient remains afebrile. Patient continued to complain of suprapubic pain. * 09/19: Patient seen and evaluated bedside, patient requesting discharge, antifungal sent to pharmacy however not available at this point hence infectious disease wants patient to stay suprapubic discomfort has improved we'll continue to monitor CBC and basic metabolic panel. CT renal protocol reviewed negative for renal stone, paraspinal noted likely noted discussed wi th patient she will need to repeat computed tomography scan in 3 months will need to follow-up with PCP REVIEW OF SYSTEMS: Suprapubic pain improved CONSTITUTIONAL: No fever, no malaise, no fatigue. HEENT: No recent visual problems or hearing problems. Denied any sore throat. CARDIOVASCULAR: No chest pain, orthopnea, PND, no palpitations, no syncope. PULMONARY: No shortness of breath, no cough, no hemoptysis. GASTROINTESTINAL: No diarrhea, no nausea, no vomiting, no abdominal pain. NEUROLOGICAL: No headaches, no weakness, no numbness. HEMATOLOGICAL: Denies any bleeding or petechiae. GENITOURINARY: Denies any burning micturition, frequency, or urgency. MUSCULOSKELETAL/RHEUMATOLOGICAL: Denies any joint pain, swelling, or any muscle pain. ENDOCRINE: Denies any polyuria or polydipsia. PHYSICAL EXAMINATION: GENERAL: The patient is alert and oriented x3, not in any acute distress. Well developed, well nourished. Obese HEENT: Pupils are round and equally reacting to light. EOMI. CARDIOVASCULAR: S1 and S2 present. No murmurs, rubs, or gallops. PULMONARY: Chest is clear to auscultation, no wheezing or crackles. ABDOMEN: Soft, tenderness on suprapubic palpation MUSCULOSKELETAL: No joint swelling or deformity. EXTREMITIES: No cyanosis, clubbing, or pedal edema. NEUROLOGICAL: Gross neurological examination did not reveal any focal deficits. SKIN: No rashes. Objective - Vital Signs Vital signs: Vital Signs Temp 98.6 F 09/19/23 07:15 Pulse 74 09/19/23 12:03 Resp 17 09/19/23 07:15 BP 105/70 09/19/23 07:15 Pulse Ox 97 09/19/23 07:15 FiO2 Intake & Output 09/18/23 09/19/23 09/19/23 18:59 06:59 18:59 Intake Total 1080 Output Total 600 3000 Balance 480 -3000 Intake: Oral 1080 Output: Urine 600 3000 Other: Voiding Method External Catheter Diaper Diaper External Catheter # Voids 2 - Labs CBC & Chem 7: 09/19/23 07:04 09/19/23 07:04 Labs: Abnormal Lab Results - Last 24 Hours (Table) 09/18/23 09/18/23 09/19/23 Range/Units 16:38 21:05 07:04 Sodium 136 L (137-145) mmol/L Glucose 119 H (74-99) mg/dL POC Glucose (mg/dL) 128 H 145 H (70-110) mg/dL C-Reactive Protein 5.5 H (<1.0) mg/dL Microbiology - Last 24 Hours (Table) 09/16/23 23:00 Blood Culture - Preliminary Blood 09/16/23 23:15 Blood Culture - Preliminary Blood 09/17/23 11:30 Urine Culture - Final Urine,Voided Assessment and Plan Assessment: Assessment and plan Sepsis secondary to urinary tract infection Acute renal failure resolved Paraspinal nodularity rule out no sheet tumor> repeat CT in 3 months recommended History of UTI with ESBL COPD Diabetes mellitus type 2 Hypertension History of depression * In regards to sepsis, patient appropriately resuscitated with fluids, blood cultures no growth to date, urine culture show gentle [place]. Continue Rocephin and voriconazole Day 3 / CRP 3.5>> CT abdomen pelvis negative for renal stones * In regards to COPD, continue patient on bronchodilator protocol * In regards to diabetes mellitus continue patient on Accu-Cheks before meals at bedtime continue correctional insulin and metformin on hold secondary to lactic acidosis * In regards to hypertension continue patient on metoprolol. Lisinopril hydrochlorothiazide on hold secondary to renal injury, blood pressure on lower end * In regards to depression home medications reviewed and reconciled * In regards to abnormal CT/a plan discussed with patient recommended repeat CT in 3 months need to follow-up with PCP * CODE STATUS is full code
[2023-09-19 16:43] LABS: Glucose,Whole Blood 120 mg/dL (70-110)
--- NOTE | 2023-09-19 19:54 | P.PN ---
Subjective Progress Note Date: 09/19/23 Principal diagnosis: Reason for follow-up is a urinary tract infection Patient is a 62-year-old female with a past medical history significant for diabetes mellitus hypertension hyperlipidemia pneumonia COPD patient was recently admitted to the hospital treated for UTI with Bactrim however culture positive for Elza glabrata subsequently readmitted to the hospital with the suprapubic pain urinary burning concerning for symptomatic urinary tract infection. On today's evaluation that is 09/19/2023, the patient remains to be afebrile, the patient is breathing comfortably on room air, the patient denies shortness of breath, chest pain and no cough , patient denies nausea/vomiting and no diarrhea , lower abdominal pain and urinary symptoms has improved Patient WBC 6.4, creatinine 0.71 Urine Cultures so far negative Objective - Vital Signs Vital signs: Vital Signs Temp 98.6 F 09/19/23 07:15 Pulse 72 09/19/23 09:00 Resp 17 09/19/23 07:15 BP 105/70 09/19/23 07:15 Pulse Ox 97 09/19/23 07:15 FiO2 Intake & Output 09/18/23 09/19/23 09/19/23 18:59 06:59 18:59 Intake Total 1080 Output Total 600 3000 Balance 480 -3000 Intake: Oral 1080 Output: Urine 600 3000 Other: Voiding Method External Catheter Diaper Diaper External Catheter # Voids 2 - Exam GENERAL DESCRIPTION: Middle-age female up in bed in no distress RESPIRATORY SYSTEM: Unlabored breathing , clear to auscultation anteriorly HEART: S1 S2 regular rate and rhythm , ABDOMEN: Soft , no tenderness EXTREMITIES: No edema feet - Labs CBC & Chem 7: 09/19/23 07:04 09/19/23 07:04 Labs: Abnormal Lab Results - Last 24 Hours (Table) 09/18/23 09/18/23 09/19/23 Range/Units 16:38 21:05 07:04 Sodium 136 L (137-145) mmol/L Glucose 119 H (74-99) mg/dL POC Glucose (mg/dL) 128 H 145 H (70-110) mg/dL C-Reactive Protein 5.5 H (<1.0) mg/dL Microbiology - Last 24 Hours (Table) 09/16/23 23:00 Blood Culture - Preliminary Blood 09/16/23 23:15 Blood Culture - Preliminary Blood 09/17/23 11:30 Urine Culture - Final Urine,Voided Assessment and Plan (1) Pyelonephritis Current Visit: Yes Status: Acute Code(s): N12 - TUBULO-INTERSTITIAL NEPHRITIS, NOT SPCF ACUTE OR CHRONIC SNOMED Code(s): 08328445 Plan: 1patient presented to hospital with a suprapubic pain burning and frequency of urine positive UA concerning for a symptomatic urinary tract infection patient did have elevated lactic acid and tachycardia along with elevated white count meeting criteria for SIRS/sepsis likely urinary source 2recent culture positive for Elza glabrata patient failing outpatient Bactrim DS therapy 3-UA is positive cultures are currently negative 4Patient has shown clinical improvemnt with voriconazole , prescription has been sent to pharmacy if drug available , pt will be able to go home , discussed with RN as well admitting physician Dictation was produced using [employer] dictation software. please excuse any grammatical, word or spelling errors. Time with Patient: Less than 30
[2023-09-19 20:18] LABS: Glucose,Whole Blood 128 mg/dL (70-110)
[2023-09-19] MEDS: ATORVASTATIN 80 MG TAB PO SCH (21:35)
[2023-09-19] MEDS: PARoxetine 20 MG TAB PO SCH (21:35)
[2023-09-19] MEDS: NORTRIPTYLINE 25 MG CAP PO SCH (21:36)
[2023-09-19] MEDS: ACETAMINOPHEN TAB 325 MG TAB PO PRN (21:36)
[2023-09-20 05:21] LABS: Glucose,Whole Blood 149 mg/dL (70-110)
[2023-09-20] MEDS: INSULIN ASPART (NovoLOG) 100 UNIT/ML VIAL SQ SCH ×2 (05:40→12:19)
[2023-09-20 08:21] VITALS: BP 112/76; RESP 17; TEMP 98.4
[2023-09-20] MEDS: SYMBICORT 160-4.5 MCG INHALER INHALATION SCH (08:57)
[2023-09-20] MEDS: IPRATROPIUM 0.5 MG/2.5 ML NEBU INHALATION SCH ×2 (08:57→12:05)
[2023-09-20 09:11] VITALS: PULSE 76
[2023-09-20] MEDS: busPIRone HCl 10 MG TAB PO SCH (09:47)
[2023-09-20] MEDS: METOPROLOL TARTRATE 50 MG TAB PO SCH (09:47)
[2023-09-20] MEDS: GABAPENTIN 100 MG CAP PO SCH (09:47)
[2023-09-20] MEDS: ENOXAPARIN 40 MG/0.4 ML SYRINGE SQ SCH (09:48)
[2023-09-20] MEDS: SENNOSIDES-DOCUSATE SODIUM 1 EACH TAB PO SCH (09:48)
[2023-09-20] MEDS: SODIUM CHLORIDE 0.9% 1,000 ML IV SCH (09:48)
[2023-09-20] MEDS: ACETAMINOPHEN TAB 325 MG TAB PO PRN (09:55)
[2023-09-20] MEDS: buPROPion XL 150 MG TAB.ER.24H PO SCH (09:56)
[2023-09-20] MEDS: VORICONAZOLE 200 MG TAB PO SCH (09:57)
--- NOTE | 2023-09-20 12:19 | P.PN ---
Subjective Progress Note Date: 09/20/23 Principal diagnosis: Reason for follow-up is a urinary tract infection Patient is a 62-year-old female with a past medical history significant for diabetes mellitus hypertension hyperlipidemia pneumonia COPD patient was recently admitted to the hospital treated for UTI with Bactrim however culture positive for Elza glabrata subsequently readmitted to the hospital with the suprapubic pain urinary burning concerning for symptomatic urinary tract infection. On today's evaluation that is 09/20/2023, the patient continues to be afebrile, the patient is breathing comfortably on room air and no need for supplemental oxygen, the patient denies chest pain shortness of breath or cough , patient denies nausea/vomiting , lower abdominal pain and urinary symptoms have improved Patient WBC 6.4, creatinine 0.71 as of 09/19/2023 no lab draw today Urine Cultures so far negative Objective - Vital Signs Vital signs: Vital Signs Temp 98.4 F 09/20/23 07:07 Pulse 76 09/20/23 09:10 Resp 17 09/20/23 07:07 BP 112/76 09/20/23 07:07 Pulse Ox 95 09/20/23 07:07 FiO2 Intake & Output 09/19/23 09/20/23 09/20/23 18:59 06:59 18:59 Output Total 4150 4100 Balance -4150 -4100 Output: Urine 4150 4100 Other: Voiding Method Diaper Incontinent External Catheter External Catheter - Exam GENERAL DESCRIPTION: Middle-age female up in bed in no distress RESPIRATORY SYSTEM: Unlabored breathing , clear to auscultation anteriorly HEART: S1 S2 regular rate and rhythm , ABDOMEN: Soft , no tenderness EXTREMITIES: No edema feet - Labs CBC & Chem 7: 09/19/23 07:04 09/19/23 07:04 Labs: Abnormal Lab Results - Last 24 Hours (Table) 09/19/23 09/19/23 09/20/23 Range/Units 16:41 20:16 05:20 POC Glucose (mg/dL) 120 H 128 H 149 H (70-110) mg/dL Microbiology - Last 24 Hours (Table) 09/16/23 23:00 Blood Culture - Preliminary Blood 09/16/23 23:15 Blood Culture - Preliminary Blood Assessment and Plan (1) Pyelonephritis Current Visit: Yes Status: Acute Code(s): N12 - TUBULO-INTERSTITIAL NEPHRITIS, NOT SPCF ACUTE OR CHRONIC SNOMED Code(s): 63066615 Plan: 1patient presented to hospital with a suprapubic pain burning and frequency of urine positive UA concerning for a symptomatic urinary tract infection patient did have elevated lactic acid and tachycardia along with elevated white count meeting criteria for SIRS/sepsis likely urinary source 2recent culture positive for Elza glabrata patient failing outpatient B actrim DS therapy 3-UA is positive however culture this admission has been negative 4Patient has shown clinical improvemnt and plan is to continue with voriconazole for another 6 days to finish a course of therapy Dictation was produced using [employer] dictation software. please excuse any grammatical, word or spelling errors. Time with Patient: Less than 30
--- NOTE | 2023-09-20 12:35 | P.DS ---
Providers Date of admission: 09/16/23 23:36 Expected date of discharge: 09/20/23 Attending physician: Sari Hairston Consults: 09/16/23 23:33 Consult Physician Urgent Consulting Provider: Qamar Oro Consult Reason/Comments: pyelonephritis (+) Culture for alexys glabrata Do you want consulting provider notified?: Yes Primary care physician: Jam Coto [facility] Hospital Course: * 62-year-old patient with past medical history of hypertension, dyslipidemia, diabetes mellitus type 2, COPD who had recent hospitalization for urinary tract infection and was taking outpatient Bactrim presents from an outside hospital with complaints of suprapubic discomfort and chills. * Workup initiated at the time of presentation showed CBC with WBC count of 11.7 lactate of 2.3, serum chemistry sodium 133 potassium of 3.7, potassium 19 BU and 20 creatinine 1.2 liver profile within normal limits * Patient was recently admitted and worked up for chest pain, patient was also treated for urinary tract infection, urine culture grew Alexys glabrata patient was prescribed Bactrim * Workup for chest pain and previous hospitalization was negative with stress echocardiogram within normal limits * While in ER patient received fluid bolus 1 L and had already received IV Rocephin at outside hospital * Urine analysis ordered and pending * Infectious disease consulted for further recommendations as well, blood cultures ordered upon admission * 09/18: Patient seen and evaluated bedside, renal profile and CBC improving, white pressure within normal limits, patient remains afebrile. Patient continued to complain of suprapubic pain. * 09/19: Patient seen and evaluated bedside, patient requesting discharge, antifungal sent to pharmacy however not available at this point hence infectious disease wants patient to stay suprapubic discomfort has improved we'll continue to monitor CBC and basic metabolic panel. CT renal protocol reviewed negative for renal stone, paraspinal noted likely noted discussed wi th patient she will need to repeat computed tomography scan in 3 months will need to follow-up with PCP * 09/20: Patient seen and evaluated bedside, patient remains afebrile nontoxic, continue patient on voriconazole medicine provided prescription sent to pharmacy doctor at bedside all questions answered will need outpatient CT abdomen pelvis this was explained to the patient is well REVIEW OF SYSTEMS: Suprapubic pain improved CONSTITUTIONAL: No fever, no malaise, no fatigue. HEENT: No recent visual problems or hearing problems. Denied any sore throat. CARDIOVASCULAR: No chest pain, orthopnea, PND, no palpitations, no syncope. PULMONARY: No shortness of breath, no cough, no hemoptysis. GASTROINTESTINAL: No diarrhea, no nausea, no vomiting, no abdominal pain. NEUROLOGICAL: No headaches, no weakness, no numbness. HEMATOLOGICAL: Denies any bleeding or petechiae. GENITOURINARY: Denies any burning micturition, frequency, or urgency. MUSCULOSKELETAL/RHEUMATOLOGICAL: Denies any joint pain, swelling, or any muscle pain. ENDOCRINE: Denies any polyuria or polydipsia. PHYSICAL EXAMINATION: GENERAL: The patient is alert and oriented x3, not in any acute distress. Well developed, well nourished. Obese HEENT: Pupils are round and equally reacting to light. EOMI. CARDIOVASCULAR: S1 and S2 present. No murmurs, rubs, or gallops. PULMONARY: Chest is clear to auscultation, no wheezing or crackles. ABDOMEN: Soft, suprapubic tenderness resolved MUSCULOSKELETAL: No joint swelling or deformity. EXTREMITIES: No cyanosis, clubbing, or pedal edema. NEUROLOGICAL: Gross neurological examination did not reveal any focal deficits. SKIN: No rashes. Assessment: Assessment and plan Sepsis secondary to urinary tract infection Acute renal failure resolved Paraspinal nodularity rule out no sheet tumor> repeat CT in 3 months recommended History of UTI with ESBL COPD Diabetes mellitus type 2 Hypertension History of depression * In regards to sepsis, patient appropriately resuscitated with fluids, blood cultures no growth to date, urine culture show gentle [place]. Continue Rocephin and voriconazole Day 4 / CRP 3.5>> CT abdomen pelvis negative for renal stones * In regards to COPD, continue patient on bronchodilator protocol * In regards to diabetes mellitus continue patient on Accu-Cheks before meals at bedtime continue correctional insulin and metformin on hold secondary to lactic acidosis * In regards to hypertension continue patient on metoprolol. Lisinopril hydrochlorothiazide on hold secondary to renal injury, blood pressure on lower end * In regards to depression home medications reviewed and reconciled * In regards to abnormal CT/a plan discussed with patient recommended repeat CT in 3 months need to follow-up with PCP * CODE STATUS is full code Patient Condition at Discharge: Stable Plan - Discharge Summary Discharge Rx Participant: Yes New Discharge Prescriptions: New Voriconazole [Vfend] 200 mg PO Q12HR #12 tablet Continue Metoprolol Tartrate [Lopressor] 100 mg PO BID PARoxetine HCL [Paxil] 40 mg PO HS metFORMIN HCL [Glucophage] 1,000 mg PO BID Atorvastatin [Lipitor] 80 mg PO HS 30 Days #30 tab busPIRone HCl [Buspar] 20 mg PO BID Budesonide/Formoterol Fumarate [Symbicort 160-4.5 Mcg Inhaler] 2 puff INHALATION RT-BID buPROPion HCL [buPROPion HCL Xl] 450 mg PO DAILY Lisinopril-Hctz 20-12.5 mg [Zestoretic 20-12.5] 1 tab PO DAILY Tiotropium [place] [Spiriva Handihaler] 1 puff INHALATION RT-DAILY Triamcinolone 0.025% Cream [Kenalog 0.025% Cream] 1 applic TOPICAL BID Nortriptyline HCl [Pamelor] 150 mg PO HS Tirzepatide [Mounjaro] 7.5 mg SQ SA Empagliflozin [Jardiance] 25 mg PO DAILY Gabapentin [Neurontin] 200 mg PO TID Discontinued Sulfamethox-Tmp 800-160Mg [Bactrim DS 800-160 mg] 1 tab PO Q12HR #14 tab Discharge Medication List Metoprolol Tartrate [Lopressor] 100 mg PO BID 10/06/18 [History] PARoxetine HCL [Paxil] 40 mg PO HS 10/06/18 [History] metFORMIN HCL [Glucophage] 1,000 mg PO BID 10/06/18 [History] Atorvastatin [Lipitor] 80 mg PO HS 30 Days #30 tab 01/11/20 [Rx] Budesonide/Formoterol Fumarate [Symbicort 160-4.5 Mcg Inhaler] 2 puff INHALATION RT-BID 06/16/23 [History] Nortriptyline HCl [Pamelor] 150 mg PO HS 06/16/23 [History] buPROPion HCL [buPROPion HCL Xl] 450 mg PO DAILY 06/16/23 [History] busPIRone HCl [Buspar] 20 mg PO BID 06/16/23 [History] Lisinopril-Hctz 20-12.5 mg [Zestoretic 20-12.5] 1 tab PO DAILY 07/17/23 [History] Tirzepatide [Mounjaro] 7.5 mg SQ SA 07/17/23 [History] Empagliflozin [Jardiance] 25 mg PO DAILY 07/30/23 [History] Gabapentin [Neurontin] 200 mg PO TID 09/10/23 [History] Tiotropium [place] [Spiriva Handihaler] 1 puff INHALATION RT-DAILY 09/10/23 [History] Triamcinolone 0.025% Cream [Kenalog 0.025% Cream] 1 applic TOPICAL BID 09/10/23 [History] Voriconazole [Vfend] 200 mg PO Q12HR #12 tablet 09/19/23 [Rx] Follow up Appointment(s)/Referral(s): [facility] [NON-STAFF] - As Needed Qamar Oro MD [STAFF PHYSICIAN] - 1 Week Jam Coto MD [Primary Care Provider] - 1 Week (You will need a follow-up CT abdomen pelvis in 3 months, fpr [paraspinal nodurality noted in CT ) Discharge Disposition: HOME SELF-CARE
== END 2023-09-20 13:11 | disposition home or self-care (01) | DRG 872 ==
LOC: EC 22:30 → 4SSUR 23:36
PROVIDERS: ADMIT Hospitalist; ATTEND Hospitalist
DX: B37.7 Candidal sepsis (principal); J44.0 Chronic obstructive pulmonary disease with (acute) lower respiratory infection; N17.9 Acute kidney failure, unspecified; N12 Tubulo-interstitial nephritis, not specified as acute or chronic; E87.20 Acidosis, unspecified; E78.5 Hyperlipidemia, unspecified; Z82.49 Family history of ischemic heart disease and other diseases of the circulatory system; I10 Essential (primary) hypertension; F32.A Depression, unspecified; E11.9 Type 2 diabetes mellitus without complications; F17.210 Nicotine dependence, cigarettes, uncomplicated; Z79.51 Long term (current) use of inhaled steroids; Z79.84 Long term (current) use of oral hypoglycemic drugs; Z79.899 Other long term (current) drug therapy; Z87.440 Personal history of urinary (tract) infections; Z87.442 Personal history of urinary calculi; Z90.710 Acquired absence of both cervix and uterus; Z90.49 Acquired absence of other specified parts of digestive tract; Z91.040 Latex allergy status; R35.0 Frequency of micturition; Z87.01 Personal history of pneumonia (recurrent)
CPT/HCPCS: 36415; 74150; 80048; 80053; 81001; 83605; 85025; 85027; 85610; 85730; 86140; 87040; 87086; 93005; 94640; 96361; 96374; 99285